=== PATIENT | female | born 1935 | race Caucasian/White ===

== ENCOUNTER 2016-07-03 10:43 | Inpatient (IN) | payer OTHER, BC ==
[2016-07-03] VITALS (7 sets, daily range): BP systolic 177–187; BP diastolic 60–86; PULSE 77–85; TEMP 36.4–36.7; O2SAT 97–98; Ht 149.9 cm; Wt 71.6 kg
[~2016-07-03] VITALS: Ht 149.9 cm; Wt 71.6 kg
[~2016-07-03 10:43] MED LIST: ATOR-54 PO; CLOP1TAB5 PO; METO100T7 PO
--- NOTE | 2016-07-03 11:11 | EMERGENCY ROOM VISIT NOTE ---
History Report prepared by Javier: Elise Stearns Under the Supervision of: Dr. Benny Martinez D.O. First contact with patient: 10:56 Chief Complaint: ABDOMINAL PAIN Stated Complaint: GENERALIZED WEAKNESS/FLU LIKE SX Nursing Triage Summary: Pt states she had flu like symptoms last week and black stool. Last night abd pain and diarrhea worsened. Noticed mucus in stool and blood on paper when she wiped. Pt also states shes weak. History of Present Illness The patient is a 80 year old female who presents to the Emergency Room with complaints of intermittent bloody stool beginning last night. The patient states that she has had flu-like symptoms for the last week. She complains of diarrhea, slime in the stool, and weakness. She denies any fever, chills, nausea , vomiting, history of heart attack, smoking, and heart stent. She reports that she has a history of stent in her right leg, amputated left leg from peripheral artery disease 6 years ago, hemorrhoids, cholecystectomy, and surgery on her ovary. The patient notes that she has never had a colonoscopy. She rates her pain as a 4/10 in severity. Source of History: patient Onset: last night Position: other (stool) Symptom Intensity: 4/10 Quality: other (bloody) Timing: intermittent Associated Symptoms: + diarrhea, + weakness, No chills, No fevers, No nausea , No vomiting Review of Systems See above for pertinent positives & negatives. A total of 10 systems reviewed and were otherwise negative. Past Medical & Surgical Medical Problems: (1) Peripheral arterial disease Family History Omitted due to age Social History Smoking Status: Never Smoker Alcohol Use: none Drug Use: none Marital Status: Housing Status: lives alone Occupation Status: retired Current/Historical Medications Scheduled Allopurinol (Allopurinol), 200 MG PO DAILY Atorvastatin (Atorvastatin Calcium), 10 MG PO DAILY Chlorthalidone (Chlorthalidone), 25 MG PO QAM Clopidogrel Bisulfate (Plavix), 75 MG PO DAILY Ergocalciferol (Vitamin D2), 2,000 UNITS PO DAILY Losartan Potassium (Cozaar), 50 MG PO DAILY Metoprolol Succinate (Toprol Xl), 100 MG PO DAILY Ocuvite Preservision (Ocuvite Preservision), 2 TAB PO DAILY Allergies Coded Allergies: No Known Allergies (Unverified , 07/03/16) Physical Exam Vital Signs Date Time Temp Pulse Resp B/P Pulse Ox O2 Delivery O2 Flow Rate FiO2 07/03/16 14:06 88 16 188/84 07/03/16 12:30 87 16 72/69 97 Room Air 07/03/16 10:54 86 07/03/16 10:48 36.4 88 18 178/89 95 Room Air Physical Exam GENERAL: Patient is well appearing and in no acute distress. HEENT: No acute trauma, normocephalic atraumatic, mucous membranes moist, no nasal congestion, no scleral icterus. NECK: No stridor, no adenopathy, no meningismus, trachea is midline. LUNGS: No dyspnea. Clear to auscultation and equal bilaterally. No wheeze, no rhonchi. HEART: Regular rate and rhythm. No murmurs, rubs, gallops appreciated. ABDOMEN: Soft, nontender, bowel sounds positive, no masses appreciated, no peritonitis. BACK: No midline tenderness, no CVA tenderness EXTREMITIES: Normal motion all extremities, no cyanosis, no edema. Missing left leg from mid thigh. NEUROLOGIC: Alert and oriented, no acute motor or sensory deficits, no focal weakness, cranial nerves grossly intact. SKIN: No rash, no jaundice, no diaphoresis. RECTAL: Yellow mucous stool, normal rectal exam, guaiac positive. Medical Decision & Procedures ER Provider Diagnostic Interpretation: X ray results and stated below per my interpretation and radiologist interpretation. AP CHEST WITH ABDOMINAL SERIES FINDINGS: An AP upright chest radiograph is compared to study dated 10/26/2014. The examination is degraded by apical lordotic positioning. The heart is mildly enlarged and there is atherosclerotic calcification of the thoracic aorta. The pulmonary vasculature is noncongested. Chronic elevation of the right hemidiaphragm and mild bibasilar atelectasis is similar to previous. No airspace consolidation, large pleural effusion, or pneumothorax is seen. The skeletal structures are osteopenic. The bony thorax is grossly intact. Supine and decubitus abdominal radiographs are obtained. No prior studies are available for comparison at the time of dictation. There is a nonobstructed abdominal bowel gas pattern. No evidence of intraperitoneal free air is seen. Vascular calcifications are noted in the pelvis. The skeletal structures are osteopenic. There is moderate lumbosacral spondylosis. The bony pelvis appears intact. IMPRESSION: 1. Cardiomegaly with no acute cardiopulmonary abnormality. 2. Nonobstructed abdominal bowel gas pattern. Electronically signed by: Quentin Jorge M.D. 07/03/2016 1:52 PM Dictated Date/Time: 07/03/2016 1:49 PM Laboratory Results 07/03/16 11:40 Red Blood Count 3.45, Mean Corpuscular Volume 93.0, Mean Corpuscular Hemoglobin 30.1, Mean Corpuscular Hemoglobin Concent 32.4, Mean Platelet Volume 8.8, Neutrophils (%) (Auto) 79.3, Lymphocytes (%) (Auto) 11.8, Monocytes (%) (Auto) 7.8, Eosinophils (%) (Auto) 0.0, Basophils (%) (Auto) 0.3, Neutrophils # (Auto) 6.32, Lymphocytes # (Auto) 0.94, Monocytes # (Auto) 0.62, Eosinophils # (Auto) 0.00, Basophils # (Auto) 0.02 07/03/16 11:40 Test 07/03/16 11:25 07/03/16 11:40 Influenza Type A (RT-PCR) Neg for Influ A (NEG) Influenza Type A Antigen Neg for Influ A (NEG) Influenza Type B Antigen Neg for Influ B (NEG) Influenza Type B (RT-PCR) Neg for Influ B (NEG) White Blood Count 7.96 K/uL (4.8-10.8) Red Blood Count 3.45 M/uL (4.2-5.4) Hemoglobin 10.4 g/dL (12.0-16.0) Hematocrit 32.1 % (37-47) Mean Corpuscular Volume 93.0 fL (80-100) Mean Corpuscular Hemoglobin 30.1 pg (25-34) Mean Corpuscular Hemoglobin Concent 32.4 g/dl (32-36) Platelet Count 127 K/uL (130-400) Mean Platelet Volume 8.8 fL (7.4-10.4) Neutrophils (%) (Auto) 79.3 % Lymphocytes (%) (Auto) 11.8 % Monocytes (%) (Auto) 7.8 % Eosinophils (%) (Auto) 0.0 % Basophils (%) (Auto) 0.3 % Neutrophils # (Auto) 6.32 K/uL (1.4-6.5) Lymphocytes # (Auto) 0.94 K/uL (1.2-3.4) Monocytes # (Auto) 0.62 K/uL (0.11-0.59) Eosinophils # (Auto) 0.00 K/uL (0-0.5) Basophils # (Auto) 0.02 K/uL (0-0.2) RDW Standard Deviation 53.8 fL (36.4-46.3) RDW Coefficient of Variation 15.9 % (11.5-14.5) Immature Granulocyte % (Auto) 0.8 % Immature Granulocyte # (Auto) 0.06 K/uL (0.00-0.02) Venous Blood pH 7.40 (7.36-7.41) Venous Blood Partial Pressure CO2 41 mmHg (38.0-50.0) Venous Blood Partial Pressure O2 37 mmHg Venous Blood HCO3 25 mmol/L Venous Blood Oxygen Saturation 66.9 % Venous Blood Base Excess 0.4 mmol/L Anion Gap 12.0 mmol/L (3-11) Est Creatinine Clear Calc Drug Dose 51.7 ml/min Estimated GFR () 81.9 Estimated GFR (Non- 70.7 BUN/Creatinine Ratio 43.9 (10-20) Lactic Acid Level 1.3 mmol/L (0.4-2.0) Calcium Level 8.9 mg/dl (8.5-10.1) Total Bilirubin 0.5 mg/dl (0.2-1) Direct Bilirubin 0.1 mg/dl (0-0.2) Aspartate Amino Transf (AST/SGOT) 14 U/L (15-37) Alanine Aminotransferase (ALT/SGPT) 17 U/L (12-78) Alkaline Phosphatase 89 U/L (45-117) Troponin I 0.028 ng/ml (0-0.045) Total Protein 6.5 gm/dl (6.4-8.2) Albumin 3.3 gm/dl (3.4-5.0) Lipase 181 U/L (73-393) Date/Time Source Procedure Growth Status 07/03/16 12:20 Stool C.difficile Toxin B Gene (PCR) - Final Positive for C. difficile toxin B gene Complete Laboratory results as reviewed by me. Medications Administered Medications (Trade) Dose Ordered Sig/Kyle Route Start Time Stop Time Status Last Admin Dose Admin Sodium Chloride (Nss 1000ml) 1,000 ml @ 999 mls/hr Q1H1M IV 07/03/16 11:15 08/02/16 11:14 07/03/16 12:00 999 MLS/HR Acetaminophen (Tylenol Tab) 500 mg NOW STAT PO 07/03/16 11:15 07/03/16 11:16 DC 07/03/16 12:01 500 MG ECG Indication: weakness Rate (beats per minute): 83 Rhythm: normal sinus Findings: RBBB, other (normal axis, interior infarct) ED Course 1058: The patient was evaluated in room B7. A complete history and physical exam was performed. 1115: Tylenol Tab 500mg PO, Sodium Chloride 1000 ml @ 999 mls/hr IV. 1406: Metronidazole 500mg IV. 1425: I spoke to Dr. Maravilla. She will evaluate the patient for further management. 1442: Upon reevaluation, the patient is hemodynamically stable . Discussed results and treatment plan with the patient. She verbalized understanding and agreement with the treatment plan. The patient will be evaluated for further management. Medical Decision Differential diagnosis: Etiologies such as appendicitis, diverticulitis, PUD, biliary pathology, UTI, pancreatitis, obstruction, mesenteric ischemia, aortic pathology, infections, inflammatory bowel disease, renal colic, as well as others were entertained. Consults Time Called: 1420 Consulting Physician: Dr. Maravilla Returned Call: [address] Maravilla. She will evaluate the patient for further management. Impression Primary Impression: C. difficile colitis Additional Impressions: Anemia Hypokalemia Scribe Attestation The scribe's documentation has been prepared under my direction and personally reviewed by me in its entirety. I confirm that the note above accurately reflects all work, treatment, procedures, and medical decision making performed by me. Departure Information Dispostion Being Evaluated By Hospitalist Referrals No Doctor, Assigned (PCP) Patient Instructions My [facility] Problem Qualifiers
[2016-07-03] MEDS ORDERED: ACETAMINOPHEN 500 MG TAB PO STA (11:15)
[2016-07-03] MEDS ORDERED: SODIUM CHLORIDE 0.9% 1000ML 1,000 ML IV SCH ×2 (11:15→15:00)
[2016-07-03] MEDS ORDERED: HYG25 PO (11:34)
[2016-07-03] MEDS ORDERED: LPT10 PO (11:34)
[2016-07-03] MEDS ORDERED: MULT-190 PO (11:34)
[2016-07-03] MEDS ORDERED: ERGO1TAB12 PO (11:34)
[2016-07-03] MEDS ORDERED: ALL100 PO (11:34)
[2016-07-03] MEDS ORDERED: LOSA50TA6 PO (11:34)
[2016-07-03 11:50] LABS: BASO % 0.3 %; BASO ABS # 0.02 K/uL (0-0.2); COMPLETE YES; HEMATOCRIT 32.1 % (37-47); IG% 0.8 %; LYMPH % 11.8 %; LYMPH ABS # 0.94 K/uL (1.2-3.4); MEAN CORPUSCULAR HEMOGLOBIN 30.1 pg (25-34); MEAN CORPUSCULAR HGB CONC 32.4 g/dl (32-36); MEAN PLATELET VOLUME 8.8 fL (7.4-10.4); MONO % 7.8 %; NEUT % 79.3 %; PLATELET COUNT 127 K/uL (130-400); RED BLOOD COUNT 3.45 M/uL (4.2-5.4); WHITE BLOOD COUNT 7.96 K/uL (4.8-10.8)
[2016-07-03 11:58] LABS: VEN BLD GAS O2 SATURATION 66.9 %; VEN BLOOD GAS BASE EXCESS 0.4 mmol/L
[2016-07-03 12:07] LABS: BUN/CREATININE RATIO 43.9 (10-20); CALCIUM 8.9 mg/dl (8.5-10.1); CREATININE 0.79 mg/dl (0.60-1.20); POTASSIUM 3.3 mmol/L (3.5-5.1)
--- NOTE | 2016-07-03 13:53 | DIAGNOSTIC IMAGING REPORT ---
AP CHEST WITH ABDOMINAL SERIES CLINICAL HISTORY: Generalized abdominal pain. Weakness. Flulike symptoms. FINDINGS: An AP upright chest radiograph is compared to study dated 10/26/2014. The examination is degraded by apical lordotic positioning. The heart is mildly enlarged and there is atherosclerotic calcification of the thoracic aorta. The pulmonary vasculature is noncongested. Chronic elevation of the right hemidiaphragm and mild bibasilar atelectasis is similar to previous. No airspace consolidation, large pleural effusion, or pneumothorax is seen. The skeletal structures are osteopenic. The bony thorax is grossly intact. Supine and decubitus abdominal radiographs are obtained. No prior studies are available for comparison at the time of dictation. There is a nonobstructed abdominal bowel gas pattern. No evidence of intraperitoneal free air is seen. Vascular calcifications are noted in the pelvis. The skeletal structures are osteopenic. There is moderate lumbosacral spondylosis. The bony pelvis appears intact. IMPRESSION: 1. Cardiomegaly with no acute cardiopulmonary abnormality. 2. Nonobstructed abdominal bowel gas pattern. Electronically signed by: Quentin Jorge M.D. 07/03/2016 1:52 PM Dictated Date/Time: 07/03/2016 1:49 PM
[2016-07-03] MEDS ORDERED: METRONIDAZOLE 500MG / 100ML NSS IV STA (14:06)
[2016-07-03 14:10] LABS: INFLUENZA A PCR Neg for Influ A (NEG); INFLUENZA B PCR Neg for Influ B (NEG)
[2016-07-03] MEDS ORDERED: POTASSIUM CHLORIDE 10 MEQ TABCR PO STA (14:59)
[2016-07-03] MEDS ORDERED: METRONIDAZOLE / NSS 500 MG in PREMIXED NSS 100 ML IV SCH (15:00)
[2016-07-03] MEDS ORDERED: ONDANSETRON INJ 2 MG/ML 2 ML VIAL IV PRN (15:00)
[2016-07-03] MEDS ORDERED: ACETAMINOPHEN 325 MG TAB PO PRN (15:00)
--- NOTE | 2016-07-03 15:39 | History and Physical ---
History & Physical Date & Time of Service: Jul 03, 2016 at 15:10 Chief Complaint: Generalized Weakness/Flu Like Sx Primary Care Physician: Alejandra Bansal M.D. History of Present Illness Source: patient, family, clinic records, hospital records Patient seen and examined. 80 year old female with PMHx of PVD s/p left AKA, diet controlled DM2, HTN, Anemia and other problems listed below presents to the ED complaining of diarrhea x 1 week. Patient reports she felt like she had the "stomach flu" over the weekend she felt like she was getting better but over the last 24 hours she has had increased diarrhea reports about 10 episodes in the last 24 hours. The stool is dark with scant blood and some mucous. She reports she feels "queasy" and also generally weak and worn out. She denies fevers, chills, URI symptoms, chest pain, SOB, vomiting, dysuria, calf pain and edema. She reports she has not been on an antibiotics for over a year. She reports her son in law had c. diff in the fall but he lives out of state and hasn't been home since [place]. In the ED patients BP is elevated. Stool is positive for c. diff. She is hypokalemic, otherwise lab work is stable. She is given IV flagyl and IVFs she will be admitted for further workup and treatment. Past Medical/Surgical History Medical Problems: (1) ASCVD (arteriosclerotic cardiovascular disease) Status: Chronic (2) DM2 (diabetes mellitus, type 2) Status: Chronic (3) Gout Status: Chronic (4) HTN (hypertension) Status: Chronic (5) PVD (peripheral vascular disease) Status: Chronic Surgical Problems: (1) History of removal of ovarian cyst Status: Chronic (2) Hx of AKA (above knee amputation) Status: Chronic (3) Hx of cholecystectomy Status: Chronic (4) S/P peripheral artery angioplasty Status: Chronic Family History FH: ALS (amyotrophic lateral sclerosis) FH: cancer FH: heart disease Social History Smoking Status: Never Smoker Alcohol Use: none Drug Use: none Marital Status: Housing status: lives alone Occupational Status: retired Allergies Coded Allergies: No Known Allergies (Unverified , 07/03/16) Home Medications Scheduled Allopurinol (Allopurinol), 200 MG PO DAILY Atorvastatin (Atorvastatin Calcium), 10 MG PO DAILY Chlorthalidone (Chlorthalidone), 25 MG PO QAM Clopidogrel Bisulfate (Plavix), 75 MG PO DAILY Ergocalciferol (Vitamin D2), 2,000 UNITS PO DAILY Losartan Potassium (Cozaar), 50 MG PO DAILY Metoprolol Succinate (Toprol Xl), 100 MG PO DAILY Ocuvite Preservision (Ocuvite Preservision), 2 TAB PO DAILY Review of Systems See above for pertinent positives & negatives. A total of 10 systems reviewed and were otherwise negative. Physical Exam Vital Signs Date Time Temp Pulse Resp B/P Pulse Ox O2 Delivery O2 Flow Rate FiO2 07/03/16 14:52 85 07/03/16 14:49 91 16 177/66 07/03/16 14:06 88 16 188/84 07/03/16 12:30 87 16 72/69 97 Room Air 07/03/16 10:54 86 07/03/16 10:48 36.4 88 18 178/89 95 Room Air General Appearance: + pertinent finding (Very pleasant WD/WN 80 year old female lying in bed in NAD ) Head: normocephalic, atraumatic Eyes: PERRL, EOMI, sclerae normal ENT: hearing grossly normal, pharynx normal Neck: supple, no JVD Respiratory/Chest: chest non-tender, lungs clear, normal breath sounds, no respiratory distress, no accessory muscle use Cardiovascular: regular rate, rhythm, no edema, no gallop, no JVD, no murmur, normal peripheral pulses Abdomen/GI: normal bowel sounds, non tender, soft Back: normal inspection, no CVA tenderness, no muscle spasm Extremities/Musculoskelatal: no calf tenderness, normal capillary refill, no pedal edema, + pertinent finding (Left above the knee amputation ) Neurologic/Psych: alert, oriented x 3, + pertinent finding (no focal deficits noted on gross exam ) Skin: normal color, warm/dry, no rash Lymphatic: no adenopathy Diagnostics Laboratory Results Results Past 24 Hours Test 07/03/16 11:25 07/03/16 11:40 Range/Units Influenza Type A (RT-PCR) Neg for Influ A NEG Influenza Type A Antigen Neg for Influ A NEG Influenza Type B Antigen Neg for Influ B NEG Influenza Type B (RT-PCR) Neg for Influ B NEG White Blood Count 7.96 4.8-10.8 K/uL Red Blood Count 3.45 4.2-5.4 M/uL Hemoglobin 10.4 12.0-16.0 g/dL Hematocrit 32.1 37-47 % Mean Corpuscular Volume 93.0 80-100 fL Mean Corpuscular Hemoglobin 30.1 25-34 pg Mean Corpuscular Hemoglobin Concent 32.4 32-36 g/dl Platelet Count 127 130-400 K/uL Mean Platelet Volume 8.8 7.4-10.4 fL Neutrophils (%) (Auto) 79.3 % Lymphocytes (%) (Auto) 11.8 % Monocytes (%) (Auto) 7.8 % Eosinophils (%) (Auto) 0.0 % Basophils (%) (Auto) 0.3 % Neutrophils # (Auto) 6.32 1.4-6.5 K/uL Lymphocytes # (Auto) 0.94 1.2-3.4 K/uL Monocytes # (Auto) 0.62 0.11-0.59 K/uL Eosinophils # (Auto) 0.00 0-0.5 K/uL Basophils # (Auto) 0.02 0-0.2 K/uL RDW Standard Deviation 53.8 36.4-46.3 fL RDW Coefficient of Variation 15.9 11.5-14.5 % Immature Granulocyte % (Auto) 0.8 % Immature Granulocyte # (Auto) 0.06 0.00-0.02 K/uL Venous Blood pH 7.40 7.36-7.41 Venous Blood Partial Pressure CO2 41 38.0-50.0 mmHg Venous Blood Partial Pressure O2 37 mmHg Venous Blood HCO3 25 mmol/L Venous Blood Oxygen Saturation 66.9 % Venous Blood Base Excess 0.4 mmol/L Sodium Level 145 136-145 mmol/L Potassium Level 3.3 3.5-5.1 mmol/L Chloride Level 111 98-107 mmol/L Carbon Dioxide Level 22 21-32 mmol/L Anion Gap 12.0 3-11 mmol/L Blood Urea Nitrogen 35 7-18 mg/dl Creatinine 0.79 0.60-1.20 mg/dl Est Creatinine Clear Calc Drug Dose 51.7 ml/min Estimated GFR () 81.9 Estimated GFR (Non- 70.7 BUN/Creatinine Ratio 43.9 10-20 Random Glucose 120 70-99 mg/dl Lactic Acid Level 1.3 0.4-2.0 mmol/L Calcium Level 8.9 8.5-10.1 mg/dl Total Bilirubin 0.5 0.2-1 mg/dl Direct Bilirubin 0.1 0-0.2 mg/dl Aspartate Amino Transf (AST/SGOT) 14 15-37 U/L Alanine Aminotransferase (ALT/SGPT) 17 12-78 U/L Alkaline Phosphatase 89 45-117 U/L Troponin I 0.028 0-0.045 ng/ml Total Protein 6.5 6.4-8.2 gm/dl Albumin 3.3 3.4-5.0 gm/dl Lipase 181 73-393 U/L Microbiology Results 07/03/16 C.difficile Toxin B Gene (PCR) - Final, Complete Positive for C. difficile toxin B gene Diagnostic Radiology CXR/KUB Per radiologist read: IMPRESSION: 1. Cardiomegaly with no acute cardiopulmonary abnormality. 2. Nonobstructed abdominal bowel gas pattern. EKG NSR 83 BPM, QTc 521, RBBB Impression Assessment and Plan 80 year old female presents to the ED with diarrhea, generalized weakness. Positive for C. diff C. DIFF DIARRHEA -admit to tele -C. diff positive, no signs of sepsis -Received IV Flagyl in ED, will changed to po vancomycin 125mg QID -gentle IVF hydration -contact precautions HYPOKALEMIA -3.3, likely secondary to diarrhea -replace -check Mg PROLONGED QTc INTERVAL -Qtc 522 -check Mg -monitor in tele -repeat EKG in AM HYPERTENSION -running high, patient says it's usually systolically in the 130s, but she is worked up about being in the hospital -takes her medications at night -monitor in tele -continue home antihypertensives HS PVD -S/P left AKA, stent to RLE -continue Plavix GOUT -continue Allopurinol DIET CONTROLLED DM2 -check A1c HLD -continue Statin DVT PROPHYLAXIS: Sq heparin CODE STATUS: LEVEL 5 DNR per my discussion with the patient DISPO:In my clinical judgment this beneficiary meets acute admission criteria, established by CMS, that includes being hospitalized through two midnights. Discharge planning eval Patient seen in collaboration with Dr. Maravilla ADDENDUM: I have seen and examined the patient and have discussed the case with the provider above. I agree with the assessment and plan as stated. The patient is already feeling somewhat better, has no pain in her abdomen, and is tolerating PO. Her BP was still around 175 systolic, however, the night nurse mentioned to me that she had just given the night antihypertensives. Cont to monitor on telemetry overnight. Jenifer Maravilla, DO Hospitalist Level of Care Telemetry Resuscitation Status DO NOT RESUSCITATE VTE Prophylaxis VTE Risk Assessment Done? Y/N: Yes Risk Level: Moderate Given or contraindicated: Unfractionated heparin SQ
[2016-07-03 16:13] LABS: PROTHROMBIN TIME (PATIENT) 10.6 SECONDS (9.0-12.0)
[2016-07-03] MEDS: VANCOMYCIN HCL 125 MG/2.5ML SOLN PO SCH ×2 (16:45→19:43)
[2016-07-03] MEDS: RASPBERRY SYRUP 5 ML UDP PO SCH ×2 (16:45→19:36)
[2016-07-03] MEDS: CLOPIDOGREL BISULFATE 75 MG TAB PO SCH (19:35)
[2016-07-03] MEDS: METOPROLOL SUCC 50MG EXT REL TAB PO SCH (19:35)
[2016-07-03] MEDS: ATORVASTATIN 10 MG TAB PO SCH (19:36)
[2016-07-03] MEDS ORDERED: LOSARTAN POTASSIUM 50 MG TAB PO SCH (21:00)
[2016-07-03] MEDS: HEPARIN SOD 5000 UNIT/0.5 ML CARP SQ SCH (21:01)
[2016-07-04] VITALS (10 sets, daily range): BP systolic 141–171; BP diastolic 56–68; PULSE 58–71; TEMP 36.5–37; O2SAT 95–97
[2016-07-04 01:02] LABS: URINE APPEARANCE CLEAR (CLEAR); URINE BILIRUBIN NEG (NEG); URINE COLOR YELLOW; URINE EPITHELIAL CELL AUTO >30 /lpf (0-5); URINE NITRITE NEG (NEG); UROBILINOGEN NEG (NEG); ZZUR CULT IF INDIC CLEAN CATCH YES
[2016-07-04 01:17] LABS: MANUAL MICROSCOPIC REQUIRED? NO; REVIEW REQ? NO
[2016-07-04] MEDS: HEPARIN SOD 5000 UNIT/0.5 ML CARP SQ SCH ×3 (06:03→21:16)
[2016-07-04 06:05] LABS: HEMATOCRIT 27.3 % (37-47); MEAN CELL VOLUME 91.6 fL (80-100); MEAN CORPUSCULAR HEMOGLOBIN 30.2 pg (25-34); PLATELET COUNT 113 K/uL (130-400); RED BLOOD COUNT 2.98 M/uL (4.2-5.4); WHITE BLOOD COUNT 6.28 K/uL (4.8-10.8)
[2016-07-04 06:47] LABS: BUN/CREATININE RATIO 39.9 (10-20); CALCIUM 7.9 mg/dl (8.5-10.1); CREATININE 0.72 mg/dl (0.60-1.20); MAGNESIUM 1.9 mg/dl (1.8-2.4); POTASSIUM 3.8 mmol/L (3.5-5.1)
[2016-07-04 07:21] LABS: ESTIMATED AVERAGE GLUCOSE 108 mg/dl; HA1C FLAG Normal (Normal)
[2016-07-04] MEDS: VANCOMYCIN HCL 125 MG/2.5ML SOLN PO SCH ×4 (07:51→21:34)
[2016-07-04] MEDS: RASPBERRY SYRUP 5 ML UDP PO SCH ×4 (07:52→21:12)
[2016-07-04] MEDS: CHOLECALCIFEROL 1000 INTER.UNIT TAB PO SCH (07:53)
[2016-07-04] MEDS: CEROVITE ADV FORMULA TAB PO SCH (07:53)
[2016-07-04] MEDS: CHLORTHALIDONE 25 MG TAB PO SCH (07:53)
[2016-07-04] MEDS: ALLOPURINOL 100 MG TAB PO SCH (07:53)
--- NOTE | 2016-07-04 11:34 | Progress Note ---
Internal Med Progress Note Date of Service: Jul 04, 2016. Provider Documentation: SUBJECTIVE: Patient is feeling better today. Diarrhea frequency is down -- 2 since AM, none overnight, consistency is same= watery, loose with no blood. No abdominal pain, fever, chills. No prior exposure to antibiotics or hospitalizations OBJECTIVE: Vital Signs-as noted below Exam: General-AAOX3, no distress Neck-Supple, No JVD Lungs-AEBE, no wheezing, crackles, rhonchi Heart-S1, S2 normal, No murmurs Abdomen-Soft, non tender, non distended, BS present Extremities-No edema Lab data as noted below. Diagnostic Radiology CXR/KUB Per radiologist read: IMPRESSION: 1. Cardiomegaly with no acute cardiopulmonary abnormality. 2. Nonobstructed abdominal bowel gas pattern. EKG NSR 83 BPM, QTc 521, RBBB ASSESSMENT & PLAN: Assessment and Plan : 80 year old female presents to the ED with diarrhea, generalized weakness. Positive for C. diff colitis +ve CLOSTRIDIUM DIFFICILE DIARRHEA : Improving, Diarrhea frequency is down -C. diff positive, no signs of sepsis, afebrile, no leucocytosis -Risk factors: None identified. No prior recent exposure to antibiotics x 1 year, No recent hospitalizations -Received IV Flagyl in ED, On PO vancomycin 125mg QID --> As this is her first episode of C diff, no sepsis, afebrile, no leucocytosis, Flagyl would have been the first choice, however, as her QTC was prolonged 521, would avoid Flagyl. -IVF to be continued -contact precautions HYPERNATREMIA, LIKELY HYPOVOLEMIC Secondary to diarrhea -Na 149 today -IV NS 1/2- at 75 cc/hour -Monitor HYPOKALEMIA -3.3, likely secondary to diarrhea -Resolved PROLONGED QTc INTERVAL -Qtc 522, on presentation -Down to 485 today -S/P IV Flagyl. Would avoid flagyl HYPERTENSION -Running high, patient says it's usually systolically in the 130s at home. -On losartan 50 mg, Metoprolol 100 mg q HS -Continue home antihypertensives HS PVD -S/P left AKA, stent to RLE -continue Plavix GOUT -continue Allopurinol DIET CONTROLLED DM2 -check A1c HLD -continue Statin DVT PROPHYLAXIS: Sq heparin CODE STATUS: LEVEL 5 DNR per my discussion with the patient DISPO: Ok to transfer to [facility] Encourage ambulation Vital Signs: Date Time Temp Pulse Resp B/P Pulse Ox O2 Delivery O2 Flow Rate FiO2 07/04/16 10:55 36.5 68 18 169/58 97 Room Air 07/04/16 08:00 Room Air 07/04/16 07:43 37.0 66 18 169/67 97 Room Air 07/04/16 04:00 97 Room Air 07/04/16 03:30 36.6 58 22 167/56 97 Room Air 07/04/16 00:29 36.9 66 23 141/62 95 Room Air 07/03/16 23:59 97 Room Air 07/03/16 20:00 97 Room Air 07/03/16 19:42 36.7 84 22 177/60 97 Room Air 07/03/16 18:00 77 177/75 07/03/16 16:07 36.4 85 16 187/86 98 Room Air 07/03/16 16:00 97 Room Air 07/03/16 15:45 80 170/95 97 Room Air 07/03/16 15:25 97 Room Air 07/03/16 14:52 85 07/03/16 14:49 91 16 177/66 07/03/16 14:06 88 16 188/84 07/03/16 12:30 87 16 72/69 97 Room Air Lab Results: Results Past 24 Hours Test 07/03/16 11:25 07/03/16 11:40 07/03/16 16:11 07/03/16 20:38 Range/Units Influenza Type A (RT-PCR) Neg for Influ A NEG Influenza Type A Antigen Neg for Influ A NEG Influenza Type B Antigen Neg for Influ B NEG Influenza Type B (RT-PCR) Neg for Influ B NEG White Blood Count 7.96 4.8-10.8 K/uL Red Blood Count 3.45 4.2-5.4 M/uL Hemoglobin 10.4 12.0-16.0 g/dL Hematocrit 32.1 37-47 % Mean Corpuscular Volume 93.0 80-100 fL Mean Corpuscular Hemoglobin 30.1 25-34 pg Mean Corpuscular Hemoglobin Concent 32.4 32-36 g/dl Platelet Count 127 130-400 K/uL Mean Platelet Volume 8.8 7.4-10.4 fL Neutrophils (%) (Auto) 79.3 % Lymphocytes (%) (Auto) 11.8 % Monocytes (%) (Auto) 7.8 % Eosinophils (%) (Auto) 0.0 % Basophils (%) (Auto) 0.3 % Neutrophils # (Auto) 6.32 1.4-6.5 K/uL Lymphocytes # (Auto) 0.94 1.2-3.4 K/uL Monocytes # (Auto) 0.62 0.11-0.59 K/uL Eosinophils # (Auto) 0.00 0-0.5 K/uL Basophils # (Auto) 0.02 0-0.2 K/uL RDW Standard Deviation 53.8 36.4-46.3 fL RDW Coefficient of Variation 15.9 11.5-14.5 % Immature Granulocyte % (Auto) 0.8 % Immature Granulocyte # (Auto) 0.06 0.00-0.02 K/uL Prothrombin Time 10.6 9.0-12.0 SECONDS Prothromb Time International Ratio 1.0 0.9-1.1 Venous Blood pH 7.40 7.36-7.41 Venous Blood Partial Pressure CO2 41 38.0-50.0 mmHg Venous Blood Partial Pressure O2 37 mmHg Venous Blood HCO3 25 mmol/L Venous Blood Oxygen Saturation 66.9 % Venous Blood Base Excess 0.4 mmol/L Sodium Level 145 136-145 mmol/L Potassium Level 3.3 3.5-5.1 mmol/L Chloride Level 111 98-107 mmol/L Carbon Dioxide Level 22 21-32 mmol/L Anion Gap 12.0 3-11 mmol/L Blood Urea Nitrogen 35 7-18 mg/dl Creatinine 0.79 0.60-1.20 mg/dl Est Creatinine Clear Calc Drug Dose 51.7 ml/min Estimated GFR () 81.9 Estimated GFR (Non- 70.7 BUN/Creatinine Ratio 43.9 10-20 Random Glucose 120 70-99 mg/dl Lactic Acid Level 1.3 0.4-2.0 mmol/L Calcium Level 8.9 8.5-10.1 mg/dl Magnesium Level 1.9 1.8-2.4 mg/dl Total Bilirubin 0.5 0.2-1 mg/dl Direct Bilirubin 0.1 0-0.2 mg/dl Aspartate Amino Transf (AST/SGOT) 14 15-37 U/L Alanine Aminotransferase (ALT/SGPT) 17 12-78 U/L Alkaline Phosphatase 89 45-117 U/L Troponin I 0.028 0-0.045 ng/ml Total Protein 6.5 6.4-8.2 gm/dl Albumin 3.3 3.4-5.0 gm/dl Lipase 181 73-393 U/L Bedside Glucose 105 129 70-90 mg/dl Test 07/04/16 00:45 07/04/16 05:30 07/04/16 06:53 Range/Units Urine Color YELLOW Urine Appearance CLEAR CLEAR Urine pH 5.0 4.5-7.5 Urine Specific [place] 1.010 1.000-1.030 Urine Protein 1+ NEG Urine Glucose (UA) NEG NEG Urine Ketones NEG NEG Urine Occult Blood 2+ NEG Urine Nitrite NEG NEG Urine Bilirubin NEG NEG Urine Urobilinogen NEG NEG Urine Leukocyte Esterase MODERATE NEG Urine WBC (Auto) >30 0-5 /hpf Urine RBC (Auto) 5-10 0-4 /hpf Urine Hyaline Casts (Auto) 1-5 0-5 /lpf Urine Epithelial Cells (Auto) >30 0-5 /lpf Urine Bacteria (Auto) NEG NEG White Blood Count 6.28 4.8-10.8 K/uL Red Blood Count 2.98 4.2-5.4 M/uL Hemoglobin 9.0 12.0-16.0 g/dL Hematocrit 27.3 37-47 % Mean Corpuscular Volume 91.6 80-100 fL Mean Corpuscular Hemoglobin 30.2 25-34 pg Mean Corpuscular Hemoglobin Concent 33.0 32-36 g/dl RDW Standard Deviation 53.3 36.4-46.3 fL RDW Coefficient of Variation 15.9 11.5-14.5 % Platelet Count 113 130-400 K/uL Mean Platelet Volume 9.0 7.4-10.4 fL Sodium Level 149 136-145 mmol/L Potassium Level 3.8 3.5-5.1 mmol/L Chloride Level 118 98-107 mmol/L Carbon Dioxide Level 22 21-32 mmol/L Anion Gap 9.0 3-11 mmol/L Blood Urea Nitrogen 29 7-18 mg/dl Creatinine 0.72 0.60-1.20 mg/dl Est Creatinine Clear Calc Drug Dose 53.7 ml/min Estimated GFR () 91.7 Estimated GFR (Non- 79.1 BUN/Creatinine Ratio 39.9 10-20 Random Glucose 94 70-99 mg/dl Estimated Average Glucose 108 mg/dl Hemoglobin A1c 5.4 4.5-5.6 % Calcium Level 7.9 8.5-10.1 mg/dl Magnesium Level 1.9 1.8-2.4 mg/dl Bedside Glucose 101 70-90 mg/dl Microbiology Results 07/03/16 C.difficile Toxin B Gene (PCR) - Final, Complete Positive for C. difficile toxin B gene 07/04/16 Urine Culture, Received Pending
[2016-07-04] MEDS: SODIUM CHLORIDE 0.45% 1000ML 1,000 ML IV SCH (13:21)
[2016-07-04] MEDS ORDERED: METRONIDAZOLE 500 MG TAB PO SCH (14:00)
[2016-07-04] MEDS ORDERED: LOSARTAN POTASSIUM 50 MG TAB PO ONE (14:15)
[2016-07-04] MEDS: METOPROLOL SUCC 50MG EXT REL TAB PO SCH (21:12)
[2016-07-04] MEDS: ATORVASTATIN 10 MG TAB PO SCH (21:12)
[2016-07-04] MEDS: CLOPIDOGREL BISULFATE 75 MG TAB PO SCH (21:12)
[2016-07-05] VITALS: BP 142/55; PULSE 64; TEMP 37.2; O2SAT 97
[2016-07-05] MEDS: SODIUM CHLORIDE 0.45% 1000ML 1,000 ML IV SCH (00:51)
[2016-07-05] MEDS: HEPARIN SOD 5000 UNIT/0.5 ML CARP SQ SCH (05:55)
[2016-07-05 06:10] LABS: HEMATOCRIT 26.8 % (37-47); MEAN CELL VOLUME 91.2 fL (80-100); MEAN CORPUSCULAR HEMOGLOBIN 29.6 pg (25-34); RED BLOOD COUNT 2.94 M/uL (4.2-5.4); WHITE BLOOD COUNT 6.99 K/uL (4.8-10.8)
[2016-07-05 06:11] LABS: MEAN CORPUSCULAR HGB CONC 32.5 g/dl (32-36); MEAN PLATELET VOLUME 8.7 fL (7.4-10.4); PLATELET COUNT 106 K/uL (130-400)
[2016-07-05 06:41] LABS: BUN/CREATININE RATIO 37.2 (10-20); CALCIUM 7.8 mg/dl (8.5-10.1); CREATININE 0.72 mg/dl (0.60-1.20); POTASSIUM 3.9 mmol/L (3.5-5.1)
[2016-07-05 08:05] VITALS: BP 152/61; PULSE 62; TEMP 36.4; O2SAT 98
[2016-07-05] MEDS: CEROVITE ADV FORMULA TAB PO SCH (08:45)
[2016-07-05] MEDS: ALLOPURINOL 100 MG TAB PO SCH (08:45)
[2016-07-05] MEDS: CHLORTHALIDONE 25 MG TAB PO SCH (08:46)
[2016-07-05] MEDS: CHOLECALCIFEROL 1000 INTER.UNIT TAB PO SCH (08:47)
[2016-07-05] MEDS: RASPBERRY SYRUP 5 ML UDP PO SCH (08:49)
[2016-07-05] MEDS: VANCOMYCIN HCL 125 MG/2.5ML SOLN PO SCH (08:49)
[2016-07-05] MEDS ORDERED: LOSARTAN POTASSIUM 50 MG TAB PO SCH (09:00)
--- NOTE | 2016-07-05 09:24 | Progress Note ---
Internal Med Progress Note Date of Service: Jul 05, 2016. Provider Documentation: SUBJECTIVE: Patient is feeling well. Diarrhea has almost resolved. No episodes since yesterday 1 pm. No abdominal pain, fever, chills, nausea, vomiting. Tolerating PO well No prior exposure to antibiotics or hospitalizations. OBJECTIVE: Vital Signs-as noted below Exam: General-AAOX3, no distress Neck-Supple, No JVD Lungs-AEBE, no wheezing, crackles, rhonchi Heart-S1, S2 normal, No murmurs Abdomen-Soft, non tender, non distended, BS present Extremities-No edema Lab data as noted below. Diagnostic Radiology : CXR/KUB Per radiologist read: 1. Cardiomegaly with no acute cardiopulmonary abnormality. 2. Nonobstructed abdominal bowel gas pattern. EKG NSR 83 BPM, QTc 521, RBBB ASSESSMENT & PLAN: Assessment and Plan : 80 year old female presents to the ED with diarrhea, generalized weakness. Positive for C. diff colitis +ve CLOSTRIDIUM DIFFICILE DIARRHEA : Improved clinically -C. diff positive, no signs of sepsis, afebrile, no leucocytosis, no BMs since 1 pm yesterday. -Risk factors: None identified. No prior recent exposure to antibiotics x 1 year, No recent hospitalizations -Received IV Flagyl in ED, On PO vancomycin 125mg QID --> As this is her first episode of C diff, no sepsis, afebrile, no leucocytosis, Flagyl would have been the first choice, however, as her QTC was prolonged 521, would avoid Flagyl. QTC back to normal after one dose of IV flagyl and its discontinuation -IVF - okay to discontinue -contact precautions HYPERNATREMIA, LIKELY HYPOVOLEMIC -Resolved Secondary to diarrhea -Na 149-->144 today -IV NS 1/2- at 75 cc/hour- okay to discontinue HYPOKALEMIA -3.3, likely secondary to diarrhea -Resolved PROLONGED QTc INTERVAL -Qtc 522, on presentation -Down to 485 post Flagyl discontinuation -S/P IV Flagyl. Would avoid flagyl HYPERTENSION -Running high, patient says it's usually systolically in the 130s at home. -On losartan 50 mg, Metoprolol 100 mg q HS -Continue home antihypertensives HS and monitor it outpatient PVD -S/P left AKA, stent to RLE -continue Plavix GOUT -continue Allopurinol DIET CONTROLLED DM2 -check A1c -5.4 HLD -continue Statin DVT PROPHYLAXIS: SQ heparin CODE STATUS: LEVEL 5 DNR per my discussion with the patient DISPO: Eager to be discharged PT/OT done- cleared for discharge Okay to discharge home today. Vital Signs: Date Time Temp Pulse Resp B/P Pulse Ox O2 Delivery O2 Flow Rate FiO2 07/05/16 08:05 36.4 62 16 152/61 98 Room Air 07/05/16 00:00 37.2 64 20 142/55 97 Room Air 07/05/16 00:00 Room Air 07/04/16 21:09 71 163/68 07/04/16 15:53 36.7 68 16 151/62 97 Room Air 07/04/16 15:45 97 Room Air 07/04/16 13:37 36.7 69 18 171/65 97 Room Air 07/04/16 13:37 97 Room Air 07/04/16 13:26 36.5 68 18 97 07/04/16 12:00 Room Air 07/04/16 10:55 36.5 68 18 169/58 97 Room Air Lab Results: Results Past 24 Hours Test 07/04/16 11:18 07/05/16 05:50 07/05/16 07:35 Range/Units Bedside Glucose 109 109 70-90 mg/dl White Blood Count 6.99 4.8-10.8 K/uL Red Blood Count 2.94 4.2-5.4 M/uL Hemoglobin 8.7 12.0-16.0 g/dL Hematocrit 26.8 37-47 % Mean Corpuscular Volume 91.2 80-100 fL Mean Corpuscular Hemoglobin 29.6 25-34 pg Mean Corpuscular Hemoglobin Concent 32.5 32-36 g/dl RDW Standard Deviation 53.6 36.4-46.3 fL RDW Coefficient of Variation 16.0 11.5-14.5 % Platelet Count 106 130-400 K/uL Mean Platelet Volume 8.7 7.4-10.4 fL Sodium Level 144 136-145 mmol/L Potassium Level 3.9 3.5-5.1 mmol/L Chloride Level 113 98-107 mmol/L Carbon Dioxide Level 23 21-32 mmol/L Anion Gap 8.0 3-11 mmol/L Blood Urea Nitrogen 27 7-18 mg/dl Creatinine 0.72 0.60-1.20 mg/dl Est Creatinine Clear Calc Drug Dose 53.7 ml/min Estimated GFR () 91.7 Estimated GFR (Non- 79.1 BUN/Creatinine Ratio 37.2 10-20 Random Glucose 103 70-99 mg/dl Calcium Level 7.8 8.5-10.1 mg/dl
[2016-07-05] MEDS ORDERED: VNCS125 PO (09:25)
--- NOTE | 2016-07-05 09:27 | Discharge Instructions ---
Discharge Instructions Date of Service Jul 05, 2016. Admission Reason for Admission: C. Difficile Colitis, Hypokalemia Discharge Discharge Diagnosis / Problem: 1. Clostridium Difficile colitis 2. Hypokalemia Discharge Goals Goal(s): Therapeutic intervention Activity Recommendations Activity Limitations: resume your previous activity (as tolerated prior to discharge) . Instructions / Follow-Up Instructions / Follow-Up NEW MEDICATIONS: 1. Flagyl 500 mg PO TID x 9 more days to complete course of 10 days of antibiotics for c diff colitis 2. Probiotics x 30 days MONITOR QTC interval did go up on Flagyl, so was treated with Vancomycin while in hospital. QTC normalized. Vancomycin not covered by insurance, so plan is for flagyl while monitoring QTC interval outpatient. FOLLOW UP: 1. Follow up with PCP, Dr Bansal 07/09/16 at 10:10 AM Current Hospital Diet Patient's current hospital diet: AHA Diet (Heart Healthy), Diabetes Type 2 Diet Discharge Diet Recommended Diet: AHA Diet (Heart Healthy), Low Sodium Diet (2gm Na), Diabetes Type 2 Diet Pending Studies Studies pending at discharge: no Laboratory Results Hemoglobin A1c Test 07/04/16 05:30 Range/Units Estimated Average Glucose 108 mg/dl Hemoglobin A1c 5.4 4.5-5.6 % Medical Emergencies . Who to Call and When: Medical Emergencies: If at any time you feel your situation is an emergency, please call 911 immediately. . Non-Emergent Contact Non-Emergency issues call your: Primary Care Provider . . "Provider Documentation" section prepared by Mariela Vela. VTE Core Measure Inpt VTE Proph given/why not?: Unfractionated heparin SQ
--- NOTE | 2016-07-05 09:30 | Discharge Summary ---
Discharge Summary Date of Service Jul 05, 2016. Discharge Summary Admission Date: Jul 03, 2016 at 15:05 Discharge Date: Jul 05, 2016 Discharge Disposition: Home Principal Diagnosis: 1. Clostridium difficile colitis (First episode) 2. Hypokalemia secondary to chlorthalidone/Diarrhea 3. Hypernatremia, mild, hypovolemic secondary to diarrhea 4. Prolonged QTC, resolved Secondary Diagnoses/Problems: 1. PVD 2. Hypertension 3. DM-2, Diet controlled 4. Gout Procedures: CXR/ABD x ray IVF IV antibiotics C diff- positive Consultations: None Pending Studies/Follow-Up: Instructions / Follow-Up NEW MEDICATIONS: 1. Vancomycin 125 mg PO QID x 9 more days to complete course of 10 days of antibiotics for c diff colitis 2. Probiotics x 30 days FOLLOW UP: 1. Follow up with PCP, Dr Bansal 07/09/16 at 10:10 AM Medication Reconciliation New Medications: Metronidazole (Flagyl) 500 Mg Tab 500 MG PO TID for 9 Days, #27 TAB Continued Medications: Allopurinol (Allopurinol) 100 Mg Tab 200 MG PO DAILY Atorvastatin (Atorvastatin Calcium) 10 Mg Tab 10 MG PO DAILY Chlorthalidone (Chlorthalidone) 25 Mg Tab 25 MG PO QAM Clopidogrel Bisulfate (Plavix) 75 Mg Tab 75 MG PO DAILY, TAB Ergocalciferol (Vitamin D2) 2,000 Unit Tab 2000 UNITS PO DAILY Losartan Potassium (Cozaar) 50 Mg Tab 50 MG PO DAILY, TAB Metoprolol Succinate (Toprol Xl) 100 Mg Tab 100 MG PO DAILY, TAB Ocuvite Preservision (Ocuvite Preservision) 1 Tab Tab 2 TAB PO DAILY, TAB Admission Information HPI (per Admitting provider): Patient seen and examined. 80 year old female with PMHx of PVD s/p left AKA, diet controlled DM2, HTN, Anemia and other problems listed below presents to the ED complaining of diarrhea x 1 week. Patient reports she felt like she had the "stomach flu" over the weekend she felt like she was getting better but over the last 24 hours she has had increased diarrhea reports about 10 episodes in the last 24 hours. The stool is dark with scant blood and some mucous. She reports she feels "queasy" and also generally weak and worn out. She denies fevers, chills, URI symptoms, chest pain, SOB, vomiting, dysuria, calf pain and edema. She reports she has not been on an antibiotics for over a year. She reports her son in law had c. diff in the fall but he lives out of state and hasn't been home since . In the ED patients BP is elevated. Stool is positive for c. diff. She is hypokalemic, otherwise lab work is stable. She is given IV flagyl and IVFs she will be admitted for further workup and treatment. Physical Exam (per Admitting): General Appearance: + pertinent finding (Very pleasant WD/WN 80 year old female lying in bed in NAD ) Head: normocephalic, atraumatic Eyes: PERRL, EOMI, sclerae normal ENT: hearing grossly normal, pharynx normal Neck: supple, no JVD Respiratory/Chest: chest non-tender, lungs clear, normal breath sounds, no respiratory distress, no accessory muscle use Cardiovascular: regular rate, rhythm, no edema, no gallop, no JVD, no murmur , normal peripheral pulses Abdomen/GI: normal bowel sounds, non tender, soft Back: normal inspection, no CVA tenderness, no muscle spasm Extremities/Musculoskelatal: no calf tenderness, normal capillary refill, no pedal edema, + pertinent finding (Left above the knee amputation ) Neurologic/Psych: alert, oriented x 3, + pertinent finding (no focal deficits noted on gross exam ) Skin: normal color, warm/dry, no rash Lymphatic: no adenopathy Hospital Course Assessment and Plan : 80 year old female presents to the ED with diarrhea, generalized weakness. Positive for C. diff colitis +ve CLOSTRIDIUM DIFFICILE DIARRHEA : Improved clinically -C. diff positive, no signs of sepsis, afebrile, no leucocytosis, no BMs since 1 pm yesterday. -Risk factors: None identified. No prior recent exposure to antibiotics x 1 year, No recent hospitalizations -Received IV Flagyl in ED, On PO vancomycin 125mg QID --> As this is her first episode of C diff, no sepsis, afebrile, no leucocytosis, Flagyl would have been the first choice, however, as her QTC was prolonged 521, avoided Flagyl. QTC back to normal per EKG on 07/04/16. Checked with pharmacy, Vancomycin PO-liquid or capsule form not covered by insurance, so will give Flagyl PO TID x 9 more days to complete course of 10 days. Need to monitor QTC outpatient -IVF - okay to discontinue -contact precautions HYPERNATREMIA, LIKELY HYPOVOLEMIC -Resolved Secondary to diarrhea -Na 149-->144 today -IV NS 1/2- at 75 cc/hour- okay to discontinue HYPOKALEMIA -3.3, likely secondary to diarrhea -Resolved PROLONGED QTc INTERVAL -Qtc 522, on presentation -Down to 485 post Flagyl discontinuation -Flagyl PO TID given as vancomycin not covered -Monitor QTC interval outpatient HYPERTENSION -Running high, patient says it's usually systolically in the 130s at home. -On losartan 50 mg, Metoprolol 100 mg q HS -Continue home antihypertensives HS and monitor it outpatient PVD -S/P left AKA, stent to RLE -continue Plavix GOUT -continue Allopurinol DIET CONTROLLED DM2 -check A1c -5.4 HLD -continue Statin DVT PROPHYLAXIS: SQ heparin CODE STATUS: LEVEL 5 DNR per my discussion with the patient DISPO: Eager to be discharged PT/OT done- cleared for discharge Okay to discharge home today. Total time spent on discharge = 32 MINUTES This includes examination of the patient, discharge planning, medication reconciliation, and communication with other providers. Discharge Instructions Discharge Diagnosis / Problem: 1. Clostridium Difficile colitis 2. Hypokalemia Discharge Goals Goal(s): Therapeutic intervention Activity Recommendations Activity Limitations: resume your previous activity (as tolerated prior to discharge) . Instructions / Follow-Up Instructions / Follow-Up NEW MEDICATIONS: 1. Vancomycin 125 mg PO QID x 9 more days to complete course of 10 days of antibiotics for c diff colitis 2. Probiotics x 30 days FOLLOW UP: 1. Follow up with PCP, Dr Bansal 07/09/16 at 10:10 AM Current Hospital Diet Patient's current hospital diet: AHA Diet (Heart Healthy), Diabetes Type 2 Diet Discharge Diet Recommended Diet: AHA Diet (Heart Healthy), Low Sodium Diet (2gm Na), Diabetes Type 2 Diet Pending Studies Studies pending at discharge: no Laboratory Results Hemoglobin A1c Test 07/04/16 05:30 Range/Units Estimated Average Glucose 108 mg/dl Hemoglobin A1c 5.4 4.5-5.6 % Medical Emergencies . Who to Call and When: Medical Emergencies: If at any time you feel your situation is an emergency, please call 911 immediately. . Non-Emergent Contact Non-Emergency issues call your: Primary Care Provider . . "Provider Documentation" section prepared by Mariela Vela. VTE Core Measure Inpt VTE Proph given/why not?: Unfractionated heparin SQ
[2016-07-05] MEDS ORDERED: METR-163 PO (09:53)
[2016-07-05 11:44] VITALS: BP 152/61; PULSE 62; TEMP 36.4; O2SAT 98
== END 2016-07-05 14:43 | disposition home or self-care (01) | DRG 372 ==
LOC: ENRESERVTM → ENRESERVDT → C.EDC 10:43 → EDBD 10:43 → EDBEDREQ 15:04 → UNDOADMIN 15:05 → C.2E 15:05 → EDBEDREQSVC 15:07 → EDBEDREQ 15:07 → C.MS2W 07-04 13:32
PROVIDERS: ADMIT Hospitalist; ATTEND Internal Medicine
DX: A04.7 Enterocolitis due to Clostridium difficile (principal); E87.0 Hyperosmolality and hypernatremia; E11.51 Type 2 diabetes mellitus with diabetic peripheral angiopathy without gangrene; I10 Essential (primary) hypertension; M10.9 Gout, unspecified; I25.10 Atherosclerotic heart disease of native coronary artery without angina pectoris; Z90.49 Acquired absence of other specified parts of digestive tract; Z82.0 Family history of epilepsy and other diseases of the nervous system; Z80.9 Family history of malignant neoplasm, unspecified; Z82.49 Family history of ischemic heart disease and other diseases of the circulatory system; Z79.899 Other long term (current) drug therapy; Z79.02 Long term (current) use of antithrombotics/antiplatelets; E87.6 Hypokalemia; E78.5 Hyperlipidemia, unspecified; Z66 Do not resuscitate; Z89.612 Acquired absence of left leg above knee

== ENCOUNTER 2021-02-16 07:12 | Inpatient (IN) ==
[2021-02-16] MEDS ORDERED: CEFEPIME 2,000 MG/20 ML VIAL IV STA ×2 (07:48→11:13)
--- NOTE | 2021-02-16 07:53 | Emergency Department Note ---
History of Present Illness General Chief complaint: Shortness of Breath/Dyspnea Stated complaint: RESP. DIFF Time Seen by Provider: 02/16/21 07:25 History of Present Illness 85-year-old female presents to the ED from [facility] with a chief complaint of shortness of breath for the past couple of days. She is apparently chronically anemic with a hemoglobin baseline around 7. The patient provides no other information at this time. She is chronically not on oxygen at the rehab facility. She is requiring 5 L here. Oxygen saturations were below 88% at the rehab facility. Home Medications Medication Instructions Recorded Confirmed Type Saccharomyces boulardii 250 mg 250 mg PO QAM 02/16/21 02/16/21 History capsule (Florastor) allopurinol 100 mg tablet 100 mg PO QAM 02/16/21 02/16/21 History (Zyloprim) amlodipine 10 mg tablet (Norvasc) 10 mg PO QAM 02/16/21 02/16/21 History atorvastatin 10 mg tablet (Lipitor) 10 mg PO QAM 02/16/21 02/16/21 History cholecalciferol (vitamin D3) 50 50 mcg PO QAM 02/16/21 02/16/21 History mcg (2,000 unit) capsule (Vitamin D3) clopidogrel 75 mg tablet (Plavix) 75 mg PO QAM 02/16/21 02/16/21 History cyanocobalamin (vitamin B-12) 1,000 mcg PO QAM 02/16/21 02/16/21 History 1,000 mcg tablet (Vitamin B-12) enoxaparin 30 mg/0.3 mL 30 mg SUBCUT HS 02/16/21 02/16/21 History subcutaneous syringe (Lovenox) ferrous sulfate 325 mg (65 mg 325 mg PO BID 02/16/21 02/16/21 History iron) tablet (FeroSul) furosemide 40 mg tablet (Lasix) 40 mg PO QAM 02/16/21 02/16/21 History gabapentin 100 mg capsule 100 mg PO Q8H 02/16/21 02/16/21 History (Neurontin) ipratropium 0.5 mg-albuterol 3 mg 3 ml INHALATION Q6H 02/16/21 02/16/21 History (2.5 mg base)/3 mL nebulization soln losartan 50 mg tablet (Cozaar) 50 mg PO Q12 02/16/21 02/16/21 History metoprolol succinate 100 mg 100 mg PO QAM 02/16/21 02/16/21 History tablet,extended release 24 hr (Toprol XL) tramadol 50 mg tablet (Ultram) 50 mg PO Q4H 02/16/21 02/16/21 History vitamin A-vitamin C-vit E-min 1 tab PO BID 02/16/21 02/16/21 History tablet (Ocutabs) Allergies Allergy/AdvReac Type Severity Reaction Status Date / Time No Known Allergies Allergy Unverified 02/16/21 08:30 Past Med/Surg History Social History Smoking Status: Never smoker Preferred Language: Bulgarian Feels Safe at Home: Yes Review of Systems A total of 10 systems reviewed and were otherwise negative Physical Exam Vital Signs Vital Signs - 24 hr 02/16/21 07:12 02/16/21 08:02 02/16/21 08:40 Temperature 36.8 C Temperature Source Oral Pulse Rate 81 Pulse Rate [Left Finger] 68 Pulse Rhythm [Left Finger] Pulse Strength [Left Finger] Respiratory Rate 20 24 20 Respiratory Effort / Characteristics Labored Respiratory Depth Respiratory Pattern Blood Pressure 146/49 H Blood Pressure [Left Arm] 153/75 H Blood Pressure Mean 81 Blood Pressure Mean [Left Arm] 101 Blood Pressure Position [Left Arm] Sitting Pulse Oximetry 97 96 96 Oxygen Delivery Method Nasal Cannula Nasal Cannula Oxygen Flow Rate 5 5 Sepsis Recent Fever Within 48 Hours No Sepsis New/Unexplained Change in Mental Status No Sepsis Action Taken by Nursing No Action Required 02/16/21 10:10 Temperature Temperature Source Pulse Rate Pulse Rate [Left Finger] 67 Pulse Rhythm [Left Finger] Regular Pulse Strength [Left Finger] Normal Respiratory Rate 16 Respiratory Effort / Characteristics Labored Respiratory Depth Normal Respiratory Pattern Regular Blood Pressure Blood Pressure [Left Arm] 152/78 H Blood Pressure Mean Blood Pressure Mean [Left Arm] 102 Blood Pressure Position [Left Arm] Sitting Pulse Oximetry 92 Oxygen Delivery Method Nasal Cannula Oxygen Flow Rate 5 Sepsis Recent Fever Within 48 Hours Sepsis New/Unexplained Change in Mental Status Sepsis Action Taken by Nursing CONSTITUTIONAL/VITAL SIGNS: Reviewed / noted above. GENERAL: Non-toxic in appearance. Generalized weakness. INTEGUMENTARY: Warm, dry, and [place]. HEAD: Normocephalic. EYES: without scleral icterus or trauma. ENT/OROPHARYNX: clear and moist. LYMPHADENOPATHY/NECK: Is supple without lymphadenopathy or meningismus. RESPIRATORY: Diminished bilaterally. Poor respiratory effort. No increased work of breathing. CARDIOVASCULAR: Regular rate and rhythm. GI/ABDOMEN: Soft and nontender. No organomegaly or pulsatile mass. EXTREMITIES: Warm and well perfused. Left AKA. Some right leg mild pedal edema. BACK: No CVA tenderness. NEUROLOGICAL: Intact without focal deficits. PSYCHIATRIC: normal affect. MUSCULOSKELETAL: Normally developed with good muscle tone. TRIAGE NURSING DOCUMENTATION REVIEWED. Course Administered Medications Discontinued Medications Cefepime HCl (Maxipime) 2,000 mg in 20 mls @ 5 mls/min IV NOW STA; Protocol Stop: 02/16/21 07:51 Last Admin: 02/16/21 08:15 Dose: 5 mls/min Documented by: [id number] Cefepime HCl (Maxipime) 2,000 mg in 20 mls @ 5 mls/min IV NOW STA; Protocol Stop: 02/16/21 11:16 Last Admin: 02/16/21 11:33 Dose: Not Given Documented by: [id number] Sodium Chloride (Nss 1000ml) 500 mls @ 999 mls/hr IV .Q31M ONE Stop: 02/16/21 11:43 Last Admin: 02/16/21 11:35 Dose: 999 mls/hr Documented by: [id number] Medical Decision Making Differential Diagnosis The differential was considered includes acute myocardial infarction, acute co ronary syndrome, myocarditis, pericarditis, pericardial effusions /tamponad, esophageal perforation, pulmonary embolism, pneumonia, pneumothorax, cardiomyopathy, congestive heart, anemia , COPD/asthma exacerbation. Medical Records Attestation: I reviewed the patient's medical records. Home Medications Current Medication List: was personally reviewed by me Laboratory Data Attestation: I reviewed the patient's lab results. Result diagrams: 02/16/21 07:30 02/16/21 07:30 Lab Results 02/16/21 02/16/21 02/16/21 Range/Units 07:30 07:30 07:30 WBC 11.41 H (4.8-10.8) K/uL RBC 2.61 L (4.2-5.4) M/uL Hgb 7.0 L (12.0-16.0) g/dL Hct 22.9 L (37-47) % MCV 87.7 (80-100) fL MCH 26.8 (25-34) pg MCHC 30.6 L (32-36) g/dL RDW Std Deviation 59.5 H (36.4-46.3) fL RDW Coeff of Hugo 19.2 H (11.5-14.5) % Plt Count 244 (130-400) K/uL MPV 8.4 (7.4-10.4) fL Immature Gran % (Auto) 5.3 % Neut % (Auto) 80.5 % Lymph % (Auto) 7.0 % [place] % (Auto) 6.9 % Eos % (Auto) 0.1 % Baso % (Auto) 0.2 % Neut # (Auto) 9.19 H (1.4-6.5) K/uL Lymph # (Auto) 0.80 L (1.2-3.4) K/uL [place] # (Auto) 0.79 H (0.11-0.59) K/uL Eos # (Auto) 0.01 (0-0.5) K/uL Baso # (Auto) 0.02 (0-0.2) K/uL Immature Gran # (Auto) 0.60 H (0.00-0.02) K/uL Absolute Nucleated RBC 0.05 H (0-0) K/uL Nucleated RBC % (auto) 0.5 % Anisocytosis Present PT 10.9 (9.0-12.0) Seconds INR 1.1 (0.9-1.1) APTT 22.6 (21.0-31.0) Seconds PTT Ratio 0.9 Sodium 141 (136-145) mmol/L Potassium 5.3 H (3.5-5.1) mmol/L Chloride 111 H (98-107) mmol/L Carbon Dioxide 23 (21-32) mmol/L Anion Gap 8.0 (3-11) BUN 108 H (7-18) mg/dl Creatinine 2.48 H (0.6-1.2) mg/dl Est Cr Clr Drug Dosing 14.3 ml/min Est GFR ( Amer) 19.8 ml/min Est GFR (Non-Af Amer) 17.1 ml/min BUN/Creatinine Ratio 43.5 H (10-20) Glucose 99 (70-99) mg/dl Lactate (0.4-2.0) mmol/L Calcium 8.6 (8.5-10.1) mg/dl Magnesium 3.1 H (1.8-2.4) mg/dl Total Bilirubin 0.6 (0.2-1) mg/dl AST 10 L (15-37) U/L ALT 17 (12-78) U/L Alkaline Phosphatase 98 (45-117) U/L Troponin I 0.022 (0-0.045) ng/ml NT-Pro-B Natriuret Pep > 80209 H (0-1800) pg/ml Total Protein 6.0 L (6.4-8.2) gm/dl Albumin 1.6 L (3.4-5.0) gm/dl Globulin 4.4 H (2.5-4.0) gm/dl Albumin/Globulin Ratio 0.4 L (0.9-2) Procalcitonin (0-0.5) ng/ml COVID-19 Eval Order 02/16/21 02/16/21 02/16/21 Range/Units 07:30 07:57 11:36 WBC (4.8-10.8) K/uL RBC (4.2-5.4) M/uL Hgb (12.0-16.0) g/dL Hct (37-47) % MCV (80-100) fL MCH (25-34) pg MCHC (32-36) g/dL RDW Std Deviation (36.4-46.3) fL RDW Coeff of Hugo (11.5-14.5) % Plt Count (130-400) K/uL MPV (7.4-10.4) fL Immature Gran % (Auto) % Neut % (Auto) % Lymph % (Auto) % [place] % (Auto) % Eos % (Auto) % Baso % (Auto) % Neut # (Auto) (1.4-6.5) K/uL Lymph # (Auto) (1.2-3.4) K/uL [place] # (Auto) (0.11-0.59) K/uL Eos # (Auto) (0-0.5) K/uL Baso # (Auto) (0-0.2) K/uL Immature Gran # (Auto) (0.00-0.02) K/uL Absolute Nucleated RBC (0-0) K/uL Nucleated RBC % (auto) % Anisocytosis PT (9.0-12.0) Seconds INR (0.9-1.1) APTT (21.0-31.0) Seconds PTT Ratio Sodium (136-145) mmol/L Potassium (3.5-5.1) mmol/L Chloride (98-107) mmol/L Carbon Dioxide (21-32) mmol/L Anion Gap (3-11) BUN (7-18) mg/dl Creatinine (0.6-1.2) mg/dl Est Cr Clr Drug Dosing ml/min Est GFR ( Amer) ml/min Est GFR (Non-Af Amer) ml/min BUN/Creatinine Ratio (10-20) Glucose (70-99) mg/dl Lactate 1.1 (0.4-2.0) mmol/L Calcium (8.5-10.1) mg/dl Magnesium (1.8-2.4) mg/dl Total Bilirubin (0.2-1) mg/dl AST (15-37) U/L ALT (12-78) U/L Alkaline Phosphatase (45-117) U/L Troponin I (0-0.045) ng/ml NT-Pro-B Natriuret Pep (0-1800) pg/ml Total Protein (6.4-8.2) gm/dl Albumin (3.4-5.0) gm/dl Globulin (2.5-4.0) gm/dl Albumin/Globulin Ratio (0.9-2) Procalcitonin 0.19 (0-0.5) ng/ml COVID-19 Eval Order Covid19 at [facility] Imaging Data Radiologist's Impression: Chest X-Ray 02/16/21 07:48 XR chest 1V portable CLINICAL HISTORY: SEPSIS TECHNIQUE: Single frontal radiograph of the chest was obtained. Comparison: None available at the time of this dictation. FINDINGS: No lines and tubes are seen. Cardiomegaly is noted. There is a left retrocardiac opacity. Blunting of the left costophrenic angle is seen. No pneumothorax is seen. IMPRESSION: 1. Left retrocardiac opacity which may represent atelectasis, pneumonia, layering effusion, and/or aspiration. 2. Left phrenic angle blunting likely represent small to moderate pleural effusion. ACT 112: Negative or not required by law. Electronically signed by: Leonard Underwood M.D. 02/16/2021 8:49 AM ECG Data Attestation: I personally reviewed and interpreted this ECG as follows: Additional Comments: Twelve-lead EKG: Per my interpretation shows normal sinus rhythm at a rate of 69. Right bundle branch block. T wave inversions anterolaterally. MDM Narrative Patient presents with shortness of breath for 2 days. She has received his Lasix and albuterol during her rehab stay. She is in rehab for the past 10 days or so. EKG did not show any ischemic changes. Chest x-ray reveals a left retrocardiac pneumonia. White blood cell count 11.4. Hemoglobin is around 7. This is near her baseline. Potassium is 5.3, BUN is 108 and creatinine is 2.48. Baseline creatinine is around 1.4. The patient was treated with some IV fluids. She was given IV cefepime. She will be seen by the hospitalist for further inpatient evaluation and care. Impression & Plan MARIELA (acute kidney injury), Left lower lobe pneumonia Discharge Plan Visit Data Chief Complaint: Shortness of Breath/Dyspnea Stated Complaint: RESP. DIFF ED Provider: Tim Rudolph Discharge Problem: MARIELA (acute kidney injury), Left lower lobe pneumonia Patient Disposition: Being Evaluated by Hospitalist Forms Stand Alone Forms: My [facility] Prescriptions Prescriptions: No Action losartan [Cozaar] 50 mg tablet 50 mg PO Q12 RF: 0 furosemide [Lasix] 40 mg tablet 40 mg PO QAM RF: 0 ipratropium-albuterol 0.5 mg-3 mg(2.5 mg base)/3 mL Solution For Nebulization 3 ml INHALATION Q6H RF: 0 atorvastatin [Lipitor] 10 mg tablet 10 mg PO QAM RF: 0 metoprolol succinate [Toprol XL] 100 mg tablet extended release 24 hr 100 mg PO QAM RF: 0 cyanocobalamin (vitamin B-12) [Vitamin B-12] 1,000 mcg Tablet 1,000 mcg PO QAM RF: 0 clopidogrel [Plavix] 75 mg tablet 75 mg PO QAM RF: 0 allopurinol [Zyloprim] 100 mg tablet 100 mg PO QAM RF: 0 tramadol [Ultram] 50 mg Tablet 50 mg PO Q4H RF: 0 amlodipine [Norvasc] 10 mg tablet 10 mg PO QAM RF: 0 ferrous sulfate [FeroSul] 325 mg (65 mg iron) tablet 325 mg PO BID RF: 0 gabapentin [Neurontin] 100 mg capsule 100 mg PO Q8H RF: 0 enoxaparin [Lovenox] 30 mg/0.3 mL Syringe 30 mg SUBCUT HS RF: 0 Ocutabs Tablet 1 tab PO BID RF: 0 Saccharomyces boulardii [Florastor] 250 mg Capsule 250 mg PO QAM RF: 0 cholecalciferol (vitamin D3) [Vitamin D3] 50 mcg (2,000 unit) Capsule 50 mcg PO QAM RF: 0 Referrals Referrals: [facility] [Primary Care Provider] -
[2021-02-16 07:56] LABS: Hematocrit (blood only) 22.9 % (37-47); Mean Corpuscular Hemoglobin 26.8 pg (25-34); Mean Corpuscular Hgb Conc 30.6 g/dL (32-36); Mean Corpuscular Volume 87.7 fL (80-100); Mean Platelet Volume 8.4 fL (7.4-10.4); Nucleated RBC # (auto) 0.05 K/uL (0-0); Nucleated RBC % (auto) 0.5 %; Platelet Count 244 K/uL (130-400); RDW Coefficient of Variation 19.2 % (11.5-14.5); RDW Standard Deviation 59.5 fL (36.4-46.3); Red Blood Count 2.61 M/uL (4.2-5.4); White Blood Count 11.41 K/uL (4.8-10.8)
[2021-02-16 08:03] LABS: Alanine Aminotransferase 17 U/L (12-78); Albumin Level 1.6 gm/dl (3.4-5.0); Aspartate Aminotransferase 10 U/L (15-37); BUN Creatinine Ratio 43.5 (10-20); Blood Urea Nitrogen 108 mg/dl (7-18); Calcium 8.6 mg/dl (8.5-10.1); Carbon Dioxide 23 mmol/L (21-32); Chloride 111 mmol/L (98-107); Creatinine Clr Calc Pharmacy 14.3 ml/min; Est GFR (African American) 19.8 ml/min; Est GFR (Non-African American) 17.1 ml/min; Glucose 99 mg/dl (70-99); Magnesium 3.1 mg/dl (1.8-2.4); Potassium 5.3 mmol/L (3.5-5.1); Sodium 141 mmol/L (136-145)
[2021-02-16 08:05] LABS: INR 1.1 (0.9-1.1); Partial Thromboplastin Ratio 0.9; Partial Thromboplastin Time 22.6 Seconds (21.0-31.0); Prothrombin Time 10.9 Seconds (9.0-12.0)
[2021-02-16 08:08] LABS: Albumin Globulin Ratio 0.4 (0.9-2); Alkaline Phosphatase 98 U/L (45-117); Bilirubin,Total 0.6 mg/dl (0.2-1); Globulin 4.4 gm/dl (2.5-4.0); NT Pro B Type Natriuretic Pept > 35000 pg/ml (0-1800); Troponin I 0.022 ng/ml (0-0.045)
[2021-02-16 08:26] LABS: Anisocytosis Present; Basophils # (auto) 0.02 K/uL (0-0.2); Basophils % (auto) 0.2 %; Eosinophils # (auto) 0.01 K/uL (0-0.5); Eosinophils % (auto) 0.1 %; Immature Granulocytes % (auto) 5.3 %; Monocytes # (auto) 0.79 K/uL (0.11-0.59); Monocytes % (auto) 6.9 %; Neutrophils # (auto) 9.19 K/uL (1.4-6.5); Neutrophils % (auto) 80.5 %
--- NOTE | 2021-02-16 08:50 | XRay Report ---
XR chest 1V portable CLINICAL HISTORY: SEPSIS TECHNIQUE: Single frontal radiograph of the chest was obtained. Comparison: None available at the time of this dictation. FINDINGS: No lines and tubes are seen. Cardiomegaly is noted. There is a left retrocardiac opacity. Blunting of the left costophrenic angle is seen. No pneumothorax is seen. IMPRESSION: 1. Left retrocardiac opacity which may represent atelectasis, pneumonia, layering effusion, and/or a spiration. 2. Left phrenic angle blunting likely represent small to moderate pleural effusion. ACT 112: Negative or not required by law. Electronically signed by: Leonard Underwood M.D. 02/16/2021 8:49 AM
[2021-02-16] MEDS ORDERED: SODIUM CHLORIDE 0.9% 1000ML 500 ML IV ONE (11:13)
[2021-02-16 12:58] LABS: Appearance Urine Clear (Clear); Bacteria Urine Automated Negative (Negative); Bilirubin Urine Negative (Negative); Blood Urine 1+ (Negative); Color Urine Yellow; Epithelial Cell Urine Auto >30 /lpf (0-5); Glucose Urine UA Negative (Negative); Ketones Urine Negative (Negative); Leukocyte Esterase Urine Negative (Negative); Nitrite Urine Negative (Negative); Protein Urine 2+ (Negative); RBC Urine Automated 0-4 /hpf (0-4); Specific Gravity Urine 1.012 (1.000-1.030); Urobilinogen Urine Negative (Negative)
[2021-02-16 13:23] LABS: Creatinine Urine Random 55.9 mg/dl; Protein Creatinine Ratio Urine 1.6 (0-0.2); Total Protein Urine Random 86.8 mg/dl (0-11.9)
[2021-02-16] MEDS ORDERED: PANTOprazole 40 MG in SYRINGE 0 ML IV ONE (14:00)
--- NOTE | 2021-02-16 14:05 | History & Physical Report ---
Date of Service February 16, 2021 Assessment & Plan (1) Acute and chronic respiratory failure with hypoxia: (2) Pleural effusion: Plan: This is a 85-year-old female who has significant past medical history of chronic heart failure with preserved ejection fraction, mitral valve stenosis, HTN, HLD, history of PAD/PVD status post left AKA and right SFA stenting, CKD stage III baseline creatinine 1.2-1.4, history of C. difficile, history of T2DM who presents to ED secondary to shortness of breath 1 week. Prior to initial hospitalization at [facility] pt did not require O2. Has been on 2 L since discharge and today hypoxic requiring 5L. L Pleural effusion vs retrocardiac effusion vs opacity - concern for volume overload/CHF given significantly elevated probnp vs HAP. Pt is without fever and cough so feel infectious source less likely; although mild wbc 11k, but procal normal. admit to PCU obtain echocardiogram consult cardiology Trop detectable but negative continue O2 supplementation wean as able continue with empiric antibiotic until infection ruled out but feel less likely, IV cefepime and azithromycin MRSA Screen incentive spirometry/nebs ordered (3) Chronic heart failure with preserved ejection fraction (HFpEF): Plan: Last echocardiogram 02/2020 revealed grade 2 diastolic dysfunction, mild AV sclerosis, mild AR, moderate mitral stenosis, EF 60% Obtain echocardiogram Last proBNP 02/2020 10,061, today greater than 35,000 Concern for possible CHF component Cardiology consulted Strict I's and O's, daily weights (4) Acute worsening of stage 3 chronic kidney disease: Plan: Baseline creatinine 1.2-1.4 BUN 28, creatinine 2.48 Urine studies obtained obtain renal ultrasound consult nephrology - discussed and feels likely ATN in setting of hyoxia and CHF Give Lasix 80mg IV x 1, monitor response Laguerre catheter in place to obtain strict I's and O's hold nephrotoxic agents, oral lasix and losartan (5) Acute on chronic anemia: Plan: baseline H&H H&H today 7.0 22.9 Previous history of iron deficiency, continue iron supplements On 02/14+ FOBT at [facility], initially declined GI work-up, but after further discussion with patient and family now wishes to pursue H&H every 8, type and cross in place 2 units on hold, transfuse hemoglobin less than 7 PPI IV twice daily Consult GI repeat hgb 6.9 will transfuse 1 unit prbc with 40mg IV lasix post transfusion (6) Wound of right lower extremity: (7) PAD (peripheral artery disease): Plan: hx of R SFA stenting, hx of L AKA with residual limb/prosthesis on statin, plavix - hold plavix for now, resume when able consult wound care, no overt looking cellulitis (8) HTN (hypertension): Plan: BP controlled continue amlodipine and metoprolol with parameters hold losartan 2/2 to mariela (9) DVT prophylaxis: Plan: None 2/2 to vascular wounds and concern for bleeding Dispo: PCU PCP: Brinda DNR/DNI Pt was seen and examined in collaboration with Dr. Flor please see addendum Discussed with Pt Daughter, Noelle, At bedside. She agrees with above plan. History of Present Illness Chief Complaint: SOB x 1 week. [facility] This is a 85-year-old female who has significant past medical history of chronic heart failure with preserved ejection fraction, mitral valve stenosis, HTN, HLD, history of PAD/PVD status post left AKA and right SFA stenting, CKD stage III baseline creatinine 1.2-1.4, history of C. difficile, history of T2DM who presents to ED secondary to shortness of breath 1 week. Of significance patient was recently hospitalized on 01/29-02/06 at [facility] secondary to right lower extremity cellulitis treated initially with IV vancomycin and cefepime and transition to oral cefdinir, MARIELA with a peak creatinine of 2.0 treated with IV fluid and wound care to right lower extremity vascular ulcers. Initially patient met sepsis criteria had significant leukocy tosis which resolved with IV antibiotics. She also had 2 venous Dopplers negative for DVT and arterial Doppler of right lower extremity which revealed severe PAD. Hospitalization further complicated secondary to acute on chronic anemia in which she received 1 unit of PRBC. She was discharged to [facility] for acute rehab for which she has resided for the past 10 days. Daughter at bedside has visited her and over the past week has noted her to become increasingly short of breath. Upon discharge from [place] she was requiring 2 L of oxygen via nasal cannula and had maintained that up until yesterday where she required 4 L and this morning 5 L. 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 While in [facility] she has been unable to use her prosthetic secondary to increasing swelling to left residual limb. Over the past week patient admits to having increasing shortness of breath but she denies any cough, hemoptysis, URI symptoms, fever or orthopnea. She denies any recent chills, sweats, lightheadedness, dizziness, chest pain, palpitations, emesis, abdominal pain or diarrhea. She has had occasional nausea and dry heaving, but no vomiting. She also has black BMs but attributes this to being on iron. On 02/14 her stool was checked for blood which was positive. While at [facility] she declined GI work- up and requested just as needed transfusion. She did require additional 1 unit of PRBC while in [facility]. In ED patient remained hemodynamically stable. She required 5 L of O2 to maintain oxygen saturation. She had significant elevation of BUN and creatinine to 108 and 2.48, H&H 7.0 and 22.9, WBC 11.41,, K5.3, mag 3.1, proBNP greater than 35,000, procalcitonin 0.19. Her urinalysis negative for infection but did reveal granular casts, urine osmolality 342, total protein elevated at 6.8 and protein creatinine ratio 1.6. Chest x-ray revealed left retrocardiac opacity which may represent atelectasis, pneumonia, layering effusion and/or aspiration. Left phrenic angle blunting likely secondary to a small to moderate pleural effusion. In ED she received 500 mL IV fluid as well as IV cefepime. Allergies Allergy/AdvReac Type Severity Reaction Status Date / Time No Known Allergies Allergy Unverified 02/16/21 08:30 Home Medications Medication Instructions Recorded Confirmed Type Saccharomyces boulardii 250 mg 250 mg PO QAM 02/16/21 02/16/21 History capsule (Florastor) allopurinol 100 mg tablet 100 mg PO QAM 02/16/21 02/16/21 History (Zyloprim) amlodipine 10 mg tablet (Norvasc) 10 mg PO QAM 02/16/21 02/16/21 History atorvastatin 10 mg tablet (Lipitor) 10 mg PO QAM 02/16/21 02/16/21 History cholecalciferol (vitamin D3) 50 50 mcg PO QAM 02/16/21 02/16/21 History mcg (2,000 unit) capsule (Vitamin D3) clopidogrel 75 mg tablet (Plavix) 75 mg PO QAM 02/16/21 02/16/21 History cyanocobalamin (vitamin B-12) 1,000 mcg PO QAM 02/16/21 02/16/21 History 1,000 mcg tablet (Vitamin B-12) enoxaparin 30 mg/0.3 mL 30 mg SUBCUT HS 02/16/21 02/16/21 History subcutaneous syringe (Lovenox) ferrous sulfate 325 mg (65 mg 325 mg PO BID 02/16/21 02/16/21 History iron) tablet (FeroSul) furosemide 40 mg tablet (Lasix) 40 mg PO QAM 02/16/21 02/16/21 History gabapentin 100 mg capsule 100 mg PO Q8H 02/16/21 02/16/21 History (Neurontin) ipratropium 0.5 mg-albuterol 3 mg 3 ml INHALATION Q6H 02/16/21 02/16/21 History (2.5 mg base)/3 mL nebulization soln losartan 50 mg tablet (Cozaar) 50 mg PO Q12 02/16/21 02/16/21 History metoprolol succinate 100 mg 100 mg PO QAM 02/16/21 02/16/21 History tablet,extended release 24 hr (Toprol XL) tramadol 50 mg tablet (Ultram) 50 mg PO Q4H 02/16/21 02/16/21 History vitamin A-vitamin C-vit E-min 1 tab PO BID 02/16/21 02/16/21 History tablet (Ocutabs) Past Med/Surg History Medical History ASCVD (arteriosclerotic cardiovascular disease) Chronic heart failure with preserved ejection fraction (HFpEF) CKD (chronic kidney disease) stage 3, GFR 30-59 ml/min baseline cr 1.2-1.4 Gout HTN (hypertension) Mitral valve stenosis PAD (peripheral artery disease) PVD (peripheral vascular disease) T2DM (type 2 diabetes mellitus) last a1c 5.8 2018 Surgical History History of removal of ovarian cyst Hx of AKA (above knee amputation) Hx of cholecystectomy S/P peripheral artery angioplasty R SFA stenting Family History Mother ALS (amyotrophic lateral sclerosis) Father , 77 Coronary heart disease Sister Myocardial infarction Breast cancer Social History Smoking Status: Never smoker Hx Alcohol Use: No Hx Substance Use: No Preferred Language: Chinese Communication Ability: Effective Roll On Man Required: No Beliefs That Will Affect Care: None Current Living Situation: Alone and Rehab Current Living Situation Comment: currently at [place] How many Children do You have: 1 Other Information That Helps Us Care for You: No Feels Safe at Home: Yes Safety Concerns: Feels Safe At This Time Assistive Devices: Denture - Upper, Denture - Lower and Oxygen - Continuous Review of Systems Review of Systems: All systems reviewed & are unremarkable except as noted in HPI & below Physical Exam Physical Exam: Constitutional: WD/WN, elderly, chronically ill appearing F, vitals as above, tachypneic, sitting up in bed, pleasant, conversing easily Head: Normocephalic, Atraumatic Eyes: PERRL, conjunctivae normal, anicteric sclerae ENMT: external ear and nose normal, oropharynx normal Neck: trachea midline, no thyromegaly normal visual inspection Respiratory: increased respiratory effort, decreased breath sounds to L lung base, referred expiratory wheeze, no rales, rhonchi note. No accessory muscle use, on 5 o2 via NC Cardiovascular: RRR, 1/6 ARANZA noted RUSB, RLE proximal thigh pitting edema, RLE initially compressed with jean bandage, noted vascular wounds, no edema to pretibial Vessels: no JVD or carotid bruit Chest: normal inspection of chest Abdomen: normal bowel sounds, soft, nontender, no hepatosplenomegaly Musculoskeletal: no cyanosis or clubbing, extremities motor strength 5/5 Skin: no rashes, warm and dry normal turgor Neurologic: PERRL, EOMI, accommodation nl, no face palsy, no dysarthria CN's II-XI intact bilaterally and moves all extremities Psychiatric: A+Ox3, euthymic affect Lymphatic: no cervical or axillary lymphadenopathy : laguerre with yellow urine Results & Data Results & Data ([facility]) Vital Signs (Past 12 Hours) Vital Signs Temp Pulse Pulse Resp BP BP Pulse Ox 02/16/21 13:41 72 19 153/73 H 91 02/16/21 13:20 68 20 153/73 H 96 02/16/21 12:00 71 20 136/63 98 02/16/21 10:10 67 16 152/78 H 92 02/16/21 08:40 68 20 153/75 H 96 02/16/21 08:02 24 96 02/16/21 07:12 36.8 C 81 20 146/49 H 97 Diagnostic Findings Chest X-Ray 02/16/21 07:48 XR chest 1V portable CLINICAL HISTORY: SEPSIS TECHNIQUE: Single frontal radiograph of the chest was obtained. Comparison: None available at the time of this dictation. FINDINGS: No lines and tubes are seen. Cardiomegaly is noted. There is a left retrocardiac opacity. Blunting of the left costophrenic angle is seen. No pneumothorax is seen. IMPRESSION: 1. Left retrocardiac opacity which may represent atelectasis, pneumonia, layering effusion, and/or aspiration. 2. Left phrenic angle blunting likely represent small to moderate pleural effusion. ACT 112: Negative or not required by law. Electronically signed by: Leonard Underwood M.D. 02/16/2021 8:49 AM Medications Administered Medication List Discontinued Medications Cefepime HCl (Maxipime) 2,000 mg in 20 mls @ 5 mls/min IV NOW STA; Protocol Stop: 02/16/21 07:51 Last Admin: 02/16/21 08:15 Dose: 5 mls/min Documented by: [id number] Cefepime HCl (Maxipime) 2,000 mg in 20 mls @ 5 mls/min IV NOW STA; Protocol Stop: 02/16/21 11:16 Last Admin: 02/16/21 11:33 Dose: Not Given Documented by: [id number] Sodium Chloride (Nss 1000ml) 500 mls @ 999 mls/hr IV .Q31M ONE Stop: 02/16/21 11:43 Last Infusion: 02/16/21 12:05 Dose: 0 mls/hr Documented by: [id number] Admin: 02/16/21 11:35 Dose: 999 mls/hr Documented by: [id number] Pantoprazole Sodium 40 mg/ (Syringe) 10 mls @ 5 mls/min IV NOW ONE Stop: 02/16/21 14:01 Last Admin: 02/16/21 14:11 Dose: 5 mls/min Documented by: [id number] ECG Rate (beats per minute): 68 Rhythm: normal sinus Findings: + RBBB Additional Comments: t wave inversion interior/lateral leas, anterior and rashid/lateral infarct now present COVID-19 Results Results COVID-19 Adm Lab Results: RBC 3.29 M/uL (4.2-5.4) L 02/20/21 WBC 8.83 K/uL (4.8-10.8) 02/20/21 Hgb 9.2 g/dL (12.0-16.0) L 02/20/21 Hct 29.6 % (37-47) L 02/20/21 Plt Count 165 K/uL (130-400) 02/20/21 Neutrophils (%) (Auto) 85.2 % 02/17/21 Lymphocytes (%) (Auto) 4.1 % 02/17/21 Monocytes # (Auto) 0.69 K/uL (0.11-0.59) H 02/17/21 Eosinophils # (Auto) 0.03 K/uL (0-0.5) 02/17/21 Immature Granulocyte % (Auto) 2.7 % 02/17/21 Neutrophils # (Auto) 7.95 K/uL (1.4-6.5) H 02/17/21 Lymphocytes # (Auto) 0.38 K/uL (1.2-3.4) L 02/17/21 Monocytes # (Auto) 0.69 K/uL (0.11-0.59) H 02/17/21 Eosinophils # (Auto) 0.03 K/uL (0-0.5) 02/17/21 Basophils # (Auto) 0.03 K/uL (0-0.2) 02/17/21 Immature Granulocyte # (Auto) 0.25 K/uL (0.00-0.02) H 02/17/21 Polychromasia 1+ 02/17/21 Anisocytosis Present 02/16/21 Ovalocytes 1+ 02/17/21 Na 142 mmol/L (136-145) 02/20/21 K 4.6 mmol/L (3.5-5.1) 02/20/21 Cl 113 mmol/L (98-107) H 02/20/21 CO2 22 mmol/L (21-32) 02/20/21 Anion Gap 7.0 (3-11) 02/20/21 BUN 112 mg/dl (7-18) H 02/20/21 Creatinine 3.07 mg/dl (0.6-1.2) H 02/20/21 BUN/Creatinine Ratio 36.4 (10-20) H 02/20/21 Glucose Level 88 mg/dl (70-99) 02/20/21 Ca 8.1 mg/dl (8.5-10.1) L 02/20/21 Phosphorus Level 3.8 mg/dl (2.5-4.9) 02/20/21 Total Bilirubin 0.6 mg/dl (0.2-1) 02/16/21 AST/SGOT 10 U/L (15-37) L 02/16/21 ALT/SGPT 17 U/L (12-78) 02/16/21 Alkaline Phosphatase 98 U/L (45-117) 02/16/21 Total Protein 6.0 gm/dl (6.4-8.2) L 02/16/21 Albumin 1.6 gm/dl (3.4-5.0) L 02/16/21 Globulin 4.4 gm/dl (2.5-4.0) H 02/16/21 Albumin/Globulin Ratio 0.4 (0.9-2) L 02/16/21 Troponin I 0.022 ng/ml (0-0.045) 02/16/21 TU-Fws-D-Type Natriuretic Pep > 98348 pg/ml (0-1800) H 02/16/21 Procalcitonin 0.19 ng/ml (0-0.5) 02/16/21 Ferritin 310.0 ng/ml (8-388) 02/18/21 PTT 22.6 Seconds (21.0-31.0) 02/16/21 INR 1.1 (0.9-1.1) 02/16/21 COVID-19 PCR NEGATIVE (Negative) 02/16/21 Chest X-Ray 02/16/21 Code Status & VTE Plan Code Status DNR/DNI VTE Prophylaxis Plan VTE Prophylaxis will be ordered: No Supervising Physician Co-Signing Physician Notes Acute on chronic hypoxic respiratory failure Possible acute on chronic diastolic heart failure exacerbation Possible bacterial pneumonia Worsening right lower extremity cellulitis MARIELA on CKD stage III Acute on chronic anemia Patient presented from outside facility with worsening shortness of breath that has been going on for 1 week. Of note patient was recently discharged from outside hospital for treatment with right lower extremity cellulitis. Patient noted to have increased weight gain today along with increased oxygen requirement. We will start patient on IV Lasix. Ins and outs along with daily weights. Consult cardiology and obtain transthoracic echo. Patient on cefepime/Zithromax. Consult nephrology given worsening renal function have Laguerre catheter placed. Already nephrotoxic agents. Transfuse for hemoglobin less than 7. GI has been consulted given worsening anemia. I performed a history and physical examination of the patient on 02/16/21, including specifically H&P.. I have discussed the patient's management with the advanced practitioner. Please refer to the Yesenia York note for the documented findings and plan of care.
[2021-02-16] MEDS ORDERED: SODIUM CHLORIDE 0.9% 250 ML IV PRN ×2 (14:06→17:07)
[2021-02-16] MEDS ORDERED: FUROSEMIDE 40 MG/4 ML VIAL IV STA ×2 (14:56→17:11)
[2021-02-16] MEDS ORDERED: FUROSEMIDE 10 MG/ML 10 ML VIAL IV ONE (15:00)
[2021-02-16 15:02] LABS: Hematocrit (blood only) 22.9 % (37-47); Hemoglobin 6.9 g/dL (12.0-16.0); Mean Corpuscular Hemoglobin 26.4 pg (25-34); Mean Corpuscular Hgb Conc 30.1 g/dL (32-36); Mean Corpuscular Volume 87.7 fL (80-100); Mean Platelet Volume 8.2 fL (7.4-10.4); Nucleated RBC # (auto) 0.04 K/uL (0-0); Nucleated RBC % (auto) 0.4 %; Platelet Count 232 K/uL (130-400); RDW Coefficient of Variation 19.1 % (11.5-14.5); RDW Standard Deviation 59.1 fL (36.4-46.3); Red Blood Count 2.61 M/uL (4.2-5.4); White Blood Count 11.56 K/uL (4.8-10.8)
--- NOTE | 2021-02-16 15:11 | Electrocardiogram Report ---
Test Reason : Blood Pressure : / mmHG Vent. Rate : 068 BPM Atrial Rate : 068 BPM P-R Int : 180 ms QRS Dur : 134 ms QT Int : 402 ms P-R-T Axes : 061 050 004 degrees QTc Int : 427 ms Normal sinus rhythm Right bundle branch block Inferior infarct (cited on or before 03-JUL-2016) Anterolateral infarct , age undetermined Abnormal ECG When compared with ECG of 05-JUL-2016 06:36, T wave inversion now evident in Inferior leads T wave inversion now evident in Lateral leads Confirmed by Aldo Pandey ([id number]) on 02/16/2021 3:10:59 PM Referred By: REFERRED SELF Confirmed By:Aldo Pandey
[2021-02-16 15:17] LABS: BUN Creatinine Ratio 45.8 (10-20); Calcium 8.6 mg/dl (8.5-10.1); Creatinine Clr Calc Pharmacy 14.4 ml/min; Est GFR (Non-African American) 17.3 ml/min
--- NOTE | 2021-02-16 15:40 | Gastrointestinal Consultation ---
Date of Consultation February 16, 2021 Assessment & Plan (1) CHF (congestive heart failure): (2) Acute and chronic respiratory failure with hypoxia: (3) Acute worsening of stage 3 chronic kidney disease: (4) Acute on chronic anemia: (5) Fecal occult blood test positive: Pt is a 85 y/o female seen for anemia, + FOBT, reports of black formed stools on PO iron supplements. Blood ct at baseline. Hx of CHF, PAD/PVD on Plavix, DM II, recent cellulitis, noted to have increased SOB and O2 req uirement. Workup currently showing signs of volume overload in CHF, possible UTI. - Cover with PPI IV BID - Monitor blood ct and transfuse prn - Defer endoscopies unless hematemesis/coffee ground emesis or melena - CHF and UTI management per primary team Supervising Physician Co-Signing Physician Notes Consult for anemia and + fobt. [facility]. Anemia is at her baseline per review of her outpt record (baseline hgb of 7) with a normal mcv. She has ckdz with slight bun rise currently. Given BNP elevation and sob, concern for chf. Suspect this is anemia of chronic disease. Agree with further plan of care as above. History of Present Illness Reason for Consultation: Anemia, + FOBT Requesting Physician: Dr. Pamela Flor Attending Physician: Dr. Marley Dc History of Present Illness Pt is a 85 y/o female w PMHx of CHF, Mitral valve stenosis, HTN, HLD, PAD/PVD s/o L AKA, R leg stent, CKD III, hx of Cdiff, DM II, recent cellulitis, who was brought to ED from [facility] for increased SOB x 1 week. She had increased O2 requirement 2L -> 5L now. She denies CP but visibly using accessory muscles for breathing. On eval, noted she have increased BNP, and UA indicative of possible UTI. CXR w signs of L pleural effusion/aspiration/pneumonia. She was also noted to be anemic w Hgb of 7 which is around her baseline. She denies any abd pain, + nausea w/o vomiting. She has black formed stools but said it's been since she's on iron. She did test FOBT +. No rectal bleeding. She is on Plavix for hx of PVD, stent placement. No anticoagulant. INR 1.1. No hx of GI malignancy. Never had endoscopies in the past. No NSAIDs. Allergies Allergy/AdvReac Type Severity Reaction Status Date / Time No Known Allergies Allergy Unverified 02/16/21 08:30 Home Medications Medication Instructions Recorded Confirmed Type Saccharomyces boulardii 250 mg 250 mg PO QAM 02/16/21 02/16/21 History capsule (Florastor) allopurinol 100 mg tablet 100 mg PO QAM 02/16/21 02/16/21 History (Zyloprim) amlodipine 10 mg tablet (Norvasc) 10 mg PO QAM 02/16/21 02/16/21 History atorvastatin 10 mg tablet (Lipitor) 10 mg PO QAM 02/16/21 02/16/21 History cholecalciferol (vitamin D3) 50 50 mcg PO QAM 02/16/21 02/16/21 History mcg (2,000 unit) capsule (Vitamin D3) clopidogrel 75 mg tablet (Plavix) 75 mg PO QAM 02/16/21 02/16/21 History cyanocobalamin (vitamin B-12) 1,000 mcg PO QAM 02/16/21 02/16/21 History 1,000 mcg tablet (Vitamin B-12) enoxaparin 30 mg/0.3 mL 30 mg SUBCUT HS 02/16/21 02/16/21 History subcutaneous syringe (Lovenox) ferrous sulfate 325 mg (65 mg 325 mg PO BID 02/16/21 02/16/21 History iron) tablet (FeroSul) furosemide 40 mg tablet (Lasix) 40 mg PO QAM 02/16/21 02/16/21 History gabapentin 100 mg capsule 100 mg PO Q8H 02/16/21 02/16/21 History (Neurontin) ipratropium 0.5 mg-albuterol 3 mg 3 ml INHALATION Q6H 02/16/21 02/16/21 History (2.5 mg base)/3 mL nebulization soln losartan 50 mg tablet (Cozaar) 50 mg PO Q12 02/16/21 02/16/21 History metoprolol succinate 100 mg 100 mg PO QAM 02/16/21 02/16/21 History tablet,extended release 24 hr (Toprol XL) tramadol 50 mg tablet (Ultram) 50 mg PO Q4H 02/16/21 02/16/21 History vitamin A-vitamin C-vit E-min 1 tab PO BID 02/16/21 02/16/21 History tablet (Ocutabs) Patient History Medical History ASCVD (arteriosclerotic cardiovascular disease) Chronic heart failure with preserved ejection fraction (HFpEF) CKD (chronic kidney disease) stage 3, GFR 30-59 ml/min baseline cr 1.2-1.4 Gout HTN (hypertension) Mitral valve stenosis PAD (peripheral artery disease) PVD (peripheral vascular disease) T2DM (type 2 diabetes mellitus) last a1c 5.8 2018 Surgical History History of removal of ovarian cyst Hx of AKA (above knee amputation) Hx of cholecystectomy S/P peripheral artery angioplasty R SFA stenting Family History Mother ALS (amyotrophic lateral sclerosis) Father , 77 Coronary heart disease Sister Myocardial infarction Breast cancer Social History Smoking Status: Never smoker Hx Alcohol Use: No Hx Substance Use: No Preferred Language: Comoran Communication Ability: Effective Instructor Bridge Required: No Beliefs That Will Affect Care: None Current Living Situation: Alone and Rehab Current Living Situation Comment: currently at [place] Other Information That Helps Us Care for You: No Feels Safe at Home: Yes Safety Concerns: Feels Safe At This Time Assistive Devices: Denture - Upper, Denture - Lower, Glasses, Walker and Wheelchair Review of Systems Review of Systems: All systems reviewed & are unremarkable except as noted in HPI & below Physical Exam Constitutional: WD/WN, vitals as above + ill appearing and cooperative Eyes: PERRL, conjunctivae normal, anicteric sclerae ENMT: external ear and nose normal, oropharynx normal Respiratory: Increased breathing effort, diminished overall lung sounds Cardiovascular: RRR, no murmur, no edema Gastrointestinal (Abdomen): normal bowel sounds, soft, nontender, no hepatosplenomegaly Musculoskeletal: L AKA Skin: no rashes, warm and dry no jaundice Psychiatric: A+Ox3, euthymic affect Lymphatic: no lymphedema Results & Data ([facility]) Vital Signs (Past 12 Hours) Vital Signs Temp Pulse Pulse Resp BP BP Pulse Ox 02/16/21 14:30 72 20 134/89 96 02/16/21 13:41 72 19 153/73 H 91 02/16/21 13:20 68 20 153/73 H 96 02/16/21 12:00 71 20 136/63 98 02/16/21 10:10 67 16 152/78 H 92 02/16/21 08:40 68 20 153/75 H 96 02/16/21 08:02 24 96 02/16/21 07:12 36.8 C 81 20 146/49 H 97
--- NOTE | 2021-02-16 16:32 | Ultrasound Report ---
RENAL ULTRASOUND CLINICAL HISTORY: Acute kidney injury. COMPARISON STUDY: KUB June 29, 2016. TECHNIQUE: Sonography of the kidneys and the urinary bladder was performed. FINDINGS: This exam is compromised by suboptimal penetration and motion artifact. The right kidney me asures 10.2 cm in maximal dimension and the left measures 10 cm. There is no hydronephrosis. Several bilateral renal lesions are suboptimally assessed on this exam but favor cysts. A 2.6 cm hypoechoic f ocus adjacent to the right renal sinus is indeterminate. There is mild renal cortical thinning. The b ladder is collapsed, containing a Kwok. IMPRESSION: 1. No hydronephrosis. 2. Suspected bilateral renal cysts. Exam compromised by suboptimal penetration and motion artifact. ACT 112: Negative or not required by law. Electronically signed by: Alex Redd M.D. 02/16/2021 4:31 PM
[2021-02-16] MEDS ORDERED: ALBUT/IPRATROP 3MG/0.5MG NEB 3 ML VIAL NEB PRN (16:54)
[2021-02-16] MEDS ORDERED: POLYETHYLENE (MIRALAX) 17 GM PACK PO PRN (16:54)
[2021-02-16] MEDS ORDERED: ONDANSETRON INJ 2 MG/ML 2 ML VIAL IV PRN (16:54)
[2021-02-16] MEDS ORDERED: CEFEPIME CONSULT ACTIVE PRN (16:54)
--- NOTE | 2021-02-16 17:05 | Consultation Report ---
NEPHROLOGY CONSULTATION NOTE DATE OF CONSULTATION: 02/16/2021 REASON FOR CONSULTATION: Acute renal failure in a patient with respiratory failure with hypoxia. HISTORY OF PRESENT ILLNESS: The patient is an 85-year-old female who was sent over from [facility] because of worsening hypoxia, shortness of breath. The patient was initially admitted at [facility] because of lower extremity edema, cellulitis associated with significant antibiotic exposure including vancomycin, cefepime and then transitioned to oral cefdinir. During the previous admission also at the [facility], she did have MARIELA with creatinine of 2.0, but by discharge, MARIELA had resolved. At the time of discharge from [facility], she was requiring 2 liters of oxygen via nasal cannula, but starting yesterday, she was getting increasingly hypoxic and by the time she was transferred, she was needing 5 liters of oxygen. Prior to hospitalization, she lived alone. 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 Her lower extremity has also been increasingly swollen. During the hospital stay at [facility], she did have multiple lower extremity duplexes, which were negative for DVT. However, she has severe peripheral arterial disease. She does have history of congestive heart failure with preserved ejection fraction, but type 2 diastolic dysfunction as well as mitral valve stenosis. However, her baseline creatinine is around 1.2-1.4 prior to this recent hospitalization. In the Emergency Department, she continues to be hypoxic and needing 5-6 liters of oxygen to maintain oxygen saturation. The patient was not able to give me any history, but fortunately daughter was at the bedside who was able to fill in the details. Her labs were significant for very elevated BUN of 108, creatinine of 2.5, hemoglobin of 7. ProBNP was more than 35,000. Chest x-ray shows pleural effusion. In the Emergency Department, so far she has received 500 mL of IV fluid as well as IV cefepime. ALLERGIES: None. MEDICATIONS: Home medications most recently were reviewed and include amlodipine, Lasix 40 daily, losartan 50 daily, and multiple other medications, which were reviewed in full detail. PAST MEDICAL AND SURGICAL HISTORY: Includes chronic heart failure with preserved ejection fraction, but type 2 diastolic dysfunction, mitral valve stenosis, severe peripheral arterial disease, type 2 diabetes at late age of onset, gout, hypertension, chronic kidney disease, baseline creatinine 1.2-1.4, removal of ovarian cyst, history of above-knee amputation, cholecystectomy, status post peripheral artery angioplasty, right SFA stenting. FAMILY HISTORY: Negative for renal disease or dialysis. SOCIAL HISTORY: Never smoked. She lives alone, but currently getting rehab at the [facility]. She did not use oxygen prior to this recent hospitalization. REVIEW OF SYSTEMS: Unable to obtain directly from the patient, but as per the daughter, she was having increasing weakness, shortness of breath, increasing lower extremity edema and increasingly hypoxic, needing more and more oxygen. Appetite has not been great. PHYSICAL EXAMINATION: GENERAL: Elderly white female who appears to be sick. She does have some respiratory distress. VITAL SIGNS: Blood pressure is 134/89, pulse rate 72, temperature 36.8, 96% on 5 L oxygen. HEENT: Normocephalic, atraumatic. NECK: Supple. Jugular venous distention is present. RESPIRATORY: Increased respiratory effort, increased respiratory rate. Decreased breath sound as well as some crackles at the bases. CARDIOVASCULAR: Regular rate and rhythm. Soft systolic murmur is heard. ABDOMEN: Soft, nontender, slightly obese. EXTREMITIES: Show significant lower extremity edema with skin breakdown as well as oozing ulcers. Unilateral AKA. GENITOURINARY: Kwok catheter present with yellow urine. NEUROLOGIC: She is very weak and somnolent and did not open eyes during my examination. LABORATORY TEST: Reviewed and shows very elevated BUN of 108, creatinine is 2.48, potassium 5.3, sodium 141, chloride 111, magnesium 3.1. BNP is more than 35,000. There is another BMP pending right now. Hemoglobin 6.9, WBC count 11,000, platelet count 232. Urine shows 2+ protein, 1+ blood, lots of hyaline casts, epithelial cells, granular cast, protein to creatinine ratio of 1.4. Chest x-ray shows pleural effusion with pulmonary congestion. ASSESSMENT AND PLAN: An 85-year-old female who is admitted because of respiratory failure with hypoxia and was found to have acute renal failure, for which I have been consulted. Acute renal failure: This is acute tubular necrosis given the urine sediment picture and the clinical situation. At this advanced age, kidneys are very frail and any degree of hypoxia and acute blood loss anemia is enough to cause acute tubular necrosis, which is what we are witnessing here. She is not fluid depleted. In fact, she is in decompensated congestive heart failure and needs to be diuresed. We will give Lasix 80 mg IV x1 now. She may need further dose. Her BUN is quite high as well as creatinine, but there is disproportionately high BUN combined with very low hemoglobin. There is a possibility of gastrointestinal bleed causing a disproportionate rise in the BUN and needs to be investigated. Hemoglobin is now less than 7, and given her clinical situation of hypoxia, I would recommend blood transfusion with Lasix. No further workup is needed from renal standpoint. Continue Kwok catheter and continue strict input/output charting. Avoid nonsteroidal anti-inflammatory drugs, angiotensin converting enzyme inhibitor, angiotensin receptor anna, contrast agents for the time being. Renally dose all the antibiotics. I will continue to follow the patient. It is quite possible her renal function will get worse before it gets better. Continue BMP at least once daily, possibly more. Job ID: [id number] MTDD
[2021-02-16] MEDS ORDERED: FUROSEMIDE 40 MG in SYRINGE 0 ML IV ONE (17:07)
[2021-02-16] MEDS: ACETAMINOPHEN 325 MG TAB PO PRN (18:04)
[2021-02-16] MEDS: AZITHROMYCIN 500 MG in DEXTROSE 5% 250 ML IV SCH (18:04)
[2021-02-16] MEDS: CEFEPIME 1,000 MG in SYRINGE 0 ML IV SCH (20:06)
[2021-02-16] MEDS: FERROUS SULFATE 325 MG TAB PO SCH (20:07)
[2021-02-16] MEDS: GABAPENTIN 100 MG CAP PO SCH (20:07)
[2021-02-16] MEDS: PANTOprazole 40 MG in SYRINGE 0 ML IV SCH (20:23)
[2021-02-16] MEDS ORDERED: PANTOprazole 40 MG in SYRINGE 0 ML IV SCH (21:00)
[2021-02-16] MEDS ORDERED: VANCOMYCIN CONSULT ACTIVE PRN (21:19)
[2021-02-16] MEDS ORDERED: VANCOMYCIN HCL 1,500 MG in SODIUM CHLORIDE 0.9% 500 ML IV ONE (21:45)
--- NOTE | 2021-02-16 22:06 | Pharmacy Report ---
Pharmacy Abx Dose Short Note - Date of Service February 16, 2021 - Assessment & Plan Assessment 85 year old F receiving VANCOMYCIN + CEFEPIME + AZITHROMYCIN for treatment of possible PNA and cellulitis (Pharmacy to dose Vancomycin + Cefepime) PMH significant of diabetes, CKD2, L AKA, PAD Plan Vancomycin * Renal fxn is poor, eCrCl < 15 cc/min * Will give loading dose 1500mg x 1 and check random level w/ AM labs * Goal trough level for SSTI : 10 to 20 mcg/mL or AUC/MONIKA 400-600 Cefepime: * for pulm indication and eCrCl 11-29cc/min: 1gm IV Q 12 hours Pharmacy will continue to follow and will adjust dose/frequency as necessary. Thank you.
[2021-02-16] MEDS ORDERED: FUROSEMIDE 40 MG/4 ML VIAL IV ONE (23:19)
[2021-02-17 00:36] LABS: Hematocrit (blood only) 22.8 % (37-47); Hemoglobin 7.1 g/dL (12.0-16.0); Mean Corpuscular Hemoglobin 27.4 pg (25-34); Mean Corpuscular Hgb Conc 31.1 g/dL (32-36); Nucleated RBC # (auto) 0.04 K/uL (0-0); Nucleated RBC % (auto) 0.4 %; Platelet Count 192 K/uL (130-400); RDW Coefficient of Variation 18.4 % (11.5-14.5); RDW Standard Deviation 56.8 fL (36.4-46.3); Red Blood Count 2.59 M/uL (4.2-5.4); White Blood Count 9.28 K/uL (4.8-10.8)
[2021-02-17 01:04] LABS: Basophils # (auto) 0.01 K/uL (0-0.2); Basophils % (auto) 0.1 %; Immature Granulocytes # (auto) 0.29 K/uL (0.00-0.02); Immature Granulocytes % (auto) 3.1 %; Lymphocytes # (auto) 0.55 K/uL (1.2-3.4); Lymphocytes % (auto) 5.9 %; Monocytes # (auto) 0.62 K/uL (0.11-0.59); Monocytes % (auto) 6.7 %; Neutrophils # (auto) 7.81 K/uL (1.4-6.5); Neutrophils % (auto) 84.2 %; Ovalocytes 1+; Polychromasia 1+
[2021-02-17] MEDS: GABAPENTIN 100 MG CAP PO SCH ×3 (06:18→20:47)
[2021-02-17 08:14] LABS: Basophils # (auto) 0.03 K/uL (0-0.2); Basophils % (auto) 0.3 %; Eosinophils # (auto) 0.03 K/uL (0-0.5); Eosinophils % (auto) 0.3 %; Hematocrit (blood only) 24.9 % (37-47); Hemoglobin 7.7 g/dL (12.0-16.0); Immature Granulocytes # (auto) 0.25 K/uL (0.00-0.02); Immature Granulocytes % (auto) 2.7 %; Lymphocytes # (auto) 0.38 K/uL (1.2-3.4); Lymphocytes % (auto) 4.1 %; Mean Corpuscular Hemoglobin 27.1 pg (25-34); Mean Corpuscular Hgb Conc 30.9 g/dL (32-36); Mean Corpuscular Volume 87.7 fL (80-100); Mean Platelet Volume 8.4 fL (7.4-10.4); Monocytes # (auto) 0.69 K/uL (0.11-0.59); Monocytes % (auto) 7.4 %; Neutrophils # (auto) 7.95 K/uL (1.4-6.5); Neutrophils % (auto) 85.2 %; Nucleated RBC # (auto) 0.03 K/uL (0-0); Nucleated RBC % (auto) 0.3 %; Platelet Count 220 K/uL (130-400); RDW Coefficient of Variation 18.7 % (11.5-14.5); Red Blood Count 2.84 M/uL (4.2-5.4); White Blood Count 9.33 K/uL (4.8-10.8)
[2021-02-17] MEDS: CEFEPIME 1,000 MG in SYRINGE 0 ML IV SCH ×2 (08:35→20:46)
[2021-02-17] MEDS: PANTOprazole 40 MG in SYRINGE 0 ML IV SCH ×2 (08:36→20:47)
[2021-02-17] MEDS: FERROUS SULFATE 325 MG TAB PO SCH ×2 (08:36→20:47)
[2021-02-17] MEDS: METOPROLOL SUCC 50MG EXT REL TAB PO SCH (08:36)
[2021-02-17] MEDS: amLODIPine BESYLATE 5 MG TAB PO SCH (08:37)
[2021-02-17] MEDS: ATORVASTATIN 10 MG TAB PO SCH (08:37)
[2021-02-17] MEDS: CYANOCOBALAMIN 500 MCG TABLET (VITAMIN B-12) PO SCH (08:37)
[2021-02-17] MEDS: allopurinoL 100 MG TAB PO SCH (08:37)
[2021-02-17] MEDS: CHOLECALCIFEROL 1,000 UNITS 25 MCG TAB PO SCH (08:37)
[2021-02-17] MEDS: CEROVITE ADV FORMULA TAB PO SCH (08:37)
[2021-02-17 08:56] LABS: BUN Creatinine Ratio 44.9 (10-20); Calcium 8.4 mg/dl (8.5-10.1); Creatinine Clr Calc Pharmacy 14.3 ml/min; Est GFR (African American) 19.8 ml/min; Est GFR (Non-African American) 17.1 ml/min; Potassium 4.9 mmol/L (3.5-5.1)
--- NOTE | 2021-02-17 09:00 | Cardiology Consultation ---
Date of Consultation February 17, 2021 Assessment & Plan (1) Acute and chronic respiratory failure with hypoxia: (2) Chronic heart failure with preserved ejection fraction (HFpEF): (3) Mitral valve stenosis: (4) Pleural effusion: (5) Acute on chronic anemia: (6) Acute worsening of stage 3 chronic kidney disease: Patient admitted for worsening SOB, hypoxia, with b/l pleural effusions consistent with acute on chronic CHF exacerbation complicated by MARIELA and anemia. Nephrology consulted earlier this admission and given several doses of IV lasix. Improved respiratory status this morning. Unfortunately she is mildly hypotensive after receiving morning medications. Hold amlodipine. Low threshold to give additional dose IV lasix this afternoon. Recommend work up/treatment of anemia also contributing to her respiratory status. Goal Hbg 9-10. Echo with stable findings, preserved LV systolic function, improved pulm pressures from 2019 and moderate mitral stenosis. continue all other meds as listed above. Case discussed with Dr. Vaz. Will follow. Supervising Physician Co-Signing Physician Notes Patient seen and examined with Della Dejesus PA-C. Agree with findings and assessment as above. Respiratory status is improving. diuretics as per our nephrology colleagues. Echocardiogram shows improved pulmonary pressures otherwise unchanged. Should maintain a hemoglobin greater than 9. History of Present Illness Reason for Consultation: SOB; CHF Requesting Physician: Dr. Maravilla Attending Physician: Dr. Vaz History of Present Illness Patient is an 85 year old female known to [facility] cardiology, following with Dr. Yun and Lulu as an outpatient for history of chronic diastolic HF with moderate mitral stenosis, history of b/l pleural effusions, history of PVD, hypertension, history of chronic anemia. Patient was recently admitted to [facility] with right LE cellulitis, treated aggressively with antibiotic therapy, complicated by MARIELA, and anemia for which she received 1 unit PRBC's. She was discharged on 2L NC to rehab facility. Then over the last week, patient noted worsening SOB, edema, and required higher flow oxygen to maintain levels. Yesterday she presented to ER with SOB. Found to have MARIELA and significant anemia. She had She was discharged to [facility] for acute rehab for which she has resided for the past 10 days. Daughter at bedside has visited her and over the past week has noted her to become increasingly short of breath. Upon discharge from [place] she was requiring 2 L of oxygen via nasal cannula and had maintained that up until yesterday where she required 4 L and this morning 5 L. 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 While in [facility] she has been unable to use her prosthetic secondary to increasing swelling to left residual limb. On arrival to ER, she was found to have MARIELA, b/l pleural effusions, elevated BNP and significantly low hbg. She was treated with 1 unit PRBC's. Nephrology was consulted who gave her IV furosemide. Troponin was negative. At time of consult, patient resting in bed comfortably. She reports feeling "better" and less SOB. Oxygen saturations improving. She received morning meds and now borderline hypotensive. She did not receive additional lasix this morning. She denies acute complaints currently. Right leg wrapped due to cellulitis. No chest pain. No dizziness or lightheadedness. Allergies Allergy/AdvReac Type Severity Reaction Status Date / Time No Known Allergies Allergy Unverified 02/16/21 08:30 Home Medications Medication Instructions Recorded Confirmed Type Saccharomyces boulardii 250 mg 250 mg PO QAM 02/16/21 02/16/21 History capsule (Florastor) allopurinol 100 mg tablet 100 mg PO QAM 02/16/21 02/16/21 History (Zyloprim) amlodipine 10 mg tablet (Norvasc) 10 mg PO QAM 02/16/21 02/16/21 History atorvastatin 10 mg tablet (Lipitor) 10 mg PO QAM 02/16/21 02/16/21 History cholecalciferol (vitamin D3) 50 50 mcg PO QAM 02/16/21 02/16/21 History mcg (2,000 unit) capsule (Vitamin D3) clopidogrel 75 mg tablet (Plavix) 75 mg PO QAM 02/16/21 02/16/21 History cyanocobalamin (vitamin B-12) 1,000 mcg PO QAM 02/16/21 02/16/21 History 1,000 mcg tablet (Vitamin B-12) enoxaparin 30 mg/0.3 mL 30 mg SUBCUT HS 02/16/21 02/16/21 History subcutaneous syringe (Lovenox) ferrous sulfate 325 mg (65 mg 325 mg PO BID 02/16/21 02/16/21 History iron) tablet (FeroSul) furosemide 40 mg tablet (Lasix) 40 mg PO QAM 02/16/21 02/16/21 History gabapentin 100 mg capsule 100 mg PO Q8H 02/16/21 02/16/21 History (Neurontin) ipratropium 0.5 mg-albuterol 3 mg 3 ml INHALATION Q6H 02/16/21 02/16/21 History (2.5 mg base)/3 mL nebulization soln losartan 50 mg tablet (Cozaar) 50 mg PO Q12 02/16/21 02/16/21 History metoprolol succinate 100 mg 100 mg PO QAM 02/16/21 02/16/21 History tablet,extended release 24 hr (Toprol XL) tramadol 50 mg tablet (Ultram) 50 mg PO Q4H 02/16/21 02/16/21 History vitamin A-vitamin C-vit E-min 1 tab PO BID 02/16/21 02/16/21 History tablet (Ocutabs) Patient History Medical History ASCVD (arteriosclerotic cardiovascular disease) Chronic heart failure with preserved ejection fraction (HFpEF) CKD (chronic kidney disease) stage 3, GFR 30-59 ml/min baseline cr 1.2-1.4 Gout HTN (hypertension) Mitral valve stenosis PAD (peripheral artery disease) PVD (peripheral vascular disease) T2DM (type 2 diabetes mellitus) last a1c 5.8 2018 Surgical History History of removal of ovarian cyst Hx of AKA (above knee amputation) Hx of cholecystectomy S/P peripheral artery angioplasty R SFA stenting Family History Mother ALS (amyotrophic lateral sclerosis) Father , 77 Coronary heart disease Sister Myocardial infarction Breast cancer Social History Smoking Status: Never smoker Hx Alcohol Use: No Hx Substance Use: No Preferred Language: [place] Communication Ability: Effective Forger Helper Required: No Beliefs That Will Affect Care: None Current Living Situation: Alone and Rehab Current Living Situation Comment: currently at acute rehab [facility] How many Children do You have: 1 Other Information That Helps Us Care for You: No Feels Safe at Home: Yes Safety Concerns: Feels Safe At This Time Assistive Devices: Prosthesis and Walker Review of Systems Review of Systems: All systems reviewed & are unremarkable except as noted in HPI & below Physical Exam Constitutional: WD/WN, vitals as above well developed; no acute distress Neck: trachea midline, no thyromegaly Respiratory: normal respiratory effort; no labored breathing Auscultation: + diminished lung sounds (bases b/l) Cardiovascular: Rate/Rhythm: regular rate and regular rhythm Heart Sounds: + murmur (II/ at apex) Vessels: no JVD Extremities: no edema (right lower extremity. Left AKA) Gastrointestinal (Abdomen): normal bowel sounds, soft, nontender, no hepatosplenomegaly Musculoskeletal: no cyanosis or clubbing, extremities motor strength 5/5 Skin: no rashes, warm and dry Neurologic: PERRL, EOMI, accommodation nl, no face palsy, no dysarthria Results & Data ([facility]) Vital Signs (Past 12 Hours) Vital Signs Temp Pulse Pulse Resp BP BP Pulse Ox 02/17/21 07:57 36.8 C 88 22 90/54 L 94 02/17/21 04:36 36.7 C 100 H 18 126/90 96 02/17/21 03:54 36.9 C 60 19 116/67 95 02/17/21 00:00 62 02/16/21 23:12 36.7 C 64 16 107/64 96 02/16/21 22:39 36.6 C 63 16 107/63 93 02/16/21 22:08 36.7 C 63 16 102/67 94 02/16/21 21:39 36.6 C 64 16 111/55 L 96 02/16/21 21:09 36.6 C 59 L 20 98/62 L 98 Laboratory Results 02/17/21 02/17/21 02/17/21 Range/Units 07:41 07:41 07:41 WBC 9.33 (4.8-10.8) K/uL RBC 2.84 L (4.2-5.4) M/uL Hgb 7.7 L (12.0-16.0) g/dL Hct 24.9 L (37-47) % MCV 87.7 (80-100) fL MCH 27.1 (25-34) pg MCHC 30.9 L (32-36) g/dL RDW Std Deviation 58.0 H (36.4-46.3) fL RDW Coeff of Hugo 18.7 H (11.5-14.5) % Plt Count 220 (130-400) K/uL MPV 8.4 (7.4-10.4) fL Immature Gran % (Auto) 2.7 % Neut % (Auto) 85.2 % Lymph % (Auto) 4.1 % [place] % (Auto) 7.4 % Eos % (Auto) 0.3 % Baso % (Auto) 0.3 % Neut # (Auto) 7.95 H (1.4-6.5) K/uL Lymph # (Auto) 0.38 L (1.2-3.4) K/uL [place] # (Auto) 0.69 H (0.11-0.59) K/uL Eos # (Auto) 0.03 (0-0.5) K/uL Baso # (Auto) 0.03 (0-0.2) K/uL Immature Gran # (Auto) 0.25 H (0.00-0.02) K/uL Absolute Nucleated RBC 0.03 H (0-0) K/uL Nucleated RBC % (auto) 0.3 % Polychromasia Ovalocytes Sodium 143 (136-145) mmol/L Potassium 4.9 (3.5-5.1) mmol/L Chloride 112 H (98-107) mmol/L Carbon Dioxide 22 (21-32) mmol/L Anion Gap 9.0 (3-11) BUN 111 H (7-18) mg/dl Creatinine 2.48 H (0.6-1.2) mg/dl Est Cr Clr Drug Dosing 14.3 ml/min Est GFR ( Amer) 19.8 ml/min Est GFR (Non-Af Amer) 17.1 ml/min BUN/Creatinine Ratio 44.9 H (10-20) Glucose 83 (70-99) mg/dl Calcium 8.4 L (8.5-10.1) mg/dl Magnesium 3.0 H (1.8-2.4) mg/dl Urine Color Urine Appearance (Clear) Urine pH (4.5-7.5) Ur Specific [place] (1.000-1.030) Urine Protein (Negative) Urine Glucose (UA) (Negative) Urine Ketones (Negative) Urine Blood (Negative) Urine Nitrite (Negative) Urine Bilirubin (Negative) Urine Urobilinogen (Negative) Ur Leukocyte Esterase (Negative) Urine WBC (Auto) (0-5) /hpf Urine RBC (Auto) (0-4) /hpf U Hyaline Cast (Auto) (0-5) /lpf U Epithel Cells (Auto) (0-5) /lpf Urine Bacteria (Auto) (Negative) Granular Casts (0) /lpf Urine Yeast Urine Osmolality (500-800) mOsm/kg Ur Random Creatinine mg/dl U Random Total Protein (0-11.9) mg/dl Ur Random Sodium mmol/L Protein/Creatinin Ratio (0-0.2) Nasal Screen MRSA (PCR) (Negative) Random Vancomycin 22.1 mcg/ml COVID-19 Eval Order SARS-CoV-2 (PCR) (Negative) Blood Type Blood Type Recheck Antibody Screen Crossmatch 02/17/21 02/16/21 02/16/21 Range/Units 00:25 15:42 15:06 WBC 9.28 (4.8-10.8) K/uL RBC 2.59 L (4.2-5.4) M/uL Hgb 7.1 L (12.0-16.0) g/dL Hct 22.8 L (37-47) % MCV 88.0 (80-100) fL MCH 27.4 (25-34) pg MCHC 31.1 L (32-36) g/dL RDW Std Deviation 56.8 H (36.4-46.3) fL RDW Coeff of Hugo 18.4 H (11.5-14.5) % Plt Count 192 (130-400) K/uL MPV 8.0 (7.4-10.4) fL Immature Gran % (Auto) 3.1 % Neut % (Auto) 84.2 % Lymph % (Auto) 5.9 % [place] % (Auto) 6.7 % Eos % (Auto) 0.0 % Baso % (Auto) 0.1 % Neut # (Auto) 7.81 H (1.4-6.5) K/uL Lymph # (Auto) 0.55 L (1.2-3.4) K/uL [place] # (Auto) 0.62 H (0.11-0.59) K/uL Eos # (Auto) 0.00 (0-0.5) K/uL Baso # (Auto) 0.01 (0-0.2) K/uL Immature Gran # (Auto) 0.29 H (0.00-0.02) K/uL Absolute Nucleated RBC 0.04 H (0-0) K/uL Nucleated RBC % (auto) 0.4 % Polychromasia 1+ Ovalocytes 1+ Sodium (136-145) mmol/L Potassium (3.5-5.1) mmol/L Chloride (98-107) mmol/L Carbon Dioxide (21-32) mmol/L Anion Gap (3-11) BUN (7-18) mg/dl Creatinine (0.6-1.2) mg/dl Est Cr Clr Drug Dosing ml/min Est GFR ( Amer) ml/min Est GFR (Non-Af Amer) ml/min BUN/Creatinine Ratio (10-20) Glucose (70-99) mg/dl Calcium (8.5-10.1) mg/dl Magnesium (1.8-2.4) mg/dl Urine Color Urine Appearance (Clear) Urine pH (4.5-7.5) Ur Specific [place] (1.000-1.030) Urine Protein (Negative) Urine Glucose (UA) (Negative) Urine Ketones (Negative) Urine Blood (Negative) Urine Nitrite (Negative) Urine Bilirubin (Negative) Urine Urobilinogen (Negative) Ur Leukocyte Esterase (Negative) Urine WBC (Auto) (0-5) /hpf Urine RBC (Auto) (0-4) /hpf U Hyaline Cast (Auto) (0-5) /lpf U Epithel Cells (Auto) (0-5) /lpf Urine Bacteria (Auto) (Negative) Granular Casts (0) /lpf Urine Yeast Urine Osmolality (500-800) mOsm/kg Ur Random Creatinine mg/dl U Random Total Protein (0-11.9) mg/dl Ur Random Sodium mmol/L Protein/Creatinin Ratio (0-0.2) Nasal Screen MRSA (PCR) Negative (Negative) Random Vancomycin mcg/ml COVID-19 Eval Order SARS-CoV-2 (PCR) (Negative) Blood Type Blood Type Recheck O Positive Antibody Screen Crossmatch 02/16/21 02/16/21 02/16/21 Range/Units 14:46 14:46 14:46 WBC 11.56 H (4.8-10.8) K/uL RBC 2.61 L (4.2-5.4) M/uL Hgb 6.9 L* (12.0-16.0) g/dL Hct 22.9 L (37-47) % MCV 87.7 (80-100) fL MCH 26.4 (25-34) pg MCHC 30.1 L (32-36) g/dL RDW Std Deviation 59.1 H (36.4-46.3) fL RDW Coeff of Hugo 19.1 H (11.5-14.5) % Plt Count 232 (130-400) K/uL MPV 8.2 (7.4-10.4) fL Immature Gran % (Auto) % Neut % (Auto) % Lymph % (Auto) % [place] % (Auto) % Eos % (Auto) % Baso % (Auto) % Neut # (Auto) (1.4-6.5) K/uL Lymph # (Auto) (1.2-3.4) K/uL [place] # (Auto) (0.11-0.59) K/uL Eos # (Auto) (0-0.5) K/uL Baso # (Auto) (0-0.2) K/uL Immature Gran # (Auto) (0.00-0.02) K/uL Absolute Nucleated RBC 0.04 H (0-0) K/uL Nucleated RBC % (auto) 0.4 % Polychromasia Ovalocytes Sodium 141 (136-145) mmol/L Potassium 5.0 (3.5-5.1) mmol/L Chloride 111 H (98-107) mmol/L Carbon Dioxide 25 (21-32) mmol/L Anion Gap 5.0 (3-11) BUN 113 H (7-18) mg/dl Creatinine 2.46 H (0.6-1.2) mg/dl Est Cr Clr Drug Dosing 14.4 ml/min Est GFR ( Amer) 20.0 ml/min Est GFR (Non-Af Amer) 17.3 ml/min BUN/Creatinine Ratio 45.8 H (10-20) Glucose 98 (70-99) mg/dl Calcium 8.6 (8.5-10.1) mg/dl Magnesium (1.8-2.4) mg/dl Urine Color Urine Appearance (Clear) Urine pH (4.5-7.5) Ur Specific [place] (1.000-1.030) Urine Protein (Negative) Urine Glucose (UA) (Negative) Urine Ketones (Negative) Urine Blood (Negative) Urine Nitrite (Negative) Urine Bilirubin (Negative) Urine Urobilinogen (Negative) Ur Leukocyte Esterase (Negative) Urine WBC (Auto) (0-5) /hpf Urine RBC (Auto) (0-4) /hpf U Hyaline Cast (Auto) (0-5) /lpf U Epithel Cells (Auto) (0-5) /lpf Urine Bacteria (Auto) (Negative) Granular Casts (0) /lpf Urine Yeast Urine Osmolality (500-800) mOsm/kg Ur Random Creatinine mg/dl U Random Total Protein (0-11.9) mg/dl Ur Random Sodium mmol/L Protein/Creatinin Ratio (0-0.2) Nasal Screen MRSA (PCR) (Negative) Random Vancomycin mcg/ml COVID-19 Eval Order SARS-CoV-2 (PCR) (Negative) Blood Type O Positive Blood Type Recheck Antibody Screen NEGATIVE Crossmatch See Detail 02/16/21 02/16/21 02/16/21 Range/Units 12:37 12:37 12:37 WBC (4.8-10.8) K/uL RBC (4.2-5.4) M/uL Hgb (12.0-16.0) g/dL Hct (37-47) % MCV (80-100) fL MCH (25-34) pg MCHC (32-36) g/dL RDW Std Deviation (36.4-46.3) fL RDW Coeff of Hugo (11.5-14.5) % Plt Count (130-400) K/uL MPV (7.4-10.4) fL Immature Gran % (Auto) % Neut % (Auto) % Lymph % (Auto) % [place] % (Auto) % Eos % (Auto) % Baso % (Auto) % Neut # (Auto) (1.4-6.5) K/uL Lymph # (Auto) (1.2-3.4) K/uL [place] # (Auto) (0.11-0.59) K/uL Eos # (Auto) (0-0.5) K/uL Baso # (Auto) (0-0.2) K/uL Immature Gran # (Auto) (0.00-0.02) K/uL Absolute Nucleated RBC (0-0) K/uL Nucleated RBC % (auto) % Polychromasia Ovalocytes Sodium (136-145) mmol/L Potassium (3.5-5.1) mmol/L Chloride (98-107) mmol/L Carbon Dioxide (21-32) mmol/L Anion Gap (3-11) BUN (7-18) mg/dl Creatinine (0.6-1.2) mg/dl Est Cr Clr Drug Dosing ml/min Est GFR ( Amer) ml/min Est GFR (Non-Af Amer) ml/min BUN/Creatinine Ratio (10-20) Glucose (70-99) mg/dl Calcium (8.5-10.1) mg/dl Magnesium (1.8-2.4) mg/dl Urine Color Yellow Urine Appearance Clear (Clear) Urine pH 5.0 (4.5-7.5) Ur Specific [place] 1.012 (1.000-1.030) Urine Protein 2+ H (Negative) Urine Glucose (UA) Negative (Negative) Urine Ketones Negative (Negative) Urine Blood 1+ H (Negative) Urine Nitrite Negative (Negative) Urine Bilirubin Negative (Negative) Urine Urobilinogen Negative (Negative) Ur Leukocyte Esterase Negative (Negative) Urine WBC (Auto) 5-10 H (0-5) /hpf Urine RBC (Auto) 0-4 (0-4) /hpf U Hyaline Cast (Auto) 10-30 H (0-5) /lpf U Epithel Cells (Auto) >30 H (0-5) /lpf Urine Bacteria (Auto) Negative (Negative) Granular Casts 10-20 H (0) /lpf Urine Yeast Not Reportable Urine Osmolality 342 L (500-800) mOsm/kg Ur Random Creatinine 55.9 mg/dl U Random Total Protein 86.8 H (0-11.9) mg/dl Ur Random Sodium 44 mmol/L Protein/Creatinin Ratio 1.6 H (0-0.2) Nasal Screen MRSA (PCR) (Negative) Random Vancomycin mcg/ml COVID-19 Eval Order SARS-CoV-2 (PCR) (Negative) Blood Type Blood Type Recheck Antibody Screen Crossmatch 02/16/21 02/16/21 Range/Units 11:36 11:36 WBC (4.8-10.8) K/uL RBC (4.2-5.4) M/uL Hgb (12.0-16.0) g/dL Hct (37-47) % MCV (80-100) fL MCH (25-34) pg MCHC (32-36) g/dL RDW Std Deviation (36.4-46.3) fL RDW Coeff of Hugo (11.5-14.5) % Plt Count (130-400) K/uL MPV (7.4-10.4) fL Immature Gran % (Auto) % Neut % (Auto) % Lymph % (Auto) % [place] % (Auto) % Eos % (Auto) % Baso % (Auto) % Neut # (Auto) (1.4-6.5) K/uL Lymph # (Auto) (1.2-3.4) K/uL [place] # (Auto) (0.11-0.59) K/uL Eos # (Auto) (0-0.5) K/uL Baso # (Auto) (0-0.2) K/uL Immature Gran # (Auto) (0.00-0.02) K/uL Absolute Nucleated RBC (0-0) K/uL Nucleated RBC % (auto) % Polychromasia Ovalocytes Sodium (136-145) mmol/L Potassium (3.5-5.1) mmol/L Chloride (98-107) mmol/L Carbon Dioxide (21-32) mmol/L Anion Gap (3-11) BUN (7-18) mg/dl Creatinine (0.6-1.2) mg/dl Est Cr Clr Drug Dosing ml/min Est GFR ( Amer) ml/min Est GFR (Non-Af Amer) ml/min BUN/Creatinine Ratio (10-20) Glucose (70-99) mg/dl Calcium (8.5-10.1) mg/dl Magnesium (1.8-2.4) mg/dl Urine Color Urine Appearance (Clear) Urine pH (4.5-7.5) Ur Specific [place] (1.000-1.030) Urine Protein (Negative) Urine Glucose (UA) (Negative) Urine Ketones (Negative) Urine Blood (Negative) Urine Nitrite (Negative) Urine Bilirubin (Negative) Urine Urobilinogen (Negative) Ur Leukocyte Esterase (Negative) Urine WBC (Auto) (0-5) /hpf Urine RBC (Auto) (0-4) /hpf U Hyaline Cast (Auto) (0-5) /lpf U Epithel Cells (Auto) (0-5) /lpf Urine Bacteria (Auto) (Negative) Granular Casts (0) /lpf Urine Yeast Urine Osmolality (500-800) mOsm/kg Ur Random Creatinine mg/dl U Random Total Protein (0-11.9) mg/dl Ur Random Sodium mmol/L Protein/Creatinin Ratio (0-0.2) Nasal Screen MRSA (PCR) (Negative) Random Vancomycin mcg/ml COVID-19 Eval Order Covid19 at [facility] SARS-CoV-2 (PCR) NEGATIVE (Negative) Blood Type Blood Type Recheck Antibody Screen Crossmatch Diagnostic Findings Telemetry reviewed - NSR in the 60's. No arrhythmias Echo reviewed: Compared to prior study in February 2020, pulmonary hypertension has decreased from a PA systolic pressure of 83 mmHg to 50 mmHg. Normal LV chamber size with mild concentric LVH. Normal LV systolic function with ejection fraction 60 to 65%. No segmental left ventricular wall motion abnormalities are noted. Grade 2 diastolic dysfunction. Aortic valve sclerosis mild without significant aortic valvular stenosis. Mild aortic regurgitation. Calcified mitral apparatus causing moderate mitral stenosis. Mild MR. Mild TR. Severe left atrial enlargement. Pulmonary hypertension is present with a PA systolic pressure of 50 mmHg. Moderate sized left pleural effusion is present. 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 Left retrocardiac opacity which may represent atelectasis, pneumonia, layering effusion, and/or aspiration. 2. Left phrenic angle blunting likely represent small to moderate pleural effusion. Medications Administered Current Inpatient Medications Acetaminophen (Acetaminophen 325 Mg Tab) 650 mg PO Q4H PRN PRN Reason: Pain or Fever Stop: 03/18/21 16:53 Last Admin: 02/16/21 18:04 Dose: 650 mg Documented by: Albuterol (Albut/Ipratrop 3mg/0.5mg Neb 3 Ml Vial) 3 ml NEB QIDR PRN PRN Reason: sob/wheezing Stop: 03/18/21 16:53 [facility]opurin[facility] ([facility] 100 Mg Tab) [facility] Stop: 03/19/21 08:59 Last Admin: 02/17/21 08:37 Dose: 100 mg Documented by: Amlodipine Besylate (Amlodipine Besylate 5 Mg Tab) [facility] Stop: 03/19/21 08:59 Last Admin: 02/17/21 08:37 Dose: 10 mg Documented by: Atorvastatin Calcium (Atorvastatin 10 Mg Tab) [facility] Stop: 03/19/21 08:59 Last Admin: 02/17/21 08:37 Dose: 10 mg Documented by: Clopidogrel Bisulfate (Clopidogrel Bisulfate 75 Mg Tab) 75 mg PO [facility] Stop: 03/19/21 08:59 Cyanocobalamin (Cyanocobalamin 500 Mcg Tablet (Vitamin B-12)) 1,000 [facility]cg [facility] Stop: 03/19/21 08:59 Last Admin: 02/17/21 08:37 Dose: 1,000 mcg Documented by: Ferrous Sulfate (Ferrous Sulfate 325 Mg Tab) 325 mg PO BID [facility] Stop: 03/18/21 20:59 Last Admin: 02/17/21 08:36 Dose: 325 mg Documented by: Gabapentin (Gabapentin 100 Mg Cap) 100 mg PO Q8H [facility] Stop: 03/18/21 21:59 Last Admin: 02/17/21 06:18 Dose: Not Given Documented by: Pantoprazole Sodium 40 mg/ (Syringe) 10 mls @ 5 mls/min IV BID [facility] Stop: 03/18/21 20:59 Last Admin: 02/17/21 08:36 Dose: 5 mls/min Documented by: Azithromycin 500 mg/ Dextrose 255 mls @ 127.5 mls/hr IV Q24H [facility]; Protocol Stop: 02/23/21 16:59 Last Infusion: 02/16/21 20:23 Dose: Infused Documented by: Cefepime HCl 1,000 mg/ Syringe 11.3 mls @ 5.5 mls/min IV Q12H [facility]; Protocol Stop: 02/23/21 19:59 Last Admin: 02/17/21 08:35 Dose: 5.5 mls/min Documented by: Metoprolol Succinate (Metoprolol Succ 50mg Ext Rel Tab) 100 mg PO QAM [facility] Stop: 03/19/21 08:59 Last Admin: 02/17/21 08:36 Dose: 100 mg Documented by: Miscellaneous Information (Cefepime Consult Active) 0 ea N/A UD PRN PRN Reason: Consult Stop: 03/18/21 16:53 Miscellaneous Information (Vancomycin Consult Active) 1 ea N/A UD PRN PRN Reason: Consult Stop: 03/18/21 21:18 Multivitamins/Minerals (Cerovite Adv Formula Tab) 1 tab PO DAILY [facility] Stop: 03/19/21 08:59 Last Admin: 02/17/21 08:37 Dose: 1 tab Documented by: Ondansetron HCl (Ondansetron Inj 2 Mg/Ml 2 Ml Vial) 4 mg IV Q6H PRN PRN Reason: Nausea Stop: 03/18/21 16:53 Polyethylene Glycol (Polyethylene (Miralax) 17 Gm Pack) 17 gm PO DAILY PRN PRN Reason: Constipation Stop: 03/18/21 16:53 Tramadol HCl (Tramadol Hcl 50 Mg Tablet) 50 mg PO Q4H PRN PRN Reason: severe pain (rating 7-10) Stop: 03/18/21 16:53 Vitamin D (Cholecalciferol 1,000 Units 25 Mcg Tab) 2,[facility] Stop: 03/19/21 08:59 Last Admin: 02/17/21 08:37 Dose: 2,000 units Documented by:
--- NOTE | 2021-02-17 09:23 | Nephrology Progress Note ---
Date of Service February 17, 2021 Assessment & Plan Admission and Anticipated Discharge Date Admission Date: February 16, 2021 Subjective made about 600 ml urine. Less o2 need now. PHYSICAL EXAMINATION: GENERAL: Elderly white female who appears to be sick. She does have some respiratory distress. HEENT: Normocephalic, atraumatic. NECK: Supple. Jugular venous distention is present. RESPIRATORY: Increased respiratory effort, increased respiratory rate. Decreased breath sound as well as some crackles at the bases. CARDIOVASCULAR: Regular rate and rhythm. Soft systolic murmur is heard. ABDOMEN: Soft, nontender, slightly obese. EXTREMITIES: Show significant lower extremity edema with skin breakdown as well as oozing ulcers. Unilateral AKA. GENITOURINARY: Kwok catheter present with yellow urine. NEUROLOGIC: She is very weak and somnolent and did not open eyes during my examination. LABORATORY TEST: Reviewed and shows very elevated BUN but similar to yesterday and about same creat. hgb up a bit. ASSESSMENT AND PLAN: An 85-year-old female who is admitted because of respiratory failure with hypoxia and was found to have acute renal failure, for which I have been consulted. Acute renal failure: This is acute tubular necrosis given the urine sediment picture and the clinical situation. At this advanced age, kidneys are very frail and any degree of hypoxia an acute Blood loss anemia is enough to cause acute tubular necrosis, which is what we are witnessing here. She needs to be diuresed. Her BUN is quite high as well as creatinine, but there is disproportionately high BUN combined with very low hemoglobin. There is a possibility of gastrointestinal bleed causing a disproportionate rise in the BUN and needs to be investigated. Hemoglobin is now less than 7, and given her clinical situation of hypoxia, I would recommend blood transfusion with Lasix. No further workup is needed from renal standpoint. Continue Kwok catheter and continue strict input/output charting. Avoid nonsteroidal anti-inflammatory drugs, angiotensin converting enzyme inhibitor, angiotensin receptor anna, contrast agents for the time being. Renally dose all the antibiotics. I will continue to follow the patient. It is quite possible her renal function will get worse before it gets better. Rec. 1 ECHO 2 needs more lasix 80 iv bid. dose dependent on urine output and BP 3 Daily BMP. Results & Data ([facility]) Vital Signs (Past 12 Hours) Vital Signs Temp Pulse Pulse Resp BP BP Pulse Ox 02/17/21 07:57 36.8 C 88 22 90/54 L 94 02/17/21 04:36 36.7 C 100 H 18 126/90 96 02/17/21 03:54 36.9 C 60 19 116/67 95 02/17/21 00:00 62 02/16/21 23:12 36.7 C 64 16 107/64 96 02/16/21 22:39 36.6 C 63 16 107/63 93 02/16/21 22:08 36.7 C 63 16 102/67 94 02/16/21 21:39 36.6 C 64 16 111/55 L 96
[2021-02-17 14:29] LABS: Hematocrit (blood only) 23.8 % (37-47); Hemoglobin 7.3 g/dL (12.0-16.0); Mean Corpuscular Hemoglobin 26.6 pg (25-34); Mean Corpuscular Hgb Conc 30.7 g/dL (32-36); Mean Corpuscular Volume 86.9 fL (80-100); Mean Platelet Volume 8.2 fL (7.4-10.4); Platelet Count 211 K/uL (130-400); RDW Coefficient of Variation 18.8 % (11.5-14.5); RDW Standard Deviation 57.9 fL (36.4-46.3); Red Blood Count 2.74 M/uL (4.2-5.4); White Blood Count 9.72 K/uL (4.8-10.8)
--- NOTE | 2021-02-17 15:40 | Pharmacy Report ---
Pharmacy Abx Dose Short Note - Date of Service February 17, 2021 - Assessment & Plan Assessment 85 year old F receiving Vancomycin for treatment of cellulitis. Day #2 of antimicrobial therapy. Patient received one dose of Vancomycin 1500 mg IV last night and a random level with AM labs was obtained today AM. Renal function is poor with CrCl = 14 ml/min. Therefore, will dose based on random level until renal function improved. Laboratory Tests 02/17/21 02/17/21 07:41 14:21 Random Vancomycin 22.1 20.5 Plan Vancomycin * Random level of 22.1 mcg/mL elevated above goal of 12-20 mcg/ml for SSTI. * A second random Vanc level obtained 6.6 hrs after the first one is 20.5 mcg/ml. * Estimate level should definitely fall below 20 mcg/ml in 2 more hrs. Therefore, Vancomycin 500 mg IV x 1 dose ordered for 1700 today. * Random level ordered for: 02/18/21 with AM labs. Will re-dose based on level. Pharmacy will continue to follow and will adjust dose/frequency as necessary. Thank you.
[2021-02-17] MEDS ORDERED: VANCOMYCIN HCL 500 MG in 0.9 % SODIUM CHLORIDE 100 ML IV ONE (17:00)
[2021-02-17] MEDS: AZITHROMYCIN 500 MG in DEXTROSE 5% 250 ML IV SCH (18:46)
--- NOTE | 2021-02-17 19:23 | Ultrasound Report ---
US arterial duplex LE RT CLINICAL HISTORY: severe wound, h/o PAD TECHNIQUE: Real-time grayscale and color and spectral Doppler ultrasound imaging of the right lower e xtremity arteries was performed. Measurements calculated based on NASCET criteria. COMPARISON: None available at the time of this dictation. FINDINGS: Exam is highly limited due to open right calf wound. Only proximal portion of the posterior tibial ar king, peroneal, and anterior tibial arteries were evaluated. No ankle-brachial indices were obtained due to wound and pain. Right great toe pressure was obtained. RIGHT: Common femoral artery: Patent. Monophasic waveforms. Peak systolic velocity (PSV) 148 cm/s. Deep femoral artery: Patent. Monophasic waveforms. PSV 110 cm/s. Superficial femoral artery: Patent. Monophasic waveforms. PSV 99 cm/s. Popliteal artery: Patent. Monophasic waveforms. PSV 221 cm/s. Anterior tibial artery: Systolic flow was not visualized.. Posterior tibial artery: Patent. Monophasic waveforms. PSV 193 cm/s. Peroneal artery: Patent. Monophasic waveforms. PSV 56 cm/s. Dorsalis pedis: Patent. Monophasic waveforms. PSV 33 cm/s. ANKLE/BRACHIAL INDEX (CARLEE): Dorsalis pedis systolic pressure in the toe was 17. Brachial artery was not interrogated. Reference ranges: Normal Ankle/Brachial Index (CARLEE) 1.0-1.4; 0.91-0.99 borderline; < or = 0.9 abnormal (0.7-0.89 mild, 0.51-0.69 moderate, < or = 0.5 severe peripheral arterial disease). Normal Toe/Brachial Index (TBI) > or = 0.6; < 0.6 abnormal (0.34-0.59 mild, 0.12-0.34 moderate, < or = 0.11 severe peripheral arterial disease). IMPRESSION: 1. Diffusely monophasic waveforms compatible with peripheral arterial disease. Elevated velocities i n the popliteal and posterior tibial arteries with low velocities in the peroneal and dorsalis pedis arteries, compatible with peripheral arterial disease. 2. Ankle brachial indices were not obtained due to large wound. ACT 112: Negative or not required by law. Electronically signed by: Leonard Underwood M.D. 02/17/2021 7:22 PM
--- NOTE | 2021-02-17 20:27 | Hospitalist Progress Note ---
Date of Service February 17, 2021 seen at 0800 Assessment & Plan (1) Acute on chronic heart failure with preserved ejection fraction: Plan: History of chronic diastolic heart failure and mitral stenosis with HTN and gout. Per last cardiology note she was supposed to be taking Lasix 40mg PO BID, however, intake med list reflects lasix 40mg only once daily. Will check with her daughter on the change. She has received several doses of Lasix in the last 24 hours and is feeling better, however, her BP this am is 90/54. Holding on further Lasix and cardiology to also evaluate her. Effusions are present on CXR and notably patient has no symptoms of pneumonia at this time, including no cough, fevers, chills. This, clinical symptoms, and [id number] all support acute on chronic heart failure as the cause of her shortness of breath, which is improved with treatment. (2) Wound of right lower extremity: Plan: Large ischemic ulcer with eschar of her right lower extremity. Also with ulcerations of her right medial malleolus and her right medial thigh. She has a h/o severe PAD resulting in L AKA and (3) Acute on chronic anemia: Plan: Appears to have multifactorial symptomatic anemia with iron deficiency present despite taking iron supplements. One unit of blood already given this admission , however, Hb remains 7.9. Per GI no emergent scope needed unless there is maría melena or active hematochezia, which is not present. Notably patient reports never having had a colonoscopy in the past. She is willing to undergo this outpatient which will be recommended (4) Acute worsening of stage 3 chronic kidney disease: Plan: likely 2/2 ATN given the current clinical picture. Nephrology also expressed concerns independently that her anemia may be adversely affecting her respiratory status. Recommend continue with loop diuretic as above. (5) PAD (peripheral artery disease): Plan: Has a long-standing h/o PAD and has followed with [facility] Vascular surgery in the past. Has a h/o right SFA stenting and left AKA in 2010 due to progressive peripheral arterial disease. Awaiting vascular thoughts regarding intervention. (6) DVT prophylaxis: Plan: SCDs/no chemoprophylaxis in setting of anemia and consideration/monitoring for ongoing GI bleeding DNR/DNI Dispo-uncertain at this time. Jenifer Maravilla [facility] (7) Hypoxia: Plan: More than likely related to fluid overload from heart failure, however, also covering wtih antibiotics as there is a possibility for pneumonia given the imaging findings and clinical picture. Also anemia may be a contributing factor as explained below. Admission and Anticipated Discharge Date Admission Date: February 16, 2021 Subjective 85 yo F presented with worsening shortness of breath for the last week. She also reports swelling in her RLE. She is s/p L AKA in the past and has a h/o PAD. Her RLE has a severe wound with eschar that is present. The wound has been wrapped but encompasses the lower half of the right leg. She feels her breathing is better today. She reports not walking but transfers independently to her bedside commode independently. She lives with her daughter who works during the day. When asked who helps her get something during the day such as food or water she replied, "I have never had that problem." She had a prosthesis for her LLE but this has not fit since some reported swelling in her residual limb. She otherwise denies fevers, chills, chest pain or other issues today. Review of Systems Review of Systems: At least ten systems were reviewed and negative except as indicated in HPI above. Physical Exam Physical Exam: CONSTITUTIONAL: WNWD, vitals as above, generally well- appearing EYES: normal conjunctivae, no scleral icterus ENT: external ear and nose normal, oropharynx clear, no TM abnormality, no maxillary or ethmoid sinus tenderness NECK: trachea midline RESPIRATORY: clear to auscultation bilaterally, no crackles, rales or wheezes, normal respiratory effort CARDIOVASCULAR: regular rate and rhythm, S1 and 2 heard without murmurs, gallops or rubs, no JVD, no peripheral edema GASTROINTESTINAL: soft, nontender, ND, no guarding. MUSCULOSKELETAL: generalized weakness, head is normocephalic and atraumatic, LLE warm and well perfused, s/p AKA on right wtih residual limb-from what I can visualize there is no edema and skin is intact. SKIN: warm and dry, large wound with eschar (from pictures) on LLE, wrapped and not visualized, small stage II ulceration on medial thigh open, not draining, no surrounding erythema. Painful. NEUROLOGIC: CN 2-12 grossly intact, normal cognition, normal speech, no gross focal deficits. PSYCHIATRIC: alert cooperative and answering questions appropriately. Results & Data Results & Data ([facility]) Vital Signs (Past 12 Hours) Vital Signs Temp Pulse Pulse Resp BP BP Pulse Ox 02/17/21 19:18 36.6 C 58 L 22 111/57 L 95 02/17/21 16:54 02/17/21 15:50 57 L 02/17/21 15:36 36.8 C 96 H 122/76 96 02/17/21 11:50 36.9 C 69 18 101/59 L 96 Pulse Ox 02/17/21 19:18 02/17/21 16:54 97 02/17/21 15:50 02/17/21 15:36 02/17/21 11:50 Laboratory Results Short CBC 02/17/21 02/17/21 02/17/21 Range/Units 00:25 07:41 14:21 WBC 9.28 9.33 9.72 (4.8-10.8) K/uL Hgb 7.1 L 7.7 L 7.3 L (12.0-16.0) g/dL Hct 22.8 L 24.9 L 23.8 L (37-47) % Plt Count 192 220 211 (130-400) K/uL BMP 02/17/21 07:41 Sodium 143 Potassium 4.9 Chloride 112 H Carbon Dioxide 22 BUN 111 H Creatinine 2.48 H Glucose 83 Calcium 8.4 L Diagnostic Findings Duplex Scan Lower Extremity Artery 02/17/21 12:13 US arterial duplex LE RT CLINICAL HISTORY: severe wound, h/o PAD TECHNIQUE: Real-time grayscale and color and spectral Doppler ultrasound imaging of the right lower extremity arteries was performed. Measurements calculated based on NASCET criteria. COMPARISON: None available at the time of this dictation. FINDINGS: Exam is highly limited due to open right calf wound. Only proximal portion of the posterior tibial artery, peroneal, and anterior tibial arteries were evaluated. No ankle-brachial indices were obtained due to wound and pain. Right great toe pressure was obtained. RIGHT: Common femoral artery: Patent. Monophasic waveforms. Peak systolic velocity (PSV) 148 cm/s. Deep femoral artery: Patent. Monophasic waveforms. PSV 110 cm/s. Superficial femoral artery: Patent. Monophasic waveforms. PSV 99 cm/s. Popliteal artery: Patent. Monophasic waveforms. PSV 221 cm/s. Anterior tibial artery: Systolic flow was not visualized.. Posterior tibial artery: Patent. Monophasic waveforms. PSV 193 cm/s. Peroneal artery: Patent. Monophasic waveforms. PSV 56 cm/s. Dorsalis pedis: Patent. Monophasic waveforms. PSV 33 cm/s. ANKLE/BRACHIAL INDEX (CARLEE): Dorsalis pedis systolic pressure in the toe was 17. Brachial artery was not interrogated. Reference ranges: Normal Ankle/Brachial Index (CARLEE) 1.0-1.4; 0.91-0.99 borderline; < or = 0.9 abno rmal (0.7-0.89 mild, 0.51-0.69 moderate, < or = 0.5 severe peripheral arterial disease). Normal Toe/Brachial Index (TBI) > or = 0.6; < 0.6 abnormal (0.34-0.59 mild, 0.12-0.34 moderate, < or = 0.11 severe peripheral arterial disease). IMPRESSION: 1. Diffusely monophasic waveforms compatible with peripheral arterial disease. Elevated velocities in the popliteal and posterior tibial arteries with low velocities in the peroneal and dorsalis pedis arteries, compatible with peripheral arterial disease. 2. Ankle brachial indices were not obtained due to large wound. ACT 112: Negative or not required by law. Electronically signed by: Leonard Underwood M.D. 02/17/2021 7:22 PM Medications Administered Current Inpatient Medications Acetaminophen (Acetaminophen 325 Mg Tab) 650 mg PO Q4H PRN PRN Reason: Pain or Fever Stop: 03/18/21 16:53 Last Admin: 02/16/21 18:04 Dose: 650 mg Documented by: Albuterol (Albut/Ipratrop 3mg/0.5mg Neb 3 Ml Vial) 3 ml NEB QIDR PRN PRN Reason: sob/wheezing Stop: 03/18/21 16:53 Allopurinol (Allopurinol 100 Mg Tab) 100 mg PO [facility] Stop: 03/19/21 08:59 Last Admin: 02/17/21 08:37 Dose: 100 mg Documented by: Amlodipine Besylate (Amlodipine Besylate 5 Mg Tab) 10 mg PO [facility] Stop: 03/19/21 08:59 Last Admin: 02/17/21 08:37 Dose: 10 mg Documented by: Atorvastatin Calcium ([facility]vastatin 10 Mg Tab) [facility] Stop: 03/19/21 08:59 Last Admin: 02/17/21 08:37 Dose: 10 mg Documented by: Clopidogrel Bisulfate (Clopidogrel Bisulfate 75 Mg Tab) 75 mg PO [facility] Stop: 03/19/21 08:59 Cyanocobalamin (Cyanocobalamin 500 Mcg Tablet (Vitamin B-12)) 1,000 mcg PO [facility] Stop: 03/19/21 08:59 Last Admin: 02/17/21 08:37 Dose: 1,000 mcg Documented by: Ferrous Sulfate (Ferrous Sulfate 325 Mg Tab) 325 mg PO BID [facility] Stop: 03/18/21 20:59 Last Admin: 02/17/21 08:36 Dose: 325 mg Documented by: Gabapentin (Gabapentin 100 Mg Cap) 100 mg PO Q8H [facility] Stop: 03/18/21 21:59 Last Admin: 02/17/21 15:00 Dose: 100 mg Documented by: Pantoprazole Sodium 40 mg/ (Syringe) 10 mls @ 5 mls/min IV BID [facility] Stop: 03/18/21 20:59 Last Admin: 02/17/21 08:36 Dose: 5 mls/min Documented by: Azithromycin 500 mg/ Dextrose 255 mls @ 127.5 mls/hr IV Q24H [facility]; Protocol Stop: 02/23/21 16:59 Last Admin: 02/17/21 18:46 Dose: 127.5 mls/hr Documented by: Cefepime HCl 1,000 mg/ Syringe 11.3 mls @ 5.5 mls/min IV Q12H [facility]; Protocol Stop: 02/23/21 19:59 Last Admin: 02/17/21 08:35 Dose: 5.5 mls/min Documented by: Metoprolol Succinate (Metoprolol Succ 50mg Ext Rel Tab) [facility] [place] Stop: 03/19/21 08:59 Last Admin: 02/17/21 08:36 Dose: 100 mg Documented by: Miscellaneous Information (Cefepime Consult Active) 0 ea N/A UD PRN PRN Reason: Consult Stop: 03/18/21 16:53 Miscellaneous Information (Vancomycin Consult Active) 1 ea N/A UD PRN PRN Reason: Consult Stop: 03/18/21 21:18 Multivitamins/Minerals (Cerovite Adv Formula Tab) 1 tab PO DAILY [facility] Stop: 03/19/21 08:59 Last Admin: 02/17/21 08:37 Dose: 1 tab Documented by: Ondansetron HCl (Ondansetron Inj 2 Mg/Ml 2 Ml Vial) 4 mg IV Q6H PRN PRN Reason: Nausea Stop: 03/18/21 16:53 Polyethylene Glycol (Polyethylene (Miralax) 17 Gm Pack) 17 gm PO DAILY PRN PRN Reason: Constipation Stop: 03/18/21 16:53 Tramadol HCl (Tramadol Hcl 50 Mg Tablet) 50 mg PO Q4H PRN PRN Reason: severe pain (rating 7-10) Stop: 03/18/21 16:53 Vitamin D (Cholecalciferol 1,000 Units 25 Mcg Tab) 2,000 [facility] [place] Stop: 03/19/21 08:59 Last Admin: 02/17/21 08:37 Dose: 2,000 units Documented by:
[2021-02-17 22:46] LABS: Hemoglobin 7.4 g/dL (12.0-16.0); Mean Corpuscular Hemoglobin 26.9 pg (25-34); Mean Corpuscular Hgb Conc 30.8 g/dL (32-36); Mean Corpuscular Volume 87.3 fL (80-100); Mean Platelet Volume 8.6 fL (7.4-10.4); Nucleated RBC # (auto) 0.05 K/uL (0-0); Nucleated RBC % (auto) 0.6 %; Platelet Count 212 K/uL (130-400); RDW Coefficient of Variation 18.9 % (11.5-14.5); RDW Standard Deviation 58.5 fL (36.4-46.3); Red Blood Count 2.75 M/uL (4.2-5.4); White Blood Count 8.47 K/uL (4.8-10.8)
[2021-02-18] MEDS: GABAPENTIN 100 MG CAP PO SCH ×2 (06:03→14:54)
[2021-02-18 06:31] LABS: Hematocrit (blood only) 26.1 % (37-47); Hemoglobin 7.9 g/dL (12.0-16.0); Mean Corpuscular Hemoglobin 27.1 pg (25-34); Mean Corpuscular Hgb Conc 30.3 g/dL (32-36); Mean Corpuscular Volume 89.4 fL (80-100); Mean Platelet Volume 8.6 fL (7.4-10.4); Platelet Count 202 K/uL (130-400); RDW Coefficient of Variation 19.1 % (11.5-14.5); Red Blood Count 2.92 M/uL (4.2-5.4); White Blood Count 8.48 K/uL (4.8-10.8)
[2021-02-18 07:06] LABS: Creatinine Clr Calc Pharmacy 12.6 ml/min; Est GFR (African American) 17.3 ml/min; Est GFR (Non-African American) 14.9 ml/min
--- NOTE | 2021-02-18 07:48 | Orthopedic Consultation ---
Date of Consultation February 18, 2021 Assessment & Plan (1) Wound of right lower extremity: Continue wound care team's recommendations for dressing changes on the right lower extremity. X-rays of the right ankle and left AKA stump. Duplex scan has been completed. Case discussed with [facility] physicians. Await input from vascular team. Will review x-rays when available. Supervising Physician Co-Signing Physician Notes Patient seen and examined. Agree with SALVADOR Landon's note as above. She is sleeping but able to be awoken after several attempts, but quickly falls back to sleep. She has difficulty answering questions due to her somnolence, but seems to somewhat understand what is going on. Examination of the right lower leg reveals a large circumferential band of necrotic skin and eschar at about the midshaft tibia level. No obvious surrounding infection. No active or expressible drainage. No significant erythema or swelling in the skin immediately surrounding the area of skin necrosis. The foot is warm well perfused. By report, this band and necrosis on her leg seem to start after an episode of cellulitis; she was previously treated up at [facility] and discharged. I do not see any indication for urgent surgical intervention on her leg since there is no significant infection. However treatment of this band of necrosis and eschar may be challenging. After any potential debridement of this eschar, she would likely require fairly extensive skin grafting or even flap coverage. I think this to be very difficult for this elderly woman with a lot of other medical problems. I think she would benefit from input from the vascular surgery service; they are consulted, but have yet to weigh in. I would also recommend an MRI of her right lower leg to see how deep the necrosis goes, especially over the anterior tibia area. History of Present Illness Reason for Consultation: Right lower extremity wound; left AKA stump pain. Attending Physician: Jenifer Maravilla DO History of Present Illness 85-year-old female who has significant past medical history of chronic heart failure with preserved ejection fraction, mitral valve stenosis, HTN, HLD, history of PAD/PVD status post left AKA and right SFA stenting, CKD stage III baseline creatinine 1.2-1.4, history of C. difficile, history of T2DM who presents to ED secondary to shortness of breath 1 week. Of significance patient was recently hospitalized on 01/29-02/06 at [facility] secondary to right lower extremity cellulitis treated initially with IV vancomycin and cefepime and transition to oral cefdinir, MARIELA with a peak creatinine of 2.0 treated with IV fluid and wound care to right lower extremity vascular ulcers. Patient admitted for CHF/fluid overload, worsening CKD, acute on chronic anemia. Patient was noted to have right lower extremity wounds from her previous cellulitis that was treated earlier in the month. She was also having some left AKA stump pain. The patient states that she has been having the left AKA stump pain ever since she has had the AKA done however in the last year she has not been able to wear her prosthesis secondary to the discomfort. She states that she has been dealing with the right lower extremity wounds through wound care team since her discharge from [facility]. Allergies Allergy/AdvReac Type Severity Reaction Status Date / Time No Known Allergies Allergy Unverified 02/16/21 08:30 Home Medications Medication Instructions Recorded Confirmed Type Saccharomyces boulardii 250 mg 250 mg PO QAM 02/16/21 02/16/21 History capsule (Florastor) allopurinol 100 mg tablet 100 mg PO QAM 02/16/21 02/16/21 History (Zyloprim) amlodipine 10 mg tablet (Norvasc) 10 mg PO QAM 02/16/21 02/16/21 History atorvastatin 10 mg tablet (Lipitor) 10 mg PO QAM 02/16/21 02/16/21 History cholecalciferol (vitamin D3) 50 50 mcg PO QAM 02/16/21 02/16/21 History mcg (2,000 unit) capsule (Vitamin D3) clopidogrel 75 mg tablet (Plavix) 75 mg PO QAM 02/16/21 02/16/21 History cyanocobalamin (vitamin B-12) 1,000 mcg PO QAM 02/16/21 02/16/21 History 1,000 mcg tablet (Vitamin B-12) enoxaparin 30 mg/0.3 mL 30 mg SUBCUT HS 02/16/21 02/16/21 History subcutaneous syringe (Lovenox) ferrous sulfate 325 mg (65 mg 325 mg PO BID 02/16/21 02/16/21 History iron) tablet (FeroSul) furosemide 40 mg tablet (Lasix) 40 mg PO QAM 02/16/21 02/16/21 History gabapentin 100 mg capsule 100 mg PO Q8H 02/16/21 02/16/21 History (Neurontin) ipratropium 0.5 mg-albuterol 3 mg 3 ml INHALATION Q6H 02/16/21 02/16/21 History (2.5 mg base)/3 mL nebulization soln losartan 50 mg tablet (Cozaar) 50 mg PO Q12 02/16/21 02/16/21 History metoprolol succinate 100 mg 100 mg PO QAM 02/16/21 02/16/21 History tablet,extended release 24 hr (Toprol XL) tramadol 50 mg tablet (Ultram) 50 mg PO Q4H 02/16/21 02/16/21 History vitamin A-vitamin C-vit E-min 1 tab PO BID 02/16/21 02/16/21 History tablet (Ocutabs) Patient History Medical History ASCVD (arteriosclerotic cardiovascular disease) Chronic heart failure with preserved ejection fraction (HFpEF) CKD (chronic kidney disease) stage 3, GFR 30-59 ml/min baseline cr 1.2-1.4 Gout HTN (hypertension) Mitral valve stenosis PAD (peripheral artery disease) PVD (peripheral vascular disease) T2DM (type 2 diabetes mellitus) last a1c 5.8 2018 Surgical History History of removal of ovarian cyst Hx of AKA (above knee amputation) Hx of cholecystectomy S/P peripheral artery angioplasty R SFA stenting Family History Mother ALS (amyotrophic lateral sclerosis) Father , 77 Coronary heart disease Sister Myocardial infarction Breast cancer Social History Smoking Status: Never smoker Hx Alcohol Use: No Hx Substance Use: No Preferred Language: Rwandan Communication Ability: Effective Swabber Required: No Beliefs That Will Affect Care: None Current Living Situation: Alone and Rehab Current Living Situation Comment: currently at [place] How many Children do You have: 1 Other Information That Helps Us Care for You: No Feels Safe at Home: Yes Safety Concerns: Feels Safe At This Time Assistive Devices: Denture - Upper, Denture - Lower, Oxygen - Continuous and Prosthesis Physical Exam Physical Exam: On examination, the patient is sitting slightly up in bed awake and alert. She appears to be in no acute distress and is pleasant and cooperative. On examination of her left AKA stump, she is able to lift up the stump to let me examine it. There is a well-healed scar from her previous AKA. There are no open wounds. There is no erythema. The distal end of the stump is soft. I cannot appreciate any fluid collections. Palpation of the stump gives the patient some mild discomfort. Examination of the right lower extremity shows a large area of eschar that is mostly on the medial aspect of the calf. This travels just below the knee and goes just proximal to the ankle medially. Also encompasses a good portion of the anterior portion of the tibia and a small area does wrap around the anterior portion goes laterally to the posterior aspect. There is no overt drainage and purulence noted to this at this time. She also has an open wound on the medial portion of her ankle approximately 1-1/2 cm in circumference, with what appears to be some granulation tissue around a portion of the opening. This does not appear to be draining any purulence. Her foot is pink and warm. I cannot appreciate a pulse. Capillary refill is sluggish. She has good range of motion of her toes and has good sensation. Results & Data ([facility]) Vital Signs (Past 12 Hours) Vital Signs Temp Pulse Resp BP Pulse Ox 02/18/21 07:09 36.7 C 61 18 128/70 95 02/18/21 04:00 36.4 C L 60 16 147/70 H 96 02/17/21 23:01 36.7 C 56 L 18 122/66 93
[2021-02-18] MEDS: PANTOprazole 40 MG in SYRINGE 0 ML IV SCH ×2 (08:50→22:25)
[2021-02-18] MEDS: allopurinoL 100 MG TAB PO SCH (08:50)
[2021-02-18] MEDS: ATORVASTATIN 10 MG TAB PO SCH (08:50)
[2021-02-18] MEDS: CEROVITE ADV FORMULA TAB PO SCH (08:50)
[2021-02-18] MEDS: CEFEPIME 1,000 MG in SYRINGE 0 ML IV SCH ×2 (08:50→22:25)
[2021-02-18] MEDS: FERROUS SULFATE 325 MG TAB PO SCH (08:50)
[2021-02-18] MEDS: CHOLECALCIFEROL 1,000 UNITS 25 MCG TAB PO SCH (08:50)
[2021-02-18] MEDS: CYANOCOBALAMIN 500 MCG TABLET (VITAMIN B-12) PO SCH (08:50)
[2021-02-18] MEDS: METOPROLOL SUCC 50MG EXT REL TAB PO SCH (08:50)
--- NOTE | 2021-02-18 09:31 | XRay Report ---
XR ankle RT min 3V routine CLINICAL HISTORY: Wound. r/o osteomyelitis . COMPARISON: None FINDINGS: Alignment of the right ankle is anatomic. No acute fracture. No bony erosions are identifi ed to suggest osteomyelitis. There is soft tissue irregularity posterior to the calcaneus which may r eflect a wound. Plantar calcaneus spurring is present. There is ankle soft tissue swelling. IMPRESSION: No evidence for osteomyelitis within the right ankle. ACT 112: Negative or not required by law. Electronically signed by: Alex Redd M.D. 02/18/2021 9:30 AM
--- NOTE | 2021-02-18 11:55 | Nephrology Progress Note ---
Date of Service February 18, 2021 Assessment & Plan (1) Acute worsening of stage 3 chronic kidney disease: Plan: - ATN, given the urine sediment picture and the clinical situation. - Her BUN is quite high as well as creatinine, but there is disproportionately high BUN combined with very low hemoglobin. There is a possibility of gastrointestinal bleed causing a disproportionate rise in the BUN and needs to be investigated. - Recommend work up/treatment of anemia also contributing to her respiratory status. - She was on 40 mg PO lasix at home, and was given 80 mg IV on 02/16, no diuretic given yesterday, - Recommend starting on 80 mg IV lasix today as she appears to be in distress.Daily assesemnt for diuretic dose. - No further workup is needed from renal standpoint. Continue Kwok catheter and continue strict input/output charting. - Avoid nonsteroidal anti-inflammatory drugs, angiotensin converting enzyme inhibitor, angiotensin receptor anna, contrast agents for the time being. Renally dose all the antibiotics. (2) CHF (congestive heart failure): Admission and Anticipated Discharge Date Admission Date: February 16, 2021 Subjective 85 yo F presented with worsening shortness of breath for the last week. in mild respiratory distress. Renal functions have declined. Review of Systems Review of Systems: In mild respioratory disterss. 1+edema Physical Exam Physical Exam: Vitals signs as noted above General Appearance:In Respiratory distress. Head: normocephalic, Atraumatic Eyes: normal inspection, EOMI Neck: supple, Trachea midline Respiratory/Chest: Decreased breath sounds, Minimal basal crackles Cardiovascular: S1, S2, + murmur Abdomen/GI:Soft, Non tender, Bowel sounds present Extremities/Musculoskeletal:normal inspection, LE edema 1+ Neurologic/Psych:AAOX3, grossly no focal neurological deficits Skin: normal color, warm Results & Data ([facility]) Vital Signs (Past 12 Hours) Vital Signs Temp Pulse Pulse Resp BP Pulse Ox 02/18/21 11:35 36.3 C L 60 17 131/66 96 02/18/21 07:59 64 02/18/21 07:09 36.7 C 61 18 128/70 95 02/18/21 04:00 36.4 C L 60 16 147/70 H 96 Laboratory Results 02/18/21 06:08 02/18/21 06:08
--- NOTE | 2021-02-18 12:00 | Cardiology Progress Note ---
Date of Service February 18, 2021 Assessment & Plan (1) Acute and chronic respiratory failure with hypoxia: (2) Chronic heart failure with preserved ejection fraction (HFpEF): (3) Mitral valve stenosis: (4) Pleural effusion: (5) Acute on chronic anemia: (6) Acute worsening of stage 3 chronic kidney disease: Plan: Patient admitted for worsening SOB, hypoxia, with b/l pleural effusions consistent with acute on chronic CHF exacerbation complicated by MARIELA and anemia. Nephrology consulted earlier this admission and given several doses of IV lasix. Improved respiratory status this morning. Unfortunately she is mildly hypotensive after receiving morning medications. Hold amlodipine. Low threshold to give additional dose IV lasix this afternoon. Recommend work up/treatment of anemia also contributing to her respiratory status. Goal Hbg 9-10. Echo with stable findings, preserved LV systolic function, improved pulm pressures from 2019 and moderate mitral stenosis. continue all other meds as listed above. Admission and Anticipated Discharge Date Admission Date: February 16, 2021 Subjective Patient seen and examined, chart reviewed. States that she remains short of breath at rest but denies chest pain, palpitations or lightheadedness. Telemetry reviewed: Normal sinus rhythm without arrhythmia. Review of Systems Review of Systems: All systems reviewed & are unremarkable except as noted in HPI & below Physical Exam Physical Exam: General: Awake, alert and oriented x 3. No acute distress. HEENT: Normocephalic, atraumatic. Pupils equal, round and reactive to light and accommodation. Extraocular muscles are intact. Anicteric sclera. Moist mucous membranes. Neck: No JVD. No bruit. Cardiovascular: Regular. Positive S-4. Normal S-1 and S-2. No S-3. 3/6 holosystolic ejection murmur, left sternal border, mid-clavicular line with radiation to the axilla. No rubs. Pulmonary: Clear to auscultation bilaterally. No rales, rhonchi, or wheezing. Abdomen: Bowel sounds x 4, soft. No rebound, guarding or tenderness. No organomegaly. Extremities: No clubbing, cyanosis or edema. +2 pedal pulses bilaterally. Skin: Warm and dry. Results & Data ([facility]) Vital Signs (Past 12 Hours) Vital Signs Temp Pulse Pulse Resp BP Pulse Ox 02/18/21 11:35 36.3 C L 60 17 131/66 96 10/23/21 07:59 64 02/18/21 07:09 36.7 C 61 18 128/70 95 02/18/21 04:00 36.4 C L 60 16 147/70 H 96
[2021-02-18] MEDS ORDERED: FUROSEMIDE 80 MG in SYRINGE 0 ML IV STA (12:05)
[2021-02-18] MEDS: ACETAMINOPHEN 325 MG TAB PO PRN (12:37)
--- NOTE | 2021-02-18 13:55 | Pharmacy Report ---
Pharmacy Abx Dose Short Note - Date of Service February 18, 2021 - Assessment & Plan Assessment/Plan 85 year old F receiving vancomycin/cefepime for treatment of cellulitis/ulceration. Half life calculated based on two levels drawn yesterday indicated a half life of 60 hours, redosed as level ~20. Random level this morning 22.7 and SCR has increased by 0.3 (2.78 today). Would anticipate patient will still be within therapeutic range tomorrow morning, therefore will not redose today and get trough level tomorrow morning to assist with dosing. Cefepime also renally dosed Pharmacy will continue to follow and will adjust dose/frequency as necessary. Thank you.
[2021-02-18 16:49] LABS: Reticulocyte % 4.7 % (0.5-2.0); Reticulocytes # 0.14 10^6/uL (0.02-0.10)
[2021-02-18] MEDS: AZITHROMYCIN 500 MG in DEXTROSE 5% 250 ML IV SCH (17:13)
--- NOTE | 2021-02-18 20:35 | Hospitalist Progress Note ---
Date of Service February 18, 2021 Assessment & Plan (1) Acute on chronic heart failure with preserved ejection fraction: Plan: History of chronic diastolic heart failure and mitral stenosis with HTN and gout. Was possibly taking just once daily Lasix when she was supposed to be taking it BID. Lasix IV as needed. Effusions are present on CXR and notably patient has no symptoms of pneumonia at this time, including no cough, fevers, chills. This, clinical symptoms, and [id number] all support acute on chronic heart failure as the cause of her shortness of breath, which is improved with treatment. She remains on a short course of antibiotics and with improvement today, will cont short course. Cont intravenous loop diuretics as tolerated. (2) Hypoxia: Plan: More than likely related to fluid overload from heart failure, however, also covering [facility] antibiotics as there is a possibility for pneumonia given the imaging findings and clinical picture. Also anemia may be a contributing fact or as explained below. (3) Wound of right lower extremity: Plan: Large ischemic ulcer with eschar of her right lower extremity. No evidence of osteomyelitis on the ankle xray, however, an MRI would be the gold standard test to rule this out definitively. Also with ulcerations of her right medial malleolus and her right medial thigh. 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 Defer management to vascular who is consulted. Cont medical management of PAD. (4) Acute on chronic anemia: Plan: Appears to have multifactorial symptomatic anemia with iron deficiency present despite taking iron supplements. Per cardiology her goal Hb would be 9-10. She is still short of breath with dyspnea on exertion. Denies lightheadedness or chest pain but also with this new tremor. One unit of blood already given this admission , however, Hb remains 7.9. Although it has slightly trended up she is considered to have symptomatic anemia and is not at her goal threshold level. Will transfuse another unit of blood overnight and reassess clinical picture in am. Of note, orthostatics are not easily obtained with amputation and RLE wound. Per GI no emergent scope needed unless there is maría melena or active hematochezia, which is not present. Notably patient reports never having had a colonoscopy in the past. She is willing to undergo this outpatient which will be recommended with ongoing iron deficiency despite supplementation. (5) PAD (peripheral artery disease): Plan: Has a long-standing h/o PAD and has followed with [facility] Vascular surgery in the past. Has a h/o right SFA stenting and left AKA in 2011 due to progressive peripheral arterial disease. Cont medical management. (6) Acute worsening of stage 3 chronic kidney disease: Plan: likely 2/2 ATN given the current clinical picture. Nephrology also expressed concerns independently that her anemia may be adversely affecting her respiratory status. Recommend continue with loop diuretic as above. (7) DVT prophylaxis: Plan: SCDs/no chemoprophylaxis in setting of anemia and consideration/monitoring for ongoing GI bleeding DNR/DNI Dispo-uncertain at this time. Jenifer Maravilla DO [facility] and Anticipated Discharge Date Admission Date: February 16, 2021 Subjective 85 yo F presented with worsening shortness of breath, swelling in lower extremities and a severe arterial ulceration on her RLE that is painful. +dyspnea with exertion She reports some improvement in breathing today although remains on the oxygen supplementation has a bilateral resting tremor present this evening that she says is new, maybe for days? but appears to be somewhat disconcerting to her. She is dropping objects. Overall more conversant today than yesterday, she is making jokes and laughing. Tolerating PO Some pain requesting Tylenol Review of Systems Review of Systems: At least ten systems were reviewed and negative except as indicated in HPI above. Physical Exam Physical Exam: CONSTITUTIONAL: WNWD, vitals as above, generally well- appearing, NAD EYES: normal conjunctivae, no scleral icterus ENT: external ear and nose normal, oropharynx clear NECK: trachea midline RESPIRATORY: clear to auscultation bilaterally, no crackles, rales or wheezes, normal respiratory effort CARDIOVASCULAR: regular rate and rhythm, S1 and 2 heard without murmurs, gallops or rubs, no JVD, no peripheral edema GASTROINTESTINAL: soft, nontender, ND, no guarding. MUSCULOSKELETAL: generalized weakness, head is normocephalic and atraumatic, LLE warm and well perfused, s/p AKA on right wtih residual limb-from what I can visualize there is no edema and skin is intact. SKIN: warm and dry, large wound with eschar (from pictures) on LLE, wrapped and not visualized, small stage II ulceration on medial thigh open, not draining, no surrounding erythema. Painful. NEUROLOGIC: CN 2-12 grossly intact, normal cognition, normal speech, no gross focal deficits. PSYCHIATRIC: alert cooperative and answering questions appropriately. Results & Data Results & Data ([facility]) Vital Signs (Past 12 Hours) Vital Signs Temp Pulse Pulse Resp BP Pulse Ox 02/18/21 19:54 37.0 C 83 18 92 02/18/21 18:00 56 L 02/18/21 16:00 36.4 C L 54 L 19 127/67 95 02/18/21 11:35 36.3 C L 60 17 131/66 96 Laboratory Results Short CBC 02/17/21 02/18/21 Range/Units 22:30 06:08 WBC 8.47 8.48 (4.8-10.8) K/uL Hgb 7.4 L 7.9 L (12.0-16.0) g/dL Hct 24.0 L 26.1 L (37-47) % Plt Count 212 202 (130-400) K/uL BMP 02/18/21 06:08 Creatinine 2.78 H D Diagnostic Findings Ankle X-Ray 02/18/21 08:25 XR ankle RT min 3V routine CLINICAL HISTORY: Wound. r/o osteomyelitis . COMPARISON: None FINDINGS: Alignment of the right ankle is anatomic. No acute fracture. No bony erosions are identified to suggest osteomyelitis. There is soft tissue irregularity posterior to the calcaneus which may reflect a wound. Plantar calcaneus spurring is present. There is ankle soft tissue swelling. IMPRESSION: No evidence for osteomyelitis within the right ankle. ACT 112: Negative or not required by law. Electronically signed by: Alex Redd M.D. 02/18/2021 9:30 AM Medications Administered Current Inpatient Medications Acetaminophen (Acetaminophen 325 Mg Tab) 650 mg PO Q4H PRN PRN Reason: Pain or Fever Stop: 03/18/21 16:53 Last Admin: 02/18/21 12:37 Dose: 650 mg Documented by: Albuterol (Albut/Ipratrop 3mg/0.5mg Neb 3 Ml Vial) 3 ml NEB QIDR PRN PRN Reason: sob/wheezing Stop: 03/18/21 16:53 Allopurinol (Allopurinol 100 Mg Tab) 100 mg PO QAM JARRELL Stop: 03/19/21 08:59 Last Admin: 02/18/21 08:50 Dose: 100 mg Documented by: Amlodipine Besylate ([facility] Besylate 5 Mg Tab) [facility] Stop: 03/19/21 08:59 Last Admin: 02/17/21 08:37 Dose: 10 mg Documented by: Atorvastatin Calcium (Atorvastatin 10 Mg Tab) 10 mg PO QAM [facility] Stop: 03/19/21 08:59 Last Admin: 02/18/21 08:50 Dose: 10 mg Documented by: Clopidogrel Bisulfate (Clopidogrel Bisulfate 75 Mg Tab) [facility] Stop: 03/19/21 08:59 Cyanocobalamin (Cyanocobalamin 500 Mcg Tablet (Vitamin B-12)) 1,000 mcg [facility] Stop: 03/19/21 08:59 Last Admin: 02/18/21 08:50 Dose: 1,000 mcg Documented by: Ferrous Sulfate (Ferrous Sulfate 325 Mg Tab) 325 mg PO BID [facility] Stop: 03/18/21 20:59 Last Admin: 02/18/21 08:50 Dose: 325 mg Documented by: Gabapentin (Gabapentin 100 Mg Cap) 100 mg PO Q8H [facility] Stop: 03/18/21 21:59 Last Admin: 02/18/21 14:54 Dose: 100 mg Documented by: Pantoprazole Sodium 40 mg/ (Syringe) 10 mls @ 5 mls/min IV BID [facility] Stop: 03/18/21 20:59 Last Admin: 02/18/21 08:50 Dose: 5 mls/min Documented by: Azithromycin 500 mg/ Dextrose 255 mls @ 127.5 mls/hr IV Q24H [facility]; Protocol Stop: 02/23/21 16:59 Last Infusion: 02/18/21 18:28 Dose: 0 mls/hr Documented by: Cefepime HCl 1,000 mg/ Syringe 11.3 mls @ 5.5 mls/min IV Q12H [facility]; Protocol Stop: 02/23/21 19:59 Last Admin: 02/18/21 08:50 Dose: 5.5 mls/min Documented by: Metoprolol Succinate (Metoprolol Succ 50mg Ext Rel Tab) [facility] Stop: 03/19/21 08:59 Last Admin: 02/18/21 08:50 Dose: 100 mg Documented by: Miscellaneous Information (Cefepime Consult Active) 0 ea N/A UD PRN PRN Reason: Consult Stop: 03/18/21 16:53 Miscellaneous Information (Vancomycin Consult Active) 1 ea N/A UD PRN PRN Reason: Consult Stop: 03/18/21 21:18 Multivitamins/Minerals (Cerovite Adv Formula Tab) 1 tab PO DAILY [facility] Stop: 03/19/21 08:59 Last Admin: 02/18/21 08:50 Dose: 1 tab Documented by: Ondansetron HCl (Ondansetron Inj 2 Mg/Ml 2 Ml Vial) 4 mg IV Q6H PRN PRN Reason: Nausea Stop: 03/18/21 16:53 Polyethylene Glycol (Polyethylene (Miralax) 17 Gm Pack) 17 gm PO DAILY PRN PRN Reason: Constipation Stop: 03/18/21 16:53 Tramadol HCl (Tramadol Hcl 50 Mg Tablet) 50 mg PO Q4H PRN PRN Reason: severe pain (rating 7-10) Stop: 03/18/21 16:53 Vitamin D (Cholecalciferol 1,000 Units 25 Mcg Tab) 2,000 units PO QAM [facility] Stop: 03/19/21 08:59 Last Admin: 02/18/21 08:50 Dose: 2,000 units Documented by:
[2021-02-18] MEDS ORDERED: diphenhydrAMINE Capsule 25 MG CAP PO ONE (22:06)
[2021-02-18] MEDS ORDERED: SODIUM CHLORIDE 0.9% 250 ML IV PRN (22:06)
[2021-02-18] MEDS ORDERED: ACETAMINOPHEN 325 MG TAB PO ONE (22:06)
[2021-02-19] MEDS ORDERED: diphenhydrAMINE HCl 12.5 MG/5 ML UDC PO ONE (00:15)
[2021-02-19] MEDS: GABAPENTIN 100 MG CAP PO SCH ×4 (01:06→20:24)
[2021-02-19] MEDS: FERROUS SULFATE 325 MG TAB PO SCH ×3 (01:06→20:25)
[2021-02-19 07:36] LABS: Hematocrit (blood only) 29.4 % (37-47); Hemoglobin 9.2 g/dL (12.0-16.0); Mean Corpuscular Hemoglobin 27.9 pg (25-34); Mean Corpuscular Hgb Conc 31.3 g/dL (32-36); Mean Corpuscular Volume 89.1 fL (80-100); Mean Platelet Volume 8.5 fL (7.4-10.4); Nucleated RBC # (auto) 0.02 K/uL (0-0); Nucleated RBC % (auto) 0.2 %; Platelet Count 190 K/uL (130-400); RDW Coefficient of Variation 17.7 % (11.5-14.5); RDW Standard Deviation 56.7 fL (36.4-46.3); White Blood Count 8.53 K/uL (4.8-10.8)
[2021-02-19 08:03] LABS: BUN Creatinine Ratio 38.8 (10-20); Calcium 7.9 mg/dl (8.5-10.1); Creatinine Clr Calc Pharmacy 12.4 ml/min; Est GFR (African American) 16.9 ml/min; Est GFR (Non-African American) 14.6 ml/min; Magnesium 2.9 mg/dl (1.8-2.4); Potassium 4.8 mmol/L (3.5-5.1)
[2021-02-19] MEDS: CHOLECALCIFEROL 1,000 UNITS 25 MCG TAB PO SCH (09:03)
[2021-02-19] MEDS: CYANOCOBALAMIN 500 MCG TABLET (VITAMIN B-12) PO SCH (09:03)
[2021-02-19] MEDS: METOPROLOL SUCC 50MG EXT REL TAB PO SCH (09:03)
[2021-02-19] MEDS: ATORVASTATIN 10 MG TAB PO SCH (09:03)
[2021-02-19] MEDS: PANTOprazole 40 MG in SYRINGE 0 ML IV SCH ×2 (09:03→20:24)
[2021-02-19] MEDS: allopurinoL 100 MG TAB PO SCH (09:03)
[2021-02-19] MEDS: CEROVITE ADV FORMULA TAB PO SCH (09:03)
[2021-02-19] MEDS: FUROSEMIDE 40 MG in SYRINGE 0 ML IV SCH ×2 (09:04→16:36)
[2021-02-19] MEDS: CEFEPIME 1,000 MG in SYRINGE 0 ML IV SCH ×2 (09:05→20:23)
--- NOTE | 2021-02-19 11:19 | Nephrology Progress Note ---
Date of Service February 19, 2021 Assessment & Plan (1) Acute worsening of stage 3 chronic kidney disease: Plan: - ATN, given the urine sediment picture and the clinical situation. - Slight increase in Scr after 80 mg iv LASIX, uop same. - OK , with 40 mg iV today, Daily assesment of Volume status for diuretic dosing. - Her BUN is quite high as well as creatinine, but there is disproportionately high BUN combined with very low hemoglobin. There is a possibility of gastrointestinal bleed causing a disproportionate rise in the BUN and needs to be investigated. - Recommend work up/treatment of anemia also contributing to her respiratory status. - No further workup is needed from renal standpoint. Continue Kwok catheter and continue strict input/output charting. - Avoid nonsteroidal anti-inflammatory drugs, angiotensin converting enzyme inhibitor, angiotensin receptor anna, contrast agents for the time being. Renally dose all the antibiotics. (2) CHF (congestive heart failure): Plan: above. Admission and Anticipated Discharge Date Admission Date: February 16, 2021 Subjective She reports some improvement in breathing , edema same, Review of Systems Review of Systems: In mild respioratory disterss. 1+edema Physical Exam Physical Exam: Vitals signs as noted above General Appearance:In mild Respiratory distress. Head: normocephalic, Atraumatic Eyes: normal inspection, EOMI Neck: supple, Trachea midline Respiratory/Chest: Decreased breath sounds, Minimal basal crackles Cardiovascular: S1, S2, + murmur Abdomen/GI:Soft, Non tender, Bowel sounds present Extremities/Musculoskeletal:normal inspection, LE edema 1+ Neurologic/Psych:AAOX3, grossly no focal neurological deficits Skin: normal color, warm Results & Data ([facility]) Vital Signs (Past 12 Hours) Vital Signs Temp Pulse Pulse Resp BP BP Pulse Ox 02/19/21 11:04 36.5 C 63 20 140/54 L 94 02/19/21 07:30 65 02/19/21 07:22 36.8 C 61 19 163/73 H 92 02/19/21 04:23 60 92 02/19/21 04:19 37.1 C 57 L 16 145/75 H 92 02/19/21 03:19 60 147/76 H 92 02/19/21 02:19 36.6 C 59 L 17 143/73 H 91 02/19/21 01:49 60 16 142/80 H 90 02/19/21 01:34 61 144/72 H 93 02/19/21 01:18 36.4 C L 63 20 143/69 H 91 Laboratory Results 02/19/21 06:56 02/19/21 06:56
--- NOTE | 2021-02-19 11:29 | Cardiology Progress Note ---
Date of Service February 19, 2021 Assessment & Plan (1) Acute and chronic respiratory failure with hypoxia: (2) Chronic heart failure with preserved ejection fraction (HFpEF): (3) Mitral valve stenosis: (4) Pleural effusion: (5) Acute on chronic anemia: (6) Acute worsening of stage 3 chronic kidney disease: Plan: Patient admitted for worsening SOB, hypoxia, with b/l pleural effusions consistent with acute on chronic CHF exacerbation complicated by MARIELA and anemia. Nephrology consulted earlier this admission and given several doses of IV lasix. Improved respiratory status this morning. Echo with stable findings, preserved LV systolic function, improved pulm pressures from 2019 and moderate mitral stenosis. Given her ongoing acute kidney injury will defer diuretic management to our nephrology colleagues. Okay to DC telemetry from a cardiac standpoint. continue all other meds as listed above. Admission and Anticipated Discharge Date Admission Date: February 16, 2021 Subjective Patient seen and examined, chart reviewed. She notes that her breathing is somewhat improved today but still overall weak and fatigued. Denies chest pain, palpitations or lightheadedness. Telemetry reviewed: Normal sinus rhythm with underlying right bundle branch block pattern. Review of Systems Review of Systems: All systems reviewed & are unremarkable except as noted in HPI & below Physical Exam Physical Exam: General: Awake, alert and oriented x 3. No acute distress. HEENT: Normocephalic, atraumatic. Pupils equal, round and reactive to light and accommodation. Extraocular muscles are intact. Anicteric sclera. Moist mucous membranes. Neck: No JVD. No bruit. Cardiovascular: Regular. Positive S-4. Normal S-1 and S-2. No S-3. 3/6 holosystolic ejection murmur, left sternal border, mid-clavicular line with radiation to the axilla. No rubs. Pulmonary: Clear to auscultation bilaterally. No rales, rhonchi, or wheezing. Abdomen: Bowel sounds x 4, soft. No rebound, guarding or tenderness. No organomegaly. Extremities: No clubbing, cyanosis or edema. +2 pedal pulses bilaterally. Skin: Warm and dry. Results & Data ([facility]) Vital Signs (Past 12 Hours) Vital Signs Temp Pulse Pulse Resp BP BP Pulse Ox 02/19/21 11:04 36.5 C 63 20 140/54 L 94 02/19/21 07:30 65 02/19/21 07:22 36.8 C 61 19 163/73 H 92 02/19/21 04:23 60 92 02/19/21 04:19 37.1 C 57 L 16 145/75 H 92 02/19/21 03:19 60 147/76 H 92 02/19/21 02:19 36.6 C 59 L 17 143/73 H 91 02/19/21 01:49 60 16 142/80 H 90 02/19/21 01:34 61 144/72 H 93 02/19/21 01:18 36.4 C L 63 20 143/69 H 91
[2021-02-19] MEDS ORDERED: traMADol HCL 50 MG TABLET PO STA (13:37)
[2021-02-19] MEDS ORDERED: traMADol HCL 50 MG TABLET PO PRN (13:37)
--- NOTE | 2021-02-19 13:37 | Hospitalist Progress Note ---
Date of Service February 19, 2021 Assessment & Plan (1) Acute on chronic heart failure with preserved ejection fraction: Plan: History of chronic diastolic heart failure and mitral stenosis with HTN and gout. Per last cardiology outpatient note she was supposed to be taking Lasix 40mg PO BID, however, intake med list reflects lasix 40mg only once daily. She has received several doses of Lasix and reports feeling better with improved swelling. BP was low but now improved to 140s systolic. With persistent hypoxia and low urine output (laguerre in place) with positive fluid balance, cont with scheduled Lasix IV BID. Still denies cough, fevers, chills. Although reports feeling improved she is less convincing in looking at her. May require more aggressive diuresis. (2) Hypoxia: Plan: More than likely related to fluid overload from heart failure, however, also covering [facility] [facility] antibiotics as there is a possibility for pneumonia given the imaging findings and clinical picture. Also anemia may be a contributing factor as explained below. (3) Wound of right lower extremity: Plan: Large ischemic ulcer with eschar of her right lower extremity. No evidence of osteomyelitis on the ankle xray, however, an MRI would be the gold standard test to rule this out definitively. Also with ulcerations of her right medial malle olus and her right medial thigh. 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 Defer management to vascular who is consulted. Cont medical management of PAD. Started tramadol PRN, cont Tylenol PRN. (4) Acute on chronic anemia: Plan: Appears to have multifactorial symptomatic anemia with iron deficiency present despite taking iron supplements. Per cardiology her goal Hb would be 9-10. Reports feeling better since blood transfusion overnight. Notably patient reports never having had a colonoscopy in the past. She is willing to undergo this outpatient which will be recommended with ongoing iron deficiency despite supplementation. (5) Acute worsening of stage 3 chronic kidney disease: Plan: likely 2/2 ATN given the current clinical picture. Nephrology also expressed concerns independently that her anemia may be adversely affecting her respiratory status. Recommend continue with loop diuretic as above. (6) PAD (peripheral artery disease): Plan: Has a long-standing h/o PAD and has followed with [facility] Vascular surgery in the past. Has a h/o right SFA stenting and left AKA in 2010 due to progressive peripheral arterial disease. Awaiting vascular thoughts regarding intervention. (7) DVT prophylaxis: Plan: SCDs/no chemoprophylaxis in setting of anemia and consideration/monitoring for ongoing GI bleeding DNR/DNI Dispo-uncertain at this time. DO Marlon Townsend Hospitalist Admission and Anticipated Discharge Date Admission Date: February 16, 2021 Subjective 85 yo F presented with worsening shortness of breath, swelling in lower extremities and a severe arterial ulceration on her RLE that is painful. +dyspnea with exertion She reports some improvement in breathing today after blood administration overnight She denies chest pain, lightheadedness has a bilateral resting tremor present this evening that she says is new, maybe for days? but appears to be somewhat disconcerting to her. She is dropping objects-still doing this today. Tolerating PO Some pain present in her legs and requesting tramadol Review of Systems Review of Systems: At least ten systems were reviewed and negative except as indicated in HPI above. Physical Exam Physical Exam: CONSTITUTIONAL: WNWD, vitals as above, generally well- appearing, NAD EYES: normal conjunctivae, no scleral icterus ENT: external ear and nose normal, oropharynx clear NECK: trachea midline RESPIRATORY: clear to auscultation bilaterally, no crackles, rales or wheezes, normal respiratory effort CARDIOVASCULAR: regular rate and rhythm, S1 and 2 heard without murmurs, gallops or rubs, no JVD, no peripheral edema GASTROINTESTINAL: soft, nontender, ND, no guarding. MUSCULOSKELETAL: generalized weakness, head is normocephalic and atraumatic, LLE warm and well perfused, s/p AKA on right wtih residual limb-from what I can visualize there is no edema and skin is intact. SKIN: warm and dry, large wound with eschar (from pictures) on LLE, wrapped and not visualized, small stage II ulceration on medial thigh open, not draining, no surrounding erythema. Painful. NEUROLOGIC: CN 2-12 grossly intact, normal cognition, normal speech, no gross focal deficits. PSYCHIATRIC: alert cooperative and answering questions appropriately. Results & Data Results & Data ([facility]) Vital Signs (Past 12 Hours) Vital Signs Temp Pulse Pulse Resp BP BP Pulse Ox 02/19/21 11:04 36.5 C 63 20 140/54 L 94 02/19/21 07:30 65 02/19/21 07:22 36.8 C 61 19 163/73 H 92 02/19/21 04:23 60 92 02/19/21 04:19 37.1 C 57 L 16 145/75 H 92 02/19/21 03:19 60 147/76 H 92 02/19/21 02:19 36.6 C 59 L 17 143/73 H 91 02/19/21 01:49 60 16 142/80 H 90 Laboratory Results Short CBC 02/19/21 Range/Units 06:56 WBC 8.53 (4.8-10.8) K/uL Hgb 9.2 L (12.0-16.0) g/dL Hct 29.4 L (37-47) % Plt Count 190 (130-400) K/uL BMP 02/19/21 06:56 Sodium 142 Potassium 4.8 Chloride 113 H Carbon Dioxide 21 BUN 110 H Creatinine 2.83 H Glucose 84 Calcium 7.9 L Medications Administered Current Inpatient Medications Acetaminophen (Acetaminophen 325 Mg Tab) 650 mg PO Q4H PRN PRN Reason: Pain or Fever Stop: 03/18/21 16:53 Last Admin: 02/18/21 12:37 Dose: 650 mg Documented by: Albuterol (Albut/Ipratrop 3mg/0.5mg Neb 3 Ml Vial) 3 ml NEB QIDR PRN PRN Reason: sob/wheezing Stop: 03/18/21 16:53 Allopurinol (Allopurinol 100 Mg Tab) 100 mg PO [facility] Stop: 03/19/21 08:59 Last Admin: 02/19/21 09:03 Dose: 100 mg Documented by: Amlodipine Besylate (Amlodipine Besylate 5 Mg Tab) 10 mg PO [facility] Stop: 03/19/21 08:59 Last Admin: 02/17/21 08:37 Dose: 10 mg Documented by: Atorvastatin Calcium (Atorvastatin 10 Mg Tab) 10 mg PO [facility] Stop: 03/19/21 08:59 Last Admin: 02/19/21 09:03 Dose: 10 mg Documented by: Clopidogrel Bisulfate (Clopidogrel Bisulfate 75 Mg Tab) 75 mg PO [facility] Stop: 03/19/21 08:59 Cyanocobalamin (Cyanocobalamin 500 Mcg Tablet (Vitamin B-12)) 1,000 mcg PO [facility] Stop: 03/19/21 08:59 Last Admin: 02/19/21 09:03 Dose: 1,000 mcg Documented by: Ferrous Sulfate (Ferrous Sulfate 325 Mg Tab) 325 mg PO BID [facility] Stop: 03/18/21 20:59 Last Admin: 02/19/21 09:03 Dose: 325 mg Documented by: Gabapentin (Gabapentin 100 Mg Cap) 100 mg PO Q8H [facility] Stop: 03/18/21 21:59 Last Admin: 02/19/21 06:20 Dose: 100 mg Documented by: Pantoprazole Sodium 40 mg/ (Syringe) 10 mls @ 5 mls/min IV BID [facility] Stop: 03/18/21 20:59 Last Admin: 02/19/21 09:03 Dose: 5 mls/min Documented by: Azithromycin 500 mg/ Dextrose 255 mls @ 127.5 mls/hr IV Q24H [facility]; Protocol Stop: 02/23/21 16:59 Last Infusion: 02/18/21 20:48 Dose: Infused Documented by: Cefepime HCl 1,000 mg/ Syringe 11.3 mls @ 5.5 mls/min IV Q12H [facility]; Protocol Stop: 02/23/21 19:59 Last Admin: 02/19/21 09:05 Dose: 5.5 mls/min Documented by: Furosemide 40 mg/ Syringe 4 mls @ 4 mls/min IV BID17 [facility] Stop: 03/21/21 08:59 Last Admin: 02/19/21 09:04 Dose: 4 mls/min Documented by: Metoprolol Succinate (Metoprolol Succ 50mg Ext Rel Tab) 100 mg PO QAM [facility] Stop: 03/19/21 08:59 Last Admin: 02/19/21 09:03 Dose: 100 mg Documented by: Miscellaneous Information (Cefepime Consult Active) 0 ea N/A UD PRN PRN Reason: Consult Stop: 03/18/21 16:53 Miscellaneous Information (Vancomycin Consult Active) 1 ea N/A UD PRN PRN Reason: Consult Stop: 03/18/21 21:18 Multivitamins/Minerals (Cerovite Adv Formula Tab) 1 tab PO DAILY [facility] Stop: 03/19/21 08:59 Last Admin: 02/19/21 09:03 Dose: 1 tab Documented by: Ondansetron HCl (Ondansetron Inj 2 Mg/Ml 2 Ml Vial) 4 mg IV Q6H PRN PRN Reason: Nausea Stop: 03/18/21 16:53 Polyethylene Glycol (Polyethylene (Miralax) 17 Gm Pack) 17 gm PO DAILY PRN PRN Reason: Constipation Stop: 03/18/21 16:53 Tramadol HCl (Tramadol Hcl 50 Mg Tablet) 50 mg PO Q4H PRN PRN Reason: severe pain (rating 7-10) Stop: 03/18/21 16:53 Tramadol HCl (Tramadol Hcl 50 Mg Tablet) 50 mg PO NOW STA Stop: 02/19/21 13:38 Tramadol HCl (Tramadol Hcl 50 Mg Tablet) 50 mg PO Q4H PRN PRN Reason: Pain Stop: 03/21/21 13:36 Vitamin D (Cholecalciferol 1,000 Units 25 Mcg Tab) 2,000 units PO [facility] Stop: 03/19/21 08:59 Last Admin: 02/19/21 09:03 Dose: 2,000 units Documented by:
--- NOTE | 2021-02-19 14:15 | Pharmacy Report ---
Pharmacy Abx Dose Short Note - Date of Service February 19, 2021 - Assessment & Plan Assessment 85 year old F receiving vancomycin/cefepime for treatment of possible osteomyelitis Day # 4, SCr continues to increase Plan Vancomycin * Random level this morning 21.3 mg/dL; calculated patient specific PK parameters with level from yesterday morning (no doses between level), Ke = 0.002, T1/2 ~270 hours, patient should still be therapeutic tomorrow morning, will not redose today. * Will obtain random level in AM, continue to dose by levels. Pharmacy will continue to follow and will adjust dose/frequency as necessary. Thank you.
[2021-02-19] MEDS: AZITHROMYCIN 500 MG in DEXTROSE 5% 250 ML IV SCH (16:27)
[2021-02-19] MEDS: traMADol HCL 50 MG TABLET PO PRN (20:23)
[2021-02-20] MEDS: GABAPENTIN 100 MG CAP PO SCH ×3 (06:02→21:50)
[2021-02-20 07:25] LABS: Hematocrit (blood only) 29.6 % (37-47); Hemoglobin 9.2 g/dL (12.0-16.0); Mean Corpuscular Hgb Conc 31.1 g/dL (32-36); Mean Platelet Volume 8.7 fL (7.4-10.4); Platelet Count 165 K/uL (130-400); RDW Standard Deviation 57.7 fL (36.4-46.3); Red Blood Count 3.29 M/uL (4.2-5.4); White Blood Count 8.83 K/uL (4.8-10.8)
[2021-02-20 08:11] LABS: BUN Creatinine Ratio 36.4 (10-20); Calcium 8.1 mg/dl (8.5-10.1); Creatinine Clr Calc Pharmacy 11.5 ml/min; Est GFR (African American) 15.3 ml/min; Est GFR (Non-African American) 13.2 ml/min; Magnesium 2.8 mg/dl (1.8-2.4); Phosphorus 3.8 mg/dl (2.5-4.9); Potassium 4.6 mmol/L (3.5-5.1)
[2021-02-20] MEDS: CEFEPIME 1,000 MG in SYRINGE 0 ML IV SCH ×2 (09:07→20:24)
[2021-02-20] MEDS: FUROSEMIDE 40 MG in SYRINGE 0 ML IV SCH ×2 (09:08→17:17)
[2021-02-20] MEDS: PANTOprazole 40 MG in SYRINGE 0 ML IV SCH ×2 (09:08→20:25)
[2021-02-20] MEDS: FERROUS SULFATE 325 MG TAB PO SCH ×2 (09:09→20:25)
[2021-02-20] MEDS: ATORVASTATIN 10 MG TAB PO SCH (09:10)
[2021-02-20] MEDS: METOPROLOL SUCC 50MG EXT REL TAB PO SCH (09:10)
[2021-02-20] MEDS: allopurinoL 100 MG TAB PO SCH (09:11)
[2021-02-20] MEDS: CEROVITE ADV FORMULA TAB PO SCH (09:12)
[2021-02-20] MEDS: CHOLECALCIFEROL 1,000 UNITS 25 MCG TAB PO SCH (09:13)
[2021-02-20] MEDS: CYANOCOBALAMIN 500 MCG TABLET (VITAMIN B-12) PO SCH (09:14)
--- NOTE | 2021-02-20 09:35 | Consultation ---
Date of Consultation February 20, 2021 Assessment & Plan (1) PAD (peripheral artery disease): Pt with mild/moderate PAD on US, but warm, well perfused foot with biphasic doppler signals to R toe. Pt's US also reviewed by Dr Henderson, does not recommend vascular surgical intervention at this time. Any endovascular treatment would pose large risk to kidneys and likely result in dialysis dependency, and there are no signs of ischemia to R foot. Could consider debridement of RLE wounds, but will defer to orthopedics for definitive treatment. Please call if needed. History of Present Illness Reason for Consultation: PAD Attending Physician: Zhanna Flor MD History of Present Illness 85 yo f with multiple medical problems, including CKD, CHF, HTN, gout, prolonged QT, CAD, mitral valve stenosis, PAD, LLE AKA, chronic anemia, admitted with MARIELA and severe RLE wounds, seen in consultation today for PAD. Pt states she previously had RLE stenting by Dr Sheppard at [place] in 2010. Pt is a poor historian and is unable state the exact reason for her LLE AKA or when it occurred. States she noted pain in RLE about 2 weeks ago, and then noted the wounds. States she ambulates with her LLE prosthetic and denies RLE claudication, although likely does not ambulate fast or far enough. Pt admits pain in RLE wounds, but none in foot/toes. Pt admits some confusion recently and states she just wants to be with her (who is ). Pt denies chest pain, SOB, fever, abd pain, N/V, cough, other complaints. RLE arterial US demonstrates biphasic flow throughout, without focal flow limiting stenosis. Allergies Allergy/AdvReac Type Severity Reaction Status Date / Time No Known Allergies Allergy Unverified 02/16/21 08:30 Home Medications Medication Instructions Recorded Confirmed Type Saccharomyces boulardii 250 mg 250 mg PO QAM 02/16/21 02/16/21 History capsule (Florastor) allopurinol 100 mg tablet 100 mg PO QAM 02/16/21 02/16/21 History (Zyloprim) amlodipine 10 mg tablet (Norvasc) 10 mg PO QAM 02/16/21 02/16/21 History atorvastatin 10 mg tablet (Lipitor) 10 mg PO QAM 02/16/21 02/16/21 History cholecalciferol (vitamin D3) 50 50 mcg PO QAM 02/16/21 02/16/21 History mcg (2,000 unit) capsule (Vitamin D3) clopidogrel 75 mg tablet (Plavix) 75 mg PO QAM 02/16/21 02/16/21 History cyanocobalamin (vitamin B-12) 1,000 mcg PO QAM 02/16/21 02/16/21 History 1,000 mcg tablet (Vitamin B-12) enoxaparin 30 mg/0.3 mL 30 mg SUBCUT HS 02/16/21 02/16/21 History subcutaneous syringe (Lovenox) ferrous sulfate 325 mg (65 mg 325 mg PO BID 02/16/21 02/16/21 History iron) tablet (FeroSul) furosemide 40 mg tablet (Lasix) 40 mg PO QAM 02/16/21 02/16/21 History gabapentin 100 mg capsule 100 mg PO Q8H 02/16/21 02/16/21 History (Neurontin) ipratropium 0.5 mg-albuterol 3 mg 3 ml INHALATION Q6H 02/16/21 02/16/21 History (2.5 mg base)/3 mL nebulization soln losartan 50 mg tablet (Cozaar) 50 mg PO Q12 02/16/21 02/16/21 History metoprolol succinate 100 mg 100 mg PO QAM 02/16/21 02/16/21 History tablet,extended release 24 hr (Toprol XL) tramadol 50 mg tablet (Ultram) 50 mg PO Q4H 02/16/21 02/16/21 History vitamin A-vitamin C-vit E-min 1 tab PO BID 02/16/21 02/16/21 History tablet (Ocutabs) Patient History Medical History ASCVD (arteriosclerotic cardiovascular disease) Chronic heart failure with preserved ejection fraction (HFpEF) CKD (chronic kidney disease) stage 3, GFR 30-59 ml/min baseline cr 1.2-1.4 Gout HTN (hypertension) Mitral valve stenosis PAD (peripheral artery disease) PVD (peripheral vascular disease) T2DM (type 2 diabetes mellitus) last a1c 5.8 2018 Surgical History History of removal of ovarian cyst Hx of AKA (above knee amputation) Hx of cholecystectomy S/P peripheral artery angioplasty R SFA stenting Family History Mother ALS (amyotrophic lateral sclerosis) Father , 77 Coronary heart disease Sister Myocardial infarction Breast cancer Social History Smoking Status: Never smoker Hx Alcohol Use: No Hx Substance Use: No Preferred Language: Telugu Communication Ability: Effective Datapower Developer Required: No Beliefs That Will Affect Care: None Current Living Situation: Alone and Rehab Current Living Situation Comment: [place] How many Children do You have: 1 Other Information That Helps Us Care for You: No Feels Safe at Home: Yes Safety Concerns: Feels Safe At This Time Assistive Devices: Denture - Upper, Denture - Lower and Oxygen - Continuous Review of Systems Review of Systems: 14 systems reviewed and negative aside from HPI Physical Exam Constitutional: WD/WN, vitals as above cooperative; + not healthy appearing and not in distress ENMT: Ears: no hearing impairment Neck: trachea midline Respiratory: normal respiratory effort; no respiratory distress Auscultation: + diminished lung sounds and + crackles (mild basilar) Cardiovascular: Rate/Rhythm: regular rate and regular rhythm Vessels: femoral pulses present, posterior tibial pulses present (LLE AKA, RLE + doppler), dorsalis pedis pulses present (LLE AKA, RLE + doppler) and radial pulses present; no carotid bruit and + abnormal peripheral pulses Extremities: normal capillary refill Gastrointestinal (Abdomen): Inspection/Auscultation: abdomen normal to inspection and normal bowel sounds Percussion/Palpation: abdomen soft; abdomen nontender Musculoskeletal: Extremities: + amputation noted (LLE AKA) Skin: + ulcer (R medial malleolus) and + eschar (large confluent over tibia) Neurologic: moves all extremities, awake and + confused; no focal motor deficits Psychiatric: Orientation: alert, oriented to person and oriented to place Eye Contact: + fair eye contact Affect: + depressed affect and + tearful affect Results & Data ([facility]) Vital Signs (Past 12 Hours) Vital Signs Temp Pulse Pulse Resp BP Pulse Ox 02/20/21 08:09 36.9 C 68 18 158/66 H 92 02/20/21 07:30 60 02/20/21 06:40 36.7 C 62 18 130/67 93 02/20/21 03:58 36.6 C 61 18 130/70 94 02/19/21 22:29 36.7 C 62 19 133/70 94
[2021-02-20] MEDS: traMADol HCL 50 MG TABLET PO PRN ×2 (09:49→20:24)
--- NOTE | 2021-02-20 10:53 | Cardiology Progress Note ---
Date of Service February 20, 2021 Assessment & Plan (1) Acute and chronic respiratory failure with hypoxia: (2) Chronic heart failure with preserved ejection fraction (HFpEF): (3) Mitral valve stenosis: (4) Pleural effusion: (5) Acute on chronic anemia: (6) Acute worsening of stage 3 chronic kidney disease: Plan: Patient is slowly improving. From a cardiac standpoint she is stable. Recommend no additional cardiac testing at this time. Diuretic management per nephrology. Admission and Anticipated Discharge Date Admission Date: February 16, 2021 Subjective No complaints and feels better today. Review of Systems Review of Systems: Review of Systems: See HPI for pertinent positives. All other 10 point review of systems are negative. Physical Exam Physical Exam: General: no acute distress and stated age Head: normocephalic, no masses, lesions, tenderness or abnormalities Eyes: conjunctiva are pink and non-injected, sclera clear Neck: supple, no adenopathy, no bruits, normal jugular venous pulse, no hepatojugular reflux Chest: normal shape and normal respiratory effort Lungs: clear to auscultation and percussion Cardiac Exam: - regular rate & rhythm, no murmurs gallops or rubs - normal S1, normal S2 Pulses: 2(+) throughout Abdomen: abdomen soft, non-tender, no abnormal masses and no hepatosplenomegaly Musculoskeletal: no gait disturbance, no joint inflammation, no deforming arthritis Extremities: no edema and no cyanosis Neuro: grossly normal exam Results & Data ([facility]) Vital Signs (Past 12 Hours) Vital Signs Temp Pulse Pulse Resp BP Pulse Ox 02/20/21 10:37 36.7 C 65 18 132/49 L 93 02/20/21 08:09 36.9 C 68 18 158/66 H 92 02/20/21 07:30 60 02/20/21 06:40 36.7 C 62 18 130/67 93 02/20/21 03:58 36.6 C 61 18 130/70 94 Laboratory Results Laboratory Results - last 24 hr 02/18/21 02/19/21 02/19/21 16:35 11:22 16:14 WBC RBC Hgb Hct MCV MCH MCHC RDW Std Deviation RDW Coeff of Hugo Plt Count MPV Peripher Smr Path Cons Sodium Potassium Chloride Carbon Dioxide Anion Gap BUN Creatinine Est Cr Clr Drug Dosing Est GFR ( Amer) Est GFR (Non-Af Amer) BUN/Creatinine Ratio Glucose POC Glucose 169 H 136 H Calcium Phosphorus Magnesium Random Vancomycin 02/20/21 02/20/21 02/20/21 07:08 07:08 07:08 WBC 8.83 RBC 3.29 L Hgb 9.2 L Hct 29.6 L MCV 90.0 MCH 28.0 MCHC 31.1 L RDW Std Deviation 57.7 H RDW Coeff of Hugo 18.0 H Plt Count 165 MPV 8.7 Peripher Smr Path Cons Sodium 142 Potassium 4.6 Chloride 113 H Carbon Dioxide 22 Anion Gap 7.0 BUN 112 H Creatinine 3.07 H Est Cr Clr Drug Dosing 11.5 Est GFR ( Amer) 15.3 Est GFR (Non-Af Amer) 13.2 BUN/Creatinine Ratio 36.4 H Glucose 88 POC Glucose Calcium 8.1 L Phosphorus 3.8 Magnesium 2.8 H Random Vancomycin 19.1 Medications Administered Current Inpatient Medications Acetaminophen (Acetaminophen 325 Mg Tab) 650 mg PO Q4H PRN PRN Reason: Pain or Fever Stop: 03/18/21 16:53 Last Admin: 02/18/21 12:37 Dose: 650 mg Documented by: Albuterol (Albut/Ipratrop 3mg/0.5mg Neb 3 Ml Vial) 3 ml NEB QIDR PRN PRN Reason: sob/wheezing Stop: 03/18/21 16:53 Allopurinol (Allopurinol 100 Mg Tab) 100 mg PO [facility] Stop: 03/19/21 08:59 Last Admin: 02/20/21 09:11 Dose: 100 mg Documented by: Amlodipine Besylate (Amlodipine Besylate 5 Mg Tab) 10 mg PO [facility] Stop: 03/19/21 08:59 Last Admin: 02/17/21 08:37 Dose: 10 mg Documented by: Atorvastatin Calcium (Atorvastatin 10 Mg Tab) 10 mg PO [facility] Stop: 03/19/21 08:59 Last Admin: 02/20/21 09:10 Dose: 10 mg Documented by: Clopidogrel Bisulfate (Clopidogrel Bisulfate 75 Mg Tab) 75 mg PO [facility] Stop: 03/19/21 08:59 Cyanocobalamin (Cyanocobalamin 500 Mcg Tablet (Vitamin B-12)) 1,000 mcg PO [facility] Stop: 03/19/21 08:59 Last Admin: 02/20/21 09:14 Dose: 1,000 mcg Documented by: Ferrous Sulfate (Ferrous Sulfate 325 Mg Tab) 325 mg PO BID [facility] Stop: 03/18/21 20:59 Last Admin: 02/20/21 09:09 Dose: 325 mg Documented by: Gabapentin (Gabapentin 100 Mg Cap) 100 mg PO Q8H [facility] Stop: 03/18/21 21:59 Last Admin: 02/20/21 06:02 Dose: 100 mg Documented by: Pantoprazole Sodium 40 mg/ (Syringe) 10 mls @ 5 mls/min IV BID [facility] Stop: 03/18/21 20:59 Last Admin: 02/20/21 09:08 Dose: 5 mls/min Documented by: Azithromycin 500 mg/ Dextrose 255 mls @ 127.5 mls/hr IV Q24H [facility]; Protocol Stop: 02/23/21 16:59 Last Infusion: 02/19/21 19:12 Dose: Infused Documented by: Cefepime HCl 1,000 mg/ Syringe 11.3 mls @ 5.5 mls/min IV Q12H [facility]; Protocol Stop: 02/23/21 19:59 Last Admin: 02/20/21 09:07 Dose: 5.5 mls/min Documented by: Furosemide 40 mg/ Syringe 4 mls @ 4 mls/min IV BID17 [facility] Stop: 03/21/21 08:59 Last Admin: 02/20/21 09:08 Dose: 4 mls/min Documented by: Vancomycin HCl 500 mg/ Sodium (Chloride) 110 mls @ 132 mls/hr IV ONE ONE; Protocol Stop: 02/20/21 11:49 Metoprolol Succinate (Metoprolol Succ 50mg Ext Rel Tab) 100 mg PO QAM [facility] Stop: 03/19/21 08:59 Last Admin: 02/20/21 09:10 Dose: 100 mg Documented by: Miscellaneous Information (Cefepime Consult Active) 0 ea N/A UD PRN PRN Reason: Consult Stop: 03/18/21 16:53 Miscellaneous Information (Vancomycin Consult Active) 1 ea N/A UD PRN PRN Reason: Consult Stop: 03/18/21 21:18 Multivitamins/Minerals (Cerovite Adv Formula Tab) 1 tab PO DAILY [facility] Stop: 03/19/21 08:59 Last Admin: 02/20/21 09:12 Dose: 1 tab Documented by: Ondansetron HCl (Ondansetron Inj 2 Mg/Ml 2 Ml Vial) 4 mg IV Q6H PRN PRN Reason: Nausea Stop: 03/18/21 16:53 Polyethylene Glycol (Polyethylene (Miralax) 17 Gm Pack) 17 gm PO DAILY PRN PRN Reason: Constipation Stop: 03/18/21 16:53 Tramadol HCl (Tramadol Hcl 50 Mg Tablet) 50 mg PO Q4H PRN PRN Reason: severe pain (rating 7-10) Stop: 03/18/21 16:53 Last Admin: 02/20/21 09:49 Dose: 50 mg Documented by: Tramadol HCl (Tramadol Hcl 50 Mg Tablet) 50 mg PO Q4H PRN PRN Reason: Pain Stop: 03/21/21 13:36 Vitamin D (Cholecalciferol 1,000 Units 25 Mcg Tab) 2,000 units PO [facility] Stop: 03/19/21 08:59 Last Admin: 02/20/21 09:13 Dose: 2,000 units Documented by:
[2021-02-20] MEDS ORDERED: VANCOMYCIN HCL 500 MG in 0.9 % SODIUM CHLORIDE 100 ML IV ONE (11:00)
--- NOTE | 2021-02-20 14:29 | Hospitalist Progress Note ---
Date of Service February 20, 2021 Assessment & Plan (1) Acute on chronic heart failure with preserved ejection fraction: Plan: History of chronic diastolic heart failure and mitral stenosis with HTN and gout. Per last cardiology outpatient note she was supposed to be taking Lasix 40mg PO BID, however, intake med list reflects lasix 40mg only once daily. Appreciate cardiology input. We will continue IV Lasix 40 mg twice daily. Continue monitor ins and outs eder g with daily weights. Kwok catheter is in place. Overall patient reports feeling better. (2) Hypoxia: Plan: Most likely secondary to heart failure. Possible bacterial component as well. We will continue cefepime/Zithromax. (3) Wound of right lower extremity: Plan: Large ischemic ulcer with eschar of her right lower extremity. No evidence of osteomyelitis on the ankle xray, however, an MRI would be the gold standard test to rule this out definitively. Also with ulcerations of her right medial malleolus and her right medial thigh. 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 Cont medical management of PAD. Started tramadol PRN, cont Tylenol PRN. Appreciate vascular surgery input. No signs of ischemia to the right lower extremity. Patient would be a high risk candidate for any endovascular treatment as it would result in dialysis dependency as per vascular surgery. Recommending considering debridement of the right lower extremity wounds. Consult orthopedics. (4) Acute on chronic anemia: Plan: Appears to have multifactorial symptomatic anemia with iron deficiency present despite taking iron supplements. Per cardiology her goal Hb would be 9-10. Reports feeling better since blood transfusion overnight. Notably patient reports never having had a colonoscopy in the past. She is willing to undergo this outpatient which will be recommended with ongoing iron deficiency despite supplementation. (5) Acute worsening of stage 3 chronic kidney disease: Plan: likely 2/2 ATN given the current clinical picture. Nephrology also expressed concerns independently that her anemia may be adversely affecting her respiratory status. Recommend continue with loop diuretic as above. (6) PAD (peripheral artery disease): Plan: Has a long-standing h/o PAD and has followed with [facility] Vascular surgery in the past. Has a h/o right SFA stenting and left AKA in 2010 due to progressive peripheral arterial disease. Awaiting vascular thoughts regarding intervention. (7) DVT prophylaxis: Plan: SCDs/no chemoprophylaxis in setting of anemia and consideration/monitoring for ongoing GI bleeding DNR/DNI Dispo-uncertain at this time. Admission and Anticipated Discharge Date Admission Date: February 16, 2021 Subjective Patient is awake and alert this morning. Currently she is on 4 L of nasal cannula. Resting comfortably. Reports that shortness of breath is improved. Denies any chest pain or abdominal pain. Denies any nausea or vomiting. Does report she is having discomfort in the right lower extremity. Review of Systems Review of Systems: All systems reviewed & are unremarkable except as noted in HPI & below Physical Exam Physical Exam: General: Awake and alert, does not appear to be in any distress HENT: NCAT, MMM, EOMI Eyes: PERRLA Neck: Supple, normal range of motion CVS: normal rate and rhythm Resp: b/l decreased breath sounds Abdomen: Soft, ND/NT Extremities: Right lower extremity is Jake wrapped Neuro: face symmetric, no gross focal deficits appreciated Skin: warm and dry, no rashes/lesions/errythema MSK: normal ROM, no joint swelling/erythema Results & Data Results & Data ([facility]) Vital Signs (Past 12 Hours) Vital Signs Temp Pulse Pulse Resp BP Pulse Ox 02/20/21 10:37 36.7 C 65 18 132/49 L 93 02/20/21 08:09 36.9 C 68 18 158/66 H 92 02/20/21 07:30 60 02/20/21 06:40 36.7 C 62 18 130/67 93 02/20/21 03:58 36.6 C 61 18 130/70 94
--- NOTE | 2021-02-20 14:32 | Pharmacy Report ---
Pharmacy [facility] Short Note - Date of Service February 20, 2021 - Assessment & Plan Assessment 85 year old F receiving vancomycin and cefepime for treatment of right lower extremity wound infection with concern for possible osteomyelitis/also possible pneumonia. Cultures negative at this time. Renal function worsening, SCr: 3.07 mg/dL today with eCrCl of 19.1 mL/min. Day # 5 of antimicrobial therapy. Plan Vancomycin * Will dose by random level given very extended half-life * Last dose of vancomycin 500 mg given on 02/17 (~63 hours prior to dose), trough level of 19.1 mcg/mL * Now safe to re-dose, Will give one-time vancomycin dose of 500 mg * Will order an additional random level in approximately 48 hours Cefepime * 1 g IV q12h - target dose of 2 g IV q8h * Remains appropriate, will need to decrease to 1 g IV q24h if renal function worsens any further Pharmacy will continue to follow and will adjust dose/frequency as necessary. Thank you.
--- NOTE | 2021-02-20 15:10 | Communication Note ---
Date of Service: February 20, 2021 Vascular service consult reviewed. Will discuss case with Dr. Mazariegos about wound debridement. Wound debridement would be fairly extensive and likely re quire skin grafting. Will await his further input.
[2021-02-20] MEDS: AZITHROMYCIN 500 MG in DEXTROSE 5% 250 ML IV SCH (17:17)
--- NOTE | 2021-02-20 19:09 | Nephrology Progress Note ---
Date of Service February 20, 2021 Assessment & Plan (1) Acute worsening of stage 3 chronic kidney disease: Plan: - ATN, given the urine sediment picture and the clinical situation. baseline creatinine 1.2-1.4. - creatinine slowly uptrending w/ higher dosed diuretics - OK with 40 mg iv bid w/ Daily assesment of Volume status for diuretic dosing. - Her BUN is quite high (though stable) as well as creatinine, but there is disproportionately high BUN combined with very low hemoglobin on presentation. There is a possibility of gastrointestinal bleed causing a disproportionate rise in the BUN and needs to be investigated. - Recommend work up/treatment of anemia also contributing to her respiratory status. - No further workup is needed from renal standpoint. Continue Laguerre catheter and continue strict input/output charting. - Avoid nonsteroidal anti-inflammatory drugs, angiotensin converting enzyme inhibitor, angiotensin receptor anna, contrast agents for the time being. Renally dose all the antibiotics. Admission and Anticipated Discharge Date Admission Date: February 16, 2021 Subjective no sob, no n/v, no abd pain or palpitations Review of Systems Review of Systems: All systems reviewed & are unremarkable except as noted in Subjective Physical Exam Constitutional: well developed, well nourished and cooperative; no acute distress Eyes: EOM intact bilaterally ENMT: Ears: no external ear abnormality Nose: no external nose abnormality Mouth: + dry oral mucous membranes Neck: no nuchal rigidity Respiratory: normal respiratory effort (on 2L 02NC) and able to speak in complete sentences Auscultation: + diminished lung sounds and + wheezes (some exp) Cardiovascular: Rate/Rhythm: regular rate and regular rhythm Heart Sounds: normal S1 and normal S2 Extremities: + edema (1-2+ BL hips) Gastrointestinal (Abdomen): Inspection/Auscultation: normal bowel sounds Pe rcussion/Palpation: abdomen soft; abdomen nontender Musculoskeletal: Extremities: + abnormal strength and + amputation noted (LLE AKA) Skin: no rashes, warm and dry Neurologic: cisneros, fluent speech, no tremor Genitourinary: laguerre w/ ample light urine Results & Data ([facility]) Vital Signs (Past 12 Hours) Vital Signs Temp Pulse Pulse Resp BP Pulse Ox 02/20/21 15:25 36.6 C 60 19 144/65 H 95 02/20/21 15:04 61 02/20/21 10:37 36.7 C 65 18 132/49 L 93 02/20/21 08:09 36.9 C 68 18 158/66 H 92 02/20/21 07:30 60 Laboratory Results 02/20/21 07:08 02/20/21 07:08
[2021-02-21] MEDS: GABAPENTIN 100 MG CAP PO SCH ×3 (05:24→20:20)
[2021-02-21] MEDS: PANTOprazole 40 MG in SYRINGE 0 ML IV SCH ×2 (09:27→20:19)
[2021-02-21] MEDS: FUROSEMIDE 40 MG in SYRINGE 0 ML IV SCH (09:27)
[2021-02-21] MEDS: FERROUS SULFATE 325 MG TAB PO SCH ×2 (09:28→20:19)
[2021-02-21] MEDS: CEROVITE ADV FORMULA TAB PO SCH (09:28)
[2021-02-21] MEDS: ATORVASTATIN 10 MG TAB PO SCH (09:28)
[2021-02-21] MEDS: CYANOCOBALAMIN 500 MCG TABLET (VITAMIN B-12) PO SCH (09:28)
[2021-02-21] MEDS: METOPROLOL SUCC 50MG EXT REL TAB PO SCH (09:28)
[2021-02-21] MEDS: allopurinoL 100 MG TAB PO SCH (09:28)
[2021-02-21] MEDS: CHOLECALCIFEROL 1,000 UNITS 25 MCG TAB PO SCH (09:28)
--- NOTE | 2021-02-21 11:22 | Magnetic Resonance Report ---
MR lower leg RT wo con CLINICAL HISTORY: h/o extensive LE wound TECHNIQUE: Multisequence, multiplanar MR images of the right lower leg were obtained without contra st.. COMPARISON: None available at the time of this dictation. FINDINGS: No evidence of acute fracture. No joint effusion is seen. Soft tissue edema is seen in the medial sof t tissues and about the ankle and foot. No bony edema to suggest osteomyelitis. IMPRESSION: Soft tissue edema compatible with wound/infection, without evidence of underlying osteomyelitis. ACT 112: Negative or not required by law. Electronically signed by: Leonard Underwood M.D. 02/21/2021 11:21 AM
--- NOTE | 2021-02-21 11:34 | Nephrology Progress Note ---
Date of Service February 21, 2021 Assessment & Plan (1) Acute worsening of stage 3 chronic kidney disease: Plan: slowly worsening nonoliguric Stage 2 MARIELA from ATN, given the urine sediment picture and the clinical situation. baseline creatinine 1.2-1.4. she had anot her episode of MARIELA during recent [place] admission, which resolved by hospital d/c to [facility], which is where she was rehabbing before this admission. No 02 needs prior to [place] admission. -vanco level 19 on 02/20 in response to which she had a small dose same day; dosed by level - creatinine slowly uptrending after higher dosed diuretics - lasix 40 mg iv bid17 to continue -monitor/treat anemia; did have as low as 6.9 hgb this admission - No further workup is needed from renal standpoint. Continue Kwok catheter and continue strict input/output charting. - Avoid nonsteroidal anti-inflammatory drugs, angiotensin converting enzyme inhibitor, angiotensin receptor anna, contrast agents for the time being. Renally dose all antibiotics. Admission and Anticipated Discharge Date Admission Date: February 16, 2021 Subjective seen on rounds 1520 > no c/o worsening breathing, no c/o edema or uncontrolled pain; ortho plans finalizing but likely for d/c home w/ daily dressing changes by [facility] and [facility] clinic f/u. c/o some mild stump pain Review of Systems Review of Systems: All systems reviewed & are unremarkable except as noted in Subjective Physical Exam Constitutional: well developed, well nourished and cooperative; no acute distress Eyes: EOM intact bilaterally ENMT: Ears: no external ear abnormality Nose: no external nose abnormality Mouth: + dry oral mucous membranes Neck: no nuchal rigidity Respiratory: normal respiratory effort (on 2L 02NC) and able to speak in complete sentences Auscultation: + diminished lung sounds Cardiovascular: Rate/Rhythm: regular rate and regular rhythm Heart Sounds: normal S1 and normal S2 Extremities: + edema (trace - 1+ BL hips) Gastrointestinal (Abdomen): Inspection/Auscultation: normal bowel sounds Percussion/Palpation: abdomen soft; abdomen nontender Musculoskeletal: Extremities: + abnormal strength and + amputation noted (LLE AKA) Skin: no rashes, warm and dry R ankle/hindfoot wrapped Results & Data ([facility]) Vital Signs (Past 12 Hours) Vital Signs Temp Pulse Resp BP Pulse Ox 02/21/21 07:59 36.9 C 98 H 22 114/69 93 02/21/21 03:32 35.6 C L 61 20 122/63 98 Laboratory Results 02/20/21 07:08 02/21/21 11:49
[2021-02-21] MEDS: CEFEPIME 1,000 MG in SYRINGE 0 ML IV SCH (11:40)
[2021-02-21 12:38] LABS: BUN Creatinine Ratio 33.9 (10-20); Calcium 8.3 mg/dl (8.5-10.1); Creatinine Clr Calc Pharmacy 10.9 ml/min; Est GFR (African American) 14.5 ml/min; Est GFR (Non-African American) 12.5 ml/min; Potassium 4.2 mmol/L (3.5-5.1)
[2021-02-21] MEDS: traMADol HCL 50 MG TABLET PO PRN ×2 (13:16→19:36)
--- NOTE | 2021-02-21 13:31 | Cardiology Progress Note ---
Date of Service February 21, 2021 Assessment & Plan (1) Acute and chronic respiratory failure with hypoxia: (2) Chronic heart failure with preserved ejection fraction (HFpEF): (3) Mitral valve stenosis: (4) Acute on chronic anemia: (5) Acute worsening of stage 3 chronic kidney disease: Plan: From a cardiac standpoint the patient is stable. No additional cardiac testing or recommendations at this time. Admission and Anticipated Discharge Date Admission Date: February 16, 2021 Subjective No new cardiac complaints patient is having some nausea and vomiting. Review of Systems Review of Systems: Review of Systems: See HPI for pertinent positives. All other 10 point review of systems are negative. Physical Exam Physical Exam: General: no acute distress and stated age Head: normocephalic, no masses, lesions, tenderness or abnormalities Eyes: conjunctiva are pink and non-injected, sclera clear Neck: supple, no adenopathy, no bruits, normal jugular venous pulse, no hepatojugular reflux Chest: normal shape and normal respiratory effort Lungs: clear to auscultation and percussion Cardiac Exam: - regular rate & rhythm, no murmurs gallops or rubs - normal S1, normal S2 Pulses: 2(+) throughout Abdomen: abdomen soft, non-tender, no abnormal masses and no hepatosplenomegaly Musculoskeletal: no gait disturbance, no joint inflammation, no deforming arthritis Extremities: no edema and no cyanosis Neuro: grossly normal exam Results & Data ([facility]) Vital Signs (Past 12 Hours) Vital Signs Temp Pulse Resp BP Pulse Ox 02/21/21 12:15 36.4 C L 66 19 161/75 H 97 02/21/21 07:59 36.9 C 98 H 22 114/69 93 02/21/21 03:32 35.6 C L 61 20 122/63 98 Laboratory Results Laboratory Results - last 24 hr 02/20/21 02/21/21 16:31 11:49 Sodium 140 Potassium 4.2 Chloride 111 H Carbon Dioxide 26 Anion Gap 3.0 BUN 109 H Creatinine 3.21 H Est Cr Clr Drug Dosing 10.9 Est GFR ( Amer) 14.5 Est GFR (Non-Af Amer) 12.5 BUN/Creatinine Ratio 33.9 H Glucose 109 H POC Glucose 147 H Calcium 8.3 L Medications Administered Current Inpatient Medications Acetaminophen (Acetaminophen 325 Mg Tab) 650 mg PO Q4H PRN PRN Reason: Pain or Fever Stop: 03/18/21 16:53 Last Admin: 02/18/21 12:37 Dose: 650 mg Documented by: Albuterol (Albut/Ipratrop 3mg/0.5mg Neb 3 Ml Vial) 3 ml NEB QIDR PRN PRN Reason: sob/wheezing Stop: 03/18/21 16:53 Allopurinol (Allopurinol 100 Mg Tab) 100 mg PO QAM [facility] Stop: 03/19/21 08:59 Last Admin: 02/21/21 09:28 Dose: 100 mg Documented by: Amlodipine Besylate (Amlodipine Besylate 5 Mg Tab) [facility] [place] Stop: 03/19/21 08:59 Last Admin: 02/17/21 08:37 Dose: 10 mg Documented by: Atorvastatin Calcium (Atorvastatin 10 Mg Tab) 10 mg PO QAM [facility] Stop: 03/19/21 08:59 Last Admin: 02/21/21 09:28 Dose: 10 mg Documented by: Clopidogrel Bisulfate (Clopidogrel Bisulfate 75 Mg Tab) 75 mg PO [facility] Stop: 03/19/21 08:59 Cyanocobalamin (Cyanocobalamin 500 Mcg Tablet (Vitamin B-12)) 1,000 mcg PO QAOK [facility] [place] Stop: 03/19/21 08:59 Last Admin: 02/21/21 09:28 Dose: 1,000 mcg Documented by: Ferrous Sulfate (Ferrous Sulfate 325 Mg Tab) 325 mg PO BID [facility] Stop: 03/18/21 20:59 Last Admin: 02/21/21 09:28 Dose: 325 mg Documented by: Furosemide (Furosemide 40 Mg/4 Ml Vial) 40 mg IV BID17 [facility] Stop: 03/23/21 16:59 Gabapentin (Gabapentin 100 Mg Cap) 100 mg PO Q8H [facility] Stop: 03/18/21 21:59 Last Admin: 02/21/21 05:24 Dose: 100 mg Documented by: Pantoprazole Sodium 40 mg/ (Syringe) 10 mls @ 5 mls/min IV BID [facility] Stop: 03/18/21 20:59 Last Admin: 02/21/21 09:27 Dose: 5 mls/min Documented by: Azithromycin 500 mg/ Dextrose 255 mls @ 127.5 mls/hr IV Q24H [facility]; Protocol Stop: 02/23/21 16:59 Last Infusion: 02/20/21 21:39 Dose: Infused Documented by: Cefepime HCl 1,000 mg/ Syringe 11.3 mls @ 5.5 mls/min IV Q12H [facility]; Protocol Stop: 02/23/21 19:59 Last Admin: 02/21/21 11:40 Dose: 5.5 mls/min Documented by: Metoprolol Succinate (Metoprolol Succ 50mg Ext Rel Tab) 100 mg PO QAM [facility] Stop: 03/19/21 08:59 Last Admin: 02/21/21 09:28 Dose: 100 mg Documented by: Miscellaneous Information (Cefepime Consult Active) 0 ea N/A UD PRN PRN Reason: Consult Stop: 03/18/21 16:53 Miscellaneous Information (Vancomycin Consult Active) 1 ea N/A UD PRN PRN Reason: Consult Stop: 03/18/21 21:18 Multivitamins/Minerals (Cerovite Adv Formula Tab) 1 tab PO DAILY [facility] Stop: 03/19/21 08:59 Last Admin: 02/21/21 09:28 Dose: 1 tab Documented by: Ondansetron HCl (Ondansetron Inj 2 Mg/Ml 2 Ml Vial) 4 mg IV Q6H PRN PRN Reason: Nausea Stop: 03/18/21 16:53 Last Admin: 02/21/21 12:09 Dose: 4 mg Documented by: Polyethylene Glycol (Polyethylene (Miralax) 17 Gm Pack) 17 gm PO DAILY PRN PRN Reason: Constipation Stop: 03/18/21 16:53 Tramadol HCl (Tramadol Hcl 50 Mg Tablet) 50 mg PO Q4H PRN PRN Reason: severe pain (rating 7-10) Stop: 03/18/21 16:53 Last Admin: 02/21/21 13:16 Dose: 50 mg Documented by: Tramadol HCl (Tramadol Hcl 50 Mg Tablet) 50 mg PO Q4H PRN PRN Reason: Pain Stop: 03/21/21 13:36 Vitamin D (Cholecalciferol 1,000 Units 25 Mcg Tab) 2,000 units PO QAOK [facility] [place] [facility] Stop: 03/19/21 08:59 Last Admin: 02/21/21 09:28 Dose: 2,000 units Documented by:
--- NOTE | 2021-02-21 14:21 | Orthopedic Progress Note ---
Date of Service February 21, 2021 Assessment & Plan (1) Wound of right lower extremity: Plan: Dr. Mazariegos's plans are to continue to let the wound demarcate with likely plans of debridement in the future. I spoke to Dr. Hutchins at the wound care center. With the patient being fairly nonambulatory, Unna boot would be less advisable at this point in time. Continue daily dressing changes with painting the wounds with Betadine. Will discuss final plans with Dr Mazariegos. Likely plan will be daily dressing changes with services with f/u in wound care as well as well as f/u with him in his office but will confirm with him. Admission and Anticipated Discharge Date Admission Date: February 16, 2021 Subjective Return to see patient today to review her right lower extremity wounds. MRI was performed showing no osteomyelitis and only showing signs of edema of the soft tissue indicating either a wound or infection. Patient is lying in bed awake and alert. She is talkative. Mihaela Marino is present from wound care as well. No new complaints. Physical Exam Physical Exam: Dressings removed from the right lower extremity. The medial ankle ulcer appears to be healing over. She has a small amount of blood that is coming from the wound secondary to removal of the dressing. There is no overt purulence and/or erythema. The eschar on her lower leg continues to darken and demarcate. No overt erythema noted. No purulent drainage that I can see. No new areas have started. Wounds were painted with Betadine and covered with ABDs and Kerlix. Results & Data ([facility]) Vital Signs (Past 12 Hours) Vital Signs Temp Pulse Pulse Resp BP Pulse Ox 02/21/21 12:15 36.4 C L 66 19 161/75 H 97 02/21/21 08:00 60 02/21/21 07:59 36.9 C 98 H 22 114/69 93 02/21/21 03:32 35.6 C L 61 20 122/63 98
--- NOTE | 2021-02-21 14:44 | Hospitalist Progress Note ---
Date of Service February 21, 2021 Assessment & Plan (1) Acute and chronic respiratory failure with hypoxia: (2) Pleural effusion: Plan: This is a 85-year-old female who has significant past medical history of chronic heart failure with preserved ejection fraction, mitral valve stenosis, HTN, HLD, history of PAD/PVD status post left AKA and right SFA stenting, CKD stage III baseline creatinine 1.2-1.4, history of C. difficile, history of T2DM who presents to ED secondary to shortness of breath 1 week. Prior to initial hospitalization at [facility] pt did not require O2. Has been on 2 L since discharge and today hypoxic requiring 5L. L Pleural effusion vs retrocardiac effusion vs opacity - concern for volume overload/CHF given significantly elevated probnp vs HAP. Pt is without fever and cough so feel infectious source less likely; although mild wbc 11k, but procal normal. admit to PCU obtain echocardiogram consult cardiology Trop detectable but negative continue O2 supplementation wean as able continue with empiric antibiotic until infection ruled out but feel less likely, IV cefepime and azithromycin MRSA Screen incentive spirometry/nebs ordered (3) Chronic heart failure with preserved ejection fraction (HFpEF): Plan: Last echocardiogram 02/2020 revealed grade 2 diastolic dysfunction, mild AV sclerosis, mild AR, moderate mitral stenosis, EF 60% Obtain echocardiogram Last proBNP 02/2020 10,061, today greater than 35,000 Concern for possible CHF component Cardiology consulted Strict I's and O's, daily weights (4) Acute worsening of stage 3 chronic kidney disease: Plan: Baseline creatinine 1.2-1.4 BUN 28, creatinine 2.48 Urine studies obtained obtain renal ultrasound consult nephrology - discussed and feels likely ATN in setting of hyoxia and CHF Give Lasix 80mg IV x 1, monitor response Kwok catheter in place to obtain strict I's and O's hold nephrotoxic agents, oral lasix and losartan (5) Acute on chronic anemia: Plan: baseline H&H H&H today 7.0 22.9 Previous history of iron deficiency, continue iron supplements On 02/14+ FOBT at [facility], initially declined GI work-up, but after further discussion with patient and family now wishes to pursue H&H every 8, type and cross in place 2 units on hold, transfuse hemoglobin less than 7 PPI IV twice daily Consult GI repeat hgb 6.9 will transfuse 1 unit prbc with 40mg IV lasix post transfusion (6) Wound of right lower extremity: (7) PAD (peripheral artery disease): Plan: hx of R SFA stenting, hx of L AKA with residual limb/prosthesis on statin, plavix - hold plavix for now, resume when able consult wound care, no overt looking cellulitis (8) HTN (hypertension): Plan: BP controlled continue amlodipine and metoprolol with parameters hold losartan 2/2 to kalin (9) DVT prophylaxis: Plan: None 2/2 to vascular wounds and concern for bleeding Dispo: PCU PCP: Brinda DNR/DNI Admission and Anticipated Discharge Date Admission Date: February 16, 2021 Subjective Reports some abdominal discomfort today. She is awake, alert and oriented x3. Currently remains on 2 L of nasal cannula. Reports shortness of breath is improved. Denies any coughing. Did have an episode of vomiting earlier. Other review of system is negative. Review of Systems Review of Systems: All systems reviewed & are unremarkable except as noted in HPI & below Physical Exam Physical Exam: General: Awake and alert, does not appear to be in any distress HENT: NCAT, MMM, EOMI Eyes: PERRLA Neck: Supple, normal range of motion CVS: normal rate and rhythm Resp: b/l decreased breath sounds Abdomen: Soft, ND/NT Extremities: Right lower extremity is Jake wrapped Neuro: face symmetric, no gross focal deficits appreciated Skin: warm and dry, no rashes/lesions/errythema MSK: normal ROM, no joint swelling/erythema Results & Data Results & Data ([facility]) Vital Signs (Past 12 Hours) Vital Signs Temp Pulse Pulse Resp BP Pulse Ox 02/21/21 12:15 36.4 C L 66 19 161/75 H 97 02/21/21 08:00 60 02/21/21 07:59 36.9 C 98 H 22 114/69 93 02/21/21 03:32 35.6 C L 61 20 122/63 98
--- NOTE | 2021-02-21 15:07 | Hospitalist Progress Note ---
Date of Service February 21, 2021 Assessment & Plan (1) Acute on chronic heart failure with preserved ejection fraction: Plan: History of chronic diastolic heart failure and mitral stenosis with HTN and gout. Per last cardiology outpatient note she was supposed to be taking Lasix 40mg PO BID, however, intake med list reflects lasix 40mg only once daily. Appreciate cardiology input. Hold lasix for today given worsening renal function. Continue monitor ins and outs along with daily weights. Kwok catheter is in place. Overall patient reports feeling better. Currently remains on 2 L of nasal cannula. (2) Hypoxia: Plan: Most likely secondary to heart failure. Possible bacterial component as well. We will continue cefepime/Zithromax. (3) Wound of right lower extremity: Plan: Large ischemic ulcer with eschar of her right lower extremity. No evidence of osteomyelitis on the ankle xray, however, an MRI would be the gold standard test to rule this out definitively. Also with ulcerations of her right medial malleolus and her right medial thigh. 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 Cont medical management of PAD. Started tramadol PRN, cont Tylenol PRN. Appreciate vascular surgery input. No signs of ischemia to the right lower extremity. Patient would be a high risk candidate for any endovascular treatment as it would result in dialysis dependency as per vascular surgery. Recommending considering debridement of the right lower extremity wounds. Orthopedics was consulted. MRI of the right lower extremity was obtained without any osteomyelitis. Ortho recommended daily dressing changes with Betadine. Likely follow-up with wound care as an outpatient. Orthopedics will discuss with Dr. aMzariegos. (4) Acute on chronic anemia: Plan: Appears to have multifactorial symptomatic anemia with iron deficiency present despite taking iron supplements. Per cardiology her goal Hb would be 9-10. Reports feeling better since blood transfusion. Notably patient reports never having had a colonoscopy in the past. She is willing to undergo this outpatient which will be recommended with ongoing iron deficiency despite supplementation. Most recent hemoglobin at 9.2. (5) Acute worsening of stage 3 chronic kidney disease: Plan: 2/2 ATN given the current clinical picture. Nephrology also expressed concerns independently that her anemia may be adversely affecting her respiratory status. Creatinine has been slowly trending upward. Today at 3.21 from 3.07. Holding diuretics for now. (6) PAD (peripheral artery disease): Plan: Has a long-standing h/o PAD and has followed with [facility] Vascular surgery in the past. Has a h/o right SFA stenting and left AKA in 2010 due to progressive peripheral arterial disease. Continue Plavix 75 mg daily. (7) HTN (hypertension): Plan: BP controlled continue amlodipine and metoprolol with parameters hold losartan 2/2 to kalin (8) DVT prophylaxis: Plan: None 2/2 to vascular wounds and concern for bleeding Dispo: PCU PCP: Brinda DNR/DNI (9) PVD (peripheral vascular disease): Admission and Anticipated Discharge Date Admission Date: February 16, 2021 Subjective Reports some abdominal discomfort today. She is awake, alert and oriented x3. Currently remains on 2 L of nasal cannula. Reports shortness of breath is improved. Denies any coughing. Did have an episode of vomiting earlier. Other review of system is negative. Review of Systems Review of Systems: All systems reviewed & are unremarkable except as noted in HPI & below Physical Exam Physical Exam: General: Awake and alert, does not appear to be in any distress HENT: NCAT, MMM, EOMI Eyes: PERRLA Neck: Supple, normal range of motion CVS: normal rate and rhythm Resp: b/l decreased breath sounds Abdomen: Soft, ND/NT Extremities: Right lower extremity is Jake wrapped Neuro: face symmetric, no gross focal deficits appreciated Skin: warm and dry, no rashes/lesions/errythema MSK: normal ROM, no joint swelling/erythema Results & Data Results & Data ([facility]) Vital Signs (Past 12 Hours) Vital Signs Temp Pulse Pulse Resp BP Pulse Ox 02/21/21 12:15 36.4 C L 66 19 161/75 H 97 02/21/21 08:00 60 02/21/21 07:59 36.9 C 98 H 22 114/69 93 02/21/21 03:32 35.6 C L 61 20 122/63 98
[2021-02-21] MEDS: FUROSEMIDE 40 MG/4 ML VIAL IV SCH (17:42)
[2021-02-21] MEDS: AZITHROMYCIN 500 MG in DEXTROSE 5% 250 ML IV SCH (17:45)
[2021-02-22] MEDS: GABAPENTIN 100 MG CAP PO SCH ×3 (05:48→20:49)
[2021-02-22 06:10] LABS: Hemoglobin 9.3 g/dL (12.0-16.0); Mean Corpuscular Hemoglobin 27.9 pg (25-34); Mean Corpuscular Volume 90.1 fL (80-100); Mean Platelet Volume 9.1 fL (7.4-10.4); Platelet Count 152 K/uL (130-400); Red Blood Count 3.33 M/uL (4.2-5.4)
[2021-02-22 07:00] LABS: BUN Creatinine Ratio 33.7 (10-20); Calcium 8.2 mg/dl (8.5-10.1); Creatinine Clr Calc Pharmacy 11.2 ml/min; Est GFR (African American) 15.1 ml/min; Magnesium 2.6 mg/dl (1.8-2.4); Phosphorus 4.3 mg/dl (2.5-4.9); Potassium 4.4 mmol/L (3.5-5.1)
[2021-02-22] MEDS: ACETAMINOPHEN 325 MG TAB PO PRN (07:39)
[2021-02-22] MEDS: allopurinoL 100 MG TAB PO SCH (08:02)
[2021-02-22] MEDS: CHOLECALCIFEROL 1,000 UNITS 25 MCG TAB PO SCH (08:03)
[2021-02-22] MEDS: CYANOCOBALAMIN 500 MCG TABLET (VITAMIN B-12) PO SCH (08:05)
[2021-02-22] MEDS: FERROUS SULFATE 325 MG TAB PO SCH ×2 (08:05→20:13)
[2021-02-22] MEDS: METOPROLOL SUCC 50MG EXT REL TAB PO SCH (08:06)
[2021-02-22] MEDS: ADVANCED PROBIOTIC 1250 MG CAPSULE PO SCH (08:06)
[2021-02-22] MEDS: PANTOprazole 40 MG in SYRINGE 0 ML IV SCH ×2 (08:06→20:13)
[2021-02-22] MEDS: CEROVITE ADV FORMULA TAB PO SCH (08:06)
--- NOTE | 2021-02-22 08:15 | XRay Report ---
XR chest 1V portable HISTORY: 85 years-old Female follow up follow-up study in a patient with pulmonary opacities COMPARISON: Chest radiograph 02/16/2021 TECHNIQUE: Portable AP view of the chest FINDINGS: The cardiac silhouette is enlarged. Pulmonary vascular congestion with interstitial coarsening, mildl y progressed from comparison. Left greater than right layering pleural effusions with bibasilar conso lidation is redemonstrated. Atherosclerotic plaque of the thoracic aorta. Degenerative changes of the shoulders and spine. IMPRESSION: 1. Cardiomegaly with pulmonary edema. 2. Left greater than right layering pleural effusions with bibasilar consolidation suggestive of atel ectasis versus pneumonia. ACT 112: Negative or not required by law. The above report was generated using voice recognition software. It may contain grammatical, syntax o r spelling errors. Electronically signed by: Alex Davidson M.D. 02/22/2021 8:14 AM
--- NOTE | 2021-02-22 09:07 | Pharmacy Report ---
Pharmacy Abx Dose Short Note - Date of Service February 22, 2021 - Assessment & Plan Assessment 85 year old F receiving vancomycin and cefepime for treatment of right lower extremity wound infection with concern for possible osteomyelitis/also possible pneumonia. Cultures negative at this time. Day # 7 of antimicrobial therapy. Plan Vancomycin * Random vancomycin level this AM ~18 mcg/ml (goal 15-20 mcg/ml) * Plan to redose again today with vancomycin 500 mg x 1 to maintain estimated peak of ~30 mcg/ml * Renal function remains elevated, Scr today 3.11 * Likely could continue with Q48 hr dosing of vancomycin if renal function remains the same Cefepime * 1 g IV q24hr - target dose of 2 g IV q8h * Appropriate for CrCl <11 - continue same for now Pharmacy will continue to follow and will adjust dose/frequency as necessary. Thank you.
[2021-02-22] MEDS: ATORVASTATIN 10 MG TAB PO SCH (10:10)
[2021-02-22] MEDS: FUROSEMIDE 40 MG/4 ML VIAL IV SCH ×2 (10:10→18:25)
[2021-02-22] MEDS: CEFEPIME 1,000 MG in SYRINGE 0 ML IV SCH (10:41)
[2021-02-22] MEDS ORDERED: VANCOMYCIN HCL 500 MG in 0.9 % SODIUM CHLORIDE 100 ML IV ONE (11:00)
[2021-02-22] MEDS: traMADol HCL 50 MG TABLET PO PRN (14:24)
--- NOTE | 2021-02-22 14:40 | Surgery Consultation ---
Date of Consultation February 22, 2021 Assessment & Plan (1) Wound of right lower extremity: Wound images were reviewed with orthopedics and Dr. Nolen. Joelle has significant eschar in addition to her many comorbidities and poor nutrition status. Will order a pre-albumin to help determine her ability to heal wounds. Due to the large wound, and limited ability to see the depth and involved underlying structures, would recommend debridement by orthopedics with placement of wound vac. If patient is able to get a bed of healthy, granular tissue, she may be an eventual candidate for skin graft. Will continue to follow. (2) PAD (peripheral artery disease): (3) PVD (peripheral vascular disease): Supervising Physician Co-Signing Physician Notes I personally saw and examined this patient and agree with the findings, assessment and plan. Patient seen at bedside around 5 pm. Does not know etiology/timeline of wound. Photos reviewed. Large area of necrosis right lower leg, with several small ulcers present. Vascular eval-no endovascular intervention due to risk of renal failure. Albumin 1.6; recommend prealbumin with morning labs. Wound will not heal with albumin less than 2. If wound is debrided, would recommend VAC and nutritional support followed by split thickness graft when granulation is present. Will follow. History of Present Illness Attending Physician: Quoc Chaudhary MD History of Present Illness Joelle is being seen in consultation for right lower extremity wound. She was admitted to [facility] on 02/16/21 for shortness of breath. She has significant PMH including chronic heart failure with preserved ejection fraction, but type 2 diastolic dysfunction, mitral valve stenosis, severe peripheral arterial disease, type 2 diabetes at late age of onset, gout, hypertension, chronic kidney disease, baseline creatinine 1.2-1.4, removal of ovarian cyst, history of above-knee amputation, cholecystectomy, status post peripheral artery angioplasty, right SFA stenting. Joelle was hospitalized from 01/29-02/[address] [facility] for right lower extremity cellulitis. She was initially treated with IV vancomycin and cefepime, then transitioned to PO cefdinir. Her right leg was treated with local wound care, left leg AKA stump with pain since her amputation. She does not wear prosthesis due to chronic discomfort in the stump. Since she has been inpatient, her right lower extremity wounds are being treated with Betadine painting daily. She has been followed by orthopedics who is planning OR debridement. Studies performed include MRI 02/21 No evidence of acute fracture. No joint effusion is seen. Soft tissue edema is seen in the medial soft tissues and about the ankle and foot. No bony edema to suggest osteomyelitis. IMPRESSION: Soft tissue edema compatible with wound/infection, without evidence of underlying osteomyelitis. Duplex Scan Lower Extremity 02/17 findings compatible with PAD Vascular services were consulted- advise against vascular surgical intervention. Allergies Allergy/AdvReac Type Severity Reaction Status Date / Time No Known Allergies Allergy Unverified 02/16/21 08:30 Home Medications Medication Instructions Recorded Confirmed Type Saccharomyces boulardii 250 mg 250 mg PO QAM 02/16/21 02/16/21 History capsule (Florastor) allopurinol 100 mg tablet 100 mg PO QAM 02/16/21 02/16/21 History (Zyloprim) amlodipine 10 mg tablet (Norvasc) 10 mg PO QAM 02/16/21 02/16/21 History atorvastatin 10 mg tablet (Lipitor) 10 mg PO QAM 02/16/21 02/16/21 History cholecalciferol (vitamin D3) 50 50 mcg PO QAM 02/16/21 02/16/21 History mcg (2,000 unit) capsule (Vitamin D3) clopidogrel 75 mg tablet (Plavix) 75 mg PO QAM 02/16/21 02/16/21 History cyanocobalamin (vitamin B-12) 1,000 mcg PO QAM 02/16/21 02/16/21 History 1,000 mcg tablet (Vitamin B-12) enoxaparin 30 mg/0.3 mL 30 mg SUBCUT HS 02/16/21 02/16/21 History subcutaneous syringe (Lovenox) ferrous sulfate 325 mg (65 mg 325 mg PO BID 02/16/21 02/16/21 History iron) tablet (FeroSul) furosemide 40 mg tablet (Lasix) 40 mg PO QAM 02/16/21 02/16/21 History gabapentin 100 mg capsule 100 mg PO Q8H 02/16/21 02/16/21 History (Neurontin) ipratropium 0.5 mg-albuterol 3 mg 3 ml INHALATION Q6H 02/16/21 02/16/21 History (2.5 mg base)/3 mL nebulization soln losartan 50 mg tablet (Cozaar) 50 mg PO Q12 02/16/21 02/16/21 History metoprolol succinate 100 mg 100 mg PO QAM 02/16/21 02/16/21 History tablet,extended release 24 hr (Toprol XL) tramadol 50 mg tablet (Ultram) 50 mg PO Q4H 02/16/21 02/16/21 History vitamin A-vitamin C-vit E-min 1 tab PO BID 02/16/21 02/16/21 History tablet (Ocutabs) Patient History Medical History ASCVD (arteriosclerotic cardiovascular disease) Chronic heart failure with preserved ejection fraction (HFpEF) CKD (chronic kidney disease) stage 3, GFR 30-59 ml/min baseline cr 1.2-1.4 Gout HTN (hypertension) Mitral valve stenosis PAD (peripheral artery disease) PVD (peripheral vascular disease) T2DM (type 2 diabetes mellitus) last a1c 5.8 2017 Surgical History History of removal of ovarian cyst Hx of AKA (above knee amputation) Hx of cholecystectomy S/P peripheral artery angioplasty R SFA stenting Family History Mother ALS (amyotrophic lateral sclerosis) Father , 77 Coronary heart disease Sister Myocardial infarction Breast cancer Social History Smoking Status: Never smoker Hx Alcohol Use: No Hx Substance Use: No Preferred Language: Yoruba Communication Ability: Effective Internet Webmaster Required: No Beliefs That Will Affect Care: None Current Living Situation: Alone and Rehab Current Living Situation Comment: [place] How many Children do You have: 1 Other Information That Helps Us Care for You: No Feels Safe at Home: Yes Safety Concerns: Feels Safe At This Time Assistive Devices: Oxygen - Continuous Review of Systems Review of Systems: All systems reviewed & are unremarkable except as noted in HPI & below Physical Exam Physical Exam: Patient resting comfortable in bed. Her right leg is dressed appropriate with gauze/Kerlix in place. There is no saturation through her dressings. Inpatient wound pictures reviewed- significant eschar on right lower extremity, appears to be circumferential, with multiple ulcers with eschar noted on leg and ankle. Results & Data ([facility]) Vital Signs (Past 12 Hours) Vital Signs Temp Pulse Pulse Resp BP Pulse Ox 02/22/21 11:32 36.8 C 68 18 155/75 H 95 02/22/21 09:00 60 02/22/21 06:49 36.7 C 62 16 148/70 H 94 02/22/21 04:03 36.5 C 58 L 18 154/67 H 94 PG Care Time/CCT Total # of Minutes Spent Total Time Spent with Patient: Total time spent is greater than 50% in coordination of care (as documented) at patient's floor/unit and/or counseling patient: Coding Level of Care Code 20002 Initial Inpt Care Lvl 3 Diagnoses Wound of right lower extremity S81.801A PAD (peripheral artery disease) I73.9 PVD (peripheral vascular disease) I73.9
[2021-02-22] MEDS: AZITHROMYCIN 500 MG in DEXTROSE 5% 250 ML IV SCH (17:48)
--- NOTE | 2021-02-22 19:45 | Nephrology Progress Note ---
Date of Service February 22, 2021 Assessment & Plan (1) Acute worsening of stage 3 chronic kidney disease: Plan: slowly worsening nonoliguric Stage 2 MARIELA from ATN, given the urine sediment picture and the clinical situation. baseline creatinine 1.2-1.4. she had anot her episode of MARIELA during recent [facility] admission, which resolved by hospital d/c to [facility], which is where she was rehabbing before this admission. No 02 needs prior to [facility] admission. -vanco dosed by level - creatinine plateau'd in low 3s after resuming 40 mg IV bid lasix >> will ch gonsalo to 30 mg IV tid -monitor/treat anemia; did have as low as 6.9 hgb this admission - No further workup is needed from renal standpoint. Continue Kwok catheter and continue strict input/output charting. - Avoid nonsteroidal anti-inflammatory drugs, angiotensin converting enzyme inhibitor, angiotensin receptor anna, contrast agents for the time being. Renally dose all antibiotics. Admission and Anticipated Discharge Date Admission Date: February 16, 2021 Subjective surgery saw pt > recommend eval by ortho for debridement in OR if appropriate. pt remains exhausted, weak, needs fed. Review of Systems Review of Systems: All systems reviewed & are unremarkable except as noted in Subjective Physical Exam Constitutional: well developed, + frail appearing and cooperative; no acute distress Eyes: EOM intact bilaterally ENMT: Ears: no external ear abnormality Nose: no external nose abnormality Mouth: + dry oral mucous membranes Neck: no nuchal rigidity Respiratory: normal respiratory effort (on 2L 02NC) and able to speak in complete sentences (but speech limited today by fatigue) Auscultation: + diminished lung sounds Cardiovascular: Rate/Rhythm: regular rate and regular rhythm Heart Sounds: normal S1 and normal S2 Extremities: + edema (trace - 1+ BL hips) Gastrointestinal (Abdomen): Inspection/Auscultation: normal bowel sounds Percussion/Palpation: abdomen soft; abdomen nontender Musculoskeletal: Extremities: + abnormal strength and + amputation noted (LLE AKA) Skin: no rashes, warm and dry R foot wrapped Results & Data ([facility]) Vital Signs (Past 12 Hours) Vital Signs Temp Pulse Pulse Resp BP Pulse Ox 02/22/21 15:35 36.9 C 62 18 181/72 H 95 02/22/21 15:13 62 02/22/21 11:32 36.8 C 68 18 155/75 H 95 02/22/21 09:00 60 Laboratory Results 02/22/21 05:49 02/22/21 05:49
--- NOTE | 2021-02-22 20:37 | Hospitalist Progress Note ---
Date of Service February 22, 2021 Assessment & Plan (1) Acute on chronic heart failure with preserved ejection fraction: Plan: History of chronic diastolic heart failure and mitral stenosis with HTN and gout. Per last cardiology outpatient note she was supposed to be taking Lasix 40mg PO BID, however, intake med list reflects lasix 40mg only once daily. Appreciate cardiology input. Continue monitor ins and outs along with daily weights. Kwok catheter is in place. Overall patient reports feeling better. Currently remains on 2 L of nasal cannula. On IV lasix per nephrology , increase from 40 iv bid to 30 iv tid (2) Hypoxia: Plan: Most likely secondary to heart failure. Possible bacterial component as well. and atelectasis We will continue cefepime/Zithromax. (3) Wound of right lower extremity: Plan: Large ischemic ulcer with eschar of her right lower extremity. Also with ulcerations of her right medial malleolus and her right medial thigh. 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 Cont medical management of PAD. Started tramadol PRN, cont Tylenol PRN. Appreciate vascular surgery input. No signs of ischemia to the right lower extremity. Patient would be a high risk candidate for any endovascular treatment as it would result in dialysis dependency as per vascular surgery. Recommending considering debridement of the right lower extremity wounds. Orthopedics was consulted. MRI of the right lower extremity was obtained without any osteomyelitis. Ortho recommended daily dressing changes with Betadine. Possible debridement in the next few days w/ Dr. Mazariegos. Plastic surgery (Dr. Nolen) also consulted as pt may need skin graft. (4) Acute on chronic anemia: Plan: Appears to have multifactorial symptomatic anemia with iron deficiency present despite taking iron supplements. Per cardiology her goal Hb would be 9-10. Reports feeling better since blood transfusion. Notably patient reports never having had a colonoscopy in the past. She is willing to undergo this outpatient which will be recommended with ongoing iron deficiency despite supplementation. Most recent hemoglobin at 9.2. (5) Acute worsening of stage 3 chronic kidney disease: Plan: 2/2 ATN given the current clinical picture. Nephrology also expressed concerns independently that her anemia may be adversely affecting her respiratory status. Creatinine has been slowly trending upward. and now seems stable around 3 Increase IV lasix from 40 iv bid to 30 iv tid (6) PAD (peripheral artery disease): Plan: Has a long-standing h/o PAD and has followed with [facility] Vascular surgery in the past. Has a h/o right SFA stenting and left AKA in 2010 due to progressive peripheral arterial disease. Continue Plavix 75 mg daily. (7) HTN (hypertension): Plan: BP controlled continue amlodipine and metoprolol with parameters hold losartan 2/2 to mariela (8) DVT prophylaxis: Plan: None 2/2 to vascular wounds and concern for bleeding Dispo: PCU PCP: Brinda DNR/DNI (9) PVD (peripheral vascular disease): Admission and Anticipated Discharge Date Admission Date: February 16, 2021 Subjective Patient seen in follow-up of CHF exacerbation, MARIELA, PAD, with RLE wound Pt is sitting up in bed, in NAD, using suppl. O2, appears very tired she is able to answer questions appropriately Denies fever, chills, chest pain, shortness of breath Seen at the bedside w/ Dr. Nolen (plastic surgery) Discussed plan w/ ortho this AM Review of Systems Review of Systems: All systems reviewed & are unremarkable except as noted in Subjective Physical Exam Physical Exam: General: elderly obese F, chronically ill appearing, in NAD, on NC HEENT: NCAT, MMM, EOMI, PERRL Neck: Supple, normal range of motion CVS: normal rate and rhythm Resp: b/l decreased breath sounds, no wheezing, rhonchi Abdomen: Soft, ND/NT Extremities: RLE in dressings (photos by wound care reviewed - large eschar/ necrosis), LLE BKA Neuro: awake and alert, face symmetric, speech fluent, moves extremities Skin: warm and dry (RLE as above) Results & Data Results & Data ([facility]) Vital Signs (Past 12 Hours) Vital Signs Temp Pulse Pulse Resp BP Pulse Ox 02/22/21 19:46 36.8 C 59 L 16 142/57 H 95 02/22/21 15:35 36.9 C 62 18 181/72 H 95 02/22/21 15:13 62 02/22/21 11:32 36.8 C 68 18 155/75 H 95 02/22/21 09:00 60 Laboratory Results 02/22/21 02/22/21 02/22/21 Range/Units 05:49 05:49 05:49 WBC 8.70 (4.8-10.8) K/uL RBC 3.33 L (4.2-5.4) M/uL Hgb 9.3 L (12.0-16.0) g/dL Hct 30.0 L (37-47) % MCV 90.1 (80-100) fL MCH 27.9 (25-34) pg MCHC 31.0 L (32-36) g/dL RDW Std Deviation 58.0 H (36.4-46.3) fL RDW Coeff of Hugo 18.0 H (11.5-14.5) % Plt Count 152 (130-400) K/uL MPV 9.1 (7.4-10.4) fL Sodium 140 (136-145) mmol/L Potassium 4.4 (3.5-5.1) mmol/L Chloride 110 H (98-107) mmol/L Carbon Dioxide 23 (21-32) mmol/L Anion Gap 7.0 (3-11) BUN 105 H (7-18) mg/dl Creatinine 3.11 H (0.6-1.2) mg/dl Est Cr Clr Drug Dosing 11.2 ml/min Est GFR ( Amer) 15.1 ml/min Est GFR (Non-Af Amer) 13.0 ml/min BUN/Creatinine Ratio 33.7 H (10-20) Glucose 82 (70-99) mg/dl Calcium 8.2 L (8.5-10.1) mg/dl Phosphorus 4.3 (2.5-4.9) mg/dl Magnesium 2.6 H (1.8-2.4) mg/dl Procalcitonin 0.08 (0-0.5) ng/ml Random Vancomycin mcg/ml 02/22/21 Range/Units 05:49 WBC (4.8-10.8) K/uL RBC (4.2-5.4) M/uL Hgb (12.0-16.0) g/dL Hct (37-47) % MCV (80-100) fL MCH (25-34) pg MCHC (32-36) g/dL RDW Std Deviation (36.4-46.3) fL RDW Coeff of Hugo (11.5-14.5) % Plt Count (130-400) K/uL MPV (7.4-10.4) fL Sodium (136-145) mmol/L Potassium (3.5-5.1) mmol/L Chloride (98-107) mmol/L Carbon Dioxide (21-32) mmol/L Anion Gap (3-11) BUN (7-18) mg/dl Creatinine (0.6-1.2) mg/dl Est Cr Clr Drug Dosing ml/min Est GFR ( Amer) ml/min Est GFR (Non-Af Amer) ml/min BUN/Creatinine Ratio (10-20) Glucose (70-99) mg/dl Calcium (8.5-10.1) mg/dl Phosphorus (2.5-4.9) mg/dl Magnesium (1.8-2.4) mg/dl Procalcitonin (0-0.5) ng/ml Random Vancomycin 17.6 mcg/ml Medications Administered Current Inpatient Medications Acetaminophen (Acetaminophen 325 Mg Tab) 650 mg PO Q4H PRN PRN Reason: Pain or Fever Stop: 03/18/21 16:53 Last Admin: 02/22/21 07:39 Dose: 650 mg Documented by: Albuterol (Albut/Ipratrop 3mg/0.5mg Neb 3 Ml Vial) 3 ml NEB QIDR PRN PRN Reason: sob/wheezing Stop: 03/18/21 16:53 Allopurinol (Allopurinol 100 Mg Tab) 100 mg PO [facility] Stop: 03/19/21 08:59 Last Admin: 02/22/21 08:02 Dose: 100 mg Documented by: Amlodipine Besylate (Amlodipine Besylate 5 Mg Tab) 10 mg PO [facility] Stop: 03/19/21 08:59 Last Admin: 02/17/21 08:37 Dose: 10 mg Documented by: Atorvastatin Calcium (Atorvastatin 10 Mg Tab) 10 mg PO [facility] Stop: 03/19/21 08:59 Last Admin: 02/22/21 10:10 Dose: 10 mg Documented by: Clopidogrel Bisulfate (Clopidogrel Bisulfate 75 Mg Tab) 75 mg PO [facility] Stop: 03/19/21 08:59 Cyanocobalamin (Cyanocobalamin 500 Mcg Tablet (Vitamin B-12)) 1,000 mcg PO [facility] Stop: 03/19/21 08:59 Last Admin: 02/22/21 08:05 Dose: 1,000 mcg Documented by: Ferrous Sulfate (Ferrous Sulfate 325 Mg Tab) 325 mg PO BID [facility] Stop: 03/18/21 20:59 Last Admin: 02/22/21 20:13 Dose: 325 mg Documented by: Furosemide (Furosemide 40 Mg/4 Ml Vial) 30 mg IV TID [facility] Stop: 03/25/21 07:59 Gabapentin (Gabapentin 100 Mg Cap) 100 mg PO Q8H [facility] Stop: 03/18/21 21:59 Last Admin: 02/22/21 14:20 Dose: 100 mg Documented by: Pantoprazole Sodium 40 mg/ (Syringe) 10 mls @ 5 mls/min IV BID [facility] Stop: 03/18/21 20:59 Last Admin: 02/22/21 20:13 Dose: 5 mls/min Documented by: Azithromycin 500 mg/ Dextrose 255 mls @ 127.5 mls/hr IV Q24H [facility]; Protocol Stop: 02/23/21 16:59 Last Infusion: 02/22/21 19:52 Dose: Infused Documented by: Cefepime HCl 1,000 mg/ Syringe 11.3 mls @ 5.5 mls/min IV Q24H [facility]; Protocol Stop: 03/01/21 10:59 Last Admin: 02/22/21 10:41 Dose: 5.5 mls/min Documented by: Lactobacillus Acidoph/Casei/Rhamnos (Advanced Probiotic 1250 Mg Capsule) 2 cap PO DAILY [facility] Stop: 03/24/21 08:59 Last Admin: 02/22/21 08:06 Dose: 2 cap Documented by: Metoprolol Succinate (Metoprolol Succ 50mg Ext Rel Tab) 100 mg PO QAM [facility] Stop: 03/19/21 08:59 Last Admin: 02/22/21 08:06 Dose: 100 mg Documented by: Miscellaneous Information (Cefepime Consult Active) 0 ea N/A UD PRN PRN Reason: Consult Stop: 03/18/21 16:53 Miscellaneous Information (Vancomycin Consult Active) 1 ea N/A UD PRN PRN Reason: Consult Stop: 03/18/21 21:18 Multivitamins/Minerals (Cerovite Adv Formula Tab) 1 tab PO DAILY [facility] Stop: 03/19/21 08:59 Last Admin: 02/22/21 08:06 Dose: 1 tab Documented by: Ondansetron HCl (Ondansetron Inj 2 Mg/Ml 2 Ml Vial) 4 mg IV Q6H PRN PRN Reason: Nausea Stop: 03/18/21 16:53 Last Admin: 02/21/21 12:09 Dose: 4 mg Documented by: Polyethylene Glycol (Polyethylene (Miralax) 17 Gm Pack) 17 gm PO DAILY PRN PRN Reason: Constipation Stop: 03/18/21 16:53 Tramadol HCl (Tramadol Hcl 50 Mg Tablet) 50 mg PO Q4H PRN PRN Reason: severe pain (rating 7-10) Stop: 03/18/21 16:53 Last Admin: 02/22/21 14:24 Dose: 50 mg Documented by: Tramadol HCl (Tramadol Hcl 50 Mg Tablet) 50 mg PO Q4H PRN PRN Reason: Pain Stop: 03/21/21 13:36 Vitamin D (Cholecalciferol 1,000 Units 25 Mcg Tab) 2,000 units PO [facility] Stop: 03/19/21 08:59 Last Admin: 02/22/21 08:03 Dose: 2,000 units Documented by:
[2021-02-22] MEDS ORDERED: FUROSEMIDE 40 MG/4 ML VIAL IV SCH (21:00)
[2021-02-23] MEDS: GABAPENTIN 100 MG CAP PO SCH ×3 (05:58→21:23)
[2021-02-23 07:18] LABS: Hematocrit (blood only) 29.2 % (37-47); Hemoglobin 9.1 g/dL (12.0-16.0); Mean Corpuscular Hemoglobin 27.7 pg (25-34); Mean Corpuscular Hgb Conc 31.2 g/dL (32-36); Mean Platelet Volume 8.5 fL (7.4-10.4); Platelet Count 150 K/uL (130-400); RDW Coefficient of Variation 18.3 % (11.5-14.5); RDW Standard Deviation 58.6 fL (36.4-46.3); Red Blood Count 3.28 M/uL (4.2-5.4); White Blood Count 9.57 K/uL (4.8-10.8)
[2021-02-23 07:56] LABS: BUN Creatinine Ratio 32.2 (10-20); Calcium 8.4 mg/dl (8.5-10.1); Creatinine Clr Calc Pharmacy 10.8 ml/min; Est GFR (African American) 14.2 ml/min; Est GFR (Non-African American) 12.2 ml/min; Magnesium 2.4 mg/dl (1.8-2.4); Phosphorus 4.2 mg/dl (2.5-4.9); Potassium 4.2 mmol/L (3.5-5.1); Prealbumin 16.3 mg/dl (20-40)
[2021-02-23] MEDS: FUROSEMIDE 40 MG/4 ML VIAL IV SCH ×4 (07:56→21:23)
[2021-02-23] MEDS: ADVANCED PROBIOTIC 1250 MG CAPSULE PO SCH (08:00)
[2021-02-23] MEDS: CHOLECALCIFEROL 1,000 UNITS 25 MCG TAB PO SCH (08:00)
[2021-02-23] MEDS: PANTOprazole 40 MG in SYRINGE 0 ML IV SCH ×2 (08:00→21:23)
[2021-02-23] MEDS: FERROUS SULFATE 325 MG TAB PO SCH ×2 (08:01→21:23)
[2021-02-23] MEDS: CEROVITE ADV FORMULA TAB PO SCH (08:01)
[2021-02-23] MEDS: METOPROLOL SUCC 50MG EXT REL TAB PO SCH (08:01)
[2021-02-23] MEDS: CYANOCOBALAMIN 500 MCG TABLET (VITAMIN B-12) PO SCH (08:01)
[2021-02-23] MEDS: allopurinoL 100 MG TAB PO SCH (08:01)
[2021-02-23] MEDS: ATORVASTATIN 10 MG TAB PO SCH (08:02)
[2021-02-23] MEDS: CEFEPIME 1,000 MG in SYRINGE 0 ML IV SCH (11:25)
--- NOTE | 2021-02-23 15:05 | Hospitalist Progress Note ---
Date of Service February 23, 2021 Assessment & Plan (1) Acute on chronic heart failure with preserved ejection fraction: Plan: History of chronic diastolic heart failure and mitral stenosis with HTN and gout. Per last cardiology outpatient note she was supposed to be taking Lasix 40mg PO BID, however, intake med list reflects lasix 40mg only once daily. Appreciate cardiology input. Continue monitor I/Os along with daily weights. Kwok catheter is in place. Overall patient reports feeling better. Currently remains on 2 L of nasal cannula. On IV lasix per nephrology, now on Lasix 30 IV TID (2) Hypoxia: Plan: Most likely secondary to heart failure. Possible bacterial component as well. and atelectasis Continue cefepime/Zithromax. (3) Wound of right lower extremity: Plan: Large ischemic ulcer with eschar of her right lower extremity. Also with ulcerations of her right medial malleolus and her right medial thigh. 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 Cont medical management of PAD. Started tramadol PRN, cont Tylenol PRN. Appreciate vascular surgery input. Patient would be a high risk candidate for any endovascular treatment as it would result in dialysis dependency as per vascular surgery. Recommending considering debridement of the right lower extremity wounds. Orthopedics was consulted. MRI of the right lower extremity was obtained without any osteomyelitis. Ortho recommended daily dressing changes with Betadine. Possible debridement in the next few days w/ Dr. Mazariegos. Plastic surgery (Dr. Nolen) also consulted as pt may need skin graft. (4) Acute on chronic anemia: Plan: Appears to have multifactorial symptomatic anemia with iron deficiency present despite taking iron supplements. Per cardiology her goal Hb would be 9-10. Reports feeling better since blood transfusion. Notably patient reports never having had a colonoscopy in the past. She is willing to undergo this outpatient which will be recommended with ongoing iron deficiency despite supplementation. Most recent hemoglobin at 9.2. (5) Acute worsening of stage 3 chronic kidney disease: Plan: 2/2 ATN given the current clinical picture. Nephrology also expressed concerns independently that her anemia may be adversely affecting her respiratory status. Creatinine has been slowly trending upward. and now seems stable around 3 Currently on lasix 30 IV TID, nephrology closely following (6) PAD (peripheral artery disease): Plan: Has a long-standing h/o PAD and has followed with [facility] Vascular surgery in the past. Has a h/o right SFA stenting and left AKA in 2010 due to progressive peripheral arterial disease. Continue Plavix 75 mg daily. (7) HTN (hypertension): Plan: BP controlled continue amlodipine and metoprolol with parameters hold losartan 2/2 to mariela (8) DVT prophylaxis: Plan: None 2/2 to vascular wounds and concern for bleeding Dispo: PCU PCP: Dr. Parry DNR/DNI (9) PVD (peripheral vascular disease): Admission and Anticipated Discharge Date Admission Date: February 16, 2021 Subjective Patient seen in follow-up of CHF exacerbation, MARIELA, PAD, with RLE wound Pt is sitting up in bed, in NAD, using suppl. O2, appears tired and weak she is able to answer questions appropriately Denies fever, chills, chest pain, shortness of breath Per orthopedics, possible debridement over the weekend Review of Systems Review of Systems: All systems reviewed & are unremarkable except as noted in Subjective Physical Exam Physical Exam: General: elderly obese F, chronically ill appearing, in NAD, on NC HEENT: NCAT, MMM, EOMI, PERRL Neck: Supple, normal range of motion CVS: normal rate and rhythm Resp: b/l decreased breath sounds, no wheezing, rhonchi Abdomen: Soft, ND/NT Extremities: RLE in dressings (photos by wound care reviewed - large eschar/ ne crosis), LLE BKA Neuro: awake and alert, face symmetric, speech fluent, moves extremities Skin: warm and dry (RLE as above) Results & Data Results & Data ([facility]) Vital Signs (Past 12 Hours) Vital Signs Temp Pulse Resp BP Pulse Ox 02/23/21 12:01 36.7 C 62 16 151/66 H 96 02/23/21 07:55 37.0 C 65 19 155/54 H 95 02/23/21 05:21 36.7 C 69 16 146/56 H 93 Laboratory Results 02/23/21 02/23/21 02/23/21 Range/Units 06:58 06:58 06:58 WBC 9.57 (4.8-10.8) K/uL RBC 3.28 L (4.2-5.4) M/uL Hgb 9.1 L (12.0-16.0) g/dL Hct 29.2 L (37-47) % MCV 89.0 (80-100) fL MCH 27.7 (25-34) pg MCHC 31.2 L (32-36) g/dL RDW Std Deviation 58.6 H (36.4-46.3) fL RDW Coeff of Hugo 18.3 H (11.5-14.5) % Plt Count 150 (130-400) K/uL MPV 8.5 (7.4-10.4) fL Sodium 141 (136-145) mmol/L Potassium 4.2 (3.5-5.1) mmol/L Chloride 113 H (98-107) mmol/L Carbon Dioxide 22 (21-32) mmol/L Anion Gap 7.0 (3-11) BUN 106 H (7-18) mg/dl Creatinine 3.28 H (0.6-1.2) mg/dl Est Cr Clr Drug Dosing 10.8 ml/min Est GFR ( Amer) 14.2 ml/min Est GFR (Non-Af Amer) 12.2 ml/min BUN/Creatinine Ratio 32.2 H (10-20) Glucose 90 (70-99) mg/dl Calcium 8.4 L (8.5-10.1) mg/dl Phosphorus 4.2 (2.5-4.9) mg/dl Magnesium 2.4 (1.8-2.4) mg/dl Prealbumin 16.0 L 16.3 L (20-40) mg/dl Medications Administered Current Inpatient Medications Acetaminophen (Acetaminophen 325 Mg Tab) 650 mg PO Q4H PRN PRN Reason: Pain or Fever Stop: 03/18/21 16:53 Last Admin: 02/22/21 07:39 Dose: 650 mg Documented by: Albuterol (Albut/Ipratrop 3mg/0.5mg Neb 3 Ml Vial) 3 ml NEB QIDR PRN PRN Reason: sob/wheezing Stop: 03/18/21 16:53 Allopurinol (Allopurinol 100 Mg Tab) 100 mg PO [facility] Stop: 03/19/21 08:59 Last Admin: 02/23/21 08:01 Dose: 100 mg Documented by: Amlodipine Besylate (Amlodipine Besylate 5 Mg Tab) 10 mg PO [facility] Stop: 03/19/21 08:59 Last Admin: 02/17/21 08:37 Dose: 10 mg Documented by: Atorvastatin Calcium (Atorvastatin 10 Mg Tab) 10 mg PO QAM [facility] Stop: 03/19/21 08:59 Last Admin: 02/23/21 08:02 Dose: 10 mg Documented by: Clopidogrel Bisulfate (Clopidogrel Bisulfate 75 Mg Tab) 75 mg PO QAM [facility] Stop: 03/19/21 08:59 Cyanocobalamin (Cyanocobalamin 500 Mcg Tablet (Vitamin B-12)) 1,000 mcg PO QAM [facility] Stop: 03/19/21 08:59 Last Admin: 02/23/21 08:01 Dose: 1,000 mcg Documented by: Ferrous Sulfate (Ferrous Sulfate 325 Mg Tab) 325 mg PO BID [facility] Stop: 03/18/21 20:59 Last Admin: 02/23/21 08:01 Dose: 325 mg Documented by: Furosemide (Furosemide 40 Mg/4 Ml Vial) 30 mg IV TID [facility] Stop: 03/25/21 13:59 Last Admin: 02/23/21 13:30 Dose: 30 mg Documented by: Gabapentin (Gabapentin 100 Mg Cap) 100 mg PO Q8H [facility] Stop: 03/18/21 21:59 Last Admin: 02/23/21 13:31 Dose: 100 mg Documented by: Pantoprazole Sodium 40 mg/ (Syringe) 10 mls @ 5 mls/min IV BID [facility] Stop: 03/18/21 20:59 Last Admin: 02/23/21 08:00 Dose: 5 mls/min Documented by: Azithromycin 500 mg/ Dextrose 255 mls @ 127.5 mls/hr IV Q24H [facility]; Protocol Stop: 02/23/21 16:59 Last Infusion: 02/22/21 19:52 Dose: Infused Documented by: Cefepime HCl 1,000 mg/ Syringe 11.3 mls @ 5.5 mls/min IV Q24H [facility]; Protocol Stop: 03/01/21 10:59 Last Admin: 02/23/21 11:25 Dose: 5.5 mls/min Documented by: Lactobacillus Acidoph/Casei/Rhamnos (Advanced Probiotic 1250 Mg Capsule) 2 cap PO DAILY [facility] Stop: 03/24/21 08:59 Last Admin: 02/23/21 08:00 Dose: 2 cap Documented by: Metoprolol Succinate (Metoprolol Succ 50mg Ext Rel Tab) 100 mg PO QAM [facility] Stop: 03/19/21 08:59 Last Admin: 02/23/21 08:01 Dose: 100 mg Documented by: Miscellaneous Information (Cefepime Consult Active) 0 ea N/A UD PRN PRN Reason: Consult Stop: 03/18/21 16:53 Miscellaneous Information (Vancomycin Consult Active) 1 ea N/A UD PRN PRN Reason: Consult Stop: 03/18/21 21:18 Multivitamins/Minerals (Cerovite Adv Formula Tab) 1 tab PO DAILY [facility] Stop: 03/19/21 08:59 Last Admin: 02/23/21 08:01 Dose: 1 tab Documented by: Ondansetron HCl (Ondansetron Inj 2 Mg/Ml 2 Ml Vial) 4 mg IV Q6H PRN PRN Reason: Nausea Stop: 03/18/21 16:53 Last Admin: 02/21/21 12:09 Dose: 4 mg Documented by: Polyethylene Glycol (Polyethylene (Miralax) 17 Gm Pack) 17 gm PO DAILY PRN PRN Reason: Constipation Stop: 03/18/21 16:53 Tramadol HCl (Tramadol Hcl 50 Mg Tablet) 50 mg PO Q4H PRN PRN Reason: severe pain (rating 7-10) Stop: 03/18/21 16:53 Last Admin: 02/22/21 14:24 Dose: 50 mg Documented by: Tramadol HCl (Tramadol Hcl 50 Mg Tablet) 50 mg PO Q4H PRN PRN Reason: Pain Stop: 03/21/21 13:36 Vitamin D (Cholecalciferol 1,000 Units 25 Mcg Tab) 2,[facility] Stop: 03/19/21 08:59 Last Admin: 02/23/21 08:00 Dose: 2,000 units Documented by:
--- NOTE | 2021-02-23 17:30 | Nephrology Progress Note ---
Date of Service February 23, 2021 Assessment & Plan (1) Acute worsening of stage 3 chronic kidney disease: Plan: slowly worsening nonoliguric Stage 2 MARIELA from ATN, given the urine sediment picture and the clinical situation. baseline creatinine 1.2-1.4. she had anot her episode of MARIELA during recent [facility] admission, which resolved by hospital d/c to [facility], which is where she was rehabbing before this admission. No 02 needs prior to [facility] admission. -vanco dosed by level - creatinine plateau'd in low 3s after resuming 40 mg IV bid lasix >> cont dose since 02/23 AM of 30 mg IV tid -monitor/treat anemia; did have as low as 6.9 hgb this admission - No further workup is needed from renal standpoint. Continue Kwok catheter and continue strict input/output charting. - Avoid nonsteroidal anti-inflammatory drugs, angiotensin converting enzyme inhibitor, angiotensin receptor anna, contrast agents for the time being. Renally dose all antibiotics. Admission and Anticipated Discharge Date Admission Date: February 16, 2021 Subjective still taking minimal po but trying. denies sob, denies uncontrolled pain. matthew es worsening edema. has friable skin/emerging ulcer near sacrum Review of Systems Review of Systems: All systems reviewed & are unremarkable except as noted in Subjective Physical Exam Constitutional: well developed, + frail appearing and cooperative; no acute distress Eyes: EOM intact bilaterally ENMT: Ears: no external ear abnormality Nose: no external nose abnormality Mouth: + dry oral mucous membranes Neck: no nuchal rigidity Respiratory: normal respiratory effort (on 2L 02NC) and able to speak in complete sentences (but speech limited) Auscultation: + diminished lung sounds Cardiovascular: Rate/Rhythm: regular rate and regular rhythm Heart Sounds: normal S1 and normal S2 Extremities: + edema (trace BL hips) Gastrointestinal (Abdomen): Inspection/Auscultation: normal bowel sounds Percussion/Palpation: abdomen soft; abdomen nontender Musculoskeletal: Extremities: + abnormal strength and + amputation noted (LLE AKA) Skin: no rashes, warm and dry Results & Data ([facility]) Vital Signs (Past 12 Hours) Vital Signs Temp Pulse Pulse Resp BP Pulse Ox 02/23/21 15:56 36.6 C 63 17 164/64 H 96 02/23/21 14:00 83 02/23/21 12:01 36.7 C 62 16 151/66 H 96 02/23/21 07:55 37.0 C 65 19 155/54 H 95 Laboratory Results 02/23/21 06:58 02/23/21 06:58
[2021-02-24 06:48] LABS: Hematocrit (blood only) 32.3 % (37-47); Hemoglobin 10.1 g/dL (12.0-16.0); Mean Corpuscular Hemoglobin 28.1 pg (25-34); Mean Corpuscular Hgb Conc 31.3 g/dL (32-36); Mean Platelet Volume 8.8 fL (7.4-10.4); Platelet Count 139 K/uL (130-400); RDW Coefficient of Variation 18.1 % (11.5-14.5); RDW Standard Deviation 58.9 fL (36.4-46.3); Red Blood Count 3.59 M/uL (4.2-5.4); White Blood Count 8.67 K/uL (4.8-10.8)
[2021-02-24 07:39] LABS: BUN Creatinine Ratio 32.6 (10-20); Calcium 8.6 mg/dl (8.5-10.1); Creatinine Clr Calc Pharmacy 10.8 ml/min; Est GFR (African American) 14.4 ml/min; Est GFR (Non-African American) 12.4 ml/min; Magnesium 2.5 mg/dl (1.8-2.4); Potassium 3.7 mmol/L (3.5-5.1)
[2021-02-24] MEDS ORDERED: VANCOMYCIN HCL 500 MG in 0.9 % SODIUM CHLORIDE 100 ML IV SCH (08:00)
[2021-02-24] MEDS: GABAPENTIN 100 MG CAP PO SCH ×3 (08:18→21:01)
[2021-02-24] MEDS: CHOLECALCIFEROL 1,000 UNITS 25 MCG TAB PO SCH (08:19)
[2021-02-24] MEDS: CEROVITE ADV FORMULA TAB PO SCH (08:19)
[2021-02-24] MEDS: ATORVASTATIN 10 MG TAB PO SCH (08:19)
[2021-02-24] MEDS: FERROUS SULFATE 325 MG TAB PO SCH ×2 (08:19→21:01)
[2021-02-24] MEDS: CYANOCOBALAMIN 500 MCG TABLET (VITAMIN B-12) PO SCH (08:19)
[2021-02-24] MEDS: allopurinoL 100 MG TAB PO SCH (08:19)
[2021-02-24] MEDS: ADVANCED PROBIOTIC 1250 MG CAPSULE PO SCH (08:19)
[2021-02-24] MEDS: PANTOprazole 40 MG in SYRINGE 0 ML IV SCH ×2 (08:19→21:00)
[2021-02-24] MEDS: METOPROLOL SUCC 50MG EXT REL TAB PO SCH (08:19)
[2021-02-24] MEDS: FUROSEMIDE 40 MG/4 ML VIAL IV SCH ×4 (08:20→21:00)
--- NOTE | 2021-02-24 10:50 | Pharmacy Report ---
Pharmacy Vanc AUC Short Note - Date of Service February 24, 2021 - Assessment & Plan Assessment 85 year old F receiving vancomycin and cefepime for treatment of right lower extremity wound infection. MRI shows no evidence of osteomyelitis. Patient with acute/chronic kidney disease. Renal function has been relatively stable over past few days based on labs and vanco levels. Day # 9 of antimicrobial therapy. Plan Vancomycin * Will dose by random level given very extended half-life * Random level this morning of 17.7 mcg/mL, ~48 hours after last dose of 500 mg * Will give additional 500 mg IV dose now and recheck random level in 48 hours Cefepime * 1 g IV q24h - target dose of 2 g IV q8h * Remains appropriate for eCrCl of 10.8 mL/min Pharmacy will continue to follow and will adjust dose/frequency as necessary. Thank you.
[2021-02-24] MEDS: CEFEPIME 1,000 MG in SYRINGE 0 ML IV SCH (11:55)
--- NOTE | 2021-02-24 14:30 | Hospitalist Progress Note ---
Date of Service February 24, 2021 Assessment & Plan (1) Acute on chronic heart failure with preserved ejection fraction: Plan: History of chronic diastolic heart failure and mitral stenosis with HTN and gout. Per last cardiology outpatient note she was supposed to be taking Lasix 40mg PO BID, however, intake med list reflects lasix 40mg only once daily. Appreciate cardiology input. Continue monitor I/Os along with daily weights. Kwok catheter is in place. Overall patient reports feeling better. Currently remains on 2 L of nasal cannula. On IV lasix per nephrology, now on Lasix 30 IV TID (2) Hypoxia: Plan: Most likely secondary to heart failure. Possible bacterial component as well. and atelectasis Continue cefepime/Zithromax. (3) Wound of right lower extremity: Plan: Large ischemic ulcer with eschar of her right lower extremity. Also with ulcerations of her right medial malleolus and her right medial thigh. 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 Cont medical management of PAD. Started tramadol PRN, cont Tylenol PRN. Appreciate vascular surgery input. Patient would be a high risk candidate for any endovascular treatment as it would result in dialysis dependency as per vascular surgery. Recommending considering debridement of the right lower extremity wounds. Orthopedics was consulted. MRI of the right lower extremity was obtained without any osteomyelitis. Ortho recommended daily dressing changes with Betadine. Possible debridement in the next few days w/ Dr. Mazariegos. Plastic surgery (Dr. Nolen) also consulted as pt may need skin graft. Prealbumin ordered - 16. Concerned that due to poor nutrition, patient's wound may not heal properly.. Encouraged PO intake and improved nutrition. (4) Acute on chronic anemia: Plan: Appears to have multifactorial symptomatic anemia with iron deficiency present despite taking iron supplements. Per cardiology her goal Hb would be 9-10. Reports feeling better since blood transfusion. Notably patient reports never having had a colonoscopy in the past. She is willing to undergo this outpatient which will be recommended with ongoing iron deficiency despite supplementation. Current hemoglobin 10.1 (5) Acute worsening of stage 3 chronic kidney disease: Plan: 2/2 ATN given the current clinical picture. Nephrology also expressed concerns independently that her anemia may be adversely affecting her respiratory status. Creatinine has been slowly trending upward. and now seems stable around slightly above 3 Currently on lasix 30 IV TID, nephrology closely following (6) PAD (peripheral artery disease): Plan: Has a long-standing h/o PAD and has followed with [facility] Vascular surgery in the past. Has a h/o right SFA stenting and left AKA in 2010 due to progressive peripheral arterial disease. Continue Plavix 75 mg daily. (7) HTN (hypertension): Plan: BP controlled continue amlodipine and metoprolol with parameters hold losartan 2/2 to mariela (8) DVT prophylaxis: Plan: None 2/2 to vascular wounds and concern for bleeding Dispo: PCU PCP: Dr. Parry DNR/DNI (9) PVD (peripheral vascular disease): Admission and Anticipated Discharge Date Admission Date: February 16, 2021 Subjective Patient seen in follow-up of CHF exacerbation, MARIELA, PAD, with RLE wound Pt is sitting up in bed, in NAD, using suppl. O2 1L via NC, appears tired and weak but better than yesterday she is able to answer questions appropriately Denies fever, chills, chest pain, shortness of breath Per orthopedics, possible debridement over the weekend Patient's daughter present at the bedside, and updated. Review of Systems Review of Systems: All systems reviewed & are unremarkable except as noted in Subjective Physical Exam Physical Exam: General: elderly obese F, chronically ill appearing, in NAD, on 1L NC HEENT: NCAT, MMM, EOMI, PERRL Neck: Supple, normal range of motion CVS: normal rate and rhythm Resp: b/l decreased breath sounds, no wheezing, rhonchi Abdomen: Soft, ND/NT Extremities: RLE in dressings (photos by wound care reviewed - large eschar/ necrosis), LLE BKA Neuro: awake and alert, face symmetric, speech fluent, moves extremities Skin: warm and dry (RLE as above) Results & Data Results & Data ([facility]) Vital Signs (Past 12 Hours) Vital Signs Temp Pulse Pulse Resp BP BP Pulse Ox 02/24/21 11:51 36.3 C L 69 22 151/68 H 151/68 H 90 02/24/21 08:01 36.7 C 61 18 145/72 H 99 02/24/21 08:00 62 02/24/21 03:03 36.4 C L 59 L 24 159/71 H 96 Laboratory Results 1002/24/21 02/24/21 Range/Units 06:24 06:24 06:24 WBC 8.67 (4.8-10.8) K/uL RBC 3.59 L (4.2-5.4) M/uL Hgb 10.1 L (12.0-16.0) g/dL Hct 32.3 L (37-47) % MCV 90.0 (80-100) fL MCH 28.1 (25-34) pg MCHC 31.3 L (32-36) g/dL RDW Std Deviation 58.9 H (36.4-46.3) fL RDW Coeff of Hugo 18.1 H (11.5-14.5) % Plt Count 139 (130-400) K/uL MPV 8.8 (7.4-10.4) fL Sodium 141 (136-145) mmol/L Potassium 3.7 (3.5-5.1) mmol/L Chloride 109 H (98-107) mmol/L Carbon Dioxide 26 (21-32) mmol/L Anion Gap 6.0 (3-11) BUN 105 H (7-18) mg/dl Creatinine 3.23 H (0.6-1.2) mg/dl Est Cr Clr Drug Dosing 10.8 ml/min Est GFR ( Amer) 14.4 ml/min Est GFR (Non-Af Amer) 12.4 ml/min BUN/Creatinine Ratio 32.6 H (10-20) Glucose 106 H (70-99) mg/dl Calcium 8.6 (8.5-10.1) mg/dl Phosphorus 4.0 (2.5-4.9) mg/dl Magnesium 2.5 H (1.8-2.4) mg/dl Random Vancomycin 17.7 mcg/ml Medications Administered Current Inpatient Medications Acetaminophen (Acetaminophen 325 Mg Tab) 650 mg PO Q4H PRN PRN Reason: Pain or Fever Stop: 03/18/21 16:53 Last Admin: 02/22/21 07:39 Dose: 650 mg Documented by: Albuterol (Albut/Ipratrop 3mg/0.5mg Neb 3 Ml Vial) 3 ml NEB QIDR PRN PRN Reason: sob/wheezing Stop: 03/18/21 16:53 Allopurinol (Allopurinol 100 Mg Tab) 100 mg PO QAM [facility] Stop: 03/19/21 08:59 Last Admin: 02/24/21 08:19 Dose: 100 mg Documented by: Amlodipine Besylate (Amlodipine Besylate 5 Mg Tab) 10 mg PO QAM [facility] Stop: 03/19/21 08:59 Last Admin: 02/17/21 08:37 Dose: 10 mg Documented by: Atorvastatin Calcium (Atorvastatin 10 Mg Tab) 10 mg PO QAM [facility] Stop: 03/19/21 08:59 Last Admin: 02/24/21 08:19 Dose: 10 mg Documented by: Clopidogrel Bisulfate (Clopidogrel Bisulfate 75 Mg Tab) 75 mg PO QAM [facility] Stop: 03/19/21 08:59 Cyanocobalamin (Cyanocobalamin 500 Mcg Tablet (Vitamin B-12)) 1,000 mcg PO QAM [facility] Stop: 03/19/21 08:59 Last Admin: 02/24/21 08:19 Dose: 1,000 mcg Documented by: Ferrous Sulfate (Ferrous Sulfate 325 Mg Tab) 325 mg PO BID [facility] Stop: 03/18/21 20:59 Last Admin: 02/24/21 08:19 Dose: 325 mg Documented by: Furosemide (Furosemide 40 Mg/4 Ml Vial) 30 mg IV TID [facility] Stop: 03/25/21 13:59 Last Admin: 02/24/21 13:10 Dose: 30 mg Documented by: Gabapentin (Gabapentin 100 Mg Cap) 100 mg PO Q8H [facility] Stop: 03/18/21 21:59 Last Admin: 02/24/21 13:10 Dose: 100 mg Documented by: Pantoprazole Sodium 40 mg/ (Syringe) 10 mls @ 5 mls/min IV BID [facility] Stop: 03/18/21 20:59 Last Admin: 02/24/21 08:19 Dose: 5 mls/min Documented by: Cefepime HCl 1,000 mg/ Syringe 11.3 mls @ 5.5 mls/min IV Q24H [facility]; Protocol Stop: 03/01/21 10:59 Last Admin: 02/24/21 11:55 Dose: 5.5 mls/min Documented by: Lactobacillus Acidoph/Casei/Rhamnos (Advanced Probiotic 1250 Mg Capsule) 2 cap PO DAILY [facility] Stop: 03/24/21 08:59 Last Admin: 02/24/21 08:19 Dose: 2 cap Documented by: Metoprolol Succinate (Metoprolol Succ 50mg Ext Rel Tab) 100 mg PO QAM [facility] Stop: 03/19/21 08:59 Last Admin: 02/24/21 08:19 Dose: 100 mg Documented by: Miscellaneous Information (Cefepime Consult Active) 0 ea N/A UD PRN PRN Reason: Consult Stop: 03/18/21 16:53 Miscellaneous Information (Vancomycin Consult Active) 1 ea N/A UD PRN PRN Reason: Consult Stop: 03/18/21 21:18 Multivitamins/Minerals (Cerovite Adv Formula Tab) 1 tab PO DAILY [facility] Stop: 03/19/21 08:59 Last Admin: 02/24/21 08:19 Dose: 1 tab Documented by: Ondansetron HCl (Ondansetron Inj 2 Mg/Ml 2 Ml Vial) 4 mg IV Q6H PRN PRN Reason: Nausea Stop: 03/18/21 16:53 Last Admin: 02/21/21 12:09 Dose: 4 mg Documented by: Polyethylene Glycol (Polyethylene (Miralax) 17 Gm Pack) 17 gm PO DAILY PRN PRN Reason: Constipation Stop: 03/18/21 16:53 Tramadol HCl (Tramadol Hcl 50 Mg Tablet) 50 mg PO Q4H PRN PRN Reason: severe pain (rating 7-10) Stop: 03/18/21 16:53 Last Admin: 02/22/21 14:24 Dose: 50 mg Documented by: Tramadol HCl (Tramadol Hcl 50 Mg Tablet) 50 mg PO Q4H PRN PRN Reason: Pain Stop: 03/21/21 13:36 Vitamin D (Cholecalciferol 1,000 Units 25 Mcg Tab) [facility] Stop: 03/19/21 08:59 Last Admin: 02/24/21 08:19 Dose: 2,000 units Documented by:
--- NOTE | 2021-02-24 18:10 | Nephrology Progress Note ---
Date of Service February 24, 2021 Assessment & Plan (1) Acute worsening of stage 3 chronic kidney disease: Plan: slowly worsening nonoliguric Stage 2 MARIELA from ATN, given the urine sediment picture and the clinical situation. baseline creatinine 1.2-1.4. she had anot her episode of MARIELA during recent [place] admission, which resolved by hospital d/c to [facility] which is where she was rehabbing before this admission. No chronic 02 needs prior to [place] admission. -vanco dosed by level - >>>>>creatinine plateau'd in low 3s after resuming 40 mg IV bid lasix >> cont dose since 02/23 AM of 30 mg IV tid; she is over a liter negative with this so far today so will continue same; she is tolerating elevated BUN but am starting to worry she may need dialysis for volume mgt; creatinine of 3 in this 85 y/o w/ LE amputation and vol OL is misleadingly low; have not d/w pt and will cont to observe for now -monitor/treat anemia; did have as low as 6.9 hgb this admission -Continue Laguerre catheter and continue strict input/output charting. - Avoid nonsteroidal anti-inflammatory drugs, angiotensin converting enzyme inhibitor, angiotensin receptor anna, contrast agents for the time being. Renally dose all antibiotics. Admission and Anticipated Discharge Date Admission Date: February 16, 2021 Subjective seen on rounds early this am; no c/o pain or sob; remains weak; tolerating lasix w/o issues; ortho following Review of Systems Review of Systems: All systems reviewed & are unremarkable except as noted in Subjective Physical Exam Constitutional: well developed, + frail appearing and cooperative; no acute distress Eyes: EOM intact bilaterally ENMT: Ears: no external ear abnormality Nose: no external nose abnormality Mouth: + dry oral mucous membranes Neck: no nuchal rigidity Respiratory: normal respiratory effort (on 2L 02NC) and able to speak in complete sentences (but speech limited) Auscultation: + diminished lung sounds Cardiovascular: Rate/Rhythm: regular rate and regular rhythm Heart Sounds: normal S1 and normal S2 Extremities: + edema (trace BL hips) Gastrointestinal (Abdomen): Inspection/Auscultation: normal bowel sounds Percussion/Palpation: abdomen soft; abdomen nontender Musculoskeletal: Extremities: + abnormal strength and + amputation noted (LLE AKA) Skin: no rashes, warm and dry Neurologic: Motor/Sensory: + tremor (and abnormal motor strength BLUE) Genitourinary: laguerre w/ ample light yellow urine Results & Data ([facility]) Vital Signs (Past 12 Hours) Vital Signs Temp Pulse Pulse Resp BP BP Pulse Ox 02/24/21 15:35 36.5 C 70 20 165/66 H 96 02/24/21 15:10 70 02/24/21 11:51 36.3 C L 69 22 151/68 H 151/68 H 90 02/24/21 08:01 36.7 C 61 18 145/72 H 99 02/24/21 08:00 62 Laboratory Results 02/24/21 06:24 02/24/21 06:24
[2021-02-25] MEDS: GABAPENTIN 100 MG CAP PO SCH ×3 (05:18→21:50)
[2021-02-25 08:26] LABS: Hematocrit (blood only) 32.5 % (37-47); Hemoglobin 10.1 g/dL (12.0-16.0); Mean Corpuscular Hemoglobin 27.7 pg (25-34); Mean Corpuscular Hgb Conc 31.1 g/dL (32-36); Mean Corpuscular Volume 89.3 fL (80-100); Mean Platelet Volume 10.2 fL (7.4-10.4); Platelet Count 138 K/uL (130-400); RDW Coefficient of Variation 18.3 % (11.5-14.5); RDW Standard Deviation 58.7 fL (36.4-46.3); Red Blood Count 3.64 M/uL (4.2-5.4); White Blood Count 11.86 K/uL (4.8-10.8)
[2021-02-25] MEDS: PANTOprazole 40 MG in SYRINGE 0 ML IV SCH (08:27)
[2021-02-25] MEDS: ADVANCED PROBIOTIC 1250 MG CAPSULE PO SCH (08:28)
[2021-02-25] MEDS: CYANOCOBALAMIN 500 MCG TABLET (VITAMIN B-12) PO SCH (08:28)
[2021-02-25] MEDS: allopurinoL 100 MG TAB PO SCH (08:28)
[2021-02-25] MEDS: CHOLECALCIFEROL 1,000 UNITS 25 MCG TAB PO SCH (08:28)
[2021-02-25] MEDS: CEROVITE ADV FORMULA TAB PO SCH (08:28)
[2021-02-25] MEDS: METOPROLOL SUCC 50MG EXT REL TAB PO SCH (08:28)
[2021-02-25] MEDS: ATORVASTATIN 10 MG TAB PO SCH (08:28)
[2021-02-25] MEDS: FERROUS SULFATE 325 MG TAB PO SCH ×2 (08:29→20:08)
[2021-02-25] MEDS: FUROSEMIDE 40 MG/4 ML VIAL IV SCH ×3 (08:29→20:07)
[2021-02-25 08:58] LABS: BUN Creatinine Ratio 34.2 (10-20); Calcium 8.8 mg/dl (8.5-10.1); Creatinine Clr Calc Pharmacy 11.4 ml/min; Est GFR (African American) 15.4 ml/min; Est GFR (Non-African American) 13.3 ml/min; Magnesium 2.4 mg/dl (1.8-2.4); Phosphorus 4.2 mg/dl (2.5-4.9); Potassium 3.8 mmol/L (3.5-5.1)
[2021-02-25] MEDS ORDERED: bisacodyL 10 MG SUPP PR STA (09:40)
--- NOTE | 2021-02-25 10:01 | XRay Report ---
XR chest 1V portable HISTORY: Shortness of breath. follow up COMPARISON: Chest 02/22/2021. FINDINGS: Perihilar interstitial thickening with bilateral pleural effusions and bibasilar densities. This is slightly progressed and suggest progressive pulmonary edema. The heart remains mildly enlarg ed. No pneumothorax. Advanced degenerative changes again noted within the shoulders. IMPRESSION: 1. Progressive moderate pulmonary edema with bilateral pleural effusions. 2. Bibasilar densities are nonspecific and could represent atelectasis or pneumonia. ACT 112: Negative or not required by law. Electronically signed by: Darryl Lima M.D. 02/25/2021 10:00 AM
--- NOTE | 2021-02-25 10:08 | Hospitalist Progress Note ---
Date of Service February 25, 2021 Assessment & Plan (1) Acute on chronic heart failure with preserved ejection fraction: Plan: History of chronic diastolic heart failure and mitral stenosis with HTN and gout. Per last cardiology outpatient note she was supposed to be taking Lasix 40mg PO BID, however, intake med list reflects lasix 40mg only once daily. Appreciate cardiology input. Continue monitor I/Os along with daily weights. Kwok catheter is in place. Overall patient reports feeling better. Currently remains on 2 L of nasal cannula. On IV lasix per nephrology, now on Lasix 30 IV TID (2) Hypoxia: Plan: Most likely secondary to heart failure. Possible bacterial component as well. and atelectasis Continued cefepime/Zithromax. Finished Zithromax (02/24) (3) Wound of right lower extremity: Plan: Large ischemic ulcer with eschar of her right lower extremity. Also with ulcerations of her right medial malleolus and her right medial thigh. 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 Cont medical management of PAD. Started tramadol PRN, cont Tylenol PRN. Appreciate vascular surgery input. Patient would be a high risk candidate for any endovascular treatment as it would result in dialysis dependency as per vascular surgery. Recommending considering debridement of the right lower extremity wounds. Orthopedics was consulted. MRI of the right lower extremity was obtained without any osteomyelitis. Ortho recommended daily dressing changes with Betadine. Possible debridement tomorrow (02/25) w/ Dr. Mazariegos. Plastic surgery (Dr. Nolen) also consulted as pt may need skin graft. Prealbumin ordered - 16. Concerned that due to poor nutrition, patient's wound may not heal properly. Encouraged PO intake and improved nutrition. (4) Acute on chronic anemia: Plan: Appears to have multifactorial symptomatic anemia with iron deficiency present despite taking iron supplements. Per cardiology her goal Hb would be 9-10. Reports feeling better since blood transfusion. Notably patient reports never having had a colonoscopy in the past. She is willing to undergo this outpatient which will be recommended with ongoing iron deficiency despite supplementation. Current hemoglobin 10.1, stable (5) Acute worsening of stage 3 chronic kidney disease: Plan: 2/2 ATN given the current clinical picture. Nephrology also expressed concerns independently that her anemia may be adversely affecting her respiratory status. Creatinine has been slowly trending upward. and now seems stable around slightly above 3 Currently on lasix 30 IV TID, nephrology closely following (6) PAD (peripheral artery disease): Plan: Has a long-standing h/o PAD and has followed with [facility] Vascular surgery in the past. Has a h/o right SFA stenting and left AKA in 2010 due to progressive peripheral arterial disease. Continue Plavix 75 mg daily. (7) HTN (hypertension): Plan: BP controlled continue amlodipine and metoprolol with parameters hold losartan 2/2 to mariela (8) DVT prophylaxis: Plan: None 2/2 to vascular wounds and concern for bleeding Dispo: PCU PCP: Dr. Parry DNR/DNI (9) PVD (peripheral vascular disease): Admission and Anticipated Discharge Date Admission Date: February 16, 2021 Subjective Patient seen in follow-up of CHF exacerbation, MARIELA, PAD, with RLE wound Pt is sitting up in bed, in NAD, using suppl. O2 via NC, appears tired and weak She is able to answer questions appropriately Denies fever, chills, chest pain, shortness of breath Reports constipation Per orthopedics, likely debridement tomorrow Patient's daughter present at the bedside yesterday and updated. Ordered CXR to heather doss. edema - will discuss w/ nephro if ok to hold IV lasix prior to OR Review of Systems Review of Systems: All systems reviewed & are unremarkable except as noted in Subjective Physical Exam Physical Exam: General: elderly obese F, chronically ill appearing, in NAD, on 2L NC HEENT: NCAT, MMM, EOMI, PERRL Neck: Supple, normal range of motion CVS: normal rate and rhythm Resp: b/l decreased breath sounds, no wheezing, rhonchi Abdomen: Soft, ND/NT, + bowel sounds Extremities: RLE in dressings (photos by wound care reviewed - large eschar/ necrosis), LLE BKA Neuro: awake and alert, face symmetric, speech fluent, moves extremities Skin: warm and dry (RLE as above) Results & Data Results & Data ([facility]) Vital Signs (Past 12 Hours) Vital Signs Temp Pulse Pulse Resp BP Pulse Ox 02/25/21 08:00 71 02/25/21 07:28 37.1 C 71 20 139/69 95 02/25/21 04:05 36.8 C 67 74 18 135/61 91 Laboratory Results 02/25/21 02/25/21 02/24/21 Range/Units 08:11 08:11 16:25 WBC 11.86 H (4.8-10.8) K/uL RBC 3.64 L (4.2-5.4) M/uL Hgb 10.1 L (12.0-16.0) g/dL Hct 32.5 L (37-47) % MCV 89.3 (80-100) fL MCH 27.7 (25-34) pg MCHC 31.1 L (32-36) g/dL RDW Std Deviation 58.7 H (36.4-46.3) fL RDW Coeff of Hugo 18.3 H (11.5-14.5) % Plt Count 138 (130-400) K/uL MPV 10.2 (7.4-10.4) fL Sodium 142 (136-145) mmol/L Potassium 3.8 (3.5-5.1) mmol/L Chloride 110 H (98-107) mmol/L Carbon Dioxide 23 (21-32) mmol/L Anion Gap 9.0 (3-11) BUN 105 H (7-18) mg/dl Creatinine 3.06 H (0.6-1.2) mg/dl Est Cr Clr Drug Dosing 11.4 ml/min Est GFR ( Amer) 15.4 ml/min Est GFR (Non-Af Amer) 13.3 ml/min BUN/Creatinine Ratio 34.2 H (10-20) Glucose 158 H (70-99) mg/dl POC Glucose 131 H (70-99) mg/dl Calcium 8.8 (8.5-10.1) mg/dl Phosphorus 4.2 (2.5-4.9) mg/dl Magnesium 2.4 (1.8-2.4) mg/dl Medications Administered Current Inpatient Medications Acetaminophen (Acetaminophen 325 Mg Tab) 650 mg PO Q4H PRN PRN Reason: Pain or Fever Stop: 03/18/21 16:53 Last Admin: 02/22/21 07:39 Dose: 650 mg Documented by: Albuterol (Albut/Ipratrop 3mg/0.5mg Neb 3 Ml Vial) 3 ml NEB QIDR PRN PRN Reason: sob/wheezing Stop: 03/18/21 16:53 Allopurinol (Allopurinol 100 Mg Tab) 100 mg PO QAM [facility] Stop: 03/19/21 08:59 Last Admin: 02/25/21 08:28 Dose: 100 mg Documented by: Amlodipine Besylate (Amlodipine Besylate 5 Mg Tab) 10 mg PO QAM [facility] Stop: 03/19/21 08:59 Last Admin: 02/17/21 08:37 Dose: 10 mg Documented by: Atorvastatin Calcium (Atorvastatin 10 Mg Tab) 10 mg PO QAM [facility] Stop: 03/19/21 08:59 Last Admin: 02/25/21 08:28 Dose: 10 mg Documented by: Clopidogrel Bisulfate (Clopidogrel Bisulfate 75 Mg Tab) 75 mg PO QAM [facility] Stop: 03/19/21 08:59 Cyanocobalamin (Cyanocobalamin 500 Mcg Tablet (Vitamin B-12)) 1,000 mcg PO QAM [facility] Stop: 03/19/21 08:59 Last Admin: 02/25/21 08:28 Dose: 1,000 mcg Documented by: Docusate Sodium (Docusate Sodium 100 Mg Cap) 100 mg PO BID [facility] Stop: 03/27/21 10:14 Ferrous Sulfate (Ferrous Sulfate 325 Mg Tab) 325 mg PO BID [facility] Stop: 03/18/21 20:59 Last Admin: 02/25/21 08:29 Dose: 325 mg Documented by: Furosemide (Furosemide 40 Mg/4 Ml Vial) 30 mg IV TID [facility] Stop: 03/25/21 13:59 Last Admin: 02/25/21 08:29 Dose: 30 mg Documented by: Gabapentin (Gabapentin 100 Mg Cap) 100 mg PO Q8H [facility] Stop: 03/18/21 21:59 Last Admin: 02/25/21 05:18 Dose: 100 mg Documented by: Pantoprazole Sodium 40 mg/ (Syringe) 10 mls @ 5 mls/min IV BID [facility] Stop: 03/18/21 20:59 Last Admin: 02/25/21 08:27 Dose: 5 mls/min Documented by: Cefepime HCl 1,000 mg/ Syringe 11.3 mls @ 5.5 mls/min IV Q24H [facility]; Protocol Stop: 03/01/21 10:59 Last Admin: 02/24/21 11:55 Dose: 5.5 mls/min Documented by: Lactobacillus Acidoph/Casei/Rhamnos (Advanced Probiotic 1250 Mg Capsule) 2 cap PO DAILY [facility] Stop: 03/24/21 08:59 Last Admin: 02/25/21 08:28 Dose: 2 cap Documented by: Metoprolol Succinate (Metoprolol Succ 50mg Ext Rel Tab) 100 mg PO QAM [facility] Stop: 03/19/21 08:59 Last Admin: 02/25/21 08:28 Dose: 100 mg Documented by: Miscellaneous Information (Cefepime Consult Active) 0 ea N/A UD PRN PRN Reason: Consult Stop: 03/18/21 16:53 Miscellaneous Information (Vancomycin Consult Active) 1 ea N/A UD PRN PRN Reason: Consult Stop: 03/18/21 21:18 Multivitamins/Minerals (Cerovite Adv Formula Tab) 1 tab PO DAILY [facility] Stop: 03/19/21 08:59 Last Admin: 02/25/21 08:28 Dose: 1 tab Documented by: Ondansetron HCl (Ondansetron Inj 2 Mg/Ml 2 Ml Vial) 4 mg IV Q6H PRN PRN Reason: Nausea Stop: 03/18/21 16:53 Last Admin: 02/21/21 12:09 Dose: 4 mg Documented by: Polyethylene Glycol (Polyethylene (Miralax) 17 Gm Pack) 17 gm PO DAILY PRN PRN Reason: Constipation Stop: 03/18/21 16:53 Last Admin: 02/25/21 08:27 Dose: 17 gm Documented by: Tramadol HCl (Tramadol Hcl 50 Mg Tablet) 50 mg PO Q4H PRN PRN Reason: severe pain (rating 7-10) Stop: 03/18/21 16:53 Last Admin: 02/22/21 14:24 Dose: 50 mg Documented by: Tramadol HCl (Tramadol Hcl 50 Mg Tablet) 50 mg PO Q4H PRN PRN Reason: Pain Stop: 03/21/21 13:36 Vitamin D (Cholecalciferol 1,000 Units 25 Mcg Tab) 2,000 units PO QAM [facility] Stop: 03/19/21 08:59 Last Admin: 02/25/21 08:28 Dose: 2,000 units Documented by:
[2021-02-25] MEDS: DOCUSATE SODIUM 100 MG CAP PO SCH ×2 (10:40→20:10)
[2021-02-25] MEDS: CEFEPIME 1,000 MG in SYRINGE 0 ML IV SCH (11:46)
[2021-02-25] MEDS: traMADol HCL 50 MG TABLET PO PRN (13:44)
[2021-02-25] MEDS: ACETAMINOPHEN 325 MG TAB PO PRN (15:55)
--- NOTE | 2021-02-25 16:30 | Nephrology Progress Note ---
Date of Service February 25, 2021 Assessment & Plan (1) Acute worsening of stage 3 chronic kidney disease: Plan: nonoliguric Stage 2 MARIELA from ATN, given the urine sediment picture and the clinical situation. baseline creatinine 1.2-1.4. she had another episode of AK I during recent [facility] admission, which resolved by hospital d/c to [facility], which is where she was rehabbing before this admission. No chronic 02 needs prior to [facility] admission. -vanco dosed by level - >>>>>creatinine remains plateau'd in low 3s after resuming 40 mg IV bid lasix >> cont dose since 02/23 AM of 30 mg IV tid; she is over a liter negative daily with this and XRay today shows may even need more fluid removal than this so for today so will continue same; she is tolerating elevated BUN but am starting to worry she may need dialysis for volume mgt; creatinine of 3 in this 85 y/o w/ LE amputation and vol OL is misleadingly low; have not d/w pt and will cont to observe for now -monitor/treat anemia; did have as low as 6.9 hgb this admission -Continue Kwok catheter and continue strict input/output charting. - Avoid nonsteroidal anti-inflammatory drugs, angiotensin converting enzyme inhibitor, angiotensin receptor anna, contrast agents for the time being. Renally dose all antibiotics. TReAT constipation with miralax, dulcolax, colace as already being done; could add senna; could consider lactulose as last resort; avoid fleets Admission and Anticipated Discharge Date Admission Date: February 16, 2021 Subjective c/o constipation and abd pain/GI upset; no sob; no edema; no leg/musculoskel pain; had stool softener and only minimal bm Review of Systems Review of Systems: All systems reviewed & are unremarkable except as noted in Subjective Physical Exam Constitutional: well developed, + frail appearing and cooperative; no acute distress Eyes: EOM intact bilaterally ENMT: Ears: no external ear abnormality Nose: no external nose abnormality Mouth: + dry oral mucous membranes Neck: no nuchal rigidity Respiratory: normal respiratory effort (on 2L 02NC) and able to speak in c omplete sentences (but speech limited) Auscultation: + diminished lung sounds Cardiovascular: Rate/Rhythm: regular rate and regular rhythm Heart Sounds: normal S1 and normal S2 Extremities: + edema (trace BL hips) Gastrointestinal (Abdomen): Inspection/Auscultation: normal bowel sounds Percussion/Palpation: abdomen soft; abdomen nontender Musculoskeletal: Extremities: + abnormal strength and + amputation noted (LLE AKA) Skin: no rashes, warm and dry Neurologic: Motor/Sensory: + tremor (and abnormal motor strength BLUE) Genitourinary: Kwok with ample yellow urine Results & Data ([facility]) Vital Signs (Past 12 Hours) Vital Signs Temp Pulse Pulse Resp BP Pulse Ox 02/25/21 15:40 37.8 C H 75 16 159/76 H 91 02/25/21 15:03 75 02/25/21 11:51 37.2 C 71 20 145/72 H 90 02/25/21 08:00 71 02/25/21 07:28 37.1 C 71 20 139/69 95 Laboratory Results 02/25/21 08:11 02/25/21 08:11 Diagnostic Findings cxr today Progressive moderate pulmonary edema with bilateral pleural effusions. Bibasilar densities are nonspecific and could represent atelectasis or pneumonia.
[2021-02-25 18:44] LABS: Appearance Urine Turbid (Clear); Bacteria Urine Automated Negative (Negative); Bilirubin Urine Negative (Negative); Blood Urine 3+ (Negative); Color Urine Yellow; Epithelial Cell Urine Auto >30 /lpf (0-5); Glucose Urine UA Negative (Negative); Ketones Urine Negative (Negative); Leukocyte Esterase Urine 2+ (Negative); Nitrite Urine Negative (Negative); Protein Urine 3+ (Negative); Specific Gravity Urine 1.015 (1.000-1.030); Urobilinogen Urine Negative (Negative); WBC Urine Automated >30 /hpf (0-5)
[2021-02-25] MEDS: PANTOprazole 40 MG TAB PO SCH (20:08)
[2021-02-26] MEDS: GABAPENTIN 100 MG CAP PO SCH ×3 (05:35→21:00)
[2021-02-26 06:13] LABS: Hematocrit (blood only) 30.7 % (37-47); Hemoglobin 9.5 g/dL (12.0-16.0); Mean Corpuscular Hemoglobin 27.9 pg (25-34); Mean Corpuscular Hgb Conc 30.9 g/dL (32-36); Mean Platelet Volume 9.9 fL (7.4-10.4); Platelet Count 132 K/uL (130-400); RDW Coefficient of Variation 18.6 % (11.5-14.5); RDW Standard Deviation 60.7 fL (36.4-46.3); Red Blood Count 3.41 M/uL (4.2-5.4); White Blood Count 11.44 K/uL (4.8-10.8)
[2021-02-26 06:35] LABS: BUN Creatinine Ratio 33.3 (10-20); Calcium 8.6 mg/dl (8.5-10.1); Creatinine Clr Calc Pharmacy 10.7 ml/min; Est GFR (African American) 14.4 ml/min; Est GFR (Non-African American) 12.4 ml/min; Magnesium 2.5 mg/dl (1.8-2.4); Phosphorus 4.4 mg/dl (2.5-4.9); Potassium 3.6 mmol/L (3.5-5.1)
[2021-02-26] MEDS ORDERED: BUPIVACAINE 0.5 % 5 MG/1 ML MPF 30ML VIAL ONE (07:28)
[2021-02-26] MEDS ORDERED: POTASSIUM CHLORIDE CRTAB 20 MEQ TABCR PO STA (07:51)
--- NOTE | 2021-02-26 07:51 | Hospitalist Progress Note ---
Date of Service February 26, 2021 Assessment & Plan (1) Acute on chronic heart failure with preserved ejection fraction: Plan: History of chronic diastolic heart failure and mitral stenosis with HTN and gout. Per last cardiology outpatient note she was supposed to be taking Lasix 40mg PO BID, however, intake med list reflects lasix 40mg only once daily. Appreciate cardiology input. Continue monitor I/Os along with daily weights. Kwok catheter is in place. Overall patient reports feeling better. Currently remains on 2 L of nasal cannula. On IV lasix per nephrology, now on Lasix 30 IV TID (2) Hypoxia: Plan: Most likely secondary to heart failure. Possible bacterial component as well. and atelectasis Continued cefepime/Zithromax. Finished Zithromax (02/24) (3) Wound of right lower extremity: Plan: Large ischemic ulcer with eschar of her right lower extremity. Also with ulcerations of her right medial malleolus and her right medial thigh. 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 Cont medical management of PAD. Started tramadol PRN, cont Tylenol PRN. Appreciate vascular surgery input. Patient would be a high risk candidate for any endovascular treatment as it would result in dialysis dependency as per vascular surgery. Recommending considering debridement of the right lower extremity wounds. Orthopedics was consulted. MRI of the right lower extremity was obtained without any osteomyelitis. Ortho recommended daily dressing changes with Betadine. Now s/p debridement earlier today (02/26) w/ Dr. Mazariegos. Plastic surgery (Dr. Nolen) also consulted as pt may need skin graft. Prealbumin ordered - 16. Concerned that due to poor nutrition, patient's wound may not heal properly. Encouraged PO intake and improved nutrition. (4) Acute on chronic anemia: Plan: Appears to have multifactorial symptomatic anemia with iron deficiency present despite taking iron supplements. Per cardiology her goal Hb would be 9-10. Reports feeling better since blood transfusion. Notably patient reports never having had a colonoscopy in the past. She is willing to undergo this outpatient which will be recommended with ongoing iron deficiency despite supplementation. Current hemoglobin 9.5, stable (5) Acute worsening of stage 3 chronic kidney disease: Plan: 2/2 ATN given the current clinical picture. Nephrology also expressed concerns independently that her anemia may be adversely affecting her respiratory status. Creatinine has been slowly trending upward. and now seems stable around slightly above 3 Currently on lasix 30 IV TID, nephrology closely following (6) PAD (peripheral artery disease): Plan: Has a long-standing h/o PAD and has followed with [facility] Vascular surgery in the past. Has a h/o right SFA stenting and left AKA in 2010 due to progressive peripheral arterial disease. Continue Plavix 75 mg daily. (7) HTN (hypertension): Plan: BP controlled continue amlodipine and metoprolol with parameters hold losartan 2/2 to mariela (8) DVT prophylaxis: Plan: None 2/2 to vascular wounds and concern for bleeding Dispo: PCU PCP: Dr. Parry DNR/DNI (9) PVD (peripheral vascular disease): Admission and Anticipated Discharge Date Admission Date: February 16, 2021 Subjective Patient seen in follow-up of CHF exacerbation, MARIELA, PAD, with RLE wound Pt is sitting up in bed, in NAD, using suppl. O2 via NC, appears tired and weak She is able to answer questions appropriately Denies fever, chills, chest pain, shortness of breath Had severe constipation, now resolved with lactulose enema, patient reports feeling much better now Underwent debridement (RLE wound) with orthopedics earlier this morning Review of Systems Review of Systems: All systems reviewed & are unremarkable except as noted in Subjective Physical Exam Physical Exam: General: elderly obese F, chronically ill appearing, in NAD, on 2L NC HEENT: NCAT, MMM, EOMI, PERRL Neck: Supple, normal range of motion CVS: normal rate and rhythm Resp: b/l decreased breath sounds, no wheezing, rhonchi Abdomen: Soft, ND/NT, + bowel sounds Extremities: RLE in dressings (photos by wound care reviewed - large eschar/ necrosis -now right lower extremity is in surgical dressings, postop), LLE BKA Neuro: awake and alert, face symmetric, speech fluent, moves extremities Skin: warm and dry (RLE as above) Results & Data Results & Data ([facility]) Vital Signs (Past 12 Hours) Vital Signs Temp Pulse Pulse Resp BP BP Pulse Ox 02/26/21 07:14 36.4 C L 68 18 136/70 96 02/26/21 07:01 61 02/26/21 06:18 70 02/26/21 04:27 36.5 C 70 15 153/63 H 96 02/25/21 23:09 36.9 C 69 16 160/64 H 94 Laboratory Results 02/26/21 02/26/21 02/26/21 Range/Units 05:44 05:44 05:44 WBC 11.44 H (4.8-10.8) K/uL RBC 3.41 L (4.2-5.4) M/uL Hgb 9.5 L (12.0-16.0) g/dL Hct 30.7 L (37-47) % MCV 90.0 (80-100) fL MCH 27.9 (25-34) pg MCHC 30.9 L (32-36) g/dL RDW Std Deviation 60.7 H (36.4-46.3) fL RDW Coeff of Hugo 18.6 H (11.5-14.5) % Plt Count 132 (130-400) K/uL MPV 9.9 (7.4-10.4) fL Sodium 143 (136-145) mmol/L Potassium 3.6 (3.5-5.1) mmol/L Chloride 109 H (98-107) mmol/L Carbon Dioxide 28 (21-32) mmol/L Anion Gap 6.0 (3-11) BUN 107 H (7-18) mg/dl Creatinine 3.23 H (0.6-1.2) mg/dl Est Cr Clr Drug Dosing 10.7 ml/min Est GFR ( Amer) 14.4 ml/min Est GFR (Non-Af Amer) 12.4 ml/min BUN/Creatinine Ratio 33.3 H (10-20) Glucose 101 H (70-99) mg/dl Calcium 8.6 (8.5-10.1) mg/dl Phosphorus 4.4 (2.5-4.9) mg/dl Magnesium 2.5 H (1.8-2.4) mg/dl Procalcitonin (0-0.5) ng/ml Urine Color Urine Appearance (Clear) Urine pH (4.5-7.5) Ur Specific Cu[place] (1.000-1.030) Urine Protein (Negative) Urine Glucose (UA) (Negative) Urine Ketones (Negative) Urine Blood (Negative) Urine Nitrite (Negative) Urine Bilirubin (Negative) Urine Urobilinogen (Negative) Ur Leukocyte Esterase (Negative) Urine WBC (Auto) (0-5) /hpf Urine RBC (Auto) (0-4) /hpf U Hyaline Cast (Auto) (0-5) /lpf U Epithel Cells (Auto) (0-5) /lpf Urine Bacteria (Auto) (Negative) Granular Casts (0) /lpf Urine Yeast (None Prsent) Random Vancomycin 19.8 mcg/ml 02/25/21 02/25/21 02/25/21 Range/Units 18:28 17:25 08:11 WBC (4.8-10.8) K/uL RBC (4.2-5.4) M/uL Hgb (12.0-16.0) g/dL Hct (37-47) % MCV (80-100) fL MCH (25-34) pg MCHC (32-36) g/dL RDW Std Deviation (36.4-46.3) fL RDW Coeff of Hugo (11.5-14.5) % Plt Count (130-400) K/uL MPV (7.4-10.4) fL Sodium 142 (136-145) mmol/L Potassium 3.8 (3.5-5.1) mmol/L Chloride 110 H (98-107) mmol/L Carbon Dioxide 23 (21-32) mmol/L Anion Gap 9.0 (3-11) BUN 105 H (7-18) mg/dl Creatinine 3.06 H (0.6-1.2) mg/dl Est Cr Clr Drug Dosing 11.4 ml/min Est GFR ( Amer) 15.4 ml/min Est GFR (Non-Af Amer) 13.3 ml/min BUN/Creatinine Ratio 34.2 H (10-20) Glucose 158 H (70-99) mg/dl Calcium 8.8 (8.5-10.1) mg/dl Phosphorus 4.2 (2.5-4.9) mg/dl Magnesium 2.4 (1.8-2.4) mg/dl Procalcitonin 0.17 (0-0.5) ng/ml Urine Color Yellow Urine Appearance Turbid A (Clear) Urine pH 5.0 (4.5-7.5) Ur Specific [place] 1.015 (1.000-1.030) Urine Protein 3+ H (Negative) Urine Glucose (UA) Negative (Negative) Urine Ketones Negative (Negative) Urine Blood 3+ H (Negative) Urine Nitrite Negative (Negative) Urine Bilirubin Negative (Negative) Urine Urobilinogen Negative (Negative) Ur Leukocyte Esterase 2+ H (Negative) Urine WBC (Auto) >30 H (0-5) /hpf Urine RBC (Auto) 10-30 H (0-4) /hpf U Hyaline Cast (Auto) 5-10 H (0-5) /lpf U Epithel Cells (Auto) >30 H (0-5) /lpf Urine Bacteria (Auto) Negative (Negative) Granular Casts 1-5 H (0) /lpf Urine Yeast Budding w/ Hyphae A (None Prsent) Random Vancomycin mcg/ml 02/25/21 Range/Units 08:11 WBC 11.86 H (4.8-10.8) K/uL RBC 3.64 L (4.2-5.4) M/uL Hgb 10.1 L (12.0-16.0) g/dL Hct 32.5 L (37-47) % MCV 89.3 (80-100) fL MCH 27.7 (25-34) pg MCHC 31.1 L (32-36) g/dL RDW Std Deviation 58.7 H (36.4-46.3) fL RDW Coeff of Hugo 18.3 H (11.5-14.5) % Plt Count 138 (130-400) K/uL MPV 10.2 (7.4-10.4) fL Sodium (136-145) mmol/L Potassium (3.5-5.1) mmol/L Chloride (98-107) mmol/L Carbon Dioxide (21-32) mmol/L Anion Gap (3-11) BUN (7-18) mg/dl Creatinine (0.6-1.2) mg/dl Est Cr Clr Drug Dosing ml/min Est GFR ( Amer) ml/min Est GFR (Non-Af Amer) ml/min BUN/Creatinine Ratio (10-20) Glucose (70-99) mg/dl Calcium (8.5-10.1) mg/dl Phosphorus (2.5-4.9) mg/dl Magnesium (1.8-2.4) mg/dl Procalcitonin (0-0.5) ng/ml Urine Color Urine Appearance (Clear) Urine pH (4.5-7.5) Ur Specific [place] (1.000-1.030) Urine Protein (Negative) Urine Glucose (UA) (Negative) Urine Ketones (Negative) Urine Blood (Negative) Urine Nitrite (Negative) Urine Bilirubin (Negative) Urine Urobilinogen (Negative) Ur Leukocyte Esterase (Negative) Urine WBC (Auto) (0-5) /hpf Urine RBC (Auto) (0-4) /hpf U Hyaline Cast (Auto) (0-5) /lpf U Epithel Cells (Auto) (0-5) /lpf Urine Bacteria (Auto) (Negative) Granular Casts (0) /lpf Urine Yeast (None Prsent) Random Vancomycin mcg/ml Medications Administered Current Inpatient Medications Acetaminophen (Acetaminophen 325 Mg Tab) 650 mg PO Q4H PRN PRN Reason: Pain or Fever Stop: 03/18/21 16:53 Last Admin: 02/25/21 15:55 Dose: 650 mg Documented by: Albuterol (Albut/Ipratrop 3mg/0.5mg Neb 3 Ml Vial) 3 ml NEB QIDR PRN PRN Reason: sob/wheezing Stop: 03/18/21 16:53 Allopurinol (Allopurinol 100 Mg Tab) 100 mg PO [facility] Stop: 03/19/21 08:59 Last Admin: 02/25/21 08:28 Dose: 100 mg Documented by: Amlodipine Besylate (Amlodipine Besylate 5 Mg Tab) 10 mg PO [facility] Stop: 03/19/21 08:59 Last Admin: 02/17/21 08:37 Dose: 10 mg Documented by: Atorvastatin Calcium (Atorvastatin 10 Mg Tab) 10 mg PO [facility] Stop: 03/19/21 08:59 Last Admin: 02/25/21 08:28 Dose: 10 mg Documented by: Clopidogrel Bisulfate (Clopidogrel Bisulfate 75 Mg Tab) 75 mg PO [facility] Stop: 03/19/21 08:59 Cyanocobalamin (Cyanocobalamin 500 Mcg Tablet (Vitamin B-12)) 1,000 mcg PO [facility] Stop: 03/19/21 08:59 Last Admin: 02/25/21 08:28 Dose: 1,000 mcg Documented by: Docusate Sodium (Docusate Sodium 100 Mg Cap) 100 mg PO BID [facility] Stop: 03/27/21 10:14 Last Admin: 02/25/21 20:10 Dose: 100 mg Documented by: Ferrous Sulfate (Ferrous Sulfate 325 Mg Tab) 325 mg PO BID JARRELL Stop: 03/18/21 20:59 Last Admin: 02/25/21 20:08 Dose: 325 mg Documented by: Furosemide (Furosemide 40 Mg/4 Ml Vial) 30 mg IV TID JARRELL Stop: 03/25/21 13:59 Last Admin: 02/25/21 20:07 Dose: 30 mg Documented by: Gabapentin (Gabapentin 100 Mg Cap) 100 mg PO Q8H JARRELL Stop: 03/18/21 21:59 Last Admin: 02/26/21 05:35 Dose: 100 mg Documented by: Cefepime HCl 1,000 mg/ Syringe 11.3 mls @ 5.5 mls/min IV Q24H [facility]; Protocol Stop: 03/01/21 10:59 Last Admin: 02/25/21 11:46 Dose: 5.5 mls/min Documented by: Lactobacillus Acidoph/Casei/Rhamnos (Advanced Probiotic 1250 Mg Capsule) 2 cap PO DAILY [facility] Stop: 03/24/21 08:59 Last Admin: 02/25/21 08:28 Dose: 2 cap Documented by: Metoprolol Succinate (Metoprolol Succ 50mg Ext Rel Tab) 100 mg PO QAM [facility] Stop: 03/19/21 08:59 Last Admin: 02/25/21 08:28 Dose: 100 mg Documented by: Miscellaneous Information (Cefepime Consult Active) 0 ea N/A UD PRN PRN Reason: Consult Stop: 03/18/21 16:53 Miscellaneous Information (Vancomycin Consult Active) 1 ea N/A UD PRN PRN Reason: Consult Stop: 03/18/21 21:18 Multivitamins/Minerals (Cerovite Adv Formula Tab) 1 tab PO DAILY [facility] Stop: 03/19/21 08:59 Last Admin: 02/25/21 08:28 Dose: 1 tab Documented by: Ondansetron HCl (Ondansetron Inj 2 Mg/Ml 2 Ml Vial) 4 mg IV Q6H PRN PRN Reason: Nausea Stop: 03/18/21 16:53 Last Admin: 02/21/21 12:09 Dose: 4 mg Documented by: Pantoprazole Sodium (Pantoprazole 40 Mg Tab) 40 mg PO BID [facility]; Protocol Stop: 03/27/21 20:59 Last Admin: 02/25/21 20:08 Dose: 40 mg Documented by: Polyethylene Glycol (Polyethylene (Miralax) 17 Gm Pack) 17 gm PO DAILY PRN PRN Reason: Constipation Stop: 03/18/21 16:53 Last Admin: 02/25/21 08:27 Dose: 17 gm Documented by: Tramadol HCl (Tramadol Hcl 50 Mg Tablet) 50 mg PO Q4H PRN PRN Reason: severe pain (rating 7-10) Stop: 03/18/21 16:53 Last Admin: 02/25/21 13:44 Dose: 50 mg Documented by: Tramadol HCl (Tramadol Hcl 50 Mg Tablet) 50 mg PO Q4H PRN PRN Reason: Pain Stop: 03/21/21 13:36 Vitamin D (Cholecalciferol 1,000 Units 25 Mcg Tab) [facility] Stop: 03/19/21 08:59 Last Admin: 02/25/21 08:28 Dose: 2,000 units Documented by:
--- NOTE | 2021-02-26 07:52 | Anesthesiology Consultation ---
Date of Service February 26, 2021 Assessment & Plan Chart Review Chart Review: Acceptable Risk for Surgery and Patient NOT seen in Pre Admission Testing Consults Requested none ASA ASA4 Proposed Anesthesia Anesthesia Type: General History Surgery Operation Date: 02/26/21 07:30 Proposed Procedures p Incision and Drainage Extremity(Right) - Kahlil Mazariegos DO Height/Weight Height: 4 ft 11 in Weight: 68.2 kg Allergies Allergy/AdvReac Type Severity Reaction Status Date / Time No Known Allergies Allergy Unverified 02/16/21 08:30 Medications Home Medications Medication Instructions Recorded Confirmed Last Taken Saccharomyces boulardii 250 mg 250 mg PO QAM 02/16/21 02/16/21 Unknown capsule (Florastor) allopurinol 100 mg tablet 100 mg PO QAM 02/16/21 02/16/21 Unknown (Zyloprim) amlodipine 10 mg tablet (Norvasc) 10 mg PO QAM 02/16/21 02/16/21 Unknown atorvastatin 10 mg tablet (Lipitor) 10 mg PO QAM 02/16/21 02/16/21 Unknown cholecalciferol (vitamin D3) 50 50 mcg PO QAM 02/16/21 02/16/21 Unknown mcg (2,000 unit) capsule (Vitamin D3) clopidogrel 75 mg tablet (Plavix) 75 mg PO QAM 02/16/21 02/16/21 Unknown cyanocobalamin (vitamin B-12) 1,000 mcg PO QAM 02/16/21 02/16/21 Unknown 1,000 mcg tablet (Vitamin B-12) enoxaparin 30 mg/0.3 mL 30 mg SUBCUT HS 02/16/21 02/16/21 Unknown subcutaneous syringe (Lovenox) ferrous sulfate 325 mg (65 mg 325 mg PO BID 02/16/21 02/16/21 Unknown iron) tablet (FeroSul) furosemide 40 mg tablet (Lasix) 40 mg PO QAM 02/16/21 02/16/21 Unknown gabapentin 100 mg capsule 100 mg PO Q8H 02/16/21 02/16/21 Unknown (Neurontin) ipratropium 0.5 mg-albuterol 3 mg 3 ml INHALATION Q6H 02/16/21 02/16/21 Unknown (2.5 mg base)/3 mL nebulization soln losartan 50 mg tablet (Cozaar) 50 mg PO Q12 02/16/21 02/16/21 Unknown metoprolol succinate 100 mg 100 mg PO QAM 02/16/21 02/16/21 Unknown tablet,extended release 24 hr (Toprol XL) tramadol 50 mg tablet (Ultram) 50 mg PO Q4H 02/16/21 02/16/21 Unknown vitamin A-vitamin C-vit E-min 1 tab PO BID 02/16/21 02/16/21 Unknown tablet (Ocutabs) Active Medications Generic Name Dose Route Start Last Admin Trade Name Freq PRN Reason Stop Dose Admin Acetaminophen 650 mg 02/16/21 16:54 02/25/21 15:55 Acetaminophen 325 Mg Tab PO 03/18/21 16:53 650 mg Q4H PRN Administration Pain or Fever Allopurinol 100 mg 02/17/21 09:00 02/25/21 08:28 Allopurinol 100 Mg Tab PO 03/19/21 08:59 100 mg QAM JARRELL Administration Amlodipine Besylate 10 mg 02/17/21 09:00 02/17/21 08:37 Amlodipine Besylate 5 Mg Tab PO 03/19/21 08:59 10 mg QAM JARRELL Administration Atorvastatin Calcium 10 mg 02/17/21 09:00 02/25/21 08:28 Atorvastatin 10 Mg Tab PO 03/19/21 08:59 10 mg QAM JARRELL Administration Cyanocobalamin 1,000 mcg 02/17/21 09:00 02/25/21 08:28 Cyanocobalamin 500 Mcg Tablet (Vitamin B-12) PO 03/19/21 08:59 1,000 mcg QAM JARRELL Administration Docusate Sodium 100 mg 02/25/21 10:15 02/25/21 20:10 Docusate Sodium 100 Mg Cap PO 03/27/21 10:14 100 mg BID JARRELL Administration Ferrous Sulfate 325 mg 02/16/21 21:00 02/25/21 20:08 Ferrous Sulfate 325 Mg Tab PO 03/18/21 20:59 325 mg BID JARRELL Administration Furosemide 30 mg 02/23/21 14:00 02/25/21 20:07 Furosemide 40 Mg/4 Ml Vial IV 03/25/21 13:59 30 mg TID JARRELL Administration Gabapentin 100 mg 02/16/21 22:00 02/26/21 05:35 Gabapentin 100 Mg Cap PO 03/18/21 21:59 100 mg Q8H JARRELL Administration Cefepime HCl 1,000 mg/ Syringe 11.3 mls @ 5.5 mls/min 02/22/21 11:00 02/25/21 11:46 IV 03/01/21 10:59 5.5 mls/min Q24H JARRELL Administration Protocol Lactobacillus Acidoph/Casei/Rhamnos 2 cap 02/22/21 09:00 02/25/21 08:28 Advanced Probiotic 1250 Mg Capsule PO 03/24/21 08:59 2 cap DAILY JARRELL Administration Metoprolol Succinate 100 mg 02/17/21 09:00 02/25/21 08:28 Metoprolol Succ 50mg Ext Rel Tab PO 03/19/21 08:59 100 mg QAM JARRELL Administration Multivitamins/Minerals 1 tab 02/17/21 09:00 02/25/21 08:28 Cerovite Adv Formula Tab PO 03/19/21 08:59 1 tab DAILY JARRELL Administration Ondansetron HCl 4 mg 02/16/21 16:54 02/21/21 12:09 Ondansetron Inj 2 Mg/Ml 2 Ml Vial IV 03/18/21 16:53 4 mg Q6H PRN Administration Nausea Pantoprazole Sodium 40 mg 02/25/21 21:00 02/25/21 20:08 Pantoprazole 40 Mg Tab PO 03/27/21 20:59 40 mg BID JARRELL Administration Protocol Polyethylene Glycol 17 gm 02/16/21 16:54 02/25/21 08:27 Polyethylene (Miralax) 17 Gm Pack PO 03/18/21 16:53 17 gm DAILY PRN Administration Constipation Tramadol HCl 50 mg 02/16/21 16:54 02/25/21 13:44 Tramadol Hcl 50 Mg Tablet PO 03/18/21 16:53 50 mg Q4H PRN Administration severe pain (rating 7-10) Vitamin D 2,000 units 02/17/21 09:00 02/25/21 08:28 Cholecalciferol 1,000 Units 25 Mcg Tab PO 03/19/21 08:59 2,000 units QAM JARRELL Administration Past Medical History Medical History ASCVD (arteriosclerotic cardiovascular disease) Chronic heart failure with preserved ejection fraction (HFpEF) CKD (chronic kidney disease) stage 3, GFR 30-59 ml/min baseline cr 1.2-1.4 Gout HTN (hypertension) Mitral valve stenosis PAD (peripheral artery disease) PVD (peripheral vascular disease) T2DM (type 2 diabetes mellitus) last a1c 5.8 2018 Exercise / Class Metabolic Activity III < 4 Walking/Shop/Light housework Past Family History Family History Mother ALS (amyotrophic lateral sclerosis) Father , 77 Coronary heart disease Sister Myocardial infarction Breast cancer Past Surgical History Surgical History History of removal of ovarian cyst Hx of AKA (above knee amputation) Hx of cholecystectomy S/P peripheral artery angioplasty R SFA stenting Past Anesthesia History No Hx of Anesthesia Complications and No Family Hx of Anesthesia Complications History of PONV No Hx of PONV and No Hx of Motion Sickness Social History Smoking Status: Never smoker Hx Alcohol Use: No Hx Substance Use: No Physical Exam Vital Signs Last Vital Signs Temp 36.4 C L 02/26/21 07:14 Pulse 68 02/26/21 07:14 Resp 18 02/26/21 07:14 BP 136/70 02/26/21 07:14 Pulse Ox 96 02/26/21 07:14 Testing Laboratory Results 02/26/21 05:44 02/26/21 05:44 PT 10.9 Seconds (9.0-12.0) 02/16/21 07:30 INR 1.1 (0.9-1.1) 02/16/21 07:30 APTT 22.6 Seconds (21.0-31.0) 02/16/21 07:30 Urine Color Yellow 02/25/21 18:28 Urine Appearance Turbid (Clear) A 02/25/21 18:28 Urine pH 5.0 (4.5-7.5) 02/25/21 18:28 Ur Specific [place] 1.015 (1.000-1.030) 02/25/21 18:28 Urine Protein 3+ (Negative) H 02/25/21 18:28 Urine Glucose (UA) Negative (Negative) 02/25/21 18:28 Urine Ketones Negative (Negative) 02/25/21 18:28 Urine Nitrite Negative (Negative) 02/25/21 18:28 Ur Leukocyte Esterase 2+ (Negative) H 02/25/21 18:28 Urine WBC (Auto) >30 /hpf (0-5) H 02/25/21 18:28 Urine RBC (Auto) 10-30 /hpf (0-4) H 02/25/21 18:28 U Hyaline Cast (Auto) 5-10 /lpf (0-5) H 02/25/21 18:28 U Epithel Cells (Auto) >30 /lpf (0-5) H 02/25/21 18:28 Urine Bacteria (Auto) Negative (Negative) 02/25/21 18:28 Blood Type O Positive 02/16/21 14:46 Antibody Screen NEGATIVE 02/16/21 14:46 02/16/21 07:57 Aerobic Blood Culture - Final Blood No growth in Aerobic bottle after 5 days. Anaerobic Blood Culture - Final No growth in Anaerobic bottle after 5 days. 02/16/21 07:57 Aerobic Blood Culture - Final Blood No growth in Aerobic bottle after 5 days. Anaerobic Blood Culture - Final 02/16/21 12:37 Urine Culture - Final Urine,Clean Catch No growth - less than 1,000 colonies/mL. Electrocardiogram Date: 02/16/21 Findings: + NSR @ (at 68;infer. infarct;anterolat. infarct, ages ?) and + RBBB Chest X-Ray Date: 02/25/21 Findings: + cardiomegaly, + infiltrate (bibasilar densities), + pulmonary vascular congestion (mod. pulm edema) and + pleural effusion (B/L pleural effusion) Echocardiogram Date: 02/17/21 EF: 60% LV Function: normal RWMA: + none Other Findings: + atrial enlargement (severe LAE), + LVH (mild) and + diastolic dysfunction (Grade 2) Valvular Disease: + AI (mild AR), + MS (moderate mitral stenosis) and + MR (mild MR) pulmonary HTN-50 mmhg
--- NOTE | 2021-02-26 08:24 | History & Physical Bridge Note ---
Date of Service February 26, 2021 History & Physical Bridge Note I have examined the patient, reviewed the History & Physical and in the interval since the performance of the History & Physical I have noted the following changes of clinical significance:Will require extensive debridement right upper and lower leg today.
[2021-02-26] MEDS ORDERED: fentaNYL citrate 100 MCG/2 ML VIAL ONE ×2 (08:29→10:07)
[2021-02-26] MEDS ORDERED: PROPOFOL IV EMULSION 10 MG/ML 20 ML VIAL IV ONE (08:29)
[2021-02-26] MEDS ORDERED: LIDOCAINE 2% 2 ML VIAL/AMP(20MG/ML) INFIL ONE (08:29)
--- NOTE | 2021-02-26 08:42 | Pharmacy Report ---
Pharmacy Abx Dose Short Note - Date of Service February 26, 2021 - Assessment & Plan Assessment 85 year old F receiving vancomycin and cefepime for treatment of right lower extremity wound infection. MRI shows no evidence of osteomyelitis. Patient with acute/chronic kidney disease. Renal function has been relatively stable over past few days based on labs and vanco levels. Patient to OR this morning for I+D of wound. Day #11 of antimicrobial therapy. Discussed plan with provider who would like antibiotics continued today. Will reevaluate post-op. Plan Vancomycin * Will dose by random level given very extended half-life * Random level this morning of 19.8 mcg/mL, ~48 hours after last dose of 500 mg * Will give additional 500 mg IV dose now and recheck random level as appropriate Cefepime * 1 g IV q24h - target dose of 2 g IV q8h * Will continue q24h dosing for now. If therapy is continued, may consider q12h dosing. Pharmacy will continue to follow and will adjust dose/frequency as necessary. Thank you.
[2021-02-26] MEDS ORDERED: ceFAZolin 1000MG 1,000 MG/7.5 ML SYR IV ONE (09:11)
[2021-02-26] MEDS ORDERED: PHENYLEPHRINE 100MCG/ML 5ML SYR ONE (09:13)
[2021-02-26] MEDS ORDERED: ONDANSETRON INJ 2 MG/ML 2 ML VIAL ONE (09:13)
--- NOTE | 2021-02-26 10:02 | Post Operative Brief Note ---
Immediate Post Op Note v1 Date of Surgery February 26, 2021 Pre & Post Diagnosis Operation Date: 02/26/21 07:30 Pre-Op Diagnosis: Right Lower Extremity extensive circumferential necrotic wound 22 cm x 25.5 cm x 1.4 cm, medial ankle necrotic wound 2.5 cm x 3.0 cm x 0.1 cm, anterior medial ankle necrotic wound 1.5 cm x 1.0 cm x 0.1 cm, anterior lateral ankle necrotic wound 1.0 cm x 1.0 cm x 0.1 cm, anterior lateral ankle necrotic wound 1.6 cm x 1.6 cm x 0.1 cm, peripheral artery disease, CKD stage III, CHF Post-Op Diagnosis: Right Lower Extremity extensive circumferential necrotic wound 22 cm x 25.5 cm x 1.4 cm, medial ankle necrotic wound 2.5 cm x 3.0 cm x 0.1 cm, anterior medial ankle necrotic wound 1.5 cm x 1.0 cm x 0.1 cm, anterior lateral ankle necrotic wound 1.0 cm x 1.0 cm x 0.1 cm, anterior lateral ankle necrotic wound 1.6 cm x 1.6 cm x 0.1 cm, peripheral artery disease, CKD stage III, CHF I identified the patient and participated in the time-out.: Yes Procedure Operation Date: 02/26/21 07:30 Actual Procedures Extensive debridement including skin, subcutaneous tissue, fascia right Lower Leg Circumferential necrosis: 22 cmx25.5 cmx1.4cm Extensive debridement including skin, subcutaneous tissue, fascia Medial Ankle: 2.5cmx3.0 cmx0.1cm Extensive debridement including skin, subcutaneous tissue, fascia Anterior Medial Ankle: 1.5 cmx1.0 cmx0.1cm Extensive debridement including skin, subcutaneous tissue, fascia Anterior Lateral Ankle: 1.0 cmx1.0 cmx0.1 cm Extensive debridement including skin, subcutaneous tissue, fascia Anterolateral Ankle: 1.6 cmx1.6 cmx0.1 cm (Right) - Kahlil Mazariegos DO Surgeon Kahlil Mazariegos DO [employer]on Electrician None Estimated Blood Loss 30 Findings Consistent with Post-Op Diagnosis Specimens Necrotic tissue for pathological specimen Aerobic, anaerobic, Gram stain subcutaneous tissue right lower leg medial Drains Kwok Catheter Anesthesia Type General Complications none Disposition Accompanied Patient To Recovery: Yes
[2021-02-26] MEDS ORDERED: FLUMAZENIL 0.1 MG/1 ML 10 ML VIAL IV PRN (10:07)
[2021-02-26] MEDS ORDERED: PROMETHAZINE HCL 12.5 MG in SODIUM CHLORIDE 0.9% 50 ML IV PRN (10:07)
[2021-02-26] MEDS ORDERED: NALOXONE HCL 0.4 MG/1 ML VIAL/CARP IV PRN (10:07)
[2021-02-26] MEDS ORDERED: ONDANSETRON INJ 2 MG/ML 2 ML VIAL IV PRN (10:07)
[2021-02-26] MEDS ORDERED: LABETALOL HCL IV 5 MG/ML 20ML IV PRN (10:07)
[2021-02-26] MEDS ORDERED: ATROPINE SULFATE 0.1 MG/ML 10ML SYR IV PRN (10:07)
[2021-02-26] MEDS ORDERED: ePHEDrine sulfate 50 MG/ML AMP IV PRN (10:07)
[2021-02-26] MEDS: fentaNYL citrate 100 MCG/2 ML VIAL IV PRN ×2 (10:09→10:17)
--- NOTE | 2021-02-26 10:35 | Anesthesiology Progress Note ---
Date of Service February 26, 2021 Anesthesia Post Procedure Vital Signs Vital Signs: Temp Pulse Pulse Pulse Resp BP BP 02/26/21 10:25 65 14 160/57 H 02/26/21 10:15 62 14 176/58 H 02/26/21 10:05 69 10 L 174/68 H 02/26/21 09:58 36.1 C L 65 18 161/94 H 02/26/21 07:14 36.4 C L 68 18 136/70 02/26/21 07:01 61 02/26/21 06:18 70 02/26/21 04:27 36.5 C 70 15 153/63 H 02/25/21 23:09 36.9 C 69 16 160/64 H 02/25/21 19:17 36.7 C 69 17 131/76 02/25/21 17:23 36.8 C 02/25/21 15:40 37.8 C H 75 16 159/76 H 02/25/21 15:03 75 02/25/21 11:51 37.2 C 71 20 145/72 H Pulse Ox 02/26/21 10:25 93 02/26/21 10:15 97 02/26/21 10:05 95 02/26/21 09:58 95 02/26/21 07:14 96 02/26/21 07:01 02/26/21 06:18 02/26/21 04:27 96 02/25/21 23:09 94 02/25/21 19:17 94 02/25/21 17:23 02/25/21 15:40 91 02/25/21 15:03 02/25/21 11:51 90 Pain Intensity Right Leg: Pain Intensity: 2 Transfer of Care Handoff Completed per policy Notes Mental Status: alert / awake / arousable Patient Amnestic to Procedure: Yes Nausea / Vomiting: adequately controlled Pain: adequately controlled Airway Patency, RR, SpO2: stable & adequate BP & HR: stable & adequate Hydration State: stable & adequate Anesthetic Complications: no major complications apparent
[2021-02-26] MEDS ORDERED: VANCOMYCIN HCL 500 MG in 0.9 % SODIUM CHLORIDE 100 ML IV SCH (11:00)
[2021-02-26] MEDS: METOPROLOL SUCC 50MG EXT REL TAB PO SCH (11:12)
[2021-02-26] MEDS: ADVANCED PROBIOTIC 1250 MG CAPSULE PO SCH (11:12)
[2021-02-26] MEDS: CHOLECALCIFEROL 1,000 UNITS 25 MCG TAB PO SCH (11:12)
[2021-02-26] MEDS: PANTOprazole 40 MG TAB PO SCH ×2 (11:13→20:57)
[2021-02-26] MEDS: DOCUSATE SODIUM 100 MG CAP PO SCH ×2 (11:13→20:57)
[2021-02-26] MEDS: CYANOCOBALAMIN 500 MCG TABLET (VITAMIN B-12) PO SCH (11:13)
[2021-02-26] MEDS: FUROSEMIDE 40 MG/4 ML VIAL IV SCH ×3 (11:14→20:56)
[2021-02-26] MEDS: CEROVITE ADV FORMULA TAB PO SCH (11:14)
[2021-02-26] MEDS: ATORVASTATIN 10 MG TAB PO SCH (11:14)
[2021-02-26] MEDS: allopurinoL 100 MG TAB PO SCH (11:14)
[2021-02-26] MEDS: CEFEPIME 1,000 MG in SYRINGE 0 ML IV SCH (11:18)
[2021-02-26] MEDS ORDERED: POTASSIUM CHLORIDE CRTAB 20 MEQ TABCR PO SCH (11:30)
[2021-02-26] MEDS: FERROUS SULFATE 325 MG TAB PO SCH ×2 (12:12→20:57)
--- NOTE | 2021-02-26 12:15 | Operative Report (OR) ---
DATE OF PROCEDURE: 02/26/2021. PREOPERATIVE DIAGNOSES: 1. Right lower extremity extensive circumferential necrotic wound 22 x 25.5 x 1.4 cm. 2. Medial ankle necrotic wound 2.5 x 3.0 x 0.1 cm. 3. Anteromedial ankle necrotic wound 1.5 x 1.0 x 0.1 cm. 4. Anterolateral ankle necrotic wound 1.0 x 1.0 x 0.1 cm. 5. Anterolateral ankle necrotic wound 1.6 x 1.6 x 0.1 cm. 6. Peripheral artery disease. 7. Chronic kidney disease, stage III. 8. Congestive heart failure. POSTOPERATIVE DIAGNOSES: 1. Right lower extremity extensive circumferential necrotic wound 22 x 25.5 x 1.4 cm. 2. Medial ankle necrotic wound 2.5 x 3.0 x 0.1 cm. 3. Anteromedial ankle necrotic wound 1.5 x 1.0 x 0.1 cm. 4. Anterolateral ankle necrotic wound 1.0 x 1.0 x 0.1 cm. 5. Anterolateral ankle necrotic wound 1.6 x 1.6 x 0.1 cm. 6. Peripheral artery disease. 7. Chronic kidney disease, stage III. 8. Congestive heart failure. PROCEDURES PERFORMED: 1. Right lower extremity extensive debridement including skin, subcutaneous tissue, fascia, right lo wer leg circumferential necrosis 22 x 25.5 x 1.4 cm. 2. Extensive debridement including skin, subcutaneous tissue, fascia medial ankle 2.5 x 3.0 x 0.1 cm . 3. Extensive debridement including skin, subcutaneous tissue, fascia anteromedial ankle 1.5 x 1.0 x 0.1 cm. 4. Extensive debridement including skin, subcutaneous tissue, fascia anterolateral ankle 1.0 x 1.0 x 0.1 cm. 5. Extensive debridement including skin, subcutaneous tissue, fascia and anterolateral ankle, 1.6 x 1.6 x 0.1 cm right lower extremity. SURGEON: Kahlil Mazariegos DO. ECOMMER[employer] MARKETING SPECIALIST: None. ANESTHESIA: General. SPECIMENS: 1. Necrotic tissue for pathologic specimen, right lower extremity. 2. Aerobic, anaerobic, Gram stain subcutaneous tissue right lower leg medial. DRAINS: None. COMPLICATIONS: None. BLOOD LOSS: 30 mL. PERTINENT HISTORY: This is an 85-year-old female who had previous left above-knee amputation perform ed, presents with severe necrotic wounds as noted above. The patient apparently had some severe swel ling of the right lower extremity and then as the swelling subsided, she had noted change in the colo r of the skin, which was then slowly progressively turning completely black and formed hard eschar. She presented to the hospital. She was admitted for multiple medical issues as noted above and withi n the medical record and she was seen by Vascular Surgery, felt that they could offer no improvement in her vascular circumstance and Plastic Surgery recommended extensive debridement first with possibi lity of skin grafting is salvage. The patient was then scheduled for surgery as indicated. All potential risks, benefits, complications, alternatives, rehab potential for incomplete relief of symptoms, need for further surgery, DVT, PE, , persistent pain, swelling, scarring, weakness, ne urovascular injury, wound complications, loss of function, and possible need for below-knee or above- knee amputation. The patient decided to proceed with the procedure as indicated. DESCRIPTION OF PROCEDURE: The patient was taken to the operative suite and placed supine on the oper ating table. After review of consent and identification of proper site, the patient was anesthetized , LMA was placed. Right lower extremity was then sterilely prepped and draped in the usual fashion, elevated and placed on a bump. After surgical timeout was performed, a #15 blade scalpel was used to begin unroofing the substantial extensive eschar, which is noted to be circumferential around the ri [facility] [place] lower extremity as a mid calf and medially based primary wound with extension circumferentially a round the right lower extremity. This was measured to be 22 x 25.5 x 1.4 cm in depth. This was iveth ply unroofed including the eschar, the skin, the subcutaneous tissue down to the level of the fascia. This was also continued for separate identifiable wound, noting medial ankle 2.5 x 3.0 x 0.1 cm. T his was also unroofed with a 15 blade scalpel including the eschar, skin and subcutaneous tissue down to the level of fascia. Next, the anteromedial ankle necrotic area measuring 1.5 x 1.0 x 0.1 cm also sharply unroofed includi ng the skin, subcutaneous tissue, eschar and fascia. Next, attention was directed toward the anterol ateral ankle necrotic region measuring 1.0 x 1.0 cm unroofed down to a depth of 0.1 cm including esch ar, skin, subcutaneous tissue down to the level of fascia. Next, attention was directed toward the a nterolateral ankle necrotic region measuring 1.6 x 1.6 cm sharply unroofed down to a depth of 0.1 cm including skin, subcutaneous tissue, eschar down to the level of fascia. Once the areas of fatty nec rosis were sharply excised with a 15-blade scalpel and the use of a large curette, the remainder of t he tissue had some viability and was then extensively lavaged with pulsatile lavage with 3 liters of saline with 1 gram of Ancef until clear. Next, top gloves were changed, top sheet was changed, and t hen a soft tissue dressing was applied consisting of Adaptic, sterile 4 x 4s, cast padding, ABD pads x3, Kerlix roll and 6-inch Jake wrap. The patient was then awakened and taken to recovery in stable c ondition. Job ID: [id number]
[2021-02-26] MEDS: UNIT DOSE COMPOUND PR SCH ×2 (13:02→19:24)
[2021-02-26] MEDS: LACTULOSE 200 GM, WATER, STERILE IRRIG 700 ML, BARCODE IDENTIFIER 1 EA PR SCH ×2 (13:07→19:24)
[2021-02-26] MEDS: POLYETHYLENE (MIRALAX) 17 GM PACK PO SCH ×2 (13:07→20:56)
[2021-02-26] MEDS: traMADol HCL 50 MG TABLET PO PRN (15:59)
[2021-02-27] MEDS: UNIT DOSE COMPOUND PR SCH (03:52)
[2021-02-27] MEDS: LACTULOSE 200 GM, WATER, STERILE IRRIG 700 ML, BARCODE IDENTIFIER 1 EA PR SCH (03:52)
[2021-02-27] MEDS: GABAPENTIN 100 MG CAP PO SCH ×3 (06:23→20:10)
[2021-02-27 07:30] LABS: Hemoglobin 8.6 g/dL (12.0-16.0); Mean Corpuscular Hgb Conc 30.7 g/dL (32-36); Mean Corpuscular Volume 91.2 fL (80-100); Mean Platelet Volume 9.8 fL (7.4-10.4); Platelet Count 128 K/uL (130-400); RDW Coefficient of Variation 18.7 % (11.5-14.5); RDW Standard Deviation 61.5 fL (36.4-46.3); Red Blood Count 3.07 M/uL (4.2-5.4); White Blood Count 10.98 K/uL (4.8-10.8)
[2021-02-27 08:03] LABS: BUN Creatinine Ratio 31.1 (10-20); Calcium 8.6 mg/dl (8.5-10.1); Creatinine Clr Calc Pharmacy 9.8 ml/min; Est GFR (Non-African American) 11.2 ml/min; Magnesium 2.5 mg/dl (1.8-2.4); Potassium 3.9 mmol/L (3.5-5.1)
[2021-02-27 08:04] LABS: Phosphorus 5.1 mg/dl (2.5-4.9)
[2021-02-27] MEDS: CHOLECALCIFEROL 1,000 UNITS 25 MCG TAB PO SCH (08:52)
[2021-02-27] MEDS: ATORVASTATIN 10 MG TAB PO SCH (08:52)
[2021-02-27] MEDS: allopurinoL 100 MG TAB PO SCH (08:52)
[2021-02-27] MEDS: CLOPIDOGREL BISULFATE 75 MG TAB PO SCH (08:53)
[2021-02-27] MEDS: PANTOprazole 40 MG TAB PO SCH ×2 (08:53→20:11)
[2021-02-27] MEDS: CEROVITE ADV FORMULA TAB PO SCH (08:54)
[2021-02-27] MEDS: FERROUS SULFATE 325 MG TAB PO SCH ×2 (08:57→20:11)
[2021-02-27] MEDS: FUROSEMIDE 40 MG/4 ML VIAL IV SCH ×2 (08:58→20:10)
[2021-02-27] MEDS: DOCUSATE SODIUM 100 MG CAP PO SCH ×2 (09:08→20:12)
[2021-02-27] MEDS: ADVANCED PROBIOTIC 1250 MG CAPSULE PO SCH (09:08)
[2021-02-27] MEDS: CYANOCOBALAMIN 500 MCG TABLET (VITAMIN B-12) PO SCH (09:08)
[2021-02-27] MEDS: METOPROLOL SUCC 50MG EXT REL TAB PO SCH (09:10)
[2021-02-27] MEDS: POLYETHYLENE (MIRALAX) 17 GM PACK PO SCH ×2 (09:10→20:09)
--- NOTE | 2021-02-27 09:37 | Nephrology Progress Note ---
Date of Service February 27, 2021 Assessment & Plan Admission and Anticipated Discharge Date Admission Date: February 16, 2021 Subjective Assessment & Plan (1) Acute worsening of stage 3 chronic kidney disease: Plan: nonoliguric MARIELA from [facility], given the urine sediment picture and the clinical situation. baseline creatinine 1.2-1.4. she had another episode of MARIELA during recent [place] admission, which resolved by hospital d/c to [facility], which is where she was rehabbing before this admission. No chronic 02 needs prior to [place] admission. Now needing it - Not much urine with lasix 30 tid--less than 1000 ml yesterday. Change to 60 bid. -monitor/treat anemia; did have as low as 6.9 hgb this admission. -Continue Kwok catheter and continue strict input/output charting. - Avoid nonsteroidal anti-inflammatory drugs, angiotensin converting enzyme inhibitor, angiotensin receptor anna, contrast agents for the time being. Renally dose all antibiotics. She will not be a candidate for Chronic or acute Dialysis if such need arise. Palliative consult helpful Admission and Anticipated Discharge Date Admission Date: February 16, 2021 Subjective Slightly better today. had foot surgery yesterday.on o2 but no overt SOB. Lot of edema Review of Systems Review of Systems: All systems reviewed & are unremarkable except as noted in Subjective Physical Exam Constitutional: well developed, + frail appearing and cooperative; no acute distress Eyes: EOM intact bilaterally ENMT: Ears: no external ear abnormality Nose: no external nose abnormality Mouth: + dry oral mucous membranes Neck: no nuchal rigidity Respiratory: normal respiratory effort (on 2L 02NC) and able to speak in complete sentences (but speech limited) Auscultation: + diminished lung sounds Cardiovascular: Rate/Rhythm: regular rate and regular rhythm Heart Sounds: normal S1 and normal S2 Extremities: + edema (trace BL hips) Gastrointestinal (Abdomen): Inspection/Auscultation: normal bowel sounds Percussion/Palpation: abdomen soft; abdomen nontender Musculoskeletal: Extremities: + abnormal strength and + amputation noted (LLE AKA) Skin: no rashes, warm and dry Neurologic: Motor/Sensory: + tremor (and abnormal motor strength BLUE) Genitourinary: Kwok with ample yellow urine Results & Data ([facility]) Vital Signs (Past 12 Hours) Vital Signs Temp Pulse Pulse Resp BP Pulse Ox 02/27/21 09:22 56 L 02/27/21 04:20 57 L 16 138/61 99 02/27/21 03:55 36.3 C L 61 18 134/76 99 02/27/21 00:00 60 02/26/21 23:17 36.3 C L 64 18 109/65 96
--- NOTE | 2021-02-27 10:11 | Cardiology Progress Note ---
Date of Service February 27, 2021 Assessment & Plan (1) Acute and chronic respiratory failure with hypoxia: (2) Chronic heart failure with preserved ejection fraction (HFpEF): (3) Mitral valve stenosis: (4) Acute on chronic anemia: (5) Acute worsening of stage 3 chronic kidney disease: Plan: Unfortunately patient has been nonoliguric MARIELA, with ongoing pleural effusions, requiring IV diuresis and worsening of her creatinine. Nephrology following closely. Furosemide had been reduced to 30 TID over the weekend with limited urine output. Furosemide increased to 60 mg BID this morning. Not a candidate for dialysis. She required debridement of her right lower extremity wound yesterday. Remains wrapped. From a cardiac standpoint, given her pleural effusions, requires ongoing diuresis. Monitor renal function closely. Continue other cardiovascular meds including ASA, plavix, statin, amlodipine, metoprolol. TATIANA/ARB on hold. Would consider palliative care consult as well depending on how she responds to treatment over the next few days. Case discussed with Dr. Yun Admission and Anticipated Discharge Date Admission Date: February 16, 2021 Supervising Physician Co-Signing Physician Notes Supervising Physician Attestation: I have personally performed a history and physical examination on the patient. I agree with the physician food and beverage assistant manager's findings and plan as documented with the following additions. Subjective: No complaints Exam: Regular rhythm Data: Hemoglobin 8.6 Creatinine 3.51 Assessment and Plan: As noted above. Curt Yun, DO Subjective Patient evaluated today due to extended hospital stay with complex issues including CHF, hypoxia, lower extremity wound/ulceration due to PVD, anemia, and nonoliguric MARIELA from [facility]. Nephrology has been following closely. Unfortunately creatinine continues to rise with limited urine production. Furosemide increased this morning to 60 mg BID. Patient also had right LE debridement yesterday in the OR. Tolerated procedure. Extremity wrapped. At time of evaluation this morning, patient resting in bed comfortably. Reports "feeling good". Denies CP or SOB. Remains on supplemental O2. No distress. Voices no complaints Review of Systems Review of Systems: All systems reviewed & are unremarkable except as noted in HPI & below Physical Exam Constitutional: WD/WN, vitals as above + ill appearing; no acute distress Respiratory: normal respiratory effort; no labored breathing Auscultation: + diminished lung sounds Cardiovascular: Rate/Rhythm: regular rate and regular rhythm Heart Sounds: + murmur (II/ at apex) Vessels: no JVD Extremities: + edema (left upper extremity edema, left AKA, right LE wrapped) Gastrointestinal (Abdomen): normal bowel sounds, soft, nontender, no hepatosplenomegaly Skin: no rashes, warm and dry Neurologic: PERRL, EOMI, accommodation nl, no face palsy, no dysarthria Psychiatric: A+Ox3, euthymic affect Results & Data ([facility]) Vital Signs (Past 12 Hours) Vital Signs Temp Pulse Pulse Resp BP Pulse Ox 02/27/21 09:22 56 L 02/27/21 04:20 57 L 16 138/61 99 02/27/21 03:55 36.3 C L 61 18 134/76 99 02/27/21 00:00 60 02/26/21 23:17 36.3 C L 64 18 109/65 96 Laboratory Results 02/27/21 02/27/21 02/26/21 Range/Units 07:05 07:05 16:11 WBC 10.98 H (4.8-10.8) K/uL RBC 3.07 L (4.2-5.4) M/uL Hgb 8.6 L (12.0-16.0) g/dL Hct 28.0 L (37-47) % MCV 91.2 (80-100) fL MCH 28.0 (25-34) pg MCHC 30.7 L (32-36) g/dL RDW Std Deviation 61.5 H (36.4-46.3) fL RDW Coeff of Hugo 18.7 H (11.5-14.5) % Plt Count 128 L (130-400) K/uL MPV 9.8 (7.4-10.4) fL Sodium 144 (136-145) mmol/L Potassium 3.9 (3.5-5.1) mmol/L Chloride 110 H (98-107) mmol/L Carbon Dioxide 25 (21-32) mmol/L Anion Gap 9.0 (3-11) BUN 109 H (7-18) mg/dl Creatinine 3.51 H (0.6-1.2) mg/dl Est Cr Clr Drug Dosing 9.8 ml/min Est GFR ( Amer) 13.0 ml/min Est GFR (Non-Af Amer) 11.2 ml/min BUN/Creatinine Ratio 31.1 H (10-20) Glucose 101 H (70-99) mg/dl POC Glucose 147 H (70-99) mg/dl Calcium 8.6 (8.5-10.1) mg/dl Phosphorus 5.1 H (2.5-4.9) mg/dl Magnesium 2.5 H (1.8-2.4) mg/dl Diagnostic Findings Telemetry reviewed - Sinus bradycardia in the 50-60's; Overnight she had several ventricular couplets with one 7 beat run of possible VT during sleep. Medications Administered Current Inpatient Medications Acetaminophen (Acetaminophen 325 Mg Tab) 650 mg PO Q4H PRN PRN Reason: Pain or Fever Stop: 03/18/21 16:53 Last Admin: 02/25/21 15:55 Dose: 650 mg Documented by: Albuterol (Albut/Ipratrop 3mg/0.5mg Neb 3 Ml Vial) 3 ml NEB QIDR PRN PRN Reason: sob/wheezing Stop: 03/18/21 16:53 Allopurinol (Allopurinol 100 Mg Tab) 100 mg PO [facility] Stop: 03/19/21 08:59 Last Admin: 02/27/21 08:52 Dose: 100 mg Documented by: Amlodipine Besylate (Amlodipine Besylate 5 Mg Tab) 10 mg PO [facility] Stop: 03/19/21 08:59 Last Admin: 02/17/21 08:37 Dose: 10 mg Documented by: Atorvastatin Calcium (Atorvastatin 10 Mg Tab) 10 mg PO [facility] Stop: 03/19/21 08:59 Last Admin: 02/27/21 08:52 Dose: 10 mg Documented by: Clopidogrel Bisulfate (Clopidogrel Bisulfate 75 Mg Tab) 75 mg PO [facility] Stop: 03/19/21 08:59 Last Admin: 02/27/21 08:53 Dose: 75 mg Documented by: Lactulose 200 gm/ Sterile Water 700 ml/ BARCODE IDENTIFIER 1 ea 0 gm [place] Q8H [facility] Stop: 03/28/21 11:59 Last Admin: 02/27/21 03:52 Dose: Not Given Documented by: Cyanocobalamin (Cyanocobalamin 500 Mcg Tablet (Vitamin B-12)) 1,000 mcg PO [facility] Stop: 03/19/21 08:59 Last Admin: 02/27/21 09:08 Dose: 1,000 mcg Documented by: Docusate Sodium (Docusate Sodium 100 Mg Cap) 100 mg PO BID [facility] Stop: 03/27/21 10:14 Last Admin: 02/27/21 09:08 Dose: 100 mg Documented by: Ferrous Sulfate (Ferrous Sulfate 325 Mg Tab) 325 mg PO BID [facility] Stop: 03/18/21 20:59 Last Admin: 02/27/21 08:57 Dose: 325 mg Documented by: Furosemide (Furosemide 40 Mg/4 Ml Vial) 60 mg IV Q12 [facility] Stop: 03/29/21 20:59 Gabapentin (Gabapentin 100 Mg Cap) 100 mg PO Q8H [facility] Stop: 03/18/21 21:59 Last Admin: 02/27/21 06:23 Dose: 100 mg Documented by: Cefepime HCl 1,000 mg/ Syringe 11.3 mls @ 5.5 mls/min IV Q24H [facility]; Protocol Stop: 03/01/21 10:59 Last Admin: 02/26/21 11:18 Dose: 5.5 mls/min Documented by: Lactobacillus Acidoph/Casei/Rhamnos (Advanced Probiotic 1250 Mg Capsule) 2 cap PO DAILY [facility] Stop: 03/24/21 08:59 Last Admin: 02/27/21 09:08 Dose: 2 cap Documented by: Metoprolol Succinate (Metoprolol Succ 50mg Ext Rel Tab) 100 mg PO QAM [facility] Stop: 03/19/21 08:59 Last Admin: 02/27/21 09:10 Dose: 100 mg Documented by: Miscellaneous (Unit Dose Compound) 1 ea [place] Q8H [facility] Stop: 03/28/21 11:59 Last Admin: 02/27/21 03:52 Dose: Not Given Documented by: Miscellaneous Information (Cefepime Consult Active) 0 ea N/A UD PRN PRN Reason: Consult Stop: 03/18/21 16:53 Miscellaneous Information (Vancomycin Consult Active) 1 ea N/A UD PRN PRN Reason: Consult Stop: 03/18/21 21:18 Multivitamins/Minerals (Cerovite Adv Formula Tab) 1 tab PO DAILY [facility] Stop: 03/19/21 08:59 Last Admin: 02/27/21 08:54 Dose: 1 tab Documented by: Ondansetron HCl (Ondansetron Inj 2 Mg/Ml 2 Ml Vial) 4 mg IV Q6H PRN PRN Reason: Nausea Stop: 03/18/21 16:53 Last Admin: 02/21/21 12:09 Dose: 4 mg Documented by: Pantoprazole Sodium (Pantoprazole 40 Mg Tab) 40 mg PO BID [facility]; Protocol Stop: 03/27/21 20:59 Last Admin: 02/27/21 08:53 Dose: 40 mg Documented by: Polyethylene Glycol (Polyethylene (Miralax) 17 Gm Pack) 17 gm PO BID [facility] Stop: 03/28/21 11:59 Last Admin: 02/27/21 09:10 Dose: Not Given Documented by: Tramadol HCl (Tramadol Hcl 50 Mg Tablet) 50 mg PO Q4H PRN PRN Reason: severe pain (rating 7-10) Stop: 03/18/21 16:53 Last Admin: 02/26/21 15:59 Dose: 50 mg Documented by: Tramadol HCl (Tramadol Hcl 50 Mg Tablet) 50 mg PO Q4H PRN PRN Reason: Pain Stop: 03/21/21 13:36 Vitamin D (Cholecalciferol 1,000 Units 25 Mcg Tab) 2,000 units PO QAM [facility] Stop: 03/19/21 08:59 Last Admin: 02/27/21 08:52 Dose: 2,000 units Documented by:
[2021-02-27] MEDS: CEFEPIME 1,000 MG in SYRINGE 0 ML IV SCH (10:53)
--- NOTE | 2021-02-27 11:09 | Surgery Progress Note ---
Date of Service February 27, 2021 Assessment & Plan (1) Acute worsening of stage 3 chronic kidney disease: (2) Wound of right lower extremity: Plan: Patient had OR debridement yesterday of extensive right lower extremity wounds. She is not currently a good skin graft candidate with worsening kidney disease and malnutrition, will continue to follow patient. Admission and Anticipated Discharge Date Admission Date: February 16, 2021 Supervising Physician Co-Signing Physician Notes I personally saw and examined this patient and agree with the assessment and plan. Worsening kidney function as well as recommendations for palliative care consultation noted. Local wound care for now, will follow along and be available for grafting if wounds show signs of granulation and patient conditions are amenable to surgery. Cooper Lai was seen bedside today with Dr. Nolen. She is POD #1 of extensive debridement of her right lower extremity by Dr. Mazariegos. She reports no pain. She is noted to be in worsening acute on chronic Stage 3 kidney disease. Physical Exam Physical Exam: right lower extremity with dressings intact. no saturation of dressings, Results & Data ([facility]) Vital Signs (Past 12 Hours) Vital Signs Temp Pulse Pulse Resp BP Pulse Ox 02/27/21 09:22 56 L 02/27/21 08:00 61 18 170/65 H 100 02/27/21 04:20 57 L 16 138/61 99 02/27/21 03:55 36.3 C L 61 18 134/76 99 02/27/21 00:00 60 02/26/21 23:17 36.3 C L 64 18 109/65 96 PG Care Time/CCT Total # of Minutes Spent Total Time Spent with Patient: Total time spent is greater than 50% in coordination of care (as documented) at patient's floor/unit and/or counseling patient: Coding Level of Care Code 71677 Subseq Hosp Care Lvl 1 Diagnoses Acute worsening of stage 3 chronic kidney disease N18.30 Wound of right lower extremity S81.801A
--- NOTE | 2021-02-27 17:26 | Hospitalist Progress Note ---
Date of Service February 27, 2021 Assessment & Plan (1) Acute on chronic heart failure with preserved ejection fraction: Plan: History of chronic diastolic heart failure and mitral stenosis with HTN and gout. Per last cardiology outpatient note she was supposed to be taking Lasix 40mg PO BID, however, intake med list reflects lasix 40mg only once daily. Appreciate cardiology input. Continue monitor I/Os along with daily weights. Kwok catheter is in place. Overall patient reports feeling better. Currently remains on 2 L of nasal cannula. On IV lasix per nephrology, was on Lasix 30 IV TID - now increase to 60 IV BID, as urine output is poor and pt still quite edematous (2) Hypoxia: Plan: Most likely secondary to heart failure. Possible bacterial component as well. and atelectasis Continued cefepime/Zithromax. Finished Zithromax (02/24) (3) Wound of right lower extremity: Plan: Large ischemic ulcer with eschar of her right lower extremity. Also with ulcerations of her right medial malleolus and her right medial thigh. 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 Cont medical management of PAD. Started tramadol PRN, cont Tylenol PRN. Appreciate vascular surgery input. Patient would be a high risk candidate for any endovascular treatment as it would result in dialysis dependency as per vascular surgery. Recommending considering debridement of the right lower extremity wounds. Orthopedics was consulted. MRI of the right lower extremity was obtained without any osteomyelitis. Ortho recommended daily dressing changes with Betadine. Now s/p debridement yesterday (02/26) w/ Dr. Mazariegos. Plastic surgery (Dr. Nolen) also consulted as pt may need skin graft. Prealbumin ordered - 16. Concerned that due to poor nutrition, patient's wound may not heal properly. Encouraged PO intake and improved nutrition. ID consulted -recommend to continue cefepime for now, stop vancomycin, hope is to discharge on p.o. Augmentin or cipro + clindamycin, renally dosed (4) Acute on chronic anemia: Plan: Appears to have multifactorial symptomatic anemia with iron deficiency present despite taking iron supplements. Per cardiology her goal Hb would be 9-10. Reports feeling better since blood transfusion. Notably patient reports never having had a colonoscopy in the past. She is willing to undergo this outpatient which will be recommended with ongoing iron deficiency despite supplementation. Current hemoglobin ~9 (5) Acute worsening of stage 3 chronic kidney disease: Plan: 2/2 ATN given the current clinical picture. Nephrology also expressed concerns independently that her anemia may be adversely affecting her respiratory status. Creatinine has been slowly trending upward. and now seems stable around slightly above 3 Was on lasix 30 IV TID -> 60 IV BID as urine output is poor and pt still quite edematous Nephrology closely following, don't feel she is a candidate for HD (6) PAD (peripheral artery disease): Plan: Has a long-standing h/o PAD and has followed with [facility] Vascular surgery in the past. Has a h/o right SFA stenting and left AKA in 2010 due to progressive peripheral arterial disease. Continue Plavix 75 mg daily. (7) HTN (hypertension): Plan: BP controlled continue amlodipine and metoprolol with parameters hold losartan 2/2 to mariela (8) DVT prophylaxis: Plan: None 2/2 to vascular wounds and concern for bleeding Dispo: PCU PCP: Dr. Parry DNR/DNI (9) PVD (peripheral vascular disease): Admission and Anticipated Discharge Date Admission Date: February 16, 2021 Subjective Patient seen in follow-up of CHF exacerbation, MARIELA, PAD, with RLE wound Pt is sitting up in bed, in NAD, using suppl. O2 via NC, appears comfortable and more awake She is able to answer questions appropriately Denies fever, chills, chest pain, shortness of breath Had severe constipation, now resolved with lactulose enema, patient reports feeling much better now Underwent debridement (RLE wound) with orthopedics yesterday Review of Systems Review of Systems: All systems reviewed & are unremarkable except as noted in Subjective Physical Exam Physical Exam: General: elderly obese F, chronically ill appearing, in NAD, on 2L NC HEENT: NCAT, MMM, EOMI, PERRL Neck: Supple, normal range of motion CVS: normal rate and rhythm Resp: b/l decreased breath sounds, no wheezing, rhonchi Abdomen: Soft, ND/NT, + bowel sounds Extremities: RLE in dressings (photos by wound care reviewed - large eschar/ necrosis -now right lower extremity is in surgical dressings, postop), LLE BKA Neuro: awake and alert, face symmetric, speech fluent, moves extremities Skin: warm and dry (RLE as above) Results & Data Results & Data ([facility]) Vital Signs (Past 12 Hours) Vital Signs Temp Pulse Pulse Resp BP Pulse Ox 02/27/21 16:00 36.5 C 60 20 141/81 H 97 02/27/21 15:44 53 L 02/27/21 12:08 37.0 C 69 18 161/74 H 95 02/27/21 09:22 56 L 02/27/21 08:00 61 18 170/65 H 100 Laboratory Results 02/27/21 02/27/21 Range/Units 07:05 07:05 WBC 10.98 H (4.8-10.8) K/uL RBC 3.07 L (4.2-5.4) M/uL Hgb 8.6 L (12.0-16.0) g/dL Hct 28.0 L (37-47) % MCV 91.2 (80-100) fL MCH 28.0 (25-34) pg MCHC 30.7 L (32-36) g/dL RDW Std Deviation 61.5 H (36.4-46.3) fL RDW Coeff of Hugo 18.7 H (11.5-14.5) % Plt Count 128 L (130-400) K/uL MPV 9.8 (7.4-10.4) fL Sodium 144 (136-145) mmol/L Potassium 3.9 (3.5-5.1) mmol/L Chloride 110 H (98-107) mmol/L Carbon Dioxide 25 (21-32) mmol/L Anion Gap 9.0 (3-11) BUN 109 H (7-18) mg/dl Creatinine 3.51 H (0.6-1.2) mg/dl Est Cr Clr Drug Dosing 9.8 ml/min Est GFR ( Amer) 13.0 ml/min Est GFR (Non-Af Amer) 11.2 ml/min BUN/Creatinine Ratio 31.1 H (10-20) Glucose 101 H (70-99) mg/dl Calcium 8.6 (8.5-10.1) mg/dl Phosphorus 5.1 H (2.5-4.9) mg/dl Magnesium 2.5 H (1.8-2.4) mg/dl Medications Administered Current Inpatient Medications Acetaminophen (Acetaminophen 325 Mg Tab) 650 mg PO Q4H PRN PRN Reason: Pain or Fever Stop: 03/18/21 16:53 Last Admin: 02/25/21 15:55 Dose: 650 mg Documented by: Albuterol (Albut/Ipratrop 3mg/0.5mg Neb 3 Ml Vial) 3 ml NEB QIDR PRN PRN Reason: sob/wheezing Stop: 03/18/21 16:53 Allopurinol ([facility]ol 100 Mg Tab) [facility] Stop: 03/19/21 08:59 Last Admin: 02/27/21 08:52 Dose: 100 mg Documented by: Amlodipine Besylate (Amlodipine Besylate 5 Mg Tab) [facility] [place] Stop: 03/19/21 08:59 Last Admin: 02/17/21 08:37 Dose: 10 mg Documented by: Atorvastatin Calcium (Atorvastatin 10 Mg Tab) [facility] [place] Stop: 03/19/21 08:59 Last Admin: 02/27/21 08:52 Dose: 10 mg Documented by: Clopidogrel Bisulfate (Clopidogrel Bisulfate 75 Mg Tab) 75 mg PO QAM [facility] Stop: 03/19/21 08:59 Last Admin: 02/27/21 08:53 Dose: 75 mg Documented by: Cyanocobalamin (Cyanocobalamin 500 Mcg Tablet (Vitamin B-12)) 1,000 mcg PO QAM [facility] Stop: 03/19/21 08:59 Last Admin: 02/27/21 09:08 Dose: 1,000 mcg Documented by: Docusate Sodium (Docusate Sodium 100 Mg Cap) 100 mg PO BID [facility] Stop: 03/27/21 10:14 Last Admin: 02/27/21 09:08 Dose: 100 mg Documented by: Ferrous Sulfate (Ferrous Sulfate 325 Mg Tab) 325 mg PO BID [facility] Stop: 03/18/21 20:59 Last Admin: 02/27/21 08:57 Dose: 325 mg Documented by: Furosemide (Furosemide 40 Mg/4 Ml Vial) 60 mg IV Q12 [facility] Stop: 03/29/21 20:59 Gabapentin (Gabapentin 100 Mg Cap) 100 mg PO Q8H [facility] Stop: 03/18/21 21:59 Last Admin: 02/27/21 14:53 Dose: 100 mg Documented by: Cefepime HCl 1,000 mg/ Syringe 11.3 mls @ 5.5 mls/min IV Q24H [facility]; Protocol Stop: 03/01/21 10:59 Last Admin: 02/27/21 10:53 Dose: 5.5 mls/min Documented by: Lactobacillus Acidoph/Casei/Rhamnos (Advanced Probiotic 1250 Mg Capsule) 2 cap PO DAILY [facility] Stop: 03/24/21 08:59 Last Admin: 02/27/21 09:08 Dose: 2 cap Documented by: Metoprolol Succinate (Metoprolol Succ 50mg Ext Rel Tab) 100 mg PO QAM [facility] Stop: 03/19/21 08:59 Last Admin: 02/27/21 09:10 Dose: 100 mg Documented by: Miscellaneous Information (Cefepime Consult Active) 0 ea N/A UD PRN PRN Reason: Consult Stop: 03/18/21 16:53 Miscellaneous Information (Vancomycin Consult Active) 1 ea N/A UD PRN PRN Reason: Consult Stop: 03/18/21 21:18 Multivitamins/Minerals (Cerovite Adv Formula Tab) 1 tab PO DAILY [facility] Stop: 03/19/21 08:59 Last Admin: 02/27/21 08:54 Dose: 1 tab Documented by: Ondansetron HCl (Ondansetron Inj 2 Mg/Ml 2 Ml Vial) 4 mg IV Q6H PRN PRN Reason: Nausea Stop: 03/18/21 16:53 Last Admin: 02/21/21 12:09 Dose: 4 mg Documented by: Pantoprazole Sodium (Pantoprazole 40 Mg Tab) 40 mg PO BID [facility]; Protocol Stop: 03/27/21 20:59 Last Admin: 02/27/21 08:53 Dose: 40 mg Documented by: Polyethylene Glycol (Polyethylene (Miralax) 17 Gm Pack) 17 gm PO BID [facility] Stop: 03/28/21 11:59 Last Admin: 02/27/21 09:10 Dose: Not Given Documented by: Tramadol HCl (Tramadol Hcl 50 Mg Tablet) 50 mg PO Q4H PRN PRN Reason: severe pain (rating 7-10) Stop: 03/18/21 16:53 Last Admin: 02/26/21 15:59 Dose: 50 mg Documented by: Tramadol HCl (Tramadol Hcl 50 Mg Tablet) 50 mg PO Q4H PRN PRN Reason: Pain Stop: 03/21/21 13:36 Vitamin D (Cholecalciferol 1,000 Units 25 Mcg Tab) 2,000 units PO QAM [facility] Stop: 03/19/21 08:59 Last Admin: 02/27/21 08:52 Dose: 2,000 units Documented by:
--- NOTE | 2021-02-27 19:22 | Orthopedic Progress Note ---
Date of Service February 27, 2021 Assessment & Plan (1) Wound of right lower extremity: Plan: POD #1 s/p 1. Right lower extremity extensive debridement including skin, subcutaneous tissue, fascia, right lower leg circumferential necrosis 22 x 25.5 x 1.4 cm. 2. Extensive debridement including skin, subcutaneous tissue, fascia medial ankle 2.5 x 3.0 x 0.1 cm. 3. Extensive debridement including skin, subcutaneous tissue, fascia anteromedial ankle 1.5 x 1.0 x 0.1 cm. 4. Extensive debridement including skin, subcutaneous tissue, fascia anterolateral ankle 1.0 x 1.0 x 0.1 cm. 5. Extensive debridement including skin, subcutaneous tissue, fascia and ant erolateral ankle, 1.6 x 1.6 x 0.1 cm right lower extremity. Dressing changed today. Discussed wound VAC with Dr. Mazariegos but there is concern of some fluid loss with the large wound. NWB RLE. Will monitor the wound throughout admission. Awaiting cultures. D/C planning--uncertain at this time. Admission and Anticipated Discharge Date Admission Date: February 16, 2021 Subjective States the right leg is generally feeling better. Painful during dressing change. No new complaints today. Physical Exam Constitutional: WD/WN, vitals as above no acute distress Musculoskeletal: Right lower leg: large wound/ulceration consisting of most of the lower leg. The eschar has been debrided. Mild bleeding throughout the wound. Tender with dressing change. Results & Data ([facility]) Vital Signs (Past 12 Hours) Vital Signs Temp Pulse Pulse Resp BP Pulse Ox 02/27/21 16:00 36.5 C 60 20 141/81 H 97 02/27/21 15:44 53 L 02/27/21 12:08 37.0 C 69 18 161/74 H 95 02/27/21 09:22 56 L 02/27/21 08:00 61 18 170/65 H 100
[2021-02-28] MEDS: traMADol HCL 50 MG TABLET PO PRN ×2 (01:57→06:26)
[2021-02-28] MEDS: GABAPENTIN 100 MG CAP PO SCH ×3 (06:26→21:55)
[2021-02-28 07:27] LABS: Hematocrit (blood only) 25.1 % (37-47); Hemoglobin 7.8 g/dL (12.0-16.0); Mean Corpuscular Hemoglobin 27.8 pg (25-34); Mean Corpuscular Hgb Conc 31.1 g/dL (32-36); Mean Corpuscular Volume 89.3 fL (80-100); Mean Platelet Volume 9.4 fL (7.4-10.4); Platelet Count 118 K/uL (130-400); RDW Coefficient of Variation 18.7 % (11.5-14.5); RDW Standard Deviation 61.2 fL (36.4-46.3); Red Blood Count 2.81 M/uL (4.2-5.4); White Blood Count 9.26 K/uL (4.8-10.8)
[2021-02-28 08:18] LABS: Calcium 8.6 mg/dl (8.5-10.1); Est GFR (African American) 13.2 ml/min; Est GFR (Non-African American) 11.4 ml/min; Phosphorus 4.6 mg/dl (2.5-4.9); Potassium 3.7 mmol/L (3.5-5.1)
[2021-02-28] MEDS: allopurinoL 100 MG TAB PO SCH (08:36)
[2021-02-28] MEDS: ATORVASTATIN 10 MG TAB PO SCH (08:37)
[2021-02-28] MEDS: CLOPIDOGREL BISULFATE 75 MG TAB PO SCH (08:37)
[2021-02-28] MEDS: CHOLECALCIFEROL 1,000 UNITS 25 MCG TAB PO SCH (08:37)
[2021-02-28] MEDS: ADVANCED PROBIOTIC 1250 MG CAPSULE PO SCH (08:38)
[2021-02-28] MEDS: CYANOCOBALAMIN 500 MCG TABLET (VITAMIN B-12) PO SCH (08:38)
[2021-02-28] MEDS: FERROUS SULFATE 325 MG TAB PO SCH ×2 (08:38→21:57)
[2021-02-28] MEDS: CEROVITE ADV FORMULA TAB PO SCH (08:39)
[2021-02-28] MEDS: PANTOprazole 40 MG TAB PO SCH ×2 (08:39→21:57)
[2021-02-28] MEDS: FUROSEMIDE 40 MG/4 ML VIAL IV SCH ×2 (08:46→21:56)
[2021-02-28] MEDS: METOPROLOL SUCC 50MG EXT REL TAB PO SCH (08:49)
[2021-02-28] MEDS: DOCUSATE SODIUM 100 MG CAP PO SCH ×2 (09:06→21:59)
[2021-02-28] MEDS: POLYETHYLENE (MIRALAX) 17 GM PACK PO SCH ×2 (09:06→21:59)
[2021-02-28] MEDS: CEFEPIME 1,000 MG in SYRINGE 0 ML IV SCH (11:14)
--- NOTE | 2021-02-28 11:28 | Nephrology Progress Note ---
Date of Service February 28, 2021 Assessment & Plan Admission and Anticipated Discharge Date Admission Date: February 16, 2021 Subjective Assessment & Plan Admission and Anticipated Discharge Date Admission Date: February 16, 2021 Subjective Assessment & Plan (1) Acute worsening of stage 3 chronic kidney disease: Plan: nonoliguric MARIELA from ATN, given the urine sediment picture and the clinical situation. baseline creatinine 1.2-1.4. she had another episode of MARIELA during recent [facility] admission, which resolved by hospital d/c to [facility], which is where she was rehabbing before this admission. No chronic 02 needs prior to [facility] admission. Now needing it -Not much urine even with lasix 60 bid but slightly more. raise to 80 bid --renal labs about same as yesterday--at least did not get worse. --Continue Kwok catheter and continue strict input/output charting. - Avoid nonsteroidal anti-inflammatory drugs, angiotensin converting enzyme inhibitor, angiotensin receptor anna, contrast agents for the time being. Renally dose all antibiotics. She will not be a candidate for Chronic or acute Dialysis if such need arise. Palliative consult will be helpful Subjective Slightly better today. had foot surgery yesterday.on o2 but no overt SOB. Lot of edema Review of Systems Review of Systems: All systems reviewed & are unremarkable except as noted in Subjective Physical Exam Constitutional: well developed, + frail appearing and cooperative; no acute distress Eyes: EOM intact bilaterally ENMT: Ears: no external ear abnormality Nose: no external nose abnormality Mouth: + dry oral mucous membranes Neck: no nuchal rigidity Respiratory: normal respiratory effort (on 2L 02NC) and able to speak in complete sentences (but speech limited) Auscultation: + diminished lung sounds Cardiovascular: Rate/Rhythm: regular rate and regular rhythm Heart Sounds: normal S1 and normal S2 Extremities: + edema (trace BL hips) Gastrointestinal (Abdomen): Inspection/Auscultation: normal bowel sounds Percussion/Palpation: abdomen soft; abdomen nontender Musculoskeletal: Extremities: + abnormal strength and + amputation noted (LLE AKA) Skin: no rashes, warm and dry Neurologic: Motor/Sensory: + tremor (and abnormal motor strength BLUE) Genitourinary: Kwok with ample yellow urine Results & Data ([facility]) Vital Signs (Past 12 Hours) Vital Signs Temp Pulse Pulse Pulse Resp BP Pulse Ox 02/28/21 09:10 59 L 02/28/21 07:46 36.4 C L 63 19 144/77 H 95 02/28/21 04:00 36.5 C 60 16 149/71 H 96 02/28/21 00:00 36.4 C L 60 63 16 151/68 H 95
--- NOTE | 2021-02-28 16:22 | Orthopedic Progress Note ---
Date of Service February 28, 2021 Assessment & Plan (1) Wound of right lower extremity: Plan: POD #2 s/p 1. Right lower extremity extensive debridement including skin, subcutaneous tissue, fascia, right lower leg circumferential necrosis 22 x 25.5 x 1.4 cm. 2. Extensive debridement including skin, subcutaneous tissue, fascia medial ankle 2.5 x 3.0 x 0.1 cm. 3. Extensive debridement including skin, subcutaneous tissue, fascia anteromedial ankle 1.5 x 1.0 x 0.1 cm. 4. Extensive debridement including skin, subcutaneous tissue, fascia anterolateral ankle 1.0 x 1.0 x 0.1 cm. 5. Extensive debridement including skin, subcutaneous tissue, fascia and ant erolateral ankle, 1.6 x 1.6 x 0.1 cm right lower extremity. Dressing kept in place today. Discussed wound VAC with the patient and the concern of more loss of fluid. NWB RLE. Will monitor the wound throughout admission. May need to consider other surgical options. Awaiting cultures. D/C planning--uncertain at this time. Admission and Anticipated Discharge Date Admission Date: February 16, 2021 Subjective States the lower leg is more comfortable today in the dressing. No new RLE complaints. Physical Exam Constitutional: WD/WN, vitals as above no acute distress Musculoskeletal: Right lower leg: Dressing C/D/I. No drainage through the dressing. Psychiatric: Orientation: alert and oriented x 3 Speech: normal rate/rhythm/volume of speech Results & Data ([facility]) Vital Signs (Past 12 Hours) Vital Signs Temp Pulse Pulse Pulse Resp BP Pulse Ox 02/28/21 14:58 72 02/28/21 14:46 36.7 C 72 16 115/64 96 02/28/21 11:48 36.5 C 67 16 133/68 97 02/28/21 09:10 59 L 02/28/21 07:46 36.4 C L 63 19 144/77 H 95
[2021-02-28] MEDS ORDERED: SODIUM CHLORIDE 0.9% 250 ML IV PRN (20:15)
--- NOTE | 2021-02-28 20:15 | Hospitalist Progress Note ---
Date of Service February 28, 2021 Assessment & Plan (1) Acute on chronic heart failure with preserved ejection fraction: Plan: History of chronic diastolic heart failure and mitral stenosis with HTN and gout. Per last cardiology outpatient note she was supposed to be taking Lasix 40mg PO BID, however, intake med list reflects lasix 40mg only once daily. Appreciate cardiology input. Continue monitor I/Os along with daily weights. Kwok catheter is in place. Overall patient reports feeling better. Currently remains on 2 L of nasal cannula. On IV lasix per nephrology, increased to 60 IV BID yesterday -> now 80 IV BID, as urine output is poor and pt still quite edematous (2) Hypoxia: Plan: Most likely secondary to heart failure. Possible bacterial component as well. and atelectasis Continued cefepime/Zithromax. Finished Zithromax (02/24) (3) Wound of right lower extremity: Plan: Large ischemic ulcer with eschar of her right lower extremity. Also with ulcerations of her right medial malleolus and her right medial thigh. 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 Cont medical management of PAD. Started tramadol PRN, cont Tylenol PRN. Appreciate vascular surgery input. Patient would be a high risk candidate for any endovascular treatment as it would result in dialysis dependency as per vascular surgery. Recommending considering debridement of the right lower extremity wounds. Orthopedics was consulted. MRI of the right lower extremity was obtained without any osteomyelitis. Ortho recommended daily dressing changes with Betadine. Now s/p debridement yesterday (02/26) w/ Dr. Mazariegos. Plastic surgery (Dr. Nolen) also consulted as pt may need skin graft. Prealbumin ordered - 16. Concerned that due to poor nutrition, patient's wound may not heal properly. Encouraged PO intake and improved nutrition. ID consulted -recommend to continue cefepime for now, stop vancomycin, hope is to discharge on p.o. Augmentin or cipro + clindamycin, renally dosed (4) Acute on chronic anemia: Plan: Appears to have multifactorial symptomatic anemia with iron deficiency present despite taking iron supplements. Per cardiology her goal Hb would be 9-10. Reports feeling better since blood transfusion. Notably patient reports never having had a colonoscopy in the past. She is willing to undergo this outpatient which will be recommended with ongoing iron deficiency despite supplementation. 02/28 - Current hemoglobin <8, will transfuse 1 unit of pRBC (5) Acute worsening of stage 3 chronic kidney disease: Plan: 2/2 ATN given the current clinical picture. Nephrology also expressed concerns independently that her anemia may be adversely affecting her respiratory status. Creatinine has been slowly trending upward. and now seems stable around slightly above 3 Increased lasix to 60 IV BID yesterday -> now 80 IV BID as urine output is poor and pt still quite edematous Nephrology closely following, don't feel she is a candidate for HD (6) PAD (peripheral artery disease): Plan: Has a long-standing h/o PAD and has followed with [facility] Vascular surgery in the past. Has a h/o right SFA stenting and left AKA in 2010 due to progressive peripheral arterial disease. Continue Plavix 75 mg daily. (7) HTN (hypertension): Plan: BP controlled continue amlodipine and metoprolol with parameters hold losartan 2/2 to mariela (8) DVT prophylaxis: Plan: None 2/2 to vascular wounds and concern for bleeding Dispo: PCU PCP: Dr. Parry DNR/DNI (9) PVD (peripheral vascular disease): Admission and Anticipated Discharge Date Admission Date: February 16, 2021 Subjective Patient seen in follow-up of CHF exacerbation, MARIELA, PAD, with RLE wound Pt is sitting up in bed, in NAD, using suppl. O2 via NC, appears comfortable and more awake She is able to answer questions appropriately Denies fever, chills, chest pain, shortness of breath Underwent debridement (RLE wound) with orthopedics Hgb <8, will transfuse 1 unit of pRBC, will need to closely monitor fluid status Review of Systems Review of Systems: All systems reviewed & are unremarkable except as noted in Subjective Physical Exam Physical Exam: General: elderly obese F, chronically ill appearing, in NAD, on 2L NC HEENT: NCAT, MMM, EOMI, PERRL Neck: Supple, normal range of motion CVS: normal rate and rhythm Resp: b/l decreased breath sounds, no wheezing, rhonchi Abdomen: Soft, ND/NT, + bowel sounds Extremities: RLE in dressings (photos by wound care reviewed - large eschar/ necrosis -now right lower extremity is in surgical dressings, postop), LLE BKA Neuro: awake and alert, face symmetric, speech fluent, moves extremities Skin: warm and dry (RLE as above) Results & Data Results & Data ([facility]) Vital Signs (Past 12 Hours) Vital Signs Temp Pulse Pulse Pulse Resp BP Pulse Ox 02/28/21 19:28 37.4 C 74 18 134/66 02/28/21 14:58 72 02/28/21 14:46 36.7 C 72 16 115/64 96 02/28/21 11:48 36.5 C 67 16 133/68 97 02/28/21 09:10 59 L Laboratory Results 02/28/21 02/28/21 02/28/21 Range/Units 07:02 07:02 07:02 WBC 9.26 (4.8-10.8) K/uL RBC 2.81 L (4.2-5.4) M/uL Hgb 7.8 L (12.0-16.0) g/dL Hct 25.1 L (37-47) % MCV 89.3 (80-100) fL MCH 27.8 (25-34) pg MCHC 31.1 L (32-36) g/dL RDW Std Deviation 61.2 H (36.4-46.3) fL RDW Coeff of Hugo 18.7 H (11.5-14.5) % Plt Count 118 L (130-400) K/uL MPV 9.4 (7.4-10.4) fL Sodium 144 (136-145) mmol/L Potassium 3.7 (3.5-5.1) mmol/L Chloride 110 H (98-107) mmol/L Carbon Dioxide 24 (21-32) mmol/L Anion Gap 9.0 (3-11) BUN 111 H (7-18) mg/dl Creatinine 3.48 H (0.6-1.2) mg/dl Est Cr Clr Drug Dosing 10.0 ml/min Est GFR ( Amer) 13.2 ml/min Est GFR (Non-Af Amer) 11.4 ml/min BUN/Creatinine Ratio 32.0 H (10-20) Glucose 96 (70-99) mg/dl Calcium 8.6 (8.5-10.1) mg/dl Phosphorus 4.6 (2.5-4.9) mg/dl Random Vancomycin 21.3 mcg/ml Medications Administered Current Inpatient Medications Acetaminophen (Acetaminophen 325 Mg Tab) 650 mg PO Q4H PRN PRN Reason: Pain or Fever Stop: 03/18/21 16:53 Last Admin: 02/25/21 15:55 Dose: 650 mg Documented by: Albuterol (Albut/Ipratrop 3mg/0.5mg Neb 3 Ml Vial) 3 ml NEB QIDR PRN PRN Reason: sob/wheezing Stop: 03/18/21 16:53 Allopurinol (Allopurinol 100 Mg Tab) 100 mg PO QAM [facility] Stop: 03/19/21 08:59 Last Admin: 02/28/21 08:36 Dose: 100 mg Documented by: Amlodipine Besylate (Amlodipine Besylate 5 Mg Tab) 10 mg PO QAM [facility] Stop: 03/19/21 08:59 Last Admin: 02/17/21 08:37 Dose: 10 mg Documented by: Atorvastatin Calcium (Atorvastatin 10 Mg Tab) [facility] Stop: 03/19/21 08:59 Last Admin: 02/28/21 08:37 Dose: 10 mg Documented by: Clopidogrel Bisulfate (Clopidogrel Bisulfate 75 Mg Tab) 75 mg PO QAM [facility] Stop: 03/19/21 08:59 Last Admin: 02/28/21 08:37 Dose: 75 mg Documented by: Cyanocobalamin (Cyanocobalamin 500 Mcg Tablet (Vitamin B-12)) 1,000 mcg PO QAM [facility] Stop: 03/19/21 08:59 Last Admin: 02/28/21 08:38 Dose: 1,000 mcg Documented by: Docusate Sodium (Docusate Sodium 100 Mg Cap) 100 mg PO BID [facility] Stop: 03/27/21 10:14 Last Admin: 02/28/21 09:06 Dose: 100 mg Documented by: Ferrous Sulfate (Ferrous Sulfate 325 Mg Tab) 325 mg PO BID [facility] Stop: 03/18/21 20:59 Last Admin: 02/28/21 08:38 Dose: 325 mg Documented by: Furosemide (Furosemide 40 Mg/4 Ml Vial) 80 mg IV Q12 [facility] Stop: 03/30/21 20:59 Gabapentin (Gabapentin 100 Mg Cap) 100 mg PO Q8H [facility] Stop: 03/18/21 21:59 Last Admin: 02/28/21 14:47 Dose: 100 mg Documented by: Cefepime HCl 1,000 mg/ Syringe 11.3 mls @ 5.5 mls/min IV Q24H [facility]; Protocol Stop: 03/08/21 23:59 Last Admin: 02/28/21 11:14 Dose: 5.5 mls/min Documented by: Lactobacillus Acidoph/Casei/Rhamnos (Advanced Probiotic 1250 Mg Capsule) 2 cap PO DAILY [facility] Stop: 03/24/21 08:59 Last Admin: 02/28/21 08:38 Dose: 2 cap Documented by: Metoprolol Succinate (Metoprolol Succ 50mg Ext Rel Tab) 100 mg PO QAM [facility] Stop: 03/19/21 08:59 Last Admin: 02/28/21 08:49 Dose: 100 mg Documented by: Multivitamins/Minerals (Cerovite Adv Formula Tab) 1 tab PO DAILY [facility] Stop: 03/19/21 08:59 Last Admin: 02/28/21 08:39 Dose: 1 tab Documented by: Ondansetron HCl (Ondansetron Inj 2 Mg/Ml 2 Ml Vial) 4 mg IV Q6H PRN PRN Reason: Nausea Stop: 03/18/21 16:53 Last Admin: 02/21/21 12:09 Dose: 4 mg Documented by: Pantoprazole Sodium (Pantoprazole 40 Mg Tab) 40 mg PO BID [facility]; Protocol Stop: 03/27/21 20:59 Last Admin: 02/28/21 08:39 Dose: 40 mg Documented by: Polyethylene Glycol (Polyethylene (Miralax) 17 Gm Pack) 17 gm PO BID [facility] Stop: 03/28/21 11:59 Last Admin: 02/28/21 09:06 Dose: Not Given Documented by: Tramadol HCl (Tramadol Hcl 50 Mg Tablet) 50 mg PO Q4H PRN PRN Reason: severe pain (rating 7-10) Stop: 03/18/21 16:53 Last Admin: 02/28/21 06:26 Dose: 50 mg Documented by: Tramadol HCl (Tramadol Hcl 50 Mg Tablet) 50 mg PO Q4H PRN PRN Reason: Pain Stop: 03/21/21 13:36 Vitamin D (Cholecalciferol 1,000 Units 25 Mcg Tab) 2,000 [facility] Stop: 03/19/21 08:59 Last Admin: 02/28/21 08:37 Dose: 2,000 units Documented by:
[2021-03-01] MEDS: GABAPENTIN 100 MG CAP PO SCH ×3 (05:53→20:54)
--- NOTE | 2021-03-01 06:50 | Orthopedic Progress Note ---
Date of Service March 01, 2021 Assessment & Plan (1) Wound of right lower extremity: Plan: POD #3 s/p 1. Right lower extremity extensive debridement including skin, subcutaneous tissue, fascia, right lower leg circumferential necrosis 22 x 25.5 x 1.4 cm. 2. Extensive debridement including skin, subcutaneous tissue, fascia medial ankle 2.5 x 3.0 x 0.1 cm. 3. Extensive debridement including skin, subcutaneous tissue, fascia anteromedial ankle 1.5 x 1.0 x 0.1 cm. 4. Extensive debridement including skin, subcutaneous tissue, fascia anterolateral ankle 1.0 x 1.0 x 0.1 cm. 5. Extensive debridement including skin, subcutaneous tissue, fascia and ant erolateral ankle, 1.6 x 1.6 x 0.1 cm right lower extremity. Dressing kept in place today. Discussed wound VAC with the patient and the concern of more loss of fluid. NWB RLE. Will monitor the wound throughout admission. May need to consider other surgical options. Awaiting cultures. D/C planning--uncertain at this time. Admission and Anticipated Discharge Date Admission Date: February 16, 2021 Subjective Patient is resting in bed comfortably. She is postop day 3 from her right wound I&D. She has minimal complaint of pain in her leg at this time. No other complaints. Denies chest pain, shortness of breath, nausea/vomiting, fever/chills. Review of Systems Review of Systems: All systems reviewed & are unremarkable except as noted in Subjective Physical Exam Physical Exam: Right lower leg: Dressing is clean dry and intact. No calf tenderness. Toes are mobile, cap refill less than 3 seconds. Distally sensation neurovascular status intact. Constitutional: WD/WN, vitals as above Results & Data ([facility]) Vital Signs (Past 12 Hours) Vital Signs Temp Pulse Pulse Pulse Resp BP BP 03/01/21 03:06 36.6 C 77 14 147/55 H 03/01/21 02:05 36.8 C 59 L 12 134/61 03/01/21 01:07 36.9 C 65 15 132/68 03/01/21 00:11 36.8 C 70 14 129/70 03/01/21 00:07 36.8 C 70 14 129/70 03/01/21 00:00 74 02/28/21 23:37 36.7 C 74 14 129/70 02/28/21 23:36 36.7 C 74 14 129/70 02/28/21 23:22 36.7 C 72 14 132/68 02/28/21 23:02 36.6 C 74 14 134/70 02/28/21 22:24 36.6 C 71 71 14 137/69 02/28/21 19:28 37.4 C 74 18 134/66 Pulse Ox 03/01/21 03:06 100 03/01/21 02:05 98 03/01/21 01:07 100 03/01/21 00:11 98 03/01/21 00:07 98 03/01/21 00:00 02/28/21 23:37 97 02/28/21 23:36 97 02/28/21 23:22 97 02/28/21 23:02 97 02/28/21 22:24 97 02/28/21 19:28
[2021-03-01] MEDS: CYANOCOBALAMIN 500 MCG TABLET (VITAMIN B-12) PO SCH (08:47)
[2021-03-01] MEDS: allopurinoL 100 MG TAB PO SCH (08:47)
[2021-03-01] MEDS: ATORVASTATIN 10 MG TAB PO SCH (08:47)
[2021-03-01] MEDS: CLOPIDOGREL BISULFATE 75 MG TAB PO SCH (08:47)
[2021-03-01] MEDS: CHOLECALCIFEROL 1,000 UNITS 25 MCG TAB PO SCH (08:47)
[2021-03-01] MEDS: METOPROLOL SUCC 50MG EXT REL TAB PO SCH (08:48)
[2021-03-01] MEDS: DOCUSATE SODIUM 100 MG CAP PO SCH ×2 (08:48→20:54)
[2021-03-01] MEDS: FERROUS SULFATE 325 MG TAB PO SCH ×2 (08:48→20:54)
[2021-03-01] MEDS: ADVANCED PROBIOTIC 1250 MG CAPSULE PO SCH (08:48)
[2021-03-01] MEDS: CEROVITE ADV FORMULA TAB PO SCH (08:49)
[2021-03-01] MEDS: PANTOprazole 40 MG TAB PO SCH ×2 (08:49→20:56)
[2021-03-01] MEDS: POLYETHYLENE (MIRALAX) 17 GM PACK PO SCH ×2 (08:49→20:54)
--- NOTE | 2021-03-01 09:21 | Nephrology Progress Note ---
Date of Service March 01, 2021 Assessment & Plan Admission and Anticipated Discharge Date Admission Date: February 16, 2021 Subjective Subjective Assessment & Plan (1) Acute worsening of stage 3 chronic kidney disease: Plan: nonoliguric MARIELA from ATN, given the urine sediment picture and the clinical situation. baseline creatinine 1.2-1.4. she had another episode of MARIELA during recent [place] admission, which resolved by hospital d/c to [facility], which is where she was rehabbing before this admission. No chronic 02 needs prior to [place] admission. Now needing it -Not much urine even with lasix 80 bid --only 650 ml. conitnue lasix 80 bid --renal labs pending today. --Continue Kwok catheter and continue strict input/output charting. - Avoid nonsteroidal anti-inflammatory drugs, angiotensin converting enzyme inhibitor, angiotensin receptor anna, contrast agents for the time being. Renally dose all antibiotics. She will not be a candidate for Chronic or acute Dialysis if such need arise--Cardiac/vascular/Age/Frailness. Palliative consult will be helpful in that case. For now no dialysis needed as creat abnormal but stable in the mid 3 range Subjective Slightly better today. had foot surgery .on o2 but no overt SOB. Lot of edema Review of Systems Review of Systems: All systems reviewed & are unremarkable except as noted in Subjective Physical Exam Constitutional: well developed, + frail appearing and cooperative; no acute distress Eyes: EOM intact bilaterally ENMT: Ears: no external ear abnormality Nose: no external nose abnormality Mouth: + dry oral mucous membranes Neck: no nuchal rigidity Respiratory: normal respiratory effort (on 2L 02NC) and able to speak in co mplete sentences (but speech limited) Auscultation: + diminished lung sounds Cardiovascular: Rate/Rhythm: regular rate and regular rhythm Heart Sounds: normal S1 and normal S2 Extremities: + edema (trace BL hips) Gastrointestinal (Abdomen): Inspection/Auscultation: normal bowel sounds Percussion/Palpation: abdomen soft; abdomen nontender Musculoskeletal: Extremities: + abnormal strength and + amputation noted (LLE AKA) Skin: no rashes, warm and dry Neurologic: Motor/Sensory: + tremor (and abnormal motor strength BLUE) Genitourinary: Kwok with ample yellow urine Results & Data ([facility]) Vital Signs (Past 12 Hours) Vital Signs Temp Pulse Pulse Pulse Resp BP BP 03/01/21 07:19 61 11/03/21 07:15 36.4 C L 63 16 157/70 H 03/01/21 03:06 36.6 C 77 14 147/55 H 03/01/21 02:05 36.8 C 59 L 12 134/61 03/01/21 01:07 36.9 C 65 15 132/68 03/01/21 00:11 36.8 C 70 14 129/70 03/01/21 00:07 36.8 C 70 14 129/70 03/01/21 00:00 74 02/28/21 23:37 36.7 C 74 14 129/70 02/28/21 23:36 36.7 C 74 14 129/70 02/28/21 23:22 36.7 C 72 14 132/68 02/28/21 23:02 36.6 C 74 14 134/70 02/28/21 22:24 36.6 C 71 71 14 137/69 Pulse Ox 03/01/21 07:19 03/01/21 07:15 98 03/01/21 03:06 100 03/01/21 02:05 98 03/01/21 01:07 100 03/01/21 00:11 98 03/01/21 00:07 98 03/01/21 00:00 02/28/21 23:37 97 02/28/21 23:36 97 02/28/21 23:22 97 02/28/21 23:02 97 02/28/21 22:24 97
[2021-03-01] MEDS: FUROSEMIDE 40 MG/4 ML VIAL IV SCH ×2 (09:23→20:54)
[2021-03-01 10:09] LABS: BUN Creatinine Ratio 31.1 (10-20); Calcium 8.6 mg/dl (8.5-10.1); Creatinine Clr Calc Pharmacy 9.6 ml/min; Est GFR (African American) 12.6 ml/min; Est GFR (Non-African American) 10.8 ml/min; Potassium 3.6 mmol/L (3.5-5.1)
[2021-03-01] MEDS: CEFEPIME 1,000 MG in SYRINGE 0 ML IV SCH (11:19)
--- NOTE | 2021-03-01 20:01 | Hospitalist Progress Note ---
Date of Service March 01, 2021 Assessment & Plan (1) Acute on chronic heart failure with preserved ejection fraction: (2) Wound of right lower extremity: Plan: #. Acute on chronic heart failure with preserved ejection fraction: History of chronic diastolic heart failure and mitral stenosis with HTN and gout. Per last cardiology outpatient note she was supposed to be taking Lasix 40mg PO BID, however, intake med list reflects lasix 40mg only once daily. Strict I's and O's, -2.3 L so far. Maintain Kwok for I's and O's. Overall patient reports feeling better and is currently on 1 L nasal cannula oxygen. Cardiology on board: Managing diuresis, continue other cardiovascular meds including ASA, Plavix, statin, amlodipine, metoprolol. TATIANA/ARB on hold. On IV lasix per nephrology, currently on 80 mg IV twice daily. #. Hypoxia: Most likely secondary to heart failure. Possible bacterial component as well. and atelectasis s/p zithromax 02/24 Continue cefepime 02/24 #. Wound of right lower extremity: Large ischemic ulcer with eschar of her right lower extremity. Also with ulcerations of her right medial malleolus and her right medial thigh. 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 Cont medical management of PAD. Started tramadol PRN, cont Tylenol PRN. Vascular surgery consulted: Patient at high risk candidate for any endovascular treatment as it would result in dialysis dependency, recommends debridement of the RLE wounds. Orthopedics on board: MRI RLEno evidence of OM. Status post debridement 02/[address] Mazariegos. Recommends daily dressing changes with Betadine. Plastic surgery [Dr. Nolen] also consulted as patient may need a skin graft. Prealbumin 16, concern for for nutrition and lack of proper wound healing. Encourage p.o. intake and improve nutrition. ID consulted: Continue cefepime for now, plan to discharge on p.o. Augmentin or Cipro plus Clinda, renally dosed. Encourage protein intake, continue wound care, continue supportive management. #. Acute on chronic anemia: +ve [facility] 02/14 Per GI, her baseline Hb is 7 Appears to have multifactorial symptomatic anemia with iron deficiency present despite taking iron supplements. Per cardiology her goal Hb would be 9-10. Reports feeling better since blood transfusion. Notably patient reports never having had a colonoscopy in the past. She is willing to undergo this outpatient which will be recommended with ongoing iron deficiency despite supplementation. Status post 3 unit transfusion this admission Monitor hemoglobin daily and as needed. #. Acute worsening of stage 3 chronic kidney disease: 2/2 ATN given the current clinical picture. Nephrology also expressed concerns independently that her anemia may be adversely affecting her respiratory status. Creatinine has been slowly trending upward. and now seems stable around slightly above 3.5 Nephrology on board: Continue with Kwok, actively dosing Lasix, avoid any NSAIDs/TATIANA inhibitor/ARB/contrast agents. Renally dose all antibiotics. Not a candidate for chronic or acute dialysis if those need arise. Recommends palliative consult in such case. #. PAD (peripheral artery disease): Has a long-standing h/o PAD and has followed with [facility] Vascular surgery in the past. Has a h/o right SFA stenting and left AKA in 2010 due to progressive peripheral arterial disease. Continue Plavix 75 mg daily. #. HTN (hypertension): BP fairly under control. continue amlodipine and metoprolol with parameters hold losartan 2/2 to kalin #. DVT prophylaxis: None 2/2 to vascular wounds and concern for bleeding Dispo: PCU PCP: Dr. Parry DNR/DNI Admission and Anticipated Discharge Date Admission Date: February 16, 2021 Subjective Patient was lying semiupright in bed, eating her lunch, on 1 L nasal cannula oxygen, NAD, no acute events overnight per patient. Patient denies any headache/dizziness/chest pain/palpitation/other review of symptoms. Physical Exam Physical Exam: GENERAL: Alert and oriented x3. NAD, on 1L. HEENT: No pallor, no icterus. Pupils equal, round and reactive to light. Oral mucosa moist. NECK: No JVD, no neck masses. HEART: S1 and S2 heard. Regular rate and rhythm. No murmur, no gallop. RESPIRATORY SYSTEM: Normal AP diameter. No accessory muscle use. No wheezing, no crackles. ABDOMEN: Soft, bowel sounds present, nontender, no distention. CENTRAL NERVOUS SYSTEM: No facial droop. Speech is clear. Obeys simple commands. Moves extremities. EXTREMITIES: RLE in dressings (photos by wound care reviewed - large eschar/ necrosis -now right lower extremity is in surgical dressings, postop), LLE BKA. Results & Data Results & Data ([facility]) Vital Signs (Past 12 Hours) Vital Signs Temp Pulse Resp BP Pulse Ox 03/01/21 15:13 36.4 C L 70 16 177/70 H 96 03/01/21 11:10 35.6 C L 69 16 173/69 H 97
[2021-03-02] MEDS: GABAPENTIN 100 MG CAP PO SCH ×3 (05:41→20:12)
[2021-03-02 06:28] LABS: Basophils # (auto) 0.05 K/uL (0-0.2); Basophils % (auto) 0.5 %; Eosinophils # (auto) 0.18 K/uL (0-0.5); Eosinophils % (auto) 1.8 %; Hemoglobin 9.5 g/dL (12.0-16.0); Immature Granulocytes # (auto) 0.25 K/uL (0.00-0.02); Immature Granulocytes % (auto) 2.6 %; Lymphocytes # (auto) 1.01 K/uL (1.2-3.4); Lymphocytes % (auto) 10.4 %; Mean Corpuscular Hemoglobin 28.4 pg (25-34); Mean Corpuscular Hgb Conc 31.7 g/dL (32-36); Mean Corpuscular Volume 89.6 fL (80-100); Mean Platelet Volume 9.6 fL (7.4-10.4); Monocytes # (auto) 0.66 K/uL (0.11-0.59); Monocytes % (auto) 6.8 %; Neutrophils # (auto) 7.58 K/uL (1.4-6.5); Neutrophils % (auto) 77.9 %; Platelet Count 116 K/uL (130-400); RDW Coefficient of Variation 17.8 % (11.5-14.5); RDW Standard Deviation 57.4 fL (36.4-46.3); Red Blood Count 3.35 M/uL (4.2-5.4); White Blood Count 9.73 K/uL (4.8-10.8)
[2021-03-02 06:58] LABS: BUN Creatinine Ratio 33.4 (10-20); Calcium 8.8 mg/dl (8.5-10.1); Creatinine Clr Calc Pharmacy 9.8 ml/min; Est GFR (African American) 12.9 ml/min; Est GFR (Non-African American) 11.1 ml/min; Potassium 3.7 mmol/L (3.5-5.1)
[2021-03-02] MEDS: CHOLECALCIFEROL 1,000 UNITS 25 MCG TAB PO SCH (08:56)
[2021-03-02] MEDS: CEROVITE ADV FORMULA TAB PO SCH (08:56)
[2021-03-02] MEDS: FUROSEMIDE 40 MG/4 ML VIAL IV SCH ×2 (08:57→20:13)
[2021-03-02] MEDS: METOPROLOL SUCC 50MG EXT REL TAB PO SCH (08:57)
[2021-03-02] MEDS: FERROUS SULFATE 325 MG TAB PO SCH ×2 (08:57→20:12)
[2021-03-02] MEDS: DOCUSATE SODIUM 100 MG CAP PO SCH ×2 (08:57→20:13)
[2021-03-02] MEDS: POLYETHYLENE (MIRALAX) 17 GM PACK PO SCH ×2 (08:57→20:12)
[2021-03-02] MEDS: PANTOprazole 40 MG TAB PO SCH ×2 (08:58→20:12)
[2021-03-02] MEDS: ADVANCED PROBIOTIC 1250 MG CAPSULE PO SCH (08:58)
[2021-03-02] MEDS: ATORVASTATIN 10 MG TAB PO SCH (08:58)
[2021-03-02] MEDS: CLOPIDOGREL BISULFATE 75 MG TAB PO SCH (08:58)
[2021-03-02] MEDS: allopurinoL 100 MG TAB PO SCH (08:59)
[2021-03-02] MEDS: CYANOCOBALAMIN 500 MCG TABLET (VITAMIN B-12) PO SCH (08:59)
[2021-03-02] MEDS: CEFEPIME 1,000 MG in SYRINGE 0 ML IV SCH (11:04)
--- NOTE | 2021-03-02 14:24 | Nephrology Progress Note ---
Date of Service March 02, 2021 Assessment & Plan Admission and Anticipated Discharge Date Admission Date: February 16, 2021 Subjective Assessment & Plan (1) Acute worsening of stage 3 chronic kidney disease: Plan: nonoliguric MARIELA from ATN, given the urine sediment picture and the clinical situation. baseline creatinine 1.2-1.4. she had another episode of MARIELA during recent [place] admission, which resolved by hospital d/c to [facility], which is where she was rehabbing before this admission. No chronic 02 needs prior to [place] admission. Now needing it -Not much urine even with lasix 80 bid Continue lasix 80 bid. ATN seems pretty Dense and not responding to lasix --renal labs reveiwed--creat in mid 3;s for many days now --Continue Kwok catheter and continue strict input/output charting. - Avoid nonsteroidal anti-inflammatory drugs, angiotensin converting enzyme inhibitor, angiotensin receptor anna, contrast agents for the time being. Renally dose all antibiotics. She will not be a candidate for Chronic or acute Dialysis if such need arise--Cardiac/vascular/Age/Frailness. Palliative consult will be helpful in that case. For now no dialysis needed as creat abnormal but stable in the mid 3 range. Subjective Slightly better today. .on o2 but no overt SOB. Lot of edema Review of Systems Review of Systems: All systems reviewed & are unremarkable except as noted in Subjective Physical Exam Constitutional: well developed, + frail appearing and cooperative; no acute distress Eyes: EOM intact bilaterally ENMT: Ears: no external ear abnormality Nose: no external nose abnormality Mouth: + dry oral mucous membranes Neck: no nuchal rigidity Respiratory: normal respiratory effort (on 2L 02NC) and able to speak in complete sentences (but speech limited) Auscultation: + diminished lung sounds Cardiovascular: Rate/Rhythm: regular rate and regular rhythm Heart Sounds: normal S1 and normal S2 Extremities: + edema (trace BL hips) Gastrointestinal (Abdomen): Inspection/Auscultation: normal bowel sounds Percussion/Palpation: abdomen soft; abdomen nontender Musculoskeletal: Extremities: + abnormal strength and + amputation noted (LLE AKA) Skin: no rashes, warm and dry Neurologic: Motor/Sensory: + tremor (and abnormal motor strength BLUE) Genitourinary: Kwok with ample yellow urine Results & Data ([facility]) Vital Signs (Past 12 Hours) Vital Signs Temp Pulse Pulse Pulse Resp BP Pulse Ox 03/02/21 11:49 36.4 C L 69 16 157/79 H 98 03/02/21 07:44 58 L 03/02/21 06:46 36.5 C 61 16 133/70 97 03/02/21 03:42 36.7 C 70 17 148/68 H 95
--- NOTE | 2021-03-02 15:33 | Surgery Progress Note ---
Date of Service March 02, 2021 Assessment & Plan (1) Wound of right lower extremity: Plan: Patient is currently not a surgical candidate for skin grafting. Will continue with current wound dressings of Adaptic, ABD gauze and kerlix, change daily to prevent wound from drying. If patient becomes a candidate for wound vac, this may help promote further granulation of the wound bed. Will continue to follow. Admission and Anticipated Discharge Date Admission Date: February 16, 2021 Cooper Lai was seen bedside today with Mihaela Marino. She is POD #4 of extensive debridement of her right lower extremity by Dr. Mazariegos. She reports no pain. She is noted to be in worsening acute on chronic Stage 3 kidney disease, not a candidate for dialysis. Dressings have not been changed since surgery. Physical Exam Physical Exam: I removed her surgical dressings- TATIANA wrap, Kerlix, 4x4 gauze and adaptic. Wound bed is down to fascia on the medial leg, exposed vascular structures. there area areas of eschar, ischemic changes on wound bed periphery. lateral wound bed has some granulation tissue. there is bleeding noted. medial ankle wound is superficial. periwound with chronic vascular changes. wound dressed with adaptic, ABD, kerlix. Results & Data ([facility]) Vital Signs (Past 12 Hours) Vital Signs Temp Pulse Pulse Pulse Resp BP Pulse Ox 03/02/21 15:11 61 03/02/21 11:49 36.4 C L 69 16 157/79 H 98 03/02/21 07:44 58 L 03/02/21 06:46 36.5 C 61 16 133/70 97 03/02/21 03:42 36.7 C 70 17 148/68 H 95 PG Care Time/CCT Total # of Minutes Spent Total Time Spent with Patient: Total time spent is greater than 50% in coordination of care (as documented) at patient's floor/unit and/or counseling patient: Coding Level of Care Code 89548 Subseq Hosp Care Lvl 2 Diagnoses Wound of right lower extremity S81.801A
--- NOTE | 2021-03-02 17:50 | Hospitalist Progress Note ---
Date of Service March 02, 2021 Assessment & Plan (1) Acute on chronic heart failure with preserved ejection fraction: (2) Wound of right lower extremity: Plan: #. Acute on chronic heart failure with preserved ejection fraction: History of chronic diastolic heart failure and mitral stenosis with HTN and gout. Per last cardiology outpatient note she was supposed to be taking Lasix 40mg PO BID, however, intake med list reflects lasix 40mg only once daily. Strict I's and O's, -2.3 L so far. Maintain Kwok for I's and O's. Overall patient reports feeling better and is currently on 1 L nasal cannula oxygen. Cardiology on board: Managing diuresis, continue other cardiovascular meds including ASA, Plavix, statin, amlodipine, metoprolol. TATIANA/ARB on hold. On IV lasix per nephrology, currently on 80 mg IV twice daily. #. Hypoxia: Most likely secondary to heart failure. Possible bacterial component as well. and atelectasis s/p zithromax 02/24 Continue cefepime 02/24 #. Wound of right lower extremity: Large ischemic ulcer with eschar of her right lower extremity. Also with ulcerations of her right medial malleolus and her right medial thigh. 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 Cont medical management of PAD. Started tramadol PRN, cont Tylenol PRN. Vascular surgery consulted: Patient at high risk candidate for any endovascular treatment as it would result in dialysis dependency, recommends debridement of the RLE wounds. Orthopedics on board: MRI RLEno evidence of OM. Status post debridement 02/[address] Mazariegos. Recommends daily dressing changes with Betadine. Plastic surgery [Dr. Nolen] also consulted as patient may need a skin graft. Prealbumin 16, concern for for nutrition and lack of proper wound healing. Encourage p.o. intake and improve nutrition. Thinks patient is not a surgical candidate for skin grafting. Continue current wound dressing/change daily to prevent wound from drying. ID consulted: Continue cefepime for now, plan to discharge on p.o. Augmentin or Cipro plus Clinda, renally dosed. Encourage protein intake, continue wound care, continue supportive management. #. Acute on chronic anemia: +[facility] Per GI, her baseline Hb is 7 Appears to have multifactorial symptomatic anemia with iron deficiency present despite taking iron supplements. Per cardiology her goal Hb would be 9-10. Reports feeling better since blood transfusion. Notably patient reports never having had a colonoscopy in the past. She is w illing to undergo this outpatient which will be recommended with ongoing iron deficiency despite supplementation. Status post 3 unit transfusion this admission Monitor hemoglobin daily and as needed. #. Acute worsening of stage 3 chronic kidney disease: 2/2 ATN given the current clinical picture. Nephrology also expressed concerns independently that her anemia may be adversely affecting her respiratory status. Creatinine has been slowly trending upward. and now seems stable around slightly above 3.5 Nephrology on board: Continue with Kwok, actively dosing Lasix, avoid any NSAIDs/TATIANA inhibitor/ARB/contrast agents. Renally dose all antibiotics. Not a candidate for chronic or acute dialysis if those need arise. Recommends palliative consult in such case. #. PAD (peripheral artery disease): Has a long-standing h/o PAD and has followed with [facility] Vascular surgery in the past. Has a h/o right SFA stenting and left AKA in 2010 due to progressive peripheral arterial disease. Continue Plavix 75 mg daily. #. HTN (hypertension): BP fairly under control. continue amlodipine and metoprolol with parameters hold losartan 2/2 to kalin #. DVT prophylaxis: None 2/2 to vascular wounds and concern for bleeding Dispo: PCU PCP: Dr. Parry DNR/DNI Admission and Anticipated Discharge Date Admission Date: February 16, 2021 Subjective Patient lying semiupright in bed, NAD, on 2 L nasal cannula oxygen. No acute events overnight. Patient is eating and moving bowels okay. Patient denies any headache/chills/shortness of breath/chest pain/palpitations/any pain in her leg/other review of symptoms. Physical Exam Physical Exam: GENERAL: Alert and oriented x3. NAD, on 2L. HEENT: No pallor, no icterus. Pupils equal, round and reactive to light. Oral mucosa moist. NECK: No JVD, no neck masses. HEART: S1 and S2 heard. Regular rate and rhythm. No murmur, no gallop. RESPIRATORY SYSTEM: Normal AP diameter. No accessory muscle use. No wheezing, no crackles. ABDOMEN: Soft, bowel sounds present, nontender, no distention. CENTRAL NERVOUS SYSTEM: No facial droop. Speech is clear. Obeys simple commands. Moves extremities. EXTREMITIES: RLE in dressings (photos by wound care reviewed - large eschar/ necrosis -now right lower extremity is in surgical dressings, postop), CHEIKH SALAZAR. Results & Data Results & Data ([facility]) Vital Signs (Past 12 Hours) Vital Signs Temp Pulse Pulse Pulse Resp BP Pulse Ox 03/02/21 15:26 36.5 C 69 19 165/63 H 94 03/02/21 15:11 61 03/02/21 11:49 36.4 C L 69 16 157/79 H 98 03/02/21 07:44 58 L 03/02/21 06:46 36.5 C 61 16 133/70 97
[2021-03-03] MEDS: GABAPENTIN 100 MG CAP PO SCH ×3 (05:57→21:52)
[2021-03-03 08:20] LABS: Basophils # (auto) 0.03 K/uL (0-0.2); Basophils % (auto) 0.3 %; Eosinophils # (auto) 0.18 K/uL (0-0.5); Hematocrit (blood only) 29.6 % (37-47); Hemoglobin 9.2 g/dL (12.0-16.0); Immature Granulocytes # (auto) 0.15 K/uL (0.00-0.02); Immature Granulocytes % (auto) 1.6 %; Lymphocytes # (auto) 0.67 K/uL (1.2-3.4); Lymphocytes % (auto) 7.3 %; Mean Corpuscular Hgb Conc 31.1 g/dL (32-36); Mean Corpuscular Volume 90.2 fL (80-100); Mean Platelet Volume 9.2 fL (7.4-10.4); Monocytes % (auto) 8.7 %; Neutrophils # (auto) 7.32 K/uL (1.4-6.5); Neutrophils % (auto) 80.1 %; Platelet Count 110 K/uL (130-400); RDW Coefficient of Variation 17.8 % (11.5-14.5); RDW Standard Deviation 57.7 fL (36.4-46.3); Red Blood Count 3.28 M/uL (4.2-5.4); White Blood Count 9.15 K/uL (4.8-10.8)
[2021-03-03] MEDS: CYANOCOBALAMIN 500 MCG TABLET (VITAMIN B-12) PO SCH (08:24)
[2021-03-03] MEDS: allopurinoL 100 MG TAB PO SCH (08:24)
[2021-03-03] MEDS: METOPROLOL SUCC 50MG EXT REL TAB PO SCH (08:24)
[2021-03-03] MEDS: ATORVASTATIN 10 MG TAB PO SCH (08:24)
[2021-03-03] MEDS: CEROVITE ADV FORMULA TAB PO SCH (08:24)
[2021-03-03] MEDS: POLYETHYLENE (MIRALAX) 17 GM PACK PO SCH ×2 (08:25→21:50)
[2021-03-03] MEDS: CHOLECALCIFEROL 1,000 UNITS 25 MCG TAB PO SCH (08:25)
[2021-03-03] MEDS: DOCUSATE SODIUM 100 MG CAP PO SCH ×2 (08:25→22:38)
[2021-03-03] MEDS: PANTOprazole 40 MG TAB PO SCH ×2 (08:25→21:51)
[2021-03-03] MEDS: CLOPIDOGREL BISULFATE 75 MG TAB PO SCH (08:25)
[2021-03-03] MEDS: ADVANCED PROBIOTIC 1250 MG CAPSULE PO SCH (08:25)
[2021-03-03] MEDS: FUROSEMIDE 40 MG/4 ML VIAL IV SCH ×2 (08:26→21:58)
[2021-03-03 09:19] LABS: BUN Creatinine Ratio 39.1 (10-20); Calcium 8.8 mg/dl (8.5-10.1); Creatinine Clr Calc Pharmacy 11.5 ml/min; Est GFR (African American) 15.6 ml/min; Est GFR (Non-African American) 13.4 ml/min; Potassium 3.4 mmol/L (3.5-5.1)
[2021-03-03] MEDS: FERROUS SULFATE 325 MG TAB PO SCH ×2 (10:10→21:51)
[2021-03-03] MEDS: amLODIPine BESYLATE 5 MG TAB PO SCH (10:10)
--- NOTE | 2021-03-03 10:15 | Nephrology Progress Note ---
Date of Service March 03, 2021 Assessment & Plan Admission and Anticipated Discharge Date Admission Date: February 16, 2021 Subjective Assessment & Plan (1) Acute worsening of stage 3 chronic kidney disease: Plan: nonoliguric MARIELA from ATN, given the urine sediment picture and the clinical situation. baseline creatinine 1.2-1.4. she had another episode of MARIELA during recent [facility] admission, which resolved by hospital d/c to [facility], which is where she was rehabbing before this admission. No chronic 02 needs prior to [facility] admission. Now needing it -yesterday there was lot more urine > 2 liters. More hopeful now that ATN has peaked and will get better from here. Also Creat down. BUN up a bit. ---Continue Kwok catheter and continue strict input/output charting. - Avoid nonsteroidal anti-inflammatory drugs, angiotensin converting enzyme inhibitor, angiotensin receptor anna, contrast agents for the time being. Renally dose all antibiotics. She will not be a candidate for Chronic or acute Dialysis if such need arise--Cardiac/vascular/Age/Frailness. Palliative consult will be helpful in that case. For now no dialysis needed as creat trendig down with increasing urine--ATN likely peaked. Lower Lasix to 60 iv bid. may have to lower further depending on response Subjective Slightly better today. .on o2 but no overt SOB. Lot of edema Review of Systems Review of Systems: All systems reviewed & are unremarkable except as noted in Subjective Physical Exam Constitutional: well developed, + frail appearing and cooperative; no acute distress Eyes: EOM intact bilaterally ENMT: Ears: no external ear abnormality Nose: no external nose abnormality Mouth: + dry oral mucous membranes Neck: no nuchal rigidity Respiratory: normal respiratory effort (on 2L 02NC) and able to speak in complete sentences (but speech limited) Auscultation: + diminished lung sounds Cardiovascular: Rate/Rhythm: regular rate and regular rhythm Heart Sounds: normal S1 and normal S2 Extremities: + edema (trace BL hips) Gastrointestinal (Abdomen): Inspection/Auscultation: normal bowel sounds Percussion/Palpation: abdomen soft; abdomen nontender Musculoskeletal: Extremities: + abnormal strength and + amputation noted (LLE AKA) Skin: no rashes, warm and dry Neurologic: Motor/Sensory: + tremor (and abnormal motor strength BLUE) Genitourinary: Kwok with ample yellow urine Results & Data ([facility]) Vital Signs (Past 12 Hours) Vital Signs Temp Pulse Pulse Pulse Resp BP Pulse Ox 03/03/21 03:16 36.7 C 77 16 161/66 H 96 03/03/21 00:09 36.6 C 82 17 129/58 L 96 03/02/21 23:13 85
[2021-03-03] MEDS: CEFEPIME 1,000 MG in SYRINGE 0 ML IV SCH (11:56)
--- NOTE | 2021-03-03 18:45 | Hospitalist Progress Note ---
Date of Service March 03, 2021 Assessment & Plan (1) Acute on chronic heart failure with preserved ejection fraction: (2) Wound of right lower extremity: Plan: #. Acute on chronic heart failure with preserved ejection fraction: History of chronic diastolic heart failure and mitral stenosis with HTN and gout. Per last cardiology outpatient note she was supposed to be taking Lasix 40mg PO BID, however, intake med list reflects lasix 40mg only once daily. Strict I's and O's, -5.0 L so far. Maintain Kwok for I's and O's. Making more urine currently. Overall patient reports feeling better and is currently on 1 L nasal cannula o xygen. Cardiology on board: Managing diuresis, continue other cardiovascular meds including ASA, Plavix, statin, amlodipine, metoprolol. TATIANA/ARB on hold. On IV lasix per nephrology, currently on 60 mg IV twice daily. #. Hypoxia: Most likely secondary to heart failure. Possible bacterial component as well. and atelectasis s/p zithromax 02/24 Continue cefepime 02/24 #. Wound of right lower extremity: Large ischemic ulcer with eschar of her right lower extremity. Also with ulcerations of her right medial malleolus and her right medial thigh. 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 Cont medical management of PAD. Started tramadol PRN, cont Tylenol PRN. Vascular surgery consulted: Patient at high risk candidate for any endovascular treatment as it would result in dialysis dependency, recommends debridement of the RLE wounds. Orthopedics on board: MRI RLEno evidence of OM. Status post debridement 02/[address] Mazariegos. Recommends daily dressing changes with Betadine. Plastic surgery [Dr. Nolen] also consulted as patient may need a skin graft. Prealbumin 16, concern for for nutrition and lack of proper wound healing. Encourage p.o. intake and improve nutrition. Thinks patient is not a surgical candidate for skin grafting. Continue current wound dressing/change daily to prevent wound from drying. ID consulted:Continue cefepime for now, plan to discharge on p.o. Augmentin or Cipro plus Clinda, renally dosed. Encourage protein intake, continue wound care, continue supportive management. #. Acute on chronic anemia: +[facility] Per GI, her baseline Hb is 7 Appears to have multifactorial symptomatic anemia with iron deficiency present despite taking iron supplements. Per cardiology her goal Hb would be 9-10. Reports feeling better since blood transfusion. Notably patient reports never having had a colonoscopy in the past. She is w illing to undergo this outpatient which will be recommended with ongoing iron deficiency despite supplementation. Status post 3 unit transfusion this admission Monitor hemoglobin daily and as needed. #. Acute worsening of stage 3 chronic kidney disease: 2/2 ATN given the current clinical picture. Nephrology also expressed concerns independently that her anemia may be adversely affecting her respiratory status. Creatinine has been slowly trending upward but now seems to be getting better. Nephrology on board: Continue with Kwok, actively dosing Lasix, avoid any NSAIDs/TATIANA inhibitor/ARB/contrast agents. Renally dose all antibiotics. Not a candidate for chronic or acute dialysis if those need arise. Recommends palliative consult in such case. #. PAD (peripheral artery disease): Has a long-standing h/o PAD and has followed with [facility] Vascular surgery in the past. Has a h/o right SFA stenting and left AKA in 2010 due to progressive peripheral arterial disease. Continue Plavix 75 mg daily. #. HTN (hypertension): BP fairly under control. continue amlodipine and metoprolol with parameters hold losartan 2/2 to kalin #. DVT prophylaxis: None 2/2 to vascular wounds and concern for bleeding Dispo: PCU PCP: Dr. Parry DNR/DNI Disposition: Pending renal improvement and lower extremity wound improvement, when okay with nephrology and orthopedic/vascular surgery. CM working with placement. Admission and Anticipated Discharge Date Admission Date: February 16, 2021 Subjective Patient lying semiupright in bed, NAD, on 1 L nasal cannula oxygen. No acute events overnight. Patient is eating and moving bowels okay. Patient denies any headache/chills/shortness of breath/chest pain/palpitations/any pain in her leg/other review of symptoms. Physical Exam Physical Exam: GENERAL: Alert and oriented x3. NAD, on 1L. HEENT: No pallor, no icterus. Pupils equal, round and reactive to light. Oral mucosa moist. NECK: No JVD, no neck masses. HEART: S1 and S2 heard. Regular rate and rhythm. No murmur, no gallop. RESPIRATORY SYSTEM: Normal AP diameter. No accessory muscle use. No wheezing, no crackles. ABDOMEN: Soft, bowel sounds present, nontender, no distention. CENTRAL NERVOUS SYSTEM: No facial droop. Speech is clear. Obeys simple commands. Moves extremities. EXTREMITIES: RLE in dressings (photos by wound care reviewed - large eschar/ necrosis -now right lower extremity is in surgical dressings, postop), LLE BKA. Results & Data Results & Data ([facility]) Vital Signs (Past 12 Hours) Vital Signs Temp Pulse Resp BP BP Pulse Ox 03/03/21 16:03 36.7 C 69 16 175/66 H 97 03/03/21 12:27 36.6 C 72 16 155/77 H 96
[2021-03-04] MEDS: GABAPENTIN 100 MG CAP PO SCH ×3 (05:58→21:19)
[2021-03-04 06:41] LABS: Basophils # (auto) 0.05 K/uL (0-0.2); Basophils % (auto) 0.6 %; Eosinophils % (auto) 2.6 %; Hematocrit (blood only) 29.7 % (37-47); Hemoglobin 9.3 g/dL (12.0-16.0); Immature Granulocytes # (auto) 0.14 K/uL (0.00-0.02); Immature Granulocytes % (auto) 1.8 %; Lymphocytes # (auto) 0.69 K/uL (1.2-3.4); Lymphocytes % (auto) 8.9 %; Mean Corpuscular Hemoglobin 28.4 pg (25-34); Mean Corpuscular Hgb Conc 31.3 g/dL (32-36); Mean Corpuscular Volume 90.8 fL (80-100); Mean Platelet Volume 9.6 fL (7.4-10.4); Monocytes # (auto) 0.63 K/uL (0.11-0.59); Monocytes % (auto) 8.1 %; Neutrophils # (auto) 6.08 K/uL (1.4-6.5); Platelet Count 105 K/uL (130-400); RDW Standard Deviation 58.3 fL (36.4-46.3); Red Blood Count 3.27 M/uL (4.2-5.4); White Blood Count 7.79 K/uL (4.8-10.8)
[2021-03-04 07:06] LABS: BUN Creatinine Ratio 42.1 (10-20); Calcium 9.2 mg/dl (8.5-10.1); Creatinine Clr Calc Pharmacy 11.9 ml/min; Est GFR (African American) 16.8 ml/min; Est GFR (Non-African American) 14.5 ml/min; Magnesium 2.4 mg/dl (1.8-2.4); Potassium 3.2 mmol/L (3.5-5.1)
[2021-03-04] MEDS: CHOLECALCIFEROL 1,000 UNITS 25 MCG TAB PO SCH (07:59)
[2021-03-04] MEDS: ADVANCED PROBIOTIC 1250 MG CAPSULE PO SCH (07:59)
[2021-03-04] MEDS: PANTOprazole 40 MG TAB PO SCH ×2 (07:59→21:20)
[2021-03-04] MEDS: CLOPIDOGREL BISULFATE 75 MG TAB PO SCH (08:00)
[2021-03-04] MEDS: FERROUS SULFATE 325 MG TAB PO SCH ×2 (08:00→21:19)
[2021-03-04] MEDS: CYANOCOBALAMIN 500 MCG TABLET (VITAMIN B-12) PO SCH (08:00)
[2021-03-04] MEDS: CEROVITE ADV FORMULA TAB PO SCH (08:00)
[2021-03-04] MEDS: ATORVASTATIN 10 MG TAB PO SCH (08:00)
[2021-03-04] MEDS: allopurinoL 100 MG TAB PO SCH (08:00)
[2021-03-04] MEDS: METOPROLOL SUCC 50MG EXT REL TAB PO SCH (08:00)
[2021-03-04] MEDS: FUROSEMIDE 40 MG/4 ML VIAL IV SCH (08:01)
[2021-03-04] MEDS: POLYETHYLENE (MIRALAX) 17 GM PACK PO SCH ×2 (08:01→21:18)
[2021-03-04] MEDS: DOCUSATE SODIUM 100 MG CAP PO SCH ×2 (08:04→21:19)
[2021-03-04] MEDS ORDERED: POTASSIUM CHLORIDE CRTAB 20 MEQ TABCR PO STA (08:48)
[2021-03-04] MEDS: amLODIPine BESYLATE 5 MG TAB PO SCH (09:03)
[2021-03-04] MEDS: CEFEPIME 1,000 MG in SYRINGE 0 ML IV SCH (11:15)
--- NOTE | 2021-03-04 11:46 | Nephrology Progress Note ---
Date of Service March 04, 2021 Assessment & Plan (1) Acute worsening of stage 3 chronic kidney disease: Plan: nonoliguric Stage 2 MARIELA from ATN, given the urine sediment picture and the clinical situation. baseline creatinine 1.2-1.4. she had another episode of AK I during recent [facility] admission, which resolved by hospital d/c to [facility], which is where she was rehabbing before this admission. No chronic 02 needs prior to [facility] admission. - >>>>>creatinine remains plateau'd in low 3s after resuming 40 mg IV bid lasix >> cont dose since 02/23 AM of 30 mg IV tid; has been getting Lasix 60 mg twice daily. BUN is up to 120. -Hold Lasix today and probably resume 40 mg twice daily tomorrow -Continue potassium supplements. Admission and Anticipated Discharge Date Admission Date: February 16, 2021 Subjective Seen in follow-up for acute renal failure and CHF. Her breathing is better. No leg swelling. She remains on oxygen nasal cannula. Creatinine down to 2.8 but BUN of 120 Review of Systems Review of Systems: All other systems were reviewed and negative except as noted in HPI Physical Exam Physical Exam: General exam: Appears comfortable, no acute distress HEENT: Pupils are equal and reactive to light Neck: No JVD, neck is supple trachea is midline Respiratory system: Crackles bilaterally. Gastrointestinal: Abdomen is soft, non distended, non tender, bowel sounds are present CVS: Regular rate and rhythm. No murmurs, rubs or gallops Musculoskeletal: No joint or muscle tenderness Extremities: Left BKA Neuro: Oriented, no tremors, no focal neurological deficits Skin: No rashes Results & Data ([facility]) Vital Signs (Past 12 Hours) Vital Signs Temp Pulse Pulse Resp BP BP Pulse Ox 03/04/21 06:17 36.6 C 69 15 148/71 H 96 03/04/21 03:49 36.7 C 74 17 135/68 99 Laboratory Results 03/04/21 05:24 03/04/21 05:24 WBC 7.79 RBC 3.27 L MCV 90.8 MCH 28.4 MCHC 31.3 L RDW Std Deviation 58.3 H RDW Coeff of Hugo 18.0 H Plt Count 105 L MPV 9.6
--- NOTE | 2021-03-04 14:57 | Hospitalist Progress Note ---
Date of Service March 04, 2021 Assessment & Plan (1) Acute on chronic heart failure with preserved ejection fraction: (2) Wound of right lower extremity: Plan: #. Acute on chronic heart failure with preserved ejection fraction: History of chronic diastolic heart failure and mitral stenosis with HTN and gout. Per last cardiology outpatient note she was supposed to be taking Lasix 40mg PO BID, however, intake med list reflects lasix 40mg only once daily. Strict I's and O's, -6.5 L so far. Maintain Kwok for I's and O's. Making more urine lately. Overall patient reports feeling better and is currently on 1 L nasal cannula oxygen. Cardiology on board: Managing diuresis, continue other cardiovascular meds including ASA, Plavix, statin, amlodipine, metoprolol. TATIANA/ARB on hold. Lasix being managed by nephrology. #. Hypoxia: Most likely secondary to heart failure. Possible bacterial component as well. and atelectasis s/p zithromax 02/24 Continue cefepime 02/24 #. Wound of right lower extremity: Large ischemic ulcer with eschar of her right lower extremity. Also with ulcerations of her right medial malleolus and her right medial thigh. 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 Cont medical management of PAD. Started tramadol PRN, cont Tylenol PRN. Vascular surgery consulted: Patient at high risk candidate for any endovascular treatment as it would result in dialysis dependency, recommends debridement of the RLE wounds. Orthopedics on board: MRI RLEno evidence of OM. Status post debridement 02/[address] Mazariegos. Recommends daily dressing changes with Betadine. Plastic surgery [Dr. Nolen] also consulted as patient may need a skin graft. Prealbumin 16, concern for for nutrition and lack of proper wound healing. Encourage p.o. intake and improve nutrition. Thinks patient is not a surgical candidate for skin grafting. Continue current wound dressing/change daily to prevent wound from drying. ID consulted:Continue cefepime for now, plan to discharge on p.o. Augmentin or Cipro plus Clinda, renally dosed. Encourage protein intake, continue wound care, continue supportive management. #. Acute on chronic anemia: +[facility]; 03/03 FOBT negative in hospital. Per GI, her baseline Hb is 7 Appears to have multifactorial symptomatic anemia with iron deficiency present despite taking iron supplements. Per cardiology her goal Hb would be 9-10. Reports feeling better since blood transfusion. Notably patient reports never having had a colonoscopy in the past. She is w illing to undergo this outpatient which will be recommended with ongoing iron deficiency despite supplementation. Status post 3 unit transfusion this admission Monitor hemoglobin daily and as needed. #. Acute worsening of stage 3 chronic kidney disease: #. Hypokalemia Baseline creatinine 1.2-1.4 per nephrology. 2/2 ATN given the current clinical picture. Nephrology also expressed concerns independently that her anemia may be adversely affecting her respiratory status. Creatinine has been slowly trending upward but now seems to be getting better. Nephrology on board: Continue with Rissa, actively dosing Lasix, avoid any NSAIDs/TATIANA inhibitor/ARB/contrast agents. Renally dose all antibiotics. Not a candidate for chronic or acute dialysis if those need arise. Recommends palliative consult in such case. Per nephrology, IV diuresis on hold, plan to resume Lasix 40 mg twice daily from tomorrow. Potassium 3.2, replaced 20 mEq, judicious replacement given worsening CKD. #. PAD (peripheral artery disease): Has a long-standing h/o PAD and has followed with [facility] Vascular surgery in the past. Has a h/o right SFA stenting and left AKA in 2010 due to progressive peripheral arterial disease. Continue Plavix 75 mg daily. #. HTN (hypertension): BP fairly under control. continue amlodipine and metoprolol with parameters hold losartan 2/2 to kalin #. DVT prophylaxis: None 2/2 to vascular wounds and concern for bleeding Dispo: PCU PCP: Dr. Parry DNR/DNI Disposition: Pending renal improvement and lower extremity wound improvement, when okay with nephrology and orthopedic/vascular surgery. CM working with placement. Admission and Anticipated Discharge Date Admission Date: February 16, 2021 Subjective Patient was lying semiupright in bed, on 1 L nasal cannula oxygen, NAD, no acute events overnight. Patient is eating and moving bowels okay. Patient denies headache/chest pain/dizziness/other review of symptoms. Physical Exam Physical Exam: GENERAL: Alert and oriented x3. NAD, on 1L. HEENT: No pallor, no icterus. Pupils equal, round and reactive to light. Oral mucosa moist. NECK: No JVD, no neck masses. HEART: S1 and S2 heard. Regular rate and rhythm. No murmur, no gallop. RESPIRATORY SYSTEM: Normal AP diameter. No accessory muscle use. No wheezing, no crackles. ABDOMEN: Soft, bowel sounds present, nontender, no distention. CENTRAL NERVOUS SYSTEM: No facial droop. Speech is clear. Obeys simple commands. Moves extremities. EXTREMITIES: RLE in dressings (photos by wound care reviewed - large eschar/ necrosis -now right lower extremity is in surgical dressings, postop), LLE BKA. Urinary catheter in situ with yellow urine collection. Results & Data Results & Data ([facility]) Vital Signs (Past 12 Hours) Vital Signs Temp Pulse Pulse Resp BP BP Pulse Ox 03/04/21 11:42 36.6 C 67 20 164/65 H 97 03/04/21 06:17 36.6 C 69 15 148/71 H 96 03/04/21 03:49 36.7 C 74 17 135/68 99
[2021-03-05] MEDS: GABAPENTIN 100 MG CAP PO SCH ×3 (06:19→21:39)
[2021-03-05 06:56] LABS: Hematocrit (blood only) 29.9 % (37-47); Hemoglobin 9.2 g/dL (12.0-16.0); Mean Corpuscular Hemoglobin 28.7 pg (25-34); Mean Corpuscular Hgb Conc 30.8 g/dL (32-36); Mean Corpuscular Volume 93.1 fL (80-100); RDW Standard Deviation 60.5 fL (36.4-46.3); Red Blood Count 3.21 M/uL (4.2-5.4); White Blood Count 7.59 K/uL (4.8-10.8)
[2021-03-05 07:17] LABS: Basophils # (auto) 0.04 K/uL (0-0.2); Basophils % (auto) 0.5 %; Eosinophils # (auto) 0.22 K/uL (0-0.5); Eosinophils % (auto) 2.9 %; Immature Granulocytes # (auto) 0.13 K/uL (0.00-0.02); Immature Granulocytes % (auto) 1.7 %; Lymphocytes # (auto) 0.68 K/uL (1.2-3.4); Monocytes # (auto) 0.66 K/uL (0.11-0.59); Monocytes % (auto) 8.7 %; Neutrophils # (auto) 5.86 K/uL (1.4-6.5); Neutrophils % (auto) 77.2 %; Platelet Count 92 K/uL (130-400)
[2021-03-05 07:23] LABS: BUN Creatinine Ratio 43.2 (10-20); Calcium 8.7 mg/dl (8.5-10.1); Creatinine Clr Calc Pharmacy 12.3 ml/min; Est GFR (African American) 17.6 ml/min; Est GFR (Non-African American) 15.2 ml/min; Potassium 3.6 mmol/L (3.5-5.1)
[2021-03-05] MEDS: amLODIPine BESYLATE 5 MG TAB PO SCH (07:25)
[2021-03-05] MEDS: PANTOprazole 40 MG TAB PO SCH ×2 (07:26→21:38)
[2021-03-05] MEDS: DOCUSATE SODIUM 100 MG CAP PO SCH ×2 (07:27→21:41)
[2021-03-05] MEDS: CHOLECALCIFEROL 1,000 UNITS 25 MCG TAB PO SCH (07:27)
[2021-03-05] MEDS: FERROUS SULFATE 325 MG TAB PO SCH ×2 (07:27→21:39)
[2021-03-05] MEDS: CLOPIDOGREL BISULFATE 75 MG TAB PO SCH (07:28)
[2021-03-05] MEDS: CEROVITE ADV FORMULA TAB PO SCH (07:28)
[2021-03-05] MEDS: ATORVASTATIN 10 MG TAB PO SCH (07:29)
[2021-03-05] MEDS: ADVANCED PROBIOTIC 1250 MG CAPSULE PO SCH (07:29)
[2021-03-05] MEDS: allopurinoL 100 MG TAB PO SCH (07:30)
[2021-03-05] MEDS: METOPROLOL SUCC 50MG EXT REL TAB PO SCH (07:30)
[2021-03-05] MEDS: CYANOCOBALAMIN 500 MCG TABLET (VITAMIN B-12) PO SCH (07:30)
[2021-03-05] MEDS: POLYETHYLENE (MIRALAX) 17 GM PACK PO SCH ×2 (07:31→21:38)
[2021-03-05] MEDS ORDERED: FUROSEMIDE 40 MG/4 ML VIAL IV SCH ×2 (09:00)
--- NOTE | 2021-03-05 10:07 | Nephrology Progress Note ---
Date of Service March 05, 2021 Assessment & Plan (1) Acute worsening of stage 3 chronic kidney disease: Plan: nonoliguric Stage 2 MARIELA from [facility], given the urine sediment picture and the clinical situation. baseline creatinine 1.2-1.4. she had another episode of AK I during recent [place] admission, which resolved by hospital d/c to [facility], which is where she was rehabbing before this admission. No chronic 02 needs prior to [place] admission. - >>>>>creatinine remains plateau'd in low 3s after resuming 40 mg IV bid lasix >> cont dose since 02/23 AM of 30 mg IV tid; has been getting Lasix 60 mg twice daily. Lasix held yesterday. BUN is 118 and creatinine of 2.7. Sodium remains slightly high at 146. -Continue to hold Lasix today and probably resume 40 mg twice daily tomorrow -Continue potassium supplements. -Patient needs to drink about 1.5 L of water daily Admission and Anticipated Discharge Date Admission Date: February 16, 2021 Subjective Seen in follow-up for acute renal failure and CHF. She feels better today. No shortness of breath. She is on 2 L nasal cannula. She was -500 mL even without Lasix yesterday. Review of Systems Review of Systems: All other systems were reviewed and negative except as noted in HPI Physical Exam Physical Exam: General exam: Appears comfortable, no acute distress. On oxygen nasal cannula HEENT: Pupils are equal and reactive to light Neck: No JVD, neck is supple trachea is midline Respiratory system: Crackles bilaterally. Gastrointestinal: Abdomen is soft, non distended, non tender, bowel sounds are present CVS: Regular rate and rhythm. No murmurs, rubs or gallops Musculoskeletal: No joint or muscle tenderness Extremities: Left BKA Neuro: Oriented, no tremors, no focal neurological deficits Skin: No rashes Results & Data ([facility]) Vital Signs (Past 12 Hours) Vital Signs Temp Pulse Pulse Pulse Resp BP BP 03/05/21 08:00 66 03/05/21 07:50 36.8 C 74 20 198/67 H 03/05/21 02:40 36.4 C L 68 18 158/64 H 03/04/21 23:25 36.7 C 64 17 165/55 H Pulse Ox 03/05/21 08:00 03/05/21 07:50 97 03/05/21 02:40 99 03/04/21 23:25 95 Laboratory Results 03/05/21 06:27 03/05/21 06:27 WBC 7.59 RBC 3.21 L MCV 93.1 MCH 28.7 MCHC 30.8 L RDW Std Deviation 60.5 H RDW Coeff of Hugo 18.0 H Plt Count 92 L MPV 9.0
[2021-03-05] MEDS: CEFEPIME 1,000 MG in SYRINGE 0 ML IV SCH (11:43)
--- NOTE | 2021-03-05 15:19 | Hospitalist Progress Note ---
Date of Service March 05, 2021 Assessment & Plan (1) Acute on chronic heart failure with preserved ejection fraction: (2) Wound of right lower extremity: Plan: #. Acute on chronic heart failure with preserved ejection fraction: History of chronic diastolic heart failure and mitral stenosis with HTN and gout. Per last cardiology outpatient note she was supposed to be taking Lasix 40mg PO BID, however, intake med list reflects lasix 40mg only once daily. Strict I's and O's, -7.1 L so far. Maintain Kwok for I's and O's. Making more urine lately. Overall patient reports feeling better and is currently on 1 L nasal cannula oxygen. Cardiology on board: Managing diuresis, continue other cardiovascular meds including ASA, Plavix, statin, amlodipine, metoprolol. TATIANA/ARB on hold. Lasix being managed by nephrology. Lasix is still on hold per nephrology note. #. Hypoxia: Most likely secondary to heart failure. Possible bacterial component as well. and atelectasis s/p zithromax 02/24 Continue cefepime 02/24 #. Wound of right lower extremity: Large ischemic ulcer with eschar of her right lower extremity. Also with ulcerations of her right medial malleolus and her right medial thigh. 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 Cont medical management of PAD. Started tramadol PRN, cont Tylenol PRN. Vascular surgery consulted: Patient at high risk candidate for any endovascular treatment as it would result in dialysis dependency, recommends debridement of the RLE wounds. Orthopedics on board: MRI RLEno evidence of OM. Status post debridement 02/[address] Mazariegos. Recommends daily dressing changes with Betadine. Plastic surgery [Dr. Nolen] also consulted as patient may need a skin graft. Prealbumin 16, concern for for nutrition and lack of proper wound healing. Encourage p.o. intake and improve nutrition. Thinks patient is not a surgical candidate for skin grafting. Continue current wound dressing/change daily to prevent wound from drying. ID consulted:Continue cefepime for now, plan to discharge on p.o. Augmentin or Cipro plus Clinda, renally dosed. Encourage protein intake, continue wound care, continue supportive management. #. Acute on chronic anemia: [facility]; 03/03 FOBT negative in hospital. Per GI, her baseline Hb is 7 Appears to have multifactorial symptomatic anemia with iron deficiency present despite taking iron supplements. Per cardiology her goal Hb would be 9-10. Reports feeling better since blood transfusion. Notably patient reports never having had a colonoscopy in the past. She is w illing to undergo this outpatient which will be recommended with ongoing iron deficiency despite supplementation. Status post 3 unit transfusion this admission Monitor hemoglobin daily and as needed. #. Acute worsening of stage 3 chronic kidney disease: #. Hypokalemia Baseline creatinine 1.2-1.4 per nephrology. 2/2 [facility] given the current clinical picture. Nephrology also expressed concerns independently that her anemia may be adversely affecting her respiratory status. Creatinine has been slowly trending upward but now seems to be getting better. Creatinine 2.74 today. Nephrology on board: Continue with Rissa, actively dosing Lasix, avoid any NSAIDs/TATIANA inhibitor/ARB/contrast agents. Renally dose all antibiotics. Not a candidate for chronic or acute dialysis if those need arise. Recommends palliative consult in such case. Per nephrology, IV diuresis on hold, plan to resume Lasix 40 mg twice daily probable from tomorrow. Monitor potassium daily, WNL today, judicious replacement when needed given worsening CKD. #. PAD (peripheral artery disease): Has a long-standing h/o PAD and has followed with [facility] Vascular surgery in the past. Has a h/o right SFA stenting and left AKA in 2010 due to progressive peripheral arterial disease. Continue Plavix 75 mg daily. #. HTN (hypertension): BP fairly under control. continue amlodipine and metoprolol with parameters hold losartan 2/2 to kalin #. DVT prophylaxis: None 2/2 to vascular wounds and concern for bleeding Dispo: PCU PCP: Dr. Parry DNR/DNI Disposition: Pending renal improvement and lower extremity wound improvement, when okay with nephrology and orthopedic/vascular surgery. CM working with placement. Admission and Anticipated Discharge Date Admission Date: February 16, 2021 Subjective Patient was lying semiupright in bed, on 1 L nasal cannula oxygen, NAD, no acute events overnight. She is eating and moving bowels okay. Patient denies any fever/chills/headache/chest pain/palpitation/other review of symptoms. Physical Exam Physical Exam: GENERAL: Alert and oriented x3. NAD, on 1L. HEENT: No pallor, no icterus. Pupils equal, round and reactive to light. Oral mucosa moist. NECK: No JVD, no neck masses. HEART: S1 and S2 heard. Regular rate and rhythm. No murmur, no gallop. RESPIRATORY SYSTEM: Normal AP diameter. No accessory muscle use. No wheezing, no crackles. ABDOMEN: Soft, bowel sounds present, nontender, no distention. CENTRAL NERVOUS SYSTEM: No facial droop. Speech is clear. Obeys simple commands. Moves extremities. EXTREMITIES: RLE in dressings (photos by wound care reviewed - large eschar/ necrosis -now right lower extremity is in surgical dressings, postop), LLE AKA. Urinary catheter in situ with yellow urine collection. Results & Data Results & Data ([facility]) Vital Signs (Past 12 Hours) Vital Signs Temp Pulse Pulse Resp BP Pulse Ox 03/05/21 11:42 67 18 107/54 L 97 03/05/21 08:00 66 03/05/21 07:50 36.8 C 74 20 198/67 H 97
[2021-03-06] MEDS: GABAPENTIN 100 MG CAP PO SCH ×3 (05:56→20:38)
[2021-03-06] MEDS ORDERED: ALBUMIN 25% 12.5 GM/50 ML VIAL IV ONE (07:00)
[2021-03-06 07:29] LABS: Hematocrit (blood only) 28.3 % (37-47); Hemoglobin 8.7 g/dL (12.0-16.0); Mean Corpuscular Hemoglobin 28.8 pg (25-34); Mean Corpuscular Hgb Conc 30.7 g/dL (32-36); Mean Corpuscular Volume 93.7 fL (80-100); RDW Coefficient of Variation 18.2 % (11.5-14.5); RDW Standard Deviation 61.6 fL (36.4-46.3); Red Blood Count 3.02 M/uL (4.2-5.4)
[2021-03-06 07:44] LABS: Mean Platelet Volume 9.3 fL (7.4-10.4); Platelet Count 85 K/uL (130-400)
[2021-03-06 08:02] LABS: BUN Creatinine Ratio 42.7 (10-20); Calcium 8.9 mg/dl (8.5-10.1); Creatinine Clr Calc Pharmacy 12.7 ml/min; Est GFR (Non-African American) 15.5 ml/min; Potassium 3.5 mmol/L (3.5-5.1)
[2021-03-06] MEDS: CLOPIDOGREL BISULFATE 75 MG TAB PO SCH (08:03)
[2021-03-06] MEDS: CHOLECALCIFEROL 1,000 UNITS 25 MCG TAB PO SCH (08:03)
[2021-03-06] MEDS: PANTOprazole 40 MG TAB PO SCH ×2 (08:03→20:38)
[2021-03-06] MEDS: CEROVITE ADV FORMULA TAB PO SCH (08:03)
[2021-03-06] MEDS: allopurinoL 100 MG TAB PO SCH (08:03)
[2021-03-06] MEDS: METOPROLOL SUCC 50MG EXT REL TAB PO SCH (08:03)
[2021-03-06] MEDS: DOCUSATE SODIUM 100 MG CAP PO SCH ×2 (08:04→20:37)
[2021-03-06] MEDS: amLODIPine BESYLATE 5 MG TAB PO SCH (08:04)
[2021-03-06] MEDS: FERROUS SULFATE 325 MG TAB PO SCH ×2 (08:04→20:37)
[2021-03-06] MEDS: ADVANCED PROBIOTIC 1250 MG CAPSULE PO SCH (08:04)
[2021-03-06] MEDS: POLYETHYLENE (MIRALAX) 17 GM PACK PO SCH ×2 (08:05→20:37)
[2021-03-06] MEDS: CYANOCOBALAMIN 500 MCG TABLET (VITAMIN B-12) PO SCH (08:05)
[2021-03-06] MEDS: ATORVASTATIN 10 MG TAB PO SCH (08:05)
--- NOTE | 2021-03-06 10:52 | Nephrology Progress Note ---
Date of Service March 06, 2021 Assessment & Plan (1) Acute worsening of stage 3 chronic kidney disease: Plan: nonoliguric Stage 2 MARIELA from [facility], given the urine sediment picture and the clinical situation. baseline creatinine 1.2-1.4. she had another episode of AK I during recent [place] admission, which resolved by hospital d/c to [facility], which is where she was rehabbing before this admission. No chronic 02 needs prior to [place] admission. - >>>>>creatinine remains plateau'd in high 2s after holding 40 mg IV bid lasix after 11/7 AM dose >> unchanged BUN in 110s essentially and creatinine of 2.7. Sodium a bit better at 143. -resume lasix at lower dose 20 mg IV tid -cxr ordered re pl m edema on earlier images -resumed potassium supplements 40 mEq po now and daily -daily bmp/monitor dosing -Patient needs to drink about 1.5 L of water daily Admission and Anticipated Discharge Date Admission Date: February 16, 2021 Subjective seen on rounds at 1145 today. no worsening sob; ate 1/2 a burger; had albumin ON for hypotension; wound images reviewed Review of Systems 2 Review of Systems: All systems reviewed & are unremarkable except as noted in Subjective Physical Exam Constitutional: well developed, + frail appearing and cooperative; no acute distress Eyes: EOM intact bilaterally ENMT: Ears: no external ear abnormality Nose: no external nose abnormality Mouth: + dry oral mucous membranes Neck: no nuchal rigidity Respiratory: normal respiratory effort (on 2L 02NC) and able to speak in complete sentences (but speech limited) Auscultation: + diminished lung sounds Cardiovascular: Rate/Rhythm: regular rate and regular rhythm Heart Sounds: normal S1 and normal S2 Extremities: + edema (trace BL hips) Gastrointestinal (Abdomen): Inspection/Auscultation: normal bowel sounds Percussion/Palpation: abdomen soft; abdomen nontender Musculoskeletal: Extremities: + abnormal strength and + amputation noted (LLE AKA) Skin: no rashes, warm and dry Neurologic: Motor/Sensory: + tremor (and abnormal motor strength BLUE) Genitourinary: laguerre w/ ample light urine Results & Data ([facility]) Vital Signs (Past 12 Hours) Vital Signs Temp Pulse Pulse Pulse Resp BP BP 03/06/21 07:35 36.7 C 68 16 128/63 03/06/21 04:11 36.7 C 69 14 156/70 H 03/05/21 23:51 37.1 C 62 15 151/70 H 03/05/21 23:00 62 Pulse Ox 03/06/21 07:35 96 03/06/21 04:11 97 03/05/21 23:51 96 03/05/21 23:00 Laboratory Results 03/06/21 07:11 03/06/21 07:11
[2021-03-06] MEDS: CEFEPIME 1,000 MG in SYRINGE 0 ML IV SCH (11:25)
--- NOTE | 2021-03-06 13:30 | Hospitalist Progress Note ---
Date of Service March 06, 2021 Assessment & Plan (1) Acute on chronic heart failure with preserved ejection fraction: (2) Wound of right lower extremity: Plan: #. Acute on chronic heart failure with preserved ejection fraction: History of chronic diastolic heart failure and mitral stenosis with HTN and gout. Per last cardiology outpatient note she was supposed to be taking Lasix 40mg PO BID, however, intake med list reflects lasix 40mg only once daily. Strict I's and O's, -7.5 L so far. Maintain Kwok for I's and O's. Overall patient reports feeling better and is currently on 1 L nasal cannula oxygen. Cardiology on board: Managing diuresis, continue other cardiovascular meds including ASA, Plavix, statin, amlodipine, metoprolol. TATIANA/ARB on hold. Lasix being managed by nephrology. Lasix is still on hold per nephrology. #. Hypoxia: Most likely secondary to heart failure. Possible bacterial component as well. and atelectasis s/p zithromax 02/24 On cefepime 02/24 for wound treatment purposes. #. Wound of right lower extremity: Large ischemic ulcer with eschar of her right lower extremity. Also with ulcerations of her right medial malleolus and her right medial thigh. 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 Cont medical management of PAD. Started tramadol PRN, cont Tylenol PRN. Vascular surgery consulted: Patient at high risk candidate for any endovascular treatment as it would result in dialysis dependency, recommends debridement of the RLE wounds. Orthopedics on board: MRI RLEno evidence of OM. Status post debridement 02/[address] Mazariegos. Recommends daily dressing changes with Betadine. Plastic surgery [Dr. Nolen] also consulted as patient may need a skin graft. Prealbumin 16, concern for nutrition and lack of proper wound healing. Encourage p.o. intake and improve nutrition. Thinks patient is not a surgical candidate for skin grafting. Continue current wound dressing/change daily to prevent wound from drying. ID consulted:Continue cefepime for now, plan to discharge on p.o. Augmentin or Cipro plus Clinda, renally dosed. Encourage protein intake, continue wound care, continue supportive management. #. Acute on chronic anemia: [facility]; 03/03 FOBT negative in hospital. Per GI, her baseline Hb is 7 Appears to have multifactorial symptomatic anemia with iron deficiency present despite taking iron supplements. Per cardiology her goal Hb would be 9-10. Reports feeling better since blood transfusion. Notably patient reports never having had a colonoscopy in the past. She is w illing to undergo this outpatient which will be recommended with ongoing iron deficiency despite supplementation. Status post 3 unit transfusion this admission Monitor hemoglobin daily and as needed. #. Acute worsening of stage 3 chronic kidney disease: #. Hypokalemia Baseline creatinine 1.2-1.4 per nephrology. 2/2 [facility] given the current clinical picture. Nephrology also expressed concerns independently that her anemia may be adversely affecting her respiratory status. Creatinine has been slowly trending upward but now seems to be getting better little by little since last 4-5 days. Creatinine 2.69 today. Nephrology on board: Continue with Rissa, actively dosing Lasix, avoid any NSAIDs/TATIANA inhibitor/ARB/contrast agents. Renally dose all antibiotics. Not a candidate for chronic or acute dialysis if those need arise. Recommends palliative consult if such situation arises. Per nephrology, IV diuresis on hold, plan to resume Lasix 40 mg twice daily probable from tomorrow. Monitor potassium daily, WNL today, judicious replacement when needed given worsening CKD. #. PAD (peripheral artery disease): Has a long-standing h/o PAD and has followed with [facility] Vascular surgery in the past. Has a h/o right SFA stenting and left AKA in 2010 due to progressive peripheral arterial disease. Continue Plavix 75 mg daily. #. HTN (hypertension): BP fairly under control. continue amlodipine and metoprolol with parameters hold losartan 2/2 to kalin #. DVT prophylaxis: None 2/2 to vascular wounds and concern for bleeding Dispo: PCU PCP: Dr. Parry DNR/DNI Disposition: Pending renal improvement and lower extremity wound improvement, when okay with nephrology and orthopedic/vascular surgery. CM working with placement. Admission and Anticipated Discharge Date Admission Date: February 16, 2021 Subjective Patient was lying semiupright in bed, on 1 L nasal cannula oxygen, NAD, no acute events overnight. She is eating and moving bowels okay. Patient denies any f ever/chills/headache/chest pain/palpitation/other review of symptoms. Her wound dressing was changed today. Physical Exam Physical Exam: GENERAL: Alert and oriented x3. NAD, on 1L. HEENT: No pallor, no icterus. Pupils equal, round and reactive to light. Oral mucosa moist. NECK: No JVD, no neck masses. HEART: S1 and S2 heard. Regular rate and rhythm. No murmur, no gallop. RESPIRATORY SYSTEM: Normal AP diameter. No accessory muscle use. No wheezing, no crackles. ABDOMEN: Soft, bowel sounds present, nontender, no distention. CENTRAL NERVOUS SYSTEM: No facial droop. Speech is clear. Obeys simple commands. Moves extremities. EXTREMITIES: RLE in dressings (photos by wound care reviewed - large eschar/ necrosis -now right lower extremity is in surgical dressings, postop), LLE AKA. Urinary catheter in situ with yellow urine collection. Results & Data Results & Data ([facility]) Vital Signs (Past 12 Hours) Vital Signs Temp Pulse Pulse Resp BP Pulse Ox 03/06/21 11:49 36.8 C 96 H 16 152/77 H 94 03/06/21 07:35 36.7 C 68 16 128/63 96 03/06/21 04:11 36.7 C 69 14 156/70 H 97
--- NOTE | 2021-03-06 18:37 | XRay Report ---
XR chest 1V portable CLINICAL HISTORY: increasing 02 needs off diuretic TECHNIQUE: Single frontal radiograph of the chest was obtained. Comparison: Comparison is made to chest one view 02/25/2021 FINDINGS: No lines and tubes are seen. Calcified aortic knob is seen. Bilateral lower lung predominant airspace opacities are seen. Small right and moderate left pleural effusions noted. IMPRESSION: 1. Bilateral lower lung predominant airspace opacities which may represent atelectasis or pneumonia, and/or aspiration. 2. Small right and moderate left pleural effusions. ACT 112: Negative or not required by law. Electronically signed by: Leonard Underwood M.D. 03/06/2021 6:36 PM
[2021-03-06] MEDS: FUROSEMIDE INJ 20 MG/2 ML VIAL IV SCH (18:39)
[2021-03-06] MEDS: POTASSIUM CHLORIDE PWD 20 MEQ PACK PO SCH (20:37)
[2021-03-07] MEDS: GABAPENTIN 100 MG CAP PO SCH ×3 (05:28→21:01)
[2021-03-07] MEDS: FUROSEMIDE INJ 20 MG/2 ML VIAL IV SCH ×3 (05:28→21:07)
[2021-03-07 07:06] LABS: Hematocrit (blood only) 28.4 % (37-47); Hemoglobin 8.7 g/dL (12.0-16.0); Mean Corpuscular Hemoglobin 28.6 pg (25-34); Mean Corpuscular Hgb Conc 30.6 g/dL (32-36); Mean Corpuscular Volume 93.4 fL (80-100); RDW Coefficient of Variation 18.3 % (11.5-14.5); RDW Standard Deviation 61.2 fL (36.4-46.3); Red Blood Count 3.04 M/uL (4.2-5.4); White Blood Count 8.57 K/uL (4.8-10.8)
[2021-03-07 07:14] LABS: Platelet Count 88 K/uL (130-400)
[2021-03-07 07:34] LABS: Calcium 8.8 mg/dl (8.5-10.1); Creatinine Clr Calc Pharmacy 12.1 ml/min; Est GFR (African American) 16.9 ml/min; Est GFR (Non-African American) 14.6 ml/min; Potassium 3.6 mmol/L (3.5-5.1)
--- NOTE | 2021-03-07 08:12 | Nephrology Progress Note ---
Date of Service March 07, 2021 Assessment & Plan (1) Acute worsening of stage 3 chronic kidney disease: Plan: Stable/plateaued nonoliguric Stage 2 MARIELA from [facility], given the urine sediment picture and the clinical situation. baseline creatinine 1.2-1.4. she had anot her episode of MARIELA during recent [place] admission, which resolved by hospital d/c to [facility], which is where she was rehabbing before this admission. No chronic 02 needs prior to [place] admission. creatinine remains plateau'd in high 2's and BUN high 110s. sodium remains high normal >> no encephalopathy or other uremic sx currently despite very high BUN. Mild hypokalemia which is slightly improved. Other chemistries and volume status generally acceptable, though she continues with mild volume overload -monitor for uremic sx -cont lasix at 20 mg IV tid -cxr ordered re pl m edema on earlier images >> no ongoing plm edema; moderate pleural effusion L and small R noted -cont potassium supplements 40 mEq daily -daily bmp/monitor dosing -Patient needs to eat well and less importantly to maintain fluid intake; no indication for FR currently but protein rich intake is more important than water intake for her and she remains with significant diuretic dependence Care coordinated with Dr. Doyle Admission and Anticipated Discharge Date Admission Date: February 16, 2021 Subjective Some pain at vaginal introitus after Kwok caught on her leg overnight and was talked. Feels her breathing is okay. States she is eating fairly well. Acknowledges fatigue Review of Systems Review of Systems: All systems reviewed & are unremarkable except as noted in Subjective Physical Exam Constitutional: well developed, + frail appearing and cooperative; no acute distress Eyes: EOM intact bilaterally ENMT: Ears: no external ear abnormality Nose: no external nose abnormality Mouth: + dry oral mucous membranes Neck: no nuchal rigidity Respiratory: normal respiratory effort (on 1L 02NC) and able to speak in complete sentences (but speech limited) Auscultation: + diminished lung sounds Cardiovascular: Rate/Rhythm: regular rate and regular rhythm Heart Sounds: normal S1 and normal S2 Extremities: no edema Gastrointestinal (Abdomen): Inspection/Auscultation: normal bowel sounds Percussion/Palpation: abdomen soft; abdomen nontender Musculoskeletal: Extremities: + abnormal strength and + amputation noted (LLE AKA) Skin: no rashes, warm and dry Right lower extremity wound wrapped Neurologic: Motor/Sensory: + tremor (and abnormal motor strength BLUE) Psychiatric: Orientation: oriented x 3 Insight: good insight Judgement: good judgement Genitourinary: Kwok with ample clear yellow urine Results & Data ([facility]) Vital Signs (Past 12 Hours) Vital Signs Temp Pulse Pulse Resp BP BP Pulse Ox 03/07/21 08:01 37.2 C 79 20 120/66 98 03/07/21 03:53 36.6 C 84 20 144/63 H 95 03/06/21 23:12 71 03/06/21 23:02 36.8 C 74 18 147/63 H 94 Laboratory Results 03/07/21 06:36 03/07/21 06:36 Diagnostic Findings cxr 1. Bilateral lower lung predominant airspace opacities which may represent atelectasis or pneumonia, and/or aspiration. 2. Small right and moderate left pleural effusions.
[2021-03-07] MEDS: ADVANCED PROBIOTIC 1250 MG CAPSULE PO SCH (09:33)
[2021-03-07] MEDS: PANTOprazole 40 MG TAB PO SCH ×2 (09:33→21:01)
[2021-03-07] MEDS: METOPROLOL SUCC 50MG EXT REL TAB PO SCH (09:33)
[2021-03-07] MEDS: CYANOCOBALAMIN 500 MCG TABLET (VITAMIN B-12) PO SCH (09:34)
[2021-03-07] MEDS: CHOLECALCIFEROL 1,000 UNITS 25 MCG TAB PO SCH (09:34)
[2021-03-07] MEDS: CLOPIDOGREL BISULFATE 75 MG TAB PO SCH (09:34)
[2021-03-07] MEDS: DOCUSATE SODIUM 100 MG CAP PO SCH ×2 (09:34→21:02)
[2021-03-07] MEDS: amLODIPine BESYLATE 5 MG TAB PO SCH (09:35)
[2021-03-07] MEDS: POTASSIUM CHLORIDE PWD 20 MEQ PACK PO SCH (09:35)
[2021-03-07] MEDS: ATORVASTATIN 10 MG TAB PO SCH (09:35)
[2021-03-07] MEDS: allopurinoL 100 MG TAB PO SCH (09:35)
[2021-03-07] MEDS: CEROVITE ADV FORMULA TAB PO SCH (09:40)
[2021-03-07] MEDS: FERROUS SULFATE 325 MG TAB PO SCH ×2 (09:40→21:02)
[2021-03-07] MEDS: POLYETHYLENE (MIRALAX) 17 GM PACK PO SCH ×2 (09:41→21:01)
[2021-03-07] MEDS: CEFEPIME 1,000 MG in SYRINGE 0 ML IV SCH (11:19)
--- NOTE | 2021-03-07 17:01 | Hospitalist Progress Note ---
Date of Service March 07, 2021 Assessment & Plan (1) Acute on chronic heart failure with preserved ejection fraction: (2) Wound of right lower extremity: Plan: #. Acute on chronic heart failure with preserved ejection fraction: History of chronic diastolic heart failure and mitral stenosis with HTN and gout. Per last cardiology outpatient note she was supposed to be taking Lasix 40mg PO BID, however, intake med list reflects lasix 40mg only once daily. Strict I's and O's, -7.5 L so far. Maintain Kwok for I's and O's. Overall patient reports feeling better and is currently on 1 L nasal cannula oxygen. Cardiology on board: Managing diuresis, continue other cardiovascular meds including ASA, Plavix, statin, amlodipine, metoprolol. TATIANA/ARB on hold. Lasix being managed by nephrology. Update nephrology if expected discharge; discussed they will come with discharge recommendation accordingly. #. Hypoxia: Most likely secondary to heart failure. Possible bacterial component as well. and atelectasis s/p zithromax 02/24 On cefepime 02/24 for wound treatment purposes. #. Wound of right lower extremity: Large ischemic ulcer with eschar of her right lower extremity. Also with ulcerations of her right medial malleolus and her right medial thigh. 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 Cont medical management of PAD. Started tramadol PRN, cont Tylenol PRN. Vascular surgery consulted: Patient at high risk candidate for any endovascular treatment as it would result in dialysis dependency, recommends debridement of the RLE wounds. Orthopedics on board: MRI RLEno evidence of OM. Status post debridement 02/[address] Mazariegos. Recommends daily dressing changes with Betadine. Plastic surgery [Dr. Nolen] also consulted as patient may need a skin graft. Prealbumin 16, concern for nutrition and lack of proper wound healing. Encourage p.o. intake and improve nutrition. Thinks patient is not a surgical candidate for skin grafting. Continue current wound dressing/change daily to prevent wound from drying. ID consulted:Continue cefepime for now, plan to discharge on p.o. Augmentin or Cipro plus Clinda, renally dosed. Encourage protein intake, continue wound care, continue supportive management. Discussed with plastic surgery, plan to have a look under wound tomorrow. Await further recommendation. Discussed with orthopedics, recommends seeing wound care center regularly, no further recommendation. #. Acute on chronic anemia: +ve [facility]; 03/03 FOBT negative in hospital. Per GI, her baseline Hb is 7 Appears to have multifactorial symptomatic anemia with iron deficiency present despite taking iron supplements. Per cardiology her goal Hb would be 9-10. Reports feeling better since blood transfusion. Notably patient reports never having had a colonoscopy in the past. She is w illing to undergo this outpatient which will be recommended with ongoing iron deficiency despite supplementation. Status post 3 unit transfusion this admission Monitor hemoglobin daily and as needed. #. Acute worsening of stage 3 chronic kidney disease: #. Hypokalemia Baseline creatinine 1.2-1.4 per nephrology. 2/2 ATN given the current clinical picture. Nephrology also expressed concerns independently that her anemia may be adversely affecting her respiratory status. Creatinine has been slowly trending upward but now seems to be getting better little by little since last 4-5 days. Creatinine 2.69 today. Nephrology on board: Continue with Rissa, actively dosing Lasix, avoid any NSAIDs/TATIANA inhibitor/ARB/contrast agents. Renally dose all antibiotics. Not a candidate for chronic or acute dialysis if those need arise. Recommends palliative consult if such situation arises. Per nephrology, IV diuresis on hold, plan to resume Lasix 40 mg twice daily probable from tomorrow. Monitor potassium daily, WNL today, judicious replacement when needed given worsening CKD. #. PAD (peripheral artery disease): Has a long-standing h/o PAD and has followed with [facility] Vascular surgery in the past. Has a h/o right SFA stenting and left AKA in 2010 due to progressive peripheral arterial disease. Continue Plavix 75 mg daily. #. HTN (hypertension): BP fairly under control. continue amlodipine and metoprolol with parameters hold losartan 2/2 to kalin #. DVT prophylaxis: None 2/2 to vascular wounds and concern for bleeding Dispo: PCU PCP: Dr. Parry DNR/DNI Disposition: Discuss with surgery tomorrow for final plans and discharge recommendation, update nephrology if plan for discharge for discharge recommendation, patient will need placement. Patient will need follow-up with wound care clinic regularly. CM working with placement. Admission and Anticipated Discharge Date Admission Date: February 16, 2021 Subjective Patient was seen and examined at bedside. Patient was lying semiupright in bed, on 1 L nasal cannula oxygen, NAD, no acute events overnight. Patient denies pain/headache/chills/chest pain/palpitation/increased shortness of breath/other review of symptoms. Patient reports eating and moving bowels okay. Patient has urinary catheter in situ with yellow urine collection. Physical Exam Physical Exam: GENERAL: Alert and oriented x3. NAD, on 1L. HEENT: No pallor, no icterus. Pupils equal, round and reactive to light. Oral mucosa moist. NECK: No JVD, no neck masses. HEART: S1 and S2 heard. Regular rate and rhythm. No murmur, no gallop. RESPIRATORY SYSTEM: Normal AP diameter. No accessory muscle use. No wheezing, no crackles. ABDOMEN: Soft, bowel sounds present, nontender, no distention. CENTRAL NERVOUS SYSTEM: No facial droop. Speech is clear. Obeys simple commands. Moves extremities. EXTREMITIES: RLE in dressings (photos by wound care reviewed - large eschar/ necrosis -now right lower extremity is in surgical dressings, postop), LLE AKA. Urinary catheter in situ with yellow urine collection. Results & Data Results & Data ([facility]) Vital Signs (Past 12 Hours) Vital Signs Temp Pulse Pulse Resp BP BP Pulse Ox 03/07/21 15:24 36.8 C 71 18 146/71 H 94 03/07/21 12:24 36.6 C 68 16 151/65 H 97 03/07/21 08:01 37.2 C 79 20 120/66 98 03/07/21 08:00 82
[2021-03-07] MEDS: traMADol HCL 50 MG TABLET PO PRN (21:00)
[2021-03-08] MEDS: FUROSEMIDE INJ 20 MG/2 ML VIAL IV SCH ×2 (05:11→12:59)
[2021-03-08] MEDS: GABAPENTIN 100 MG CAP PO SCH ×3 (05:13→21:16)
[2021-03-08 07:08] LABS: Hematocrit (blood only) 26.8 % (37-47); Hemoglobin 8.3 g/dL (12.0-16.0); Mean Corpuscular Hemoglobin 28.4 pg (25-34); Mean Corpuscular Volume 91.8 fL (80-100); RDW Coefficient of Variation 18.5 % (11.5-14.5); RDW Standard Deviation 61.7 fL (36.4-46.3); Red Blood Count 2.92 M/uL (4.2-5.4); White Blood Count 6.83 K/uL (4.8-10.8)
[2021-03-08 07:11] LABS: Platelet Count 87 K/uL (130-400)
[2021-03-08 07:43] LABS: BUN Creatinine Ratio 38.1 (10-20); Calcium 8.9 mg/dl (8.5-10.1); Creatinine Clr Calc Pharmacy 11.1 ml/min; Est GFR (African American) 15.3 ml/min; Est GFR (Non-African American) 13.2 ml/min; Potassium 3.9 mmol/L (3.5-5.1)
--- NOTE | 2021-03-08 08:31 | Nephrology Progress Note ---
Date of Service March 08, 2021 Assessment & Plan (1) Acute worsening of stage 3 chronic kidney disease: Plan: recurrent but stable/plateaued nonoliguric Stage 2 MARIELA from ATN, given the urine sediment picture and the clinical situation. baseline creatinine 1.2-1.4. she had another episode of MARIELA during recent [facility] admission, which resolved by hospital d/c to [facility], which is where she was rehabbing before this admission. No chronic 02 needs prior to [facility] admission. creatinine remains plateau'd in high 2's/low 3's and BUN high 110s. sodium remains high normal >> no encephalopathy or other uremic sx currently despite very high BUN. Mild hypokalemia which is today improved. Other chemistries and volume status generally acceptable, though she continues with mild volume overload -cxr ordered 03/[address] m edema on earlier images >> no ongoing plm edema; moderate pleural effusion L and small R noted <<>>no further plans for skin graft or other inpatient wound intervention to date >> may be approaching readiness for d/c -monitor for uremic sx ->>changed from lasix at 20 mg tid IV to lasix po 40 mg bid -cont potassium supplements 40 mEq daily -not unreasonable to leave laguerre in place for now and at d/c given her lack of mobility, fragile skin, bid diuretic needs -daily bmp while in house -Patient needs to eat well and less importantly to maintain fluid intake; no indication for FR currently but protein rich intake is more important than water intake for her and she remains with significant diuretic dependence DISCHARGE RECOMMENDATIONS -lasix and laguerre as above -hold OP losartan at hospital d/c -weekly bmp at hospital d/c to be ordered by nephro nurses and f/u w/ me about 2 weeks post d/c in [facility] or [facility] Care coordinated with Dr. Chaudhary Admission and Anticipated Discharge Date Admission Date: February 16, 2021 Subjective seenon rounds thsi am 0950; no interval issues, no worsening sob or edema. Review of Systems Review of Systems: All systems reviewed & are unremarkable except as noted in Subjective Physical Exam Constitutional: well developed, + frail appearing and cooperative; no acute distress Eyes: EOM intact bilaterally ENMT: Ears: no external ear abnormality Nose: no external nose abnormality Mouth: + dry oral mucous membranes Neck: no nuchal rigidity Respiratory: normal respiratory effort (on 1L 02NC) and able to speak in complete sentences (but speech limited) Auscultation: + diminished lung sounds Cardiovascular: Rate/Rhythm: regular rate and regular rhythm Heart Sounds: normal S1 and normal S2 Extremities: no edema Gastrointestinal (Abdomen): Inspection/Auscultation: normal bowel sounds Percussion/Palpation: abdomen soft; abdomen nontender Musculoskeletal: Extremities: + abnormal strength and + amputation noted (LLE AKA) Skin: no rashes, warm and dry Neurologic: Motor/Sensory: + tremor (and abnormal motor strength BLUE) Psychiatric: Orientation: oriented x 3 Insight: good insight Judgement: good judgement Results & Data ([facility]) Vital Signs (Past 12 Hours) Vital Signs Temp Pulse Pulse Pulse Resp BP BP 03/08/21 07:10 36.7 C 71 19 148/60 H 03/08/21 05:10 113/62 03/08/21 04:42 71 03/08/21 04:00 37.0 C 73 18 136/58 L 03/07/21 23:00 37.3 C 71 18 131/64 03/07/21 21:06 115/67 Pulse Ox 03/08/21 07:10 93 03/08/21 05:10 03/08/21 04:42 03/08/21 04:00 92 03/07/21 23:00 94 03/07/21 21:06 Laboratory Results 03/08/21 06:38 03/08/21 06:38
[2021-03-08] MEDS: FERROUS SULFATE 325 MG TAB PO SCH ×2 (09:02→20:01)
[2021-03-08] MEDS: ADVANCED PROBIOTIC 1250 MG CAPSULE PO SCH (09:02)
[2021-03-08] MEDS: CYANOCOBALAMIN 500 MCG TABLET (VITAMIN B-12) PO SCH (09:02)
[2021-03-08] MEDS: amLODIPine BESYLATE 5 MG TAB PO SCH (09:03)
[2021-03-08] MEDS: DOCUSATE SODIUM 100 MG CAP PO SCH ×2 (09:03→20:03)
[2021-03-08] MEDS: ATORVASTATIN 10 MG TAB PO SCH (09:03)
[2021-03-08] MEDS: CEROVITE ADV FORMULA TAB PO SCH (09:03)
[2021-03-08] MEDS: CLOPIDOGREL BISULFATE 75 MG TAB PO SCH (09:03)
[2021-03-08] MEDS: CHOLECALCIFEROL 1,000 UNITS 25 MCG TAB PO SCH (09:03)
[2021-03-08] MEDS: PANTOprazole 40 MG TAB PO SCH ×2 (09:03→20:03)
[2021-03-08] MEDS: METOPROLOL SUCC 50MG EXT REL TAB PO SCH (09:03)
[2021-03-08] MEDS: allopurinoL 100 MG TAB PO SCH (09:03)
[2021-03-08] MEDS: POLYETHYLENE (MIRALAX) 17 GM PACK PO SCH ×2 (09:03→20:03)
[2021-03-08] MEDS: POTASSIUM CHLORIDE PWD 20 MEQ PACK PO SCH (09:04)
--- NOTE | 2021-03-08 11:19 | Hospitalist Progress Note ---
Date of Service March 08, 2021 Assessment & Plan (1) Acute on chronic heart failure with preserved ejection fraction: (2) Wound of right lower extremity: Plan: Acute on chronic heart failure with preserved ejection fraction: History of chronic diastolic heart failure and mitral stenosis with HTN and gout. Per last cardiology outpatient note she was supposed to be taking Lasix 40mg PO BID, however, intake med list reflects lasix 40mg only once daily. Strict I's and O's, Maintain Laguerre for I's and O's. Overall patient reports feeling better and is currently on 1 L nasal cannula oxygen. Cardiology on board: Managing diuresis, continue other cardiovascular meds including ASA, Plavix, statin, amlodipine, metoprolol. TATIANA/ARB on hold. Lasix being managed by nephrology. Update nephrology if expected discharge; discussed they will come with discharge recommendation accordingly. Hypoxia: Most likely secondary to heart failure. Possible bacterial component as well. and atelectasis s/p zithromax 02/24 On cefepime 02/24 for wound treatment purposes. Wound of right lower extremity: Large ischemic ulcer with eschar of her right lower extremity. Also with ulcerations of her right medial malleolus and her right medial thigh. 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 Cont medical management of PAD. Started tramadol PRN, cont Tylenol PRN. Vascular surgery consulted: Patient at high risk candidate for any endovascular treatment as it would result in dialysis dependency, recommends debridement of the RLE wounds. Orthopedics on board: MRI RLEno evidence of OM. Status post debridement 02/[address] Mazariegos. Recommends daily dressing changes with Betadine. Plastic surgery [Dr. Nolen] also consulted as patient may need a skin graft. Prealbumin 16, concern for nutrition and lack of proper wound healing. Encourage p.o. intake and improve nutrition. Thinks patient is not a surgical candidate for skin grafting. Continue current wound dressing/change daily to prevent wound from drying. ID consulted:Continue cefepime for now, plan to discharge on p.o. Augmentin or Cipro plus Clinda, renally dosed. Encourage protein intake, continue wound care, continue supportive management. Discussed with plastic surgery, 03/08 - patient is not a candidate for skin grafting, recommend Santyl for necrotic edges Discussed with orthopedics, 03/08 - daily wound dressing changes, recommends seeing wound care center regularly (once or twice a week), Zack as above. Acute on chronic anemia: +ve [facility] 02/14; 03/03 FOBT negative in hospital. Per GI, her baseline Hb is 7 Appears to have multifactorial symptomatic anemia with iron deficiency present despite taking iron supplements. Per cardiology her goal Hb would be 9-10. Reports feeling better since blood transfusion. Notably patient reports never having had a colonoscopy in the past. She is w illing to undergo this outpatient which will be recommended with ongoing iron deficiency despite supplementation. Status post 3 unit transfusion this admission Monitor hemoglobin daily and as needed. Acute worsening of stage 3 chronic kidney disease: Hypokalemia Baseline creatinine 1.2-1.4 per nephrology. 2/2 ATN given the current clinical picture. Nephrology also expressed concerns independently that her anemia may be adversely affecting her respiratory status. Creatinine has been slowly trending upward but now seems to be getting better little by little since last 4-5 days. Creatinine 2.69 today. Nephrology on board: Continue with Rissa, actively dosing Lasix, avoid any NSAIDs/TATIANA inhibitor/ARB/contrast agents. Renally dose all antibiotics. Not a candidate for chronic or acute dialysis if those need arise. Recommends palliative consult if such situation arises. Per nephrology, was on IV lasix now POLasix 40 mg twice daily Monitor potassium daily while inpt. DISCHARGE RECOMMENDATIONS -lasix and laguerre as above -hold OP losartan at hospital d/c -weekly BMP at hospital d/c to be ordered by nephro nurses and f/u w/ Dr. Vyas about 2 weeks post d/c in [facility] or [facility] PAD (peripheral artery disease): Has a long-standing h/o PAD and has followed with [facility] Vascular surgery in the past. Has a h/o right SFA stenting and left AKA in 2010 due to progressive peripheral arterial disease. Continue Plavix 75 mg daily. Pause 4 sec on telemetry - transient episode of vagally mediated 2-1 AV block and 2 nonconducted P waves associated with elevated vagal tone in the setting of nausea, choking, and vomiting. Otherwise, her rhythm has been stable per telemetry review. Repeat 12-lead ECG. Continue metoprolol at current dose due to moderate mitral stenosis and severe left atrial enlargement which places patient at risk for atrial dysrhythmias, specifically paroxysmal atrial fibrillation. Continue to monitor telemetry. Consider swallow eval due to choking episode. Speech eval placed. HTN (hypertension): BP fairly under control. continue amlodipine and metoprolol with parameters hold losartan 2/2 to mariela DVT prophylaxis: None 2/2 to vascular wounds and concern for bleeding Dispo: PCU PCP: Dr. Parry DNR/DNI Disposition: Discuss with surgery tomorrow for final plans and discharge recommendation, update nephrology if plan for discharge for discharge recommendation, patient will need placement. Patient will need follow-up with wound care clinic regularly. CM working with placement. Admission and Anticipated Discharge Date Admission Date: February 16, 2021 Subjective Patient seen in follow-up of CHF exacerbation, MARIELA, PAD, with RLE wound Pt is sitting up in bed, using suppl. O2 via NC, appears more awake She is able to answer questions appropriately Had nausea vomiting after eating lunch, per RN at this time, noted pause on telemetry about 4 seconds. RN not sure if patient was nauseous from the pause or if the pause was the result of nausea. Otherwise denies fevers, chills, chest pain, palpitations, shortness of breath, abdominal pain, leg pain During this hospital stay, underwent debridement (RLE wound) with orthopedics Contacted orthopedics and plastic surgery today, for possible discharge recommendations Review of Systems Review of Systems: All systems reviewed & are unremarkable except as noted in Subjective Physical Exam Physical Exam: General: elderly obese F, chronically ill appearing, in NAD, on NC HEENT: NCAT, MMM, EOMI, PERRL Neck: Supple, normal range of motion CVS: normal rate and rhythm Resp: b/l decreased breath sounds, no wheezing, rhonchi Abdomen: Soft, ND/NT, + bowel sounds Extremities: RLE in dressings (photos by wound care reviewed - Large RLE wound appears a bit better but w/some necrotic edges), LLE BKA Neuro: awake and alert, face symmetric, speech fluent, moves extremities Skin: warm and dry (RLE as above) Results & Data Results & Data ([facility]) Vital Signs (Past 12 Hours) Vital Signs Temp Pulse Pulse Pulse Resp BP BP 03/08/21 08:00 67 03/08/21 07:10 36.7 C 71 19 148/60 H 03/08/21 05:10 113/62 03/08/21 04:42 71 03/08/21 04:00 37.0 C 73 18 136/58 L Pulse Ox 03/08/21 08:00 03/08/21 07:10 93 03/08/21 05:10 03/08/21 04:42 03/08/21 04:00 92 Laboratory Results 03/08/21 03/08/21 03/08/21 Range/Units 06:38 06:38 06:38 WBC 6.83 (4.8-10.8) K/uL RBC 2.92 L (4.2-5.4) M/uL Hgb 8.3 L (12.0-16.0) g/dL Hct 26.8 L (37-47) % MCV 91.8 (80-100) fL MCH 28.4 (25-34) pg MCHC 31.0 L (32-36) g/dL RDW Std Deviation 61.7 H (36.4-46.3) fL RDW Coeff of Hugo 18.5 H (11.5-14.5) % Plt Count 87 L (130-400) K/uL MPV 9.0 (7.4-10.4) fL Sodium 143 (136-145) mmol/L Potassium 3.9 (3.5-5.1) mmol/L Chloride 108 H (98-107) mmol/L Carbon Dioxide 30 (21-32) mmol/L Anion Gap 5.0 (3-11) BUN 117 H (7-18) mg/dl Creatinine 3.07 H (0.6-1.2) mg/dl Est Cr Clr Drug Dosing 11.1 ml/min Est GFR ( Amer) 15.3 ml/min Est GFR (Non-Af Amer) 13.2 ml/min BUN/Creatinine Ratio 38.1 H (10-20) Glucose 108 H (70-99) mg/dl Calcium 8.9 (8.5-10.1) mg/dl Prealbumin 16.9 L (20-40) mg/dl Medications Administered Current Inpatient Medications Acetaminophen (Acetaminophen 325 Mg Tab) 650 mg PO Q4H PRN PRN Reason: Pain or Fever Stop: 03/18/21 16:53 Last Admin: 02/25/21 15:55 Dose: 650 mg Documented by: Albuterol (Albut/Ipratrop 3mg/0.5mg Neb 3 Ml Vial) 3 ml NEB QIDR PRN PRN Reason: sob/wheezing Stop: 03/18/21 16:53 Allopurinol (Allopurinol 100 Mg Tab) 100 mg PO QAM [facility] Stop: 03/19/21 08:59 Last Admin: 03/08/21 09:03 Dose: 100 mg Documented by: Amlodipine Besylate (Amlodipine Besylate 5 Mg Tab) 10 mg PO [facility] Stop: 03/19/21 08:59 Last Admin: 03/08/21 09:03 Dose: 10 mg Documented by: Atorvastatin Calcium (Atorvastatin 10 Mg Tab) 10 mg PO [facility] Stop: 03/19/21 08:59 Last Admin: 03/08/21 09:03 Dose: 10 mg Documented by: Clopidogrel Bisulfate (Clopidogrel Bisulfate 75 Mg Tab) [facility] Stop: 03/19/21 08:59 Last Admin: 03/08/21 09:03 Dose: 75 mg Documented by: Cyanocobalamin (Cyanocobalamin 500 Mcg Tablet (Vitamin B-12)) 1,000 mcg [facility] [place] Stop: 03/19/21 08:59 Last Admin: 03/08/21 09:02 Dose: 1,000 mcg Documented by: Docusate Sodium (Docusate Sodium 100 Mg Cap) 100 mg PO BID [facility] Stop: 03/27/21 10:14 Last Admin: 03/08/21 09:03 Dose: Not Given Documented by: Ferrous Sulfate (Ferrous Sulfate 325 Mg Tab) 325 mg PO BID [facility] Stop: 03/18/21 20:59 Last Admin: 03/08/21 09:02 Dose: 325 mg Documented by: Furosemide (Furosemide 40 Mg/4 Ml Vial) 40 mg IV Q12H [facility] Stop: 04/04/21 08:59 Last Admin: 03/05/21 09:48 Dose: 40 mg Documented by: Furosemide (Furosemide Inj 20 Mg/2 Ml Vial) 20 mg IV Q8 [facility] Stop: 04/05/21 18:14 Last Admin: 03/08/21 05:11 Dose: 20 mg Documented by: Gabapentin (Gabapentin 100 Mg Cap) 100 mg PO Q8H [facility] Stop: 03/18/21 21:59 Last Admin: 03/08/21 05:13 Dose: 100 mg Documented by: Cefepime HCl 1,000 mg/ Syringe 11.3 mls @ 5.5 mls/min IV Q24H [facility]; Protocol Stop: 03/08/21 23:59 Last Admin: 03/07/21 11:19 Dose: 5.5 mls/min Documented by: Lactobacillus Acidoph/Casei/Rhamnos (Advanced Probiotic 1250 Mg Capsule) 2 cap PO DAILY [facility] Stop: 03/24/21 08:59 Last Admin: 03/08/21 09:02 Dose: 2 cap Documented by: Metoprolol Succinate (Metoprolol Succ 50mg Ext Rel Tab) 100 mg PO QAM [facility] Stop: 03/19/21 08:59 Last Admin: 03/08/21 09:03 Dose: 100 mg Documented by: Multivitamins/Minerals (Cerovite Adv Formula Tab) 1 tab PO DAILY [facility] Stop: 03/19/21 08:59 Last Admin: 03/08/21 09:03 Dose: 1 tab Documented by: Ondansetron HCl (Ondansetron Inj 2 Mg/Ml 2 Ml Vial) 4 mg IV Q6H PRN PRN Reason: Nausea Stop: 03/18/21 16:53 Last Admin: 02/21/21 12:09 Dose: 4 mg Documented by: Pantoprazole Sodium (Pantoprazole 40 Mg Tab) 40 mg PO BID [facility]; Protocol Stop: 03/27/21 20:59 Last Admin: 03/08/21 09:03 Dose: 40 mg Documented by: Polyethylene Glycol (Polyethylene (Miralax) 17 Gm Pack) 17 gm PO BID [facility] Stop: 03/28/21 11:59 Last Admin: 03/08/21 09:03 Dose: Not Given Documented by: Potassium Chloride (Potassium Chloride Pwd 20 Meq Pack) 40 meq PO QAM [facility] Stop: 04/05/21 18:14 Last Admin: 03/08/21 09:04 Dose: 40 meq Documented by: Tramadol HCl (Tramadol Hcl 50 Mg Tablet) 50 mg PO Q4H PRN PRN Reason: severe pain (rating 7-10) Stop: 03/18/21 16:53 Last Admin: 03/07/21 21:00 Dose: 50 mg Documented by: Tramadol HCl (Tramadol Hcl 50 Mg Tablet) 50 mg PO Q4H PRN PRN Reason: Pain Stop: 03/21/21 13:36 Last Admin: 03/02/21 14:24 Dose: 50 mg Documented by: Vitamin D (Cholecalciferol 1,000 Units 25 Mcg Tab) 2,000 units PO [facility] Stop: 03/19/21 08:59 Last Admin: 03/08/21 09:03 Dose: 2,000 units Documented by:
[2021-03-08] MEDS: CEFEPIME 1,000 MG in SYRINGE 0 ML IV SCH (11:42)
[2021-03-08] MEDS ORDERED: POTASSIUM CHLORIDE CRTAB 20 MEQ TABCR PO STA (12:13)
--- NOTE | 2021-03-08 12:27 | Surgery Progress Note ---
Date of Service March 08, 2021 Assessment & Plan (1) Wound of right lower extremity: Plan: Wound is improving with current daily dressing changes. She may benefit from santyl to the wound to clean up the necrotic areas on periphery. Joelle is not presently a candidate for skin graft to the wound. Will continue to follow along peripherally while patient remains in house. Admission and Anticipated Discharge Date Admission Date: February 16, 2021 Supervising Physician Co-Signing Physician Notes I personally saw and examined this patient and agree with the assessment and plan. Wound is showing some granulation, but also has some areas of necrosis/slough. Not ready for grafting. Prealbumin remains low at 16.9 and will contribute to delayed healing. Consider Santyl ointment to necrotic areas. Will recheck wound in a few days if still in house. Subjective Joelle is seen bedside today with Dr. Nolen. She voices no complaints and reports minimal pain. She says her dressing was last changed yesterday. Physical Exam Physical Exam: dressing removed. had been changed to xeroform, ABD and kerlix gauze. there is an increase in granulation tissue in wound bed. periphery with eschar and necrosis. wound on medial ankle is healing well. moderate amount of slough and serous/bloody drainage. Results & Data ([facility]) Vital Signs (Past 12 Hours) Vital Signs Temp Pulse Pulse Pulse Resp BP BP 03/08/21 11:37 36.7 C 66 18 03/08/21 08:00 67 03/08/21 07:10 36.7 C 71 19 148/60 H 03/08/21 05:10 113/62 03/08/21 04:42 71 03/08/21 04:00 37.0 C 73 18 136/58 L Pulse Ox 03/08/21 11:37 91 03/08/21 08:00 03/08/21 07:10 93 03/08/21 05:10 03/08/21 04:42 03/08/21 04:00 92 PG Care Time/CCT Total # of Minutes Spent Total Time Spent with Patient: Total time spent is greater than 50% in coordination of care (as documented) at patient's floor/unit and/or counseling patient: Coding Level of Care Code 01124 Subseq Hosp Care Lvl 2 Diagnoses Wound of right lower extremity S81.801A
--- NOTE | 2021-03-08 13:53 | Orthopedic Progress Note ---
Date of Service March 08, 2021 Assessment & Plan (1) Wound of right lower extremity: Plan: POD #10 s/p 1. Right lower extremity extensive debridement including skin, subcutaneous tissue, fascia, right lower leg circumferential necrosis 22 x 25.5 x 1.4 cm. 2. Extensive debridement including skin, subcutaneous tissue, fascia medial ankle 2.5 x 3.0 x 0.1 cm. 3. Extensive debridement including skin, subcutaneous tissue, fascia anteromedial ankle 1.5 x 1.0 x 0.1 cm. 4. Extensive debridement including skin, subcutaneous tissue, fascia anterolateral ankle 1.0 x 1.0 x 0.1 cm. 5. Extensive debridement including skin, subcutaneous tissue, fascia and a nterolateral ankle, 1.6 x 1.6 x 0.1 cm right lower extremity. Will review wound pictures with Dr Mazariegos taken at time of dressing change today. Initial plans to continue daily dressing changes and wound improvement for possible skin grafting. Await any changes he may add after reviewing wound pics. Per Plastics, continue daily dressing changes and possible use of Santyl over the necrotic edges. They will plan to recheck wound in a few days. Plannng for [facility]. No beds available at this time. Admission and Anticipated Discharge Date Admission Date: February 16, 2021 Subjective Pt sleeping upon arrival but easily awoken. No complaints. Plastics service was by to review the wound. Mihaela Marino present from wound care to see/dress wound as well. Physical Exam Physical Exam: Dressings taken down. Large RLE wound appears a bit better although some of the necrotic edges maybe have increased slightly anteromedially. Some granulation noted. Some slough noted as well around some of the edges. Wounds redressed with adaptic, ABD's, and kerlix wrap. Results & Data ([facility]) Vital Signs (Past 12 Hours) Vital Signs Temp Pulse Pulse Pulse Resp BP BP 03/08/21 11:37 36.7 C 66 18 03/08/21 08:00 67 03/08/21 07:10 36.7 C 71 19 148/60 H 03/08/21 05:10 113/62 03/08/21 04:42 71 03/08/21 04:00 37.0 C 73 18 136/58 L Pulse Ox 03/08/21 11:37 91 03/08/21 08:00 03/08/21 07:10 93 03/08/21 05:10 03/08/21 04:42 03/08/21 04:00 92
[2021-03-08] MEDS ORDERED: COLLAGENASE OINT 30 GM TUBE EXT PRN (16:03)
--- NOTE | 2021-03-08 16:06 | Cardiology Progress Note ---
Date of Service March 08, 2021 Assessment & Plan (1) Chronic heart failure with preserved ejection fraction (HFpEF): (2) Mitral valve stenosis: (3) AV block, 2nd degree: (4) Vagal arrhythmia: Plan: Patient suffered a transient episode of vagally mediated 2-1 AV block and 2 nonconducted P waves associated with elevated vagal tone in the setting of nausea, choking, and vomiting. Otherwise, her rhythm has been stable per telemetry review. Recommend repeat twelve-lead ECG. Continue metoprolol at current dose due to moderate mitral stenosis and severe left atrial enlargement which places patient at risk for atrial dysrhythmias, specifically paroxysmal atrial fibrillation. Continue to monitor telemetry. Consider swallow eval due to choking episode. Admission and Anticipated Discharge Date Admission Date: February 16, 2021 Subjective Called by internal medicine to evaluate patient due to bradycardia and 4-second pause at approximately 12 PM. Case discussed with nursing and patient. She reports feeling nauseated and poor appetite. She attempted to eat her midday meal which included chicken. Food became lodged in her esophagus and she began to choke. She was able to cough up her food and vomited x1. Nursing able to remove food from her mouth and airway. At that time telemetry revealed sinus bradycardia, 2-1 AV block, and a 4-second pause with 2 nonconducted P waves. Patient spontaneously reverted back to her sinus rhythm with average heart rate in the 60s-70s. Review of telemetry since admission demonstrates no evidence of heart block or bradycardia. Currently patient is resting comfortably. Denies any chest pain, shortness of breath, lightheadedness, or dizziness. She has been maintained on high-dose beta-anna therapy due to history of moderate mitral stenosis. Review of Systems Review of Systems: All systems reviewed & are unremarkable except as noted in Subjective Physical Exam Constitutional: well nourished and + ill appearing; no acute distress Respiratory: normal respiratory effort; no respiratory distress and no labored breathing Auscultation: lungs clear to auscultation bilaterally; no crackles, no rales, no rhonchi and no wheezes Cardiovascular: Rate/Rhythm: regular rate and regular rhythm Heart Sounds: normal S1, normal S2 and + murmur (1/6 systolic ejection murmur) Vessels: no JVD and no carotid bruit Extremities: no edema Left [id number] amputation Gastrointestinal (Abdomen): Inspection/Auscultation: abdomen normal to inspection and normal bowel sounds; abdomen not distended Percussion/Palpation: abdomen soft; abdomen nontender, no guarding and abdomen not rigid Neurologic: moves all extremities; no focal motor deficits Results & Data ([facility]) Vital Signs (Past 12 Hours) Vital Signs Temp Pulse Pulse Pulse Resp BP BP 03/08/21 15:37 37.0 C 77 18 155/63 H 03/08/21 11:37 36.7 C 66 18 03/08/21 08:00 67 03/08/21 07:10 36.7 C 71 19 148/60 H 03/08/21 05:10 113/62 03/08/21 04:42 71 03/08/21 04:00 37.0 C 73 18 136/58 L Pulse Ox 03/08/21 15:37 92 03/08/21 11:37 91 03/08/21 08:00 03/08/21 07:10 93 03/08/21 05:10 03/08/21 04:42 03/08/21 04:00 92
[2021-03-08] MEDS: FUROSEMIDE 40 MG TAB PO SCH (17:46)
[2021-03-09] MEDS: GABAPENTIN 100 MG CAP PO SCH ×3 (05:09→21:28)
[2021-03-09 07:37] LABS: Hematocrit (blood only) 25.2 % (37-47); Hemoglobin 7.9 g/dL (12.0-16.0); Mean Corpuscular Hemoglobin 28.6 pg (25-34); Mean Corpuscular Hgb Conc 31.3 g/dL (32-36); Mean Corpuscular Volume 91.3 fL (80-100); RDW Coefficient of Variation 18.5 % (11.5-14.5); Red Blood Count 2.76 M/uL (4.2-5.4); White Blood Count 5.96 K/uL (4.8-10.8)
[2021-03-09 07:55] LABS: Mean Platelet Volume 9.3 fL (7.4-10.4); Platelet Count 92 K/uL (130-400)
[2021-03-09 08:14] LABS: BUN Creatinine Ratio 36.1 (10-20); Calcium 9.1 mg/dl (8.5-10.1); Creatinine Clr Calc Pharmacy 10.5 ml/min; Est GFR (African American) 14.5 ml/min; Est GFR (Non-African American) 12.5 ml/min; Magnesium 2.2 mg/dl (1.8-2.4)
[2021-03-09 08:15] LABS: Phosphorus 3.6 mg/dl (2.5-4.9)
[2021-03-09] MEDS: allopurinoL 100 MG TAB PO SCH (08:39)
[2021-03-09] MEDS: amLODIPine BESYLATE 5 MG TAB PO SCH (08:39)
[2021-03-09] MEDS: CHOLECALCIFEROL 1,000 UNITS 25 MCG TAB PO SCH (08:40)
[2021-03-09] MEDS: CLOPIDOGREL BISULFATE 75 MG TAB PO SCH (08:40)
[2021-03-09] MEDS: ATORVASTATIN 10 MG TAB PO SCH (08:40)
[2021-03-09] MEDS: CYANOCOBALAMIN 500 MCG TABLET (VITAMIN B-12) PO SCH (08:40)
[2021-03-09] MEDS: FUROSEMIDE 40 MG TAB PO SCH ×2 (08:41→16:51)
[2021-03-09] MEDS: FERROUS SULFATE 325 MG TAB PO SCH ×2 (08:41→20:16)
[2021-03-09] MEDS: DOCUSATE SODIUM 100 MG CAP PO SCH ×2 (08:41→20:17)
[2021-03-09] MEDS: ADVANCED PROBIOTIC 1250 MG CAPSULE PO SCH (08:41)
[2021-03-09] MEDS: CEROVITE ADV FORMULA TAB PO SCH (08:42)
[2021-03-09] MEDS: POLYETHYLENE (MIRALAX) 17 GM PACK PO SCH ×2 (08:42→20:17)
[2021-03-09] MEDS: PANTOprazole 40 MG TAB PO SCH ×2 (08:42→20:17)
[2021-03-09] MEDS: POTASSIUM CHLORIDE PWD 20 MEQ PACK PO SCH (08:42)
[2021-03-09] MEDS: METOPROLOL SUCC 50MG EXT REL TAB PO SCH (08:42)
--- NOTE | 2021-03-09 13:23 | Hospitalist Progress Note ---
Date of Service March 09, 2021 Assessment & Plan (1) Acute on chronic heart failure with preserved ejection fraction: (2) Wound of right lower extremity: Plan: Acute on chronic heart failure with preserved ejection fraction: History of chronic diastolic heart failure and mitral stenosis with HTN and gout. Per last cardiology outpatient note she was supposed to be taking Lasix 40mg PO BID, however, intake med list reflects lasix 40mg only once daily. Strict I's and O's, Maintain Laguerre for I's and O's. Overall patient reports feeling better and is currently on 1 L nasal cannula oxygen. Cardiology on board: Managing diuresis, continue other cardiovascular meds including ASA, Plavix, statin, amlodipine, metoprolol. TATIANA/ARB on hold. Lasix being managed by nephrology. Update nephrology if expected discharge; discussed they will come with discharge recommendation accordingly. Hypoxia: Most likely secondary to heart failure. Possible bacterial component as well. and atelectasis s/p zithromax 02/24 On cefepime 02/24 for wound treatment purposes. Wound of right lower extremity: Large ischemic ulcer with eschar of her right lower extremity. Also with ulcerations of her right medial malleolus and her right medial thigh. 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 Cont medical management of PAD. Started tramadol PRN, cont Tylenol PRN. Vascular surgery consulted: Patient at high risk candidate for any endovascular treatment as it would result in dialysis dependency, recommends debridement of the RLE wounds. Orthopedics on board: MRI RLEno evidence of OM. Status post debridement 02/[address] Mazariegos. Recommends daily dressing changes with Betadine. Plastic surgery [Dr. Nolen] also consulted as patient may need a skin graft. Prealbumin 16, concern for nutrition and lack of proper wound healing. Encourage p.o. intake and improve nutrition. Thinks patient is not a surgical candidate for skin grafting. Continue current wound dressing/change daily to prevent wound from drying. ID consulted:Continue cefepime for now, plan to discharge on p.o. Augmentin or Cipro plus Clinda, renally dosed. Encourage protein intake, continue wound care, continue supportive management. Discussed with plastic surgery, 03/08 - patient is not a candidate for skin grafting, recommend Santyl for necrotic edges Discussed with orthopedics, 03/08 - daily wound dressing changes, recommends seeing wound care center regularly (once or twice a week), Zack as above. Acute on chronic anemia: +ve F[facility]T [facility] 02/14; 03/03 FOBT negative in hospital. Per GI, her baseline Hb is 7 Appears to have multifactorial symptomatic anemia with iron deficiency present despite taking iron supplements. Per cardiology her goal Hb would be 9-10. Reports feeling better since blood transfusion. Notably patient reports never having had a colonoscopy in the past. She is w illing to undergo this outpatient which will be recommended with ongoing iron deficiency despite supplementation. Status post 3 unit transfusion this admission Monitor hemoglobin daily and as needed. Acute worsening of stage 3 chronic kidney disease: Hypokalemia Baseline creatinine 1.2-1.4 per nephrology. 2/2 ATN given the current clinical picture. Nephrology also expressed concerns independently that her anemia may be adversely affecting her respiratory status. Creatinine has been slowly trending upward but now seems to be getting better little by little since last 4-5 days. Creatinine 2.69 today. Nephrology on board: Continue with Rissa, actively dosing Lasix, avoid any NSAIDs/TATIANA inhibitor/ARB/contrast agents. Renally dose all antibiotics. Not a candidate for chronic or acute dialysis if those need arise. Recommends palliative consult if such situation arises. Per nephrology, was on IV lasix now POLasix 40 mg twice daily Monitor potassium daily while inpt. DISCHARGE RECOMMENDATIONS -lasix and laguerre as above -hold OP losartan at hospital d/c -weekly BMP at hospital d/c to be ordered by nephro nurses and f/u w/ Dr. Vyas about 2 weeks post d/c in [facility] or [facility] PAD (peripheral artery disease): Has a long-standing h/o PAD and has followed with [facility] Vascular surgery in the past. Has a h/o right SFA stenting and left AKA in 2010 due to progressive peripheral arterial disease. Continue Plavix 75 mg daily. Pause 4 sec on telemetry - transient episode of vagally mediated 2-1 AV block and 2 nonconducted P waves associated with elevated vagal tone in the setting of nausea, choking, and vomiting. Otherwise, her rhythm has been stable per telemetry review. Repeat 12-lead ECG. Continue metoprolol at current dose due to moderate mitral stenosis and severe left atrial enlargement which places patient at risk for atrial dysrhythmias, specifically paroxysmal atrial fibrillation. Continue to monitor telemetry. Consider swallow eval due to choking episode. Speech eval placed. HTN (hypertension): BP fairly under control. continue amlodipine and metoprolol with parameters hold losartan 2/2 to mariela DVT prophylaxis: None 2/2 to vascular wounds and concern for bleeding Dispo: PCU PCP: Dr. Parry DNR/DNI Disposition:patient will need placement. Patient will need follow-up with wound care clinic regularly. CM working with placement. Admission and Anticipated Discharge Date Admission Date: February 16, 2021 Subjective Patient seen in follow-up of CHF exacerbation, MARIELA, PAD, with RLE wound Pt is sitting up in bed, in NAD She is able to answer questions appropriately Denies fevers, chills, chest pain, palpitations, shortness of breath, abdominal pain, leg pain During this hospital stay, underwent debridement (RLE wound) with orthopedics Contacted orthopedics and plastic surgery yesterday, for possible discharge recommendations Review of Systems Review of Systems: All systems reviewed & are unremarkable except as noted in Subjective Physical Exam Physical Exam: General: elderly obese F, chronically ill appearing, in NAD, on NC HEENT: NCAT, MMM, EOMI, PERRL Neck: Supple, normal range of motion CVS: normal rate and rhythm Resp: b/l decreased breath sounds, no wheezing, rhonchi Abdomen: Soft, ND/NT, + bowel sounds Extremities: RLE in dressings (photos by wound care reviewed - Large RLE wound appears a bit better but w/some necrotic edges), LLE BKA Neuro: awake and alert, face symmetric, speech fluent, moves extremities Skin: warm and dry (RLE as above) Results & Data Results & Data ([facility]) Vital Signs (Past 12 Hours) Vital Signs Temp Pulse Pulse Pulse Resp BP Pulse Ox 03/09/21 12:00 36.5 C 68 18 121/53 L 03/09/21 08:00 36.9 C 76 20 114/64 95 03/09/21 07:15 63 03/09/21 03:44 61 03/09/21 03:16 36.4 C L 75 18 144/62 H 94 Laboratory Results 03/09/21 03/09/21 Range/Units 07:10 07:10 WBC 5.96 (4.8-10.8) K/uL RBC 2.76 L (4.2-5.4) M/uL Hgb 7.9 L (12.0-16.0) g/dL Hct 25.2 L (37-47) % MCV 91.3 (80-100) fL MCH 28.6 (25-34) pg MCHC 31.3 L (32-36) g/dL RDW Std Deviation 61.0 H (36.4-46.3) fL RDW Coeff of Hugo 18.5 H (11.5-14.5) % Plt Count 92 L (130-400) K/uL MPV 9.3 (7.4-10.4) fL Sodium 143 (136-145) mmol/L Potassium 4.0 (3.5-5.1) mmol/L Chloride 109 H (98-107) mmol/L Carbon Dioxide 27 (21-32) mmol/L Anion Gap 8.0 (3-11) BUN 116 H (7-18) mg/dl Creatinine 3.21 H (0.6-1.2) mg/dl Est Cr Clr Drug Dosing 10.5 ml/min Est GFR ( Amer) 14.5 ml/min Est GFR (Non-Af Amer) 12.5 ml/min BUN/Creatinine Ratio 36.1 H (10-20) Glucose 107 H (70-99) mg/dl Calcium 9.1 (8.5-10.1) mg/dl Phosphorus 3.6 (2.5-4.9) mg/dl Magnesium 2.2 (1.8-2.4) mg/dl Medications Administered Current Inpatient Medications Acetaminophen (Acetaminophen 325 Mg Tab) 650 mg PO Q4H PRN PRN Reason: Pain or Fever Stop: 03/18/21 16:53 Last Admin: 02/25/21 15:55 Dose: 650 mg Documented by: Albuterol (Albut/Ipratrop 3mg/0.5mg Neb 3 Ml Vial) 3 ml NEB QIDR PRN PRN Reason: sob/wheezing Stop: 03/18/21 16:53 Allopurinol (Allopurinol 100 Mg Tab) 100 mg PO QAM JARRELL Stop: 03/19/21 08:59 Last Admin: 03/09/21 08:39 Dose: 100 mg Documented by: Amlodipine Besylate (Amlodipine Besylate 5 Mg Tab) 10 mg PO QAM [facility] Stop: 03/19/21 08:59 Last Admin: 03/09/21 08:39 Dose: 10 mg Documented by: Atorvastatin Calcium (Atorvastatin 10 Mg Tab) 10 mg PO QAM [facility] Stop: 03/19/21 08:59 Last Admin: 03/09/21 08:40 Dose: 10 mg Documented by: Clopidogrel Bisulfate (Clopidogrel Bisulfate 75 Mg Tab) 75 mg PO QAM [facility] Stop: 03/19/21 08:59 Last Admin: 03/09/21 08:40 Dose: 75 mg Documented by: Collagenase (Collagenase Oint 30 Gm Tube) 1 appln EXT DAILY PRN PRN Reason: Notification Stop: 04/07/21 16:02 Cyanocobalamin (Cyanocobalamin 500 Mcg Tablet (Vitamin B-12)) 1,000 mcg PO QAM [facility] Stop: 03/19/21 08:59 Last Admin: 03/09/21 08:40 Dose: 1,000 mcg Documented by: Docusate Sodium (Docusate Sodium 100 Mg Cap) 100 mg PO BID [facility] Stop: 03/27/21 10:14 Last Admin: 03/09/21 08:41 Dose: 100 mg Documented by: Ferrous Sulfate (Ferrous Sulfate 325 Mg Tab) 325 mg PO BID [facility] Stop: 03/18/21 20:59 Last Admin: 03/09/21 08:41 Dose: 325 mg Documented by: Furosemide (Furosemide 40 Mg/4 Ml Vial) 40 mg IV Q12H JARRELL Stop: 04/04/21 08:59 Last Admin: 03/05/21 09:48 Dose: 40 mg Documented by: Furosemide (Furosemide 40 Mg Tab) 40 mg PO BID17 JARRELL Stop: 04/07/21 16:59 Last Admin: 03/09/21 08:41 Dose: 40 mg Documented by: Gabapentin (Gabapentin 100 Mg Cap) 100 mg PO Q8H [facility] Stop: 03/18/21 21:59 Last Admin: 03/09/21 05:09 Dose: 100 mg Documented by: Lactobacillus Acidoph/Casei/Rhamnos (Advanced Probiotic 1250 Mg Capsule) 2 cap PO DAILY [facility] Stop: 03/24/21 08:59 Last Admin: 03/09/21 08:41 Dose: 2 cap Documented by: Metoprolol Succinate (Metoprolol Succ 50mg Ext Rel Tab) 100 mg PO QAM [facility] Stop: 03/19/21 08:59 Last Admin: 03/09/21 08:42 Dose: 100 mg Documented by: Multivitamins/Minerals (Cerovite Adv Formula Tab) 1 tab PO DAILY [facility] Stop: 03/19/21 08:59 Last Admin: 03/09/21 08:42 Dose: 1 tab Documented by: Ondansetron HCl (Ondansetron Inj 2 Mg/Ml 2 Ml Vial) 4 mg IV Q6H PRN PRN Reason: Nausea Stop: 03/18/21 16:53 Last Admin: 02/21/21 12:09 Dose: 4 mg Documented by: Pantoprazole Sodium (Pantoprazole 40 Mg Tab) 40 mg PO BID [facility]; Protocol Stop: 03/27/21 20:59 Last Admin: 03/09/21 08:42 Dose: 40 mg Documented by: Polyethylene Glycol (Polyethylene (Miralax) 17 Gm Pack) 17 gm PO BID [facility] Stop: 03/28/21 11:59 Last Admin: 03/09/21 08:42 Dose: 17 gm Documented by: Potassium Chloride (Potassium Chloride Pwd 20 Meq Pack) 40 meq PO QAM [facility] Stop: 04/05/21 18:14 Last Admin: 03/09/21 08:42 Dose: 40 meq Documented by: Tramadol HCl (Tramadol Hcl 50 Mg Tablet) 50 mg PO Q4H PRN PRN Reason: severe pain (rating 7-10) Stop: 03/18/21 16:53 Last Admin: 03/07/21 21:00 Dose: 50 mg Documented by: Tramadol HCl (Tramadol Hcl 50 Mg Tablet) 50 mg PO Q4H PRN PRN Reason: Pain Stop: 03/21/21 13:36 Last Admin: 03/02/21 14:24 Dose: 50 mg Documented by: Vitamin D (Cholecalciferol 1,000 Units 25 Mcg Tab) 2,000 [facility] [place] [facility] [place]: 03/19/21 08:59 Last Admin: 03/09/21 08:40 Dose: 2,000 units Documented by:
[2021-03-09] MEDS: traMADol HCL 50 MG TABLET PO PRN ×2 (15:41→22:47)
--- NOTE | 2021-03-09 18:06 | Nephrology Progress Note ---
Date of Service March 09, 2021 Assessment & Plan (1) Acute worsening of stage 3 chronic kidney disease: Plan: recurrent and today slightly worse nonoliguric Stage 2 MARIELA from ATN, given the urine sediment picture and the clinical situation. baseline creatinine 1.2-1.4 BUT with nephrotic range proteinuria at baseline; she has very slightly low complement levels on w/u > declined heme eval; no bx was indicated.. she had another episode of MARIELA during recent [facility] admission, which resolved by hospital d/c to [facility], which is where she was rehabbing before this admission. No chronic 02 needs prior to [facility] admission. creatinine had been plateau'd in high 2's/low 3's and BUN high 110s > at high end of this range today. sodium remains high normal >> no encephalopathy or other uremic sx currently despite very high BUN. Mild hypokalemia which is today improved. Other chemistries and volume status generally acceptable, though she continues w ith mild volume overload -cxr ordered 03/06 re plm edema on earlier images >> no ongoing plm edema; moderate pleural effusion L and small R noted <<>>no further plans for skin graft or other inpatient wound intervention to date >> may be approaching readiness for d/c -monitor for uremic sx ->>cont lasix po 40 mg bid -cont potassium supplements 40 mEq daily -not unreasonable to leave laguerre in place for now and at d/c given her lack of mobility, fragile skin, bid diuretic needs -daily bmp while in house -Patient needs to eat well and less importantly to maintain fluid intake; no indication for FR currently but protein rich intake is more important than water intake for her and she remains with significant diuretic dependence >>>I worry with her small build and LE amputation that she may need ESRD planning at some point; she is quite frail and a poor candidate for dialysis but significant risk of facing this decision; will cont to discuss periodically DISCHARGE RECOMMENDATIONS -lasix and laguerre as above -hold OP losartan at hospital d/c -weekly bmp at hospital d/c to be ordered by nephro nurses and f/u w/ me about 2 weeks post d/c in [facility] Admission and Anticipated Discharge Date Admission Date: February 16, 2021 Subjective ate well today; denies worsening sob, uncontrolled pain. ongoing tremors Review of Systems Review of Systems: All systems reviewed & are unremarkable except as noted in Subjective Physical Exam Constitutional: well developed, + frail appearing and cooperative; no acute distress Eyes: EOM intact bilaterally ENMT: Ears: no external ear abnormality Nose: no external nose abnormality Mouth: + dry oral mucous membranes Neck: no nuchal rigidity Respiratory: normal respiratory effort (on 2L 02NC) and able to speak in complete sentences Auscultation: + diminished lung sounds Cardiovascular: Rate/Rhythm: regular rate and regular rhythm Heart Sounds: normal S1 and normal S2 Extremities: no edema Gastrointestinal (Abdomen): Inspection/Auscultation: normal bowel sounds Percussion/Palpation: abdomen soft; abdomen nontender Musculoskeletal: Extremities: + abnormal strength and + amputation noted (LLE AKA) Skin: no rashes, warm and dry leg wrapped RLE Neurologic: Motor/Sensory: + tremor (and abnormal motor strength BLUE) Psychiatric: Orientation: oriented x 3 Insight: good insight Judgement: good judgement Results & Data ([facility]) Vital Signs (Past 12 Hours) Vital Signs Temp Pulse Pulse Resp BP Pulse Ox 03/09/21 16:00 36.5 C 72 18 118/64 95 03/09/21 14:49 66 03/09/21 12:00 36.5 C 68 18 121/53 L 03/09/21 08:00 36.9 C 76 20 114/64 95 03/09/21 07:15 63 Laboratory Results 03/09/21 07:10 03/09/21 07:10
--- NOTE | 2021-03-09 19:25 | Electrocardiogram Report ---
Test Reason : Blood Pressure : / mmHG Vent. 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
[2021-03-10 06:07] LABS: Hematocrit (blood only) 25.1 % (37-47); Hemoglobin 7.6 g/dL (12.0-16.0)
[2021-03-10] MEDS: GABAPENTIN 100 MG CAP PO SCH ×3 (06:14→20:17)
[2021-03-10 06:34] LABS: BUN Creatinine Ratio 34.2 (10-20); Calcium 9.3 mg/dl (8.5-10.1); Creatinine Clr Calc Pharmacy 9.8 ml/min; Est GFR (African American) 13.1 ml/min; Est GFR (Non-African American) 11.3 ml/min; Magnesium 2.3 mg/dl (1.8-2.4); Potassium 4.2 mmol/L (3.5-5.1)
[2021-03-10] MEDS: allopurinoL 100 MG TAB PO SCH (08:58)
[2021-03-10] MEDS: ATORVASTATIN 10 MG TAB PO SCH (08:59)
[2021-03-10] MEDS: CHOLECALCIFEROL 1,000 UNITS 25 MCG TAB PO SCH (08:59)
[2021-03-10] MEDS: amLODIPine BESYLATE 5 MG TAB PO SCH (08:59)
[2021-03-10] MEDS: ADVANCED PROBIOTIC 1250 MG CAPSULE PO SCH (09:00)
[2021-03-10] MEDS: METOPROLOL SUCC 50MG EXT REL TAB PO SCH (09:00)
[2021-03-10] MEDS: CLOPIDOGREL BISULFATE 75 MG TAB PO SCH (09:00)
[2021-03-10] MEDS: POLYETHYLENE (MIRALAX) 17 GM PACK PO SCH ×2 (09:01→20:17)
[2021-03-10] MEDS: PANTOprazole 40 MG TAB PO SCH ×2 (09:01→20:17)
[2021-03-10] MEDS: CEROVITE ADV FORMULA TAB PO SCH (09:01)
[2021-03-10] MEDS: POTASSIUM CHLORIDE PWD 20 MEQ PACK PO SCH (09:02)
[2021-03-10] MEDS: CYANOCOBALAMIN 500 MCG TABLET (VITAMIN B-12) PO SCH (09:02)
[2021-03-10] MEDS: DOCUSATE SODIUM 100 MG CAP PO SCH ×2 (09:02→20:18)
[2021-03-10] MEDS: FERROUS SULFATE 325 MG TAB PO SCH ×2 (09:03→20:18)
--- NOTE | 2021-03-10 10:15 | Nephrology Progress Note ---
Date of Service March 10, 2021 Assessment & Plan (1) Acute worsening of stage 3 chronic kidney disease: Plan: recurrent and today further worsening nonoliguric Stage 2 MARIELA from ATN, given the urine sediment picture and the clinical situation. baseline creatinine 1.2- 1.4 BUT with nephrotic range proteinuria at baseline; she has very slightly low complement levels on w/u > declined heme eval; no bx was indicated. she had another episode of MARIELA during recent [place] admission, which resolved by hospital d/c to [facility], which is where she was rehabbing before this admission. No chronic 02 needs prior to [place] admission. creatinine had been plateau'd in high 2's/low 3's and BUN high 110s > just beyond high end of this range today. sodium remains high normal >> no encephalopathy or other uremic sx (except ? myoclonic jerks) currently despite very high BUN. K acceptable today as are other chemistries and volume status, though she continues with mild volume overload -cxr ordered 03/06 re plm edema on earlier images >> no ongoing plm edema; moderate pleural effusion L and small R noted <<>>no further plans for skin graft or other inpatient wound intervention to date >> her renal failure is the issue complicating discharge -monitor for uremic sx ->>lasix and K held today d/t worsening renal function; had been on lasix po 40 mg bid and potassium supplements 40 mEq daily >>>ordered 24 hr urine for creatinine/urea clearance -not unreasonable to leave laguerre in place for now and at d/ given her lack of mobility, fragile skin, bid diuretic needs -daily bmp while in house -Patient needs to eat well and less importantly to maintain fluid intake; no indication for FR currently but protein rich intake is more important than water intake for her and she remains with significant diuretic dependence >>>I worry with her small build and LE amputation that she may need dialysis this admission; she is quite frail and a poor candidate for dialysis but if renal function declines further will need to discuss more specifically; will obtain creat/urea clearances for more data-will need to adjust these results for her BSA; no definite dispo from pt on doing dialysis DISCHARGE RECOMMENDATIONS -lasix and laguerre as above -hold OP losartan at hospital d/c -[facility] d/c to be ordered by nephro nurses and f/u w/ me about 2 weeks post d/c in [facility] or [facility] -pt close to needing dialysis potentially > may need to start in house Admission and Anticipated Discharge Date Admission Date: February 16, 2021 Subjective states she had some acute leg pain R ON > improved w/ tramadol. no sob, trying to feed herself this am Review of Systems Review of Systems: All systems reviewed & are unremarkable except as noted in Subjective Physical Exam Constitutional: well developed, + frail appearing and cooperative; no acute distress Eyes: EOM intact bilaterally ENMT: Ears: no external ear abnormality Nose: no external nose abnormality Mouth: + dry oral mucous membranes Neck: no nuchal rigidity Respiratory: normal respiratory effort (on 2L 02NC) and able to speak in complete sentences Auscultation: + diminished lung sounds Cardiovascular: Rate/Rhythm: regular rate and regular rhythm Heart Sounds: normal S1 and normal S2 Extremities: no edema Gastrointestinal (Abdomen): Inspection/Auscultation: normal bowel sounds Percussion/Palpation: abdomen soft; abdomen nontender Musculoskeletal: Extremities: + abnormal strength and + amputation noted (LLE AKA) Skin: no rashes, warm and dry Neurologic: Motor/Sensory: + tremor (and abnormal motor strength BLUE; spills juice on herself this am) Psychiatric: Orientation: oriented x 3 Insight: good insight Judgement: good judgement Results & Data ([facility]) Vital Signs (Past 12 Hours) Vital Signs Temp Pulse Pulse Pulse Resp BP Pulse Ox 03/10/21 07:56 36.7 C 59 L 20 121/62 96 03/10/21 07:00 65 03/10/21 03:00 36.7 C 69 20 127/47 L 98 03/10/21 00:00 68 03/09/21 22:59 36.9 C 70 18 143/61 H 97 Laboratory Results 03/10/21 05:39 03/10/21 05:39
[2021-03-10] MEDS: traMADol HCL 50 MG TABLET PO PRN (20:15)
[2021-03-11] MEDS: GABAPENTIN 100 MG CAP PO SCH ×3 (06:24→20:26)
[2021-03-11 08:44] LABS: BUN Creatinine Ratio 29.4 (10-20); Calcium 9.1 mg/dl (8.5-10.1); Creatinine Clr Calc Pharmacy 8.2 ml/min; Est GFR (African American) 10.6 ml/min; Est GFR (Non-African American) 9.2 ml/min
[2021-03-11] MEDS: CEROVITE ADV FORMULA TAB PO SCH (08:54)
[2021-03-11] MEDS: METOPROLOL SUCC 50MG EXT REL TAB PO SCH (08:54)
[2021-03-11] MEDS: FERROUS SULFATE 325 MG TAB PO SCH ×2 (08:54→20:26)
[2021-03-11] MEDS: CHOLECALCIFEROL 1,000 UNITS 25 MCG TAB PO SCH (08:54)
[2021-03-11] MEDS: DOCUSATE SODIUM 100 MG CAP PO SCH ×2 (08:54→20:26)
[2021-03-11] MEDS: ADVANCED PROBIOTIC 1250 MG CAPSULE PO SCH (08:54)
[2021-03-11] MEDS: ATORVASTATIN 10 MG TAB PO SCH (08:55)
[2021-03-11] MEDS: allopurinoL 100 MG TAB PO SCH (08:55)
[2021-03-11] MEDS: PANTOprazole 40 MG TAB PO SCH ×2 (08:55→20:26)
[2021-03-11] MEDS: CLOPIDOGREL BISULFATE 75 MG TAB PO SCH (08:55)
[2021-03-11] MEDS: CYANOCOBALAMIN 500 MCG TABLET (VITAMIN B-12) PO SCH (08:55)
[2021-03-11] MEDS: amLODIPine BESYLATE 5 MG TAB PO SCH (08:55)
[2021-03-11] MEDS: POLYETHYLENE (MIRALAX) 17 GM PACK PO SCH ×2 (08:55→20:26)
--- NOTE | 2021-03-11 09:05 | Hospitalist Progress Note ---
Date of Service March 10, 2021 Assessment & Plan (1) Acute on chronic heart failure with preserved ejection fraction: (2) Wound of right lower extremity: Plan: Acute on chronic heart failure with preserved ejection fraction: History of chronic diastolic heart failure and mitral stenosis with HTN and gout. Per last cardiology outpatient note she was supposed to be taking Lasix 40mg PO BID, however, intake med list reflects lasix 40mg only once daily. Strict I's and O's, Maintain Laguerre for I's and O's. Overall patient reports feeling better and is currently on 1 L nasal cannula oxygen. Cardiology on board: Managing diuresis, continue other cardiovascular meds including ASA, Plavix, statin, amlodipine, metoprolol. TATIANA/ARB on hold. Lasix being managed by nephrology. Was on IV then switched to PO in anticipation for DC. 03/10 - now worsening renal function -> ?poss. HD in future Hypoxia: Most likely secondary to heart failure. Possible bacterial component as well. and atelectasis s/p zithromax 02/24 On cefepime 02/24 for wound treatment purposes. Wound of right lower extremity: Large ischemic ulcer with eschar of her right lower extremity. Also with ulcerations of her right medial malleolus and her right medial thigh. 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 Cont medical management of PAD. Started tramadol PRN, cont Tylenol PRN. Vascular surgery consulted: Patient at high risk candidate for any endovascular treatment as it would result in dialysis dependency, recommends debridement of the RLE wounds. Orthopedics on board: MRI RLEno evidence of OM. Status post debridement 02/[address] Mazariegos. Recommends daily dressing changes with Betadine. Plastic surgery [Dr. Nolen] also consulted as patient may need a skin graft. Prealbumin 16, concern for nutrition and lack of proper wound healing. Encourage p.o. intake and improve nutrition. Thinks patient is not a surgical candidate for skin grafting. Continue current wound dressing/change daily to prevent wound from drying. ID consulted:Continue cefepime for now, plan to discharge on p.o. Augmentin or Cipro plus Clinda, renally dosed. Encourage protein intake, continue wound care, continue supportive management. Discussed with plastic surgery, 03/08 - patient is not a candidate for skin grafting, recommend Santyl for necrotic edges Discussed with orthopedics, 03/08 - daily wound dressing changes, [facility] (once or twice a week), Santyl as above. Acute on chronic anemia: +ve FOBT at [facility] 02/14; 03/03 FOBT negative in hospital. Per GI, her baseline Hb is 7 Appears to have multifactorial symptomatic anemia with iron deficiency present despite taking iron supplements. Per cardiology her goal Hb would be 9-10. Reports feeling better since blood transfusion. Notably patient reports never having had a colonoscopy in the past. She is w illing to undergo this outpatient which will be recommended with ongoing iron deficiency despite supplementation. Status post 3 unit transfusion this admission Monitor hemoglobin daily and as needed. Acute worsening of stage 3 chronic kidney disease: Hypokalemia Baseline creatinine 1.2-1.4 per nephrology. 2/2 ATN given the current clinical picture. Nephrology also expressed concerns independently that her anemia may be adversely affecting her respiratory status. Creatinine has been slowly trending upward but now seems to be getting better little by little since last 4-5 days. Creatinine 2.69 today. Nephrology on board: Continue with Rissa, actively dosing Lasix, avoid any NSAIDs/TATIANA inhibitor/ARB/contrast agents. Renally dose all antibiotics. Not a candidate for chronic or acute dialysis if those need arise. Recommends palliative consult if such situation arises. Per nephrology, was on IV lasix then PO Lasix 40 mg twice daily Now lasix held 03/10 worsening renal function ? poss. HD in future Monitor potassium daily while inpt. DISCHARGE RECOMMENDATIONS -lasix and laguerre as above -hold OP losartan at hospital d/c -weekly BMP at hospital d/c to be ordered by nephro nurses and f/u w/ Dr. Vyas about 2 weeks post d/c in [facility] or [facility] PAD (peripheral artery disease): Has a long-standing h/o PAD and has followed with [facility] Vascular surgery in the past. Has a h/o right SFA stenting and left AKA in 2010 due to progressive peripheral arterial disease. Continue Plavix 75 mg daily. Pause 4 sec on telemetry - transient episode of vagally mediated 2-1 AV block and 2 nonconducted P waves associated with elevated vagal tone in the setting of nausea, choking, and vomiting. Otherwise, her rhythm has been stable per telemetry review. Repeat 12-lead ECG. Continue metoprolol at current dose due to moderate mitral stenosis and severe left atrial enlargement which places patient at risk for atrial dysrhythmias, specifically paroxysmal atrial fibrillation. Continue to monitor telemetry. Consider swallow eval due to choking episode. Speech eval placed. HTN (hypertension): BP fairly under control. continue amlodipine and metoprolol with parameters hold losartan 2/2 to mariela DVT prophylaxis: None 2/2 to vascular wounds and concern for bleeding Dispo: PCU PCP: Dr. Parry DNR/DNI Disposition:patient will need placement. Patient will need follow-up with wound care clinic regularly. CM working with placement. Admission and Anticipated Discharge Date Admission Date: February 16, 2021 Subjective Patient seen in follow-up of CHF exacerbation, MARIELA, PAD, with RLE wound Pt is sitting up in bed, in NAD She is able to answer questions appropriately Denies fevers, chills, chest pain, palpitations, shortness of breath, abdominal pain, leg pain During this hospital stay, underwent debridement (RLE wound) with orthopedics Contacted orthopedics and plastic surgery for possible discharge recommendations Nephrology also placed DC recs, switched IV lasix to PO, but now renal function worsened, ?poss. HD in future Review of Systems Review of Systems: All systems reviewed & are unremarkable except as noted in Subjective Physical Exam Physical Exam: General: elderly obese F, chronically ill appearing, in NAD, on NC HEENT: NCAT, MMM, EOMI, PERRL Neck: Supple, normal range of motion CVS: normal rate and rhythm Resp: b/l decreased breath sounds, no wheezing, rhonchi Abdomen: Soft, ND/NT, + bowel sounds Extremities: RLE in dressings (photos by wound care reviewed - Large RLE wound appears a bit better but w/some necrotic edges), LLE BKA Neuro: awake and alert, face symmetric, speech fluent, moves extremities Skin: warm and dry (RLE as above) Results & Data Results & Data ([facility]) Vital Signs (Past 12 Hours) Vital Signs Temp Pulse Pulse Resp BP Pulse Ox 03/10/21 23:00 36.7 C 70 16 132/85 98 Medications Administered Current Inpatient Medications Acetaminophen (Acetaminophen 325 Mg Tab) 650 mg PO Q4H PRN PRN Reason: Pain or Fever Stop: 03/18/21 16:53 Last Admin: 02/25/21 15:55 Dose: 650 mg Documented by: Albuterol (Albut/Ipratrop 3mg/0.5mg Neb 3 Ml Vial) 3 ml NEB QIDR PRN PRN Reason: sob/wheezing Stop: 03/18/21 16:53 Allopurinol (Allopurinol 100 Mg Tab) 100 mg PO QAM [facility] Stop: 03/19/21 08:59 Last Admin: 03/11/21 08:55 Dose: 100 mg Documented by: Amlodipine Besylate (Amlodipine Besylate 5 Mg Tab) [facility] Stop: 03/19/21 08:59 Last Admin: 03/11/21 08:55 Dose: 10 mg Documented by: Atorvastatin Calcium (Atorvastatin 10 Mg Tab) [facility] Stop: 03/19/21 08:59 Last Admin: 03/11/21 08:55 Dose: 10 mg Documented by: Clopidogrel Bisulfate (Clopidogrel Bisulfate 75 Mg Tab) [facility] Stop: 03/19/21 08:59 Last Admin: 03/11/21 08:55 Dose: 75 mg Documented by: Collagenase (Collagenase Oint 30 Gm Tube) 1 appln EXT DAILY PRN PRN Reason: Notification Stop: 04/07/21 16:02 Cyanocobalamin (Cyanocobalamin 500 Mcg Tablet (Vitamin B-12)) 1,000 mcg [facility] Stop: 03/19/21 08:59 Last Admin: 03/11/21 08:55 Dose: 1,000 mcg Documented by: Docusate Sodium (Docusate Sodium 100 Mg Cap) 100 mg PO BID [facility] Stop: 03/27/21 10:14 Last Admin: 03/11/21 08:54 Dose: 100 mg Documented by: Ferrous Sulfate (Ferrous Sulfate 325 Mg Tab) 325 mg PO BID [facility] Stop: 03/18/21 20:59 Last Admin: 03/11/21 08:54 Dose: 325 mg Documented by: Furosemide (Furosemide 40 Mg/4 Ml Vial) 40 mg IV Q12H [facility] Stop: 04/04/21 08:59 Last Admin: 03/05/21 09:48 Dose: 40 mg Documented by: Furosemide (Furosemide 40 Mg Tab) 40 mg PO BID17 [facility] Stop: 04/07/21 16:59 Last Admin: 03/09/21 16:51 Dose: 40 mg Documented by: Gabapentin (Gabapentin 100 Mg Cap) 100 mg PO Q8H [facility] Stop: 03/18/21 21:59 Last Admin: 03/11/21 06:24 Dose: 100 mg Documented by: Lactobacillus Acidoph/Casei/Rhamnos (Advanced Probiotic 1250 Mg Capsule) 2 cap PO DAILY [facility] Stop: 03/24/21 08:59 Last Admin: 03/11/21 08:54 Dose: 2 cap Documented by: Metoprolol Succinate (Metoprolol Succ 50mg Ext Rel Tab) 100 mg PO QAM [facility] Stop: 03/19/21 08:59 Last Admin: 03/11/21 08:54 Dose: 100 mg Documented by: Multivitamins/Minerals (Cerovite Adv Formula Tab) 1 tab PO DAILY [facility] Stop: 03/19/21 08:59 Last Admin: 03/11/21 08:54 Dose: 1 tab Documented by: Ondansetron HCl (Ondansetron Inj 2 Mg/Ml 2 Ml Vial) 4 mg IV Q6H PRN PRN Reason: Nausea Stop: 03/18/21 16:53 Last Admin: 02/21/21 12:09 Dose: 4 mg Documented by: Pantoprazole Sodium (Pantoprazole 40 Mg Tab) 40 mg PO BID [facility]; Protocol Stop: 03/27/21 20:59 Last Admin: 03/11/21 08:55 Dose: 40 mg Documented by: Polyethylene Glycol (Polyethylene (Miralax) 17 Gm Pack) 17 gm PO BID [facility] Stop: 03/28/21 11:59 Last Admin: 03/11/21 08:55 Dose: 17 gm Documented by: Potassium Chloride (Potassium Chloride Pwd 20 Meq Pack) 40 meq PO QAM [facility] Stop: 04/05/21 18:14 Last Admin: 03/10/21 09:02 Dose: Not Given Documented by: Tramadol HCl (Tramadol Hcl 50 Mg Tablet) 50 mg PO Q4H PRN PRN Reason: severe pain (rating 7-10) Stop: 03/18/21 16:53 Last Admin: 03/10/21 20:15 Dose: 50 mg Documented by: Tramadol HCl (Tramadol Hcl 50 Mg Tablet) 50 mg PO Q4H PRN PRN Reason: Pain Stop: 03/21/21 13:36 Last Admin: 03/02/21 14:24 Dose: 50 mg Documented by: Vitamin D (Cholecalciferol 1,000 Units 25 Mcg Tab) 2,000 [facility] Stop: 03/19/21 08:59 Last Admin: 03/11/21 08:54 Dose: 2,000 units Documented by:
[2021-03-11 10:02] LABS: Basophils # (auto) 0.01 K/uL (0-0.2); Basophils % (auto) 0.1 %; Eosinophils % (auto) 1.5 %; Hematocrit (blood only) 25.9 % (37-47); Hemoglobin 7.9 g/dL (12.0-16.0); Immature Granulocytes # (auto) 0.05 K/uL (0.00-0.02); Immature Granulocytes % (auto) 0.7 %; Lymphocytes # (auto) 0.69 K/uL (1.2-3.4); Lymphocytes % (auto) 10.3 %; Mean Corpuscular Hemoglobin 28.5 pg (25-34); Mean Corpuscular Hgb Conc 30.5 g/dL (32-36); Mean Corpuscular Volume 93.5 fL (80-100); Mean Platelet Volume 9.7 fL (7.4-10.4); Monocytes % (auto) 7.4 %; Neutrophils # (auto) 5.37 K/uL (1.4-6.5); Platelet Count 109 K/uL (130-400); RDW Coefficient of Variation 18.4 % (11.5-14.5); RDW Standard Deviation 61.8 fL (36.4-46.3); Red Blood Count 2.77 M/uL (4.2-5.4); White Blood Count 6.72 K/uL (4.8-10.8)
[2021-03-11 10:34] LABS: RBC Morphology Unremarkable
--- NOTE | 2021-03-11 11:32 | Nephrology Progress Note ---
Date of Service March 11, 2021 Assessment & Plan (1) Acute worsening of stage 3 chronic kidney disease: Plan: - further worsening nonoliguric Stage 2 MARIELA from ATN, given the urine sediment picture and the clinical situation. baseline creatinine 1.2-1.4 BUT with n ephrotic range proteinuria at baseline; she has very slightly low complement levels on w/u > declined heme eval; no bx was indicated. she had another episode of MARIELA during recent [place] admission, which resolved by hospital d/c to [facility], which is where she was rehabbing before this admission. No chronic 02 needs prior to [place] admission. creatinine had been plateau'd in high 2's/low 3's and BUN high 110s > just beyond high end of this range today. sodium remains high normal >> no encephalopathy or other uremic sx (except ? myoclonic jerks) currently despite very high BUN. K acceptable today as are other chemistries and volume status, though she continues with mild volume overload -monitor for uremic sx ->>lasix and K was held yesterday d/t worsening renal function; had been on lasix po 40 mg bid and potassium supplements 40 mEq daily, functions have declined further, and the UOP has also come down. -Restart on Lasix 40 mg twice daily. >>>ordered 24 hr urine for creatinine/urea clearance -not unreasonable to leave laguerre in place for now and at d/c given her lack of mobility, fragile skin, bid diuretic needs -daily bmp while in house -Patient needs to eat well and less importantly to maintain fluid intake; no indication for FR currently but protein rich intake is more important than water intake for her and she remains with significant diuretic dependence >>>I worry with her small build and LE amputation that she may need dialysis this admission; she is quite frail and a poor candidate for dialysis but if renal function declines further will need to discuss more specifically; will obtain creat/urea clearances for more data-will need to adjust these results for her BSA; no definite dispo from pt on doing dialysis DISCHARGE RECOMMENDATIONS -Continue lasix and laguerre as above -hold OP losartan at hospital d/c - Solo 24 hr , cr and urea -weekly bmp at hospital d/c to be ordered by nephro nurses and f/u w/ Dr Kelly in about 2 weeks post d/c in [facility] -pt close to needing dialysis potentially > may need to start in house Admission and Anticipated Discharge Date Admission Date: February 16, 2021 Subjective Pt is sitting up in bed, comfortable She is able to answer questions appropriately Denies fevers, chills, chest pain, palpitations, shortness of breath, abdominal pain, leg pain Review of Systems Review of Systems: All other systems were reviewed and negative except as noted in HPI Physical Exam Physical Exam: Vitals signs as noted above General Appearance:In mild Respiratory distress. Head: normocephalic, Atraumatic Eyes: normal inspection, EOMI Neck: supple, Trachea midline Respiratory/Chest: Decreased breath sounds, Minimal basal crackles Cardiovascular: S1, S2, + murmur Abdomen/GI:Soft, Non tender, Bowel sounds present Extremities/Musculoskeletal:normal inspection, LE edema 1+ Neurologic/Psych:AAOX3, grossly no focal neurological deficits Skin: normal color, warm Results & Data ([facility]) Vital Signs (Past 12 Hours) Vital Signs Temp Pulse Pulse Resp BP Pulse Ox 03/11/21 07:00 36.6 C 71 20 154/63 H 98 03/11/21 04:00 36.7 C 68 18 145/62 H 93 03/11/21 02:26 70 Laboratory Results 03/11/21 09:42 03/11/21 09:42
[2021-03-11] MEDS: traMADol HCL 50 MG TABLET PO PRN ×2 (13:01→20:43)
[2021-03-11] MEDS: FUROSEMIDE 40 MG TAB PO SCH (17:10)
--- NOTE | 2021-03-11 18:15 | Hospitalist Progress Note ---
Date of Service March 11, 2021 Assessment & Plan (1) Acute on chronic heart failure with preserved ejection fraction: (2) Wound of right lower extremity: Plan: per Dr. Chaudhary's notes with addendum: Acute on chronic heart failure with preserved ejection fraction: History of chronic diastolic heart failure and mitral stenosis with HTN and gout. Per last cardiology outpatient note she was supposed to be taking Lasix 40mg PO BID, however, intake med list reflects lasix 40mg only once daily. Strict I's and O's, Maintain Kwok for I's and O's. Overall patient reports feeling better and is currently on 1 L nasal cannula oxygen. Cardiology on board: Managing diuresis, continue other cardiovascular meds including ASA, Plavix, statin, amlodipine, metoprolol. TATIANA/ARB on hold. Lasix being managed by nephrology. Was on IV then switched to PO in anticipation for DC. 03/10 - now worsening renal function -> ?poss. HD in future 03/11/2021 Patient appears euvolemic Creatinine further increased from 3.5-4.1 Nephrology recommending to continue with Lasix 40 mg p.o. twice daily Monitor closely, may need hemodialysis while admitted Hypoxia: Most likely secondary to heart failure. Possible bacterial component as well. and atelectasis s/p zithromax 02/24 On cefepime 02/24 for wound treatment purposes. 03/11/2021 Not respiratory distress Continue 2 L of oxygen via nasal cannula Wound of right lower extremity: Large ischemic ulcer with eschar of her right lower extremity. Also with ulcerations of her right medial malleolus and her right medial thigh. 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 Cont medical management of PAD. Started tramadol PRN, cont Tylenol PRN. Vascular surgery consulted: Patient at high risk candidate for any endovascular treatment as it would result in dialysis dependency, recommends debridement of the RLE wounds. Orthopedics on board: MRI RLEno evidence of OM. Status post debridement 02/[address] Mazariegos. Recommends daily dressing changes with Betadine. Plastic surgery [Dr. Nolen] also consulted as patient may need a skin graft. Prealbumin 16, concern for nutrition and lack of proper wound healing. Encourage p.o. intake and improve nutrition. Thinks patient is not a surgical candidate for skin grafting. Continue current wound dressing/change daily to prevent wound from drying. ID consulted:Continue cefepime for now, plan to discharge on p.o. Augmentin or Cipro plus Clinda, renally dosed. Encourage protein intake, continue wound care, continue supportive management. Discussed with plastic surgery, 03/08 - patient is not a candidate for skin grafting, recommend Santyl for necrotic edges Discussed with orthopedics, 03/08 - daily wound dressing changes, recommends seeing wound care center regularly (once or twice a week), Santyl as above. 03/11/2021 Continue daily wound care Acute on chronic anemia: [facility]; 03/03 FOBT negative in hospital. Per GI, her baseline Hb is 7 Appears to have multifactorial symptomatic anemia with iron deficiency present despite taking iron supplements. Per cardiology her goal Hb would be 9-10. Reports feeling better since blood transfusion. Notably patient reports never having had a colonoscopy in the past. She is w illing to undergo this outpatient which will be recommended with ongoing iron deficiency despite supplementation. Status post 3 unit transfusion this admission Monitor hemoglobin daily and as needed. 03/11 Hemoglobin stable at 7.9 No signs of active bleeding Monitor closely Acute worsening of stage 3 chronic kidney disease: Hypokalemia PAD (peripheral artery disease): Has a long-standing h/o PAD and has followed with [facility] surgery in the past. Has a h/o right SFA stenting and left AKA in 2010 due to progressive peripheral arterial disease. Continue Plavix 75 mg daily. HTN (hypertension): continue amlodipine and metoprolol with parameters hold losartan 2/2 to kalin DVT prophylaxis: None 2/2 to vascular wounds and concern for bleeding Dispo: PCU PCP: Dr. Parry DNR/DNI Disposition:patient will need placement. Patient will need follow-up with wound care clinic regularly. CM working with placement. Admission and Anticipated Discharge Date Admission Date: February 16, 2021 Subjective Follow-up for CHF, CKD stage IV-V, right leg wound status post debridement Etc. Seen resting in bed, comfortable, not in distress, in good spirits Very pleasant States she feels fine overall No shortness of breath, palpitation, dizziness, chest pain No leg pain No nausea vomiting, abdominal pain, headaches, fevers or chills Appetite is good No other symptoms Review of Systems Review of Systems: all noted and negative except for above Physical Exam Physical Exam: General- oriented x 2, not in distress, speaks in sentences with no effort or accessory muscle use Eyes- anicteric Neck- no JVD Lungs- clear breath sounds bilaterally, no rales/wheezes Heart- normal rate, regular rhythm; no murmurs Abdomen- normal bowel sounds, nondistended, soft, nontender Extremities-right lower extremity: Dressing in place Left lower extremity: Status post amputation Neuro- alert, oriented x 2; no gross focal neurologic deficits Skin- warm & dry Results & Data Results & Data ([facility]) Vital Signs (Past 12 Hours) Vital Signs Temp Pulse Pulse Resp BP BP Pulse Ox 03/11/21 16:15 36.8 C 75 20 135/50 L 95 03/11/21 16:00 76 03/11/21 13:15 37.3 C 79 18 115/52 L 90 03/11/21 11:51 69 03/11/21 07:00 36.6 C 71 20 154/63 H 98 all noted and reviewed including below
[2021-03-12] MEDS: GABAPENTIN 100 MG CAP PO SCH ×3 (06:29→20:41)
[2021-03-12] MEDS: amLODIPine BESYLATE 5 MG TAB PO SCH (07:42)
[2021-03-12] MEDS: DOCUSATE SODIUM 100 MG CAP PO SCH ×2 (07:42→20:41)
[2021-03-12] MEDS: FERROUS SULFATE 325 MG TAB PO SCH ×2 (07:43→20:40)
[2021-03-12] MEDS: CEROVITE ADV FORMULA TAB PO SCH (07:43)
[2021-03-12] MEDS: CLOPIDOGREL BISULFATE 75 MG TAB PO SCH (07:43)
[2021-03-12] MEDS: PANTOprazole 40 MG TAB PO SCH ×2 (07:43→20:40)
[2021-03-12] MEDS: allopurinoL 100 MG TAB PO SCH (07:44)
[2021-03-12] MEDS: ADVANCED PROBIOTIC 1250 MG CAPSULE PO SCH (07:44)
[2021-03-12] MEDS: CHOLECALCIFEROL 1,000 UNITS 25 MCG TAB PO SCH (07:45)
[2021-03-12] MEDS: FUROSEMIDE 40 MG TAB PO SCH ×2 (07:45→17:11)
[2021-03-12] MEDS: ATORVASTATIN 10 MG TAB PO SCH (07:45)
[2021-03-12] MEDS: POLYETHYLENE (MIRALAX) 17 GM PACK PO SCH ×2 (07:46→20:40)
[2021-03-12] MEDS: METOPROLOL SUCC 50MG EXT REL TAB PO SCH (07:50)
--- NOTE | 2021-03-12 09:01 | Hospitalist Progress Note ---
Date of Service March 12, 2021 Assessment & Plan (1) Acute on chronic heart failure with preserved ejection fraction: (2) Wound of right lower extremity: Plan: Acute on chronic heart failure with preserved ejection fraction: History of chronic diastolic heart failure and mitral stenosis with HTN and gout. Per last cardiology outpatient note she was supposed to be taking Lasix 40mg PO BID, however, intake med list reflects lasix 40mg only once daily. Strict I's and O's, Maintain Kwok for I's and O's. Overall patient reports feeling better and is currently on 1 L nasal cannula oxygen. Cardiology on board: Managing diuresis, continue other cardiovascular meds including ASA, Plavix, statin, amlodipine, metoprolol. TATIANA/ARB on hold. Lasix being managed by nephrology. Was on IV then switched to PO in anticipation for DC. 03/10 - now worsening renal function -> ?poss. HD in future 03/11/2021 Patient appears euvolemic Creatinine further increased from 3.5-4.1 Nephrology recommending to continue with Lasix 40 mg p.o. twice daily Monitor closely, may need hemodialysis while admitted Hypoxia: Most likely secondary to heart failure. Possible bacterial component as well. and atelectasis s/p zithromax 02/24 On cefepime 02/24 for wound treatment purposes. 03/11/2021 Not respiratory distress Continue 2 L of oxygen via nasal cannula Wound of right lower extremity: Large ischemic ulcer with eschar of her right lower extremity. Also with ulcerations of her right medial malleolus and her right medial thigh. 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 Cont medical management of PAD. Started tramadol PRN, cont Tylenol PRN. Vascular surgery consulted: Patient at high risk candidate for any endovascular treatment as it would result in dialysis dependency, recommends debridement of the RLE wounds. Orthopedics on board: MRI RLEno evidence of OM. Status post debridement 02/[address] Mazariegos. Recommends daily dressing changes with Betadine. Plastic surgery [Dr. Nolen] also consulted as patient may need a skin graft. Prealbumin 16, concern for nutrition and lack of proper wound healing. Encourage p.o. intake and improve nutrition. Thinks patient is not a surgical candidate for skin grafting. Continue current wound dressing/change daily to prevent wound from drying. ID consulted:Continue cefepime for now, plan to discharge on p.o. Augmentin or Cipro plus Clinda, renally dosed. Encourage protein intake, continue wound care, continue supportive management. Discussed with plastic surgery, 03/08 - patient is not a candidate for skin grafting, recommend Santyl for necrotic edges Discussed with orthopedics, 03/08 - daily wound dressing changes, recommends seeing wound care center regularly (once or twice a week), Santyl as above. Acute on chronic anemia: [facility]; 03/03 FOBT negative in hospital. Per GI, her baseline Hb is 7 Appears to have multifactorial symptomatic anemia with iron deficiency present despite taking iron supplements. Per cardiology her goal Hb would be 9-10. Reports feeling better since blood transfusion. Notably patient reports never having had a colonoscopy in the past. She is w illing to undergo this outpatient which will be recommended with ongoing iron deficiency despite supplementation. Status post 3 unit transfusion this admission Monitor hemoglobin daily and as needed. 03/11 Hemoglobin stable at 7.9 No signs of active bleeding Monitor closely Acute worsening of stage 3 chronic kidney disease: Hypokalemia PAD (peripheral artery disease): Has a long-standing h/o PAD and has followed with [facility] Vascular surgery in the past. Has a h/o right SFA stenting and left AKA in 2010 due to progressive peripheral arterial disease. Continue Plavix 75 mg daily. HTN (hypertension): continue amlodipine and metoprolol with parameters hold losartan 2/2 to mariela DVT prophylaxis: None 2/2 to vascular wounds and concern for bleeding Dispo: PCU PCP: Dr. Parry DNR/DNI Disposition:patient will need placement. Patient will need follow-up with wound care clinic regularly. CM working with placement. Admission and Anticipated Discharge Date Admission Date: February 16, 2021 Subjective Patient seen in follow-up of CHF exacerbation, MARIELA, PAD, with RLE wound Pt is sitting up in bed, in NAD She is able to answer questions appropriately Denies fevers, chills, chest pain, palpitations, shortness of breath, abdominal pain, leg pain During this hospital stay, underwent debridement (RLE wound) with orthopedics orthopedics and plastic surgery gave discharge recommendations Nephrology also placed DC recs, switched IV lasix to PO, but now renal function worsened, ?poss. HD in future Collecting 24 hr urine Review of Systems Review of Systems: All systems reviewed & are unremarkable except as noted in Subjective Physical Exam Physical Exam: General: elderly obese F, chronically ill appearing, in NAD, on NC HEENT: NCAT, MMM, EOMI, PERRL Neck: Supple, normal range of motion CVS: normal rate and rhythm Resp: b/l decreased breath sounds, no wheezing, rhonchi Abdomen: Soft, ND/NT, + bowel sounds Extremities: RLE in dressings (photos by wound care reviewed - Large RLE wound appears a bit better but w/some necrotic edges), LLE BKA Neuro: awake and alert, face symmetric, speech fluent, moves extremities Skin: warm and dry (RLE as above) Results & Data Results & Data ([facility]) Vital Signs (Past 12 Hours) Vital Signs Temp Pulse Pulse Resp BP Pulse Ox 03/12/21 07:49 36.8 C 75 18 149/62 H 97 03/12/21 03:45 36.7 C 71 18 122/63 96 03/12/21 00:03 36.2 C L 78 18 110/70 97 03/11/21 23:00 70 Laboratory Results 03/12/21 Range/Units 09:24 Sodium 141 (136-145) mmol/L Potassium 4.8 (3.5-5.1) mmol/L Chloride 105 (98-107) mmol/L Carbon Dioxide 25 (21-32) mmol/L Anion Gap 11.0 (3-11) BUN 132 H (7-18) mg/dl Creatinine 4.61 H* D (0.6-1.2) mg/dl Est Cr Clr Drug Dosing 7.3 ml/min Est GFR ( Amer) 9.4 ml/min Est GFR (Non-Af Amer) 8.1 ml/min BUN/Creatinine Ratio 28.5 H (10-20) Glucose 148 H (70-99) mg/dl Calcium 8.9 (8.5-10.1) mg/dl Phosphorus 5.1 H (2.5-4.9) mg/dl Magnesium 2.3 (1.8-2.4) mg/dl Medications Administered Current Inpatient Medications Acetaminophen (Acetaminophen 325 Mg Tab) 650 mg PO Q4H PRN PRN Reason: Pain or Fever Stop: 03/18/21 16:53 Last Admin: 02/25/21 15:55 Dose: 650 mg Documented by: Albuterol (Albut/Ipratrop 3mg/0.5mg Neb 3 Ml Vial) 3 ml NEB QIDR PRN PRN Reason: sob/wheezing Stop: 03/18/21 16:53 Allopurinol (Allopurinol 100 Mg Tab) 100 mg PO QAM [facility] Stop: 03/19/21 08:59 Last Admin: 03/12/21 07:44 Dose: 100 mg Documented by: Amlodipine Besylate (Amlodipine Besylate 5 Mg Tab) [facility] [place] Stop: 03/19/21 08:59 Last Admin: 03/12/21 07:42 Dose: 10 mg Documented by: Atorvastatin Calcium (Atorvastatin 10 Mg Tab) 10 mg PO [facility] Stop: 03/19/21 08:59 Last Admin: 03/12/21 07:45 Dose: 10 mg Documented by: Clopidogrel Bisulfate (Clopidogrel Bisulfate 75 Mg Tab) 75 [facility] [place] Stop: 03/19/21 08:59 Last Admin: 03/12/21 07:43 Dose: 75 mg Documented by: Collagenase (Collagenase Oint 30 Gm Tube) 1 appln EXT DAILY PRN PRN Reason: Notification Stop: 04/07/21 16:02 Cyanocobalamin (Cyanocobalamin 500 Mcg Tablet (Vitamin B-12)) 1,000 mcg [facility] [place] Stop: 03/19/21 08:59 Last Admin: 03/11/21 08:55 Dose: 1,000 mcg Documented by: Docusate Sodium (Docusate Sodium 100 Mg Cap) 100 mg PO BID [facility] Stop: 03/27/21 10:14 Last Admin: 03/12/21 07:42 Dose: 100 mg Documented by: Ferrous Sulfate (Ferrous Sulfate 325 Mg Tab) 325 mg PO BID [facility] Stop: 03/18/21 20:59 Last Admin: 03/12/21 07:43 Dose: 325 mg Documented by: Furosemide (Furosemide 40 Mg/4 Ml Vial) 40 mg IV Q12H [facility] Stop: 04/04/21 08:59 Last Admin: 03/05/21 09:48 Dose: 40 mg Documented by: Furosemide (Furosemide 40 Mg Tab) 40 mg PO BID17 [facility] Stop: 04/07/21 16:59 Last Admin: 03/12/21 07:45 Dose: 40 mg Documented by: Gabapentin (Gabapentin 100 Mg Cap) 100 mg PO Q8H [facility] Stop: 03/18/21 21:59 Last Admin: 03/12/21 06:29 Dose: 100 mg Documented by: Lactobacillus Acidoph/Casei/Rhamnos (Advanced Probiotic 1250 Mg Capsule) 2 cap PO DAILY [facility] Stop: 03/24/21 08:59 Last Admin: 03/12/21 07:44 Dose: 2 cap Documented by: Metoprolol Succinate (Metoprolol Succ 50mg Ext Rel Tab) 100 mg PO QAM [facility] Stop: 03/19/21 08:59 Last Admin: 03/12/21 07:50 Dose: 100 mg Documented by: Multivitamins/Minerals (Cerovite Adv Formula Tab) 1 tab PO DAILY [facility] Stop: 03/19/21 08:59 Last Admin: 03/12/21 07:43 Dose: 1 tab Documented by: Ondansetron HCl (Ondansetron Inj 2 Mg/Ml 2 Ml Vial) 4 mg IV Q6H PRN PRN Reason: Nausea Stop: 03/18/21 16:53 Last Admin: 02/21/21 12:09 Dose: 4 mg Documented by: Pantoprazole Sodium (Pantoprazole 40 Mg Tab) 40 mg PO BID [facility]; Protocol Stop: 03/27/21 20:59 Last Admin: 03/12/21 07:43 Dose: 40 mg Documented by: Polyethylene Glycol (Polyethylene (Miralax) 17 Gm Pack) 17 gm PO BID [facility] Stop: 03/28/21 11:59 Last Admin: 03/12/21 07:46 Dose: 17 gm Documented by: Potassium Chloride (Potassium Chloride Pwd 20 Meq Pack) 40 meq PO QAM [facility] Stop: 04/05/21 18:14 Last Admin: 03/10/21 09:02 Dose: Not Given Documented by: Tramadol HCl (Tramadol Hcl 50 Mg Tablet) 50 mg PO Q4H PRN PRN Reason: severe pain (rating 7-10) Stop: 03/18/21 16:53 Last Admin: 03/11/21 20:43 Dose: 50 mg Documented by: Tramadol HCl (Tramadol Hcl 50 Mg Tablet) 50 mg PO Q4H PRN PRN Reason: Pain Stop: 03/21/21 13:36 Last Admin: 03/02/21 14:24 Dose: 50 mg Documented by: Vitamin D (Cholecalciferol 1,000 Units 25 Mcg Tab) 2,000 units [facility] [place] Stop: 03/19/21 08:59 Last Admin: 03/12/21 07:45 Dose: 2,000 units Documented by:
[2021-03-12] MEDS: CYANOCOBALAMIN 500 MCG TABLET (VITAMIN B-12) PO SCH (09:03)
--- NOTE | 2021-03-12 10:10 | Nephrology Progress Note ---
Date of Service March 12, 2021 Assessment & Plan (1) Acute worsening of stage 3 chronic kidney disease: Plan: - further worsening nonoliguric Stage 2 MARIELA from ATN, given the urine sediment picture and the clinical situation. baseline creatinine 1.2-1.4 BUT with n ephrotic range proteinuria at baseline; she has very slightly low complement levels on w/u > declined heme eval; no bx was indicated. she had another episode of MARIELA during recent [facility] admission, which resolved by hospital d/c to [facility], which is where she was rehabbing before this admission. No chronic 02 needs prior to [facility] admission. creatinine had been plateau'd in high 2's/low 3's and BUN high 110s > just beyond high end of this range today. sodium remains high normal >> no encephalopathy or other uremic sx (except ? myoclonic jerks) currently despite very high BUN. K acceptable today as are other chemistries and volume status, though she continues with mild volume overload -monitor for uremic sx ->>lasix and K was held on 03/10 d/t worsening renal function; had been on lasix po 40 mg bid and potassium supplements 40 mEq daily, restarted on 03/11 after decline in renal functions , UOP has improved , labs from today awaited. - Continue on Lasix 40 mg twice daily. >>>ordered 24 hr urine for creatinine/urea clearance- awaited -not unreasonable to leave laguerre in place for now and at d/c given her lack of mobility, fragile skin, bid diuretic needs -daily bmp while in house -Patient needs to eat well and less importantly to maintain fluid intake; no indication for FR currently but protein rich intake is more important than water intake for her and she remains with significant diuretic dependence >>>I worry with her small build and LE amputation that she may need dialysis this admission; she is quite frail and a poor candidate for dialysis but if renal function declines further will need to discuss more specifically; will obtain creat/urea clearances for more data-will need to adjust these results for her BSA; no definite dispo from pt on doing dialysis DISCHARGE RECOMMENDATIONS -Continue lasix and laguerre as above -hold OP losartan at hospital d/c - Solo 24 hr , cr and urea -weekly bmp at hospital d/c to be ordered by nephro nurses and f/u w/ Dr Kelly in about 2 weeks post d/c [facility] -pt close to needing dialysis potentially > may need to start in house Admission and Anticipated Discharge Date Admission Date: February 16, 2021 Subjective Follow-up for CHF, CKD stage IV-V, right leg wound status post debridement Feels fine, no complains. Review of Systems Review of Systems: All other systems were reviewed and negative except as noted in HPI Physical Exam Physical Exam: Vitals signs as noted above General Appearance:Not in Respiratory distress. Head: normocephalic, Atraumatic Eyes: normal inspection, EOMI Neck: supple, Trachea midline Respiratory/Chest: Decreased breath sounds, Minimal basal crackles Cardiovascular: S1, S2, + murmur Abdomen/GI:Soft, Non tender, Bowel sounds present Extremities/Musculoskeletal:normal inspection, LE edema 1+ Neurologic/Psych:AAOX3, grossly no focal neurological deficits Skin: normal color, warm Results & Data ([facility]) Vital Signs (Past 12 Hours) Vital Signs Temp Pulse Pulse Resp BP Pulse Ox 03/12/21 09:31 70 03/12/21 07:49 36.8 C 75 18 149/62 H 97 03/12/21 03:45 36.7 C 71 18 122/63 96 03/12/21 00:03 36.2 C L 78 18 110/70 97 03/11/21 23:00 70 Laboratory Results 03/11/21 09:42
[2021-03-12 10:23] LABS: BUN Creatinine Ratio 28.5 (10-20); Calcium 8.9 mg/dl (8.5-10.1); Creatinine Clr Calc Pharmacy 7.3 ml/min; Est GFR (African American) 9.4 ml/min; Est GFR (Non-African American) 8.1 ml/min; Magnesium 2.3 mg/dl (1.8-2.4); Phosphorus 5.1 mg/dl (2.5-4.9); Potassium 4.8 mmol/L (3.5-5.1)
[2021-03-12 16:11] LABS: Urine Creatinine 61.9 mg/dl
[2021-03-12 17:25] LABS: Creatinine 24 Hour Urine 0.2 gm/24 HR (0.6-2.5)
[2021-03-13] MEDS: traMADol HCL 50 MG TABLET PO PRN ×2 (02:46→20:07)
[2021-03-13 06:21] LABS: Hematocrit (blood only) 22.7 % (37-47); Hemoglobin 7.1 g/dL (12.0-16.0)
[2021-03-13] MEDS: GABAPENTIN 100 MG CAP PO SCH ×3 (06:43→20:08)
[2021-03-13 07:08] LABS: BUN Creatinine Ratio 26.7 (10-20); Calcium 8.8 mg/dl (8.5-10.1); Creatinine Clr Calc Pharmacy 6.8 ml/min; Est GFR (African American) 8.3 ml/min; Est GFR (Non-African American) 7.2 ml/min; Magnesium 2.5 mg/dl (1.8-2.4); Phosphorus 5.4 mg/dl (2.5-4.9)
[2021-03-13] MEDS: DOCUSATE SODIUM 100 MG CAP PO SCH ×2 (08:35→20:07)
[2021-03-13] MEDS: FERROUS SULFATE 325 MG TAB PO SCH ×2 (08:35→20:08)
[2021-03-13] MEDS: PANTOprazole 40 MG TAB PO SCH ×2 (08:35→20:09)
[2021-03-13] MEDS: POLYETHYLENE (MIRALAX) 17 GM PACK PO SCH ×2 (08:35→20:08)
[2021-03-13] MEDS: METOPROLOL SUCC 50MG EXT REL TAB PO SCH (08:36)
[2021-03-13] MEDS: CYANOCOBALAMIN 500 MCG TABLET (VITAMIN B-12) PO SCH (08:36)
[2021-03-13] MEDS: CHOLECALCIFEROL 1,000 UNITS 25 MCG TAB PO SCH (08:36)
[2021-03-13] MEDS: CEROVITE ADV FORMULA TAB PO SCH (08:37)
[2021-03-13] MEDS: amLODIPine BESYLATE 5 MG TAB PO SCH (08:38)
[2021-03-13] MEDS: ATORVASTATIN 10 MG TAB PO SCH (08:38)
[2021-03-13] MEDS: FUROSEMIDE 40 MG TAB PO SCH ×2 (08:40→16:09)
[2021-03-13] MEDS: ADVANCED PROBIOTIC 1250 MG CAPSULE PO SCH (08:40)
[2021-03-13] MEDS: CLOPIDOGREL BISULFATE 75 MG TAB PO SCH (08:40)
[2021-03-13] MEDS: allopurinoL 100 MG TAB PO SCH (08:42)
[2021-03-13] MEDS ORDERED: SODIUM CHLORIDE 0.9% 250 ML IV PRN (09:09)
--- NOTE | 2021-03-13 09:13 | Hospitalist Progress Note ---
Date of Service March 13, 2021 Assessment & Plan (1) Acute on chronic heart failure with preserved ejection fraction: (2) Wound of right lower extremity: Plan: Acute on chronic heart failure with preserved ejection fraction: History of chronic diastolic heart failure and mitral stenosis with HTN and gout. Per last cardiology outpatient note she was supposed to be taking Lasix 40mg PO BID, however, intake med list reflects lasix 40mg only once daily. Strict I's and O's, Maintain Kwok for I's and O's. Overall patient reports feeling better and is currently on 1 L nasal cannula oxygen. Cardiology consulted: continue other cardiovascular meds including ASA, Plavix, statin, amlodipine, metoprolol. TATIANA/ARB on hold. Lasix being managed by nephrology. Was on IV then switched to PO in ant icipation for DC. 03/10 - now worsening renal function -> ?poss. HD in future 03/11/2021 Patient appears euvolemic Creatinine further increased from 3.5-4.1 Nephrology recommending to continue with Lasix 40 mg p.o. twice daily Monitor closely, may need hemodialysis while admitted Hypoxia: Most likely secondary to heart failure. Possible bacterial component as well. and atelectasis s/p zithromax 02/24 On cefepime 02/24 for wound treatment purposes. 03/11/2021 Not respiratory distress Continue 2 L of oxygen via nasal cannula Wound of right lower extremity: Large ischemic ulcer with eschar of her right lower extremity. Also with ulcerations of her right medial malleolus and her right medial thigh. 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 Cont medical management of PAD. Started tramadol PRN, cont Tylenol PRN. Vascular surgery consulted: Patient at high risk candidate for any endovascular treatment as it would result in dialysis dependency, recommends debridement of the RLE wounds. Orthopedics on board: MRI RLEno evidence of OM. Status post debridement 02/[address] Mazariegos. Recommends daily dressing changes with Betadine. Plastic surgery [Dr. Nolen] also consulted as patient may need a skin graft. Prealbumin 16, concern for nutrition and lack of proper wound healing. Encourage p.o. intake and improve nutrition. Thinks patient is not a surgical candidate for skin grafting. Continue current wound dressing/change daily to prevent wound from drying. ID consulted:Continue cefepime for now, plan to discharge on p.o. Augmentin or Cipro plus Clinda, renally dosed. Encourage protein intake, continue wound care, continue supportive management. Discussed with plastic surgery, 03/08 - patient is not a candidate for skin grafting, recommend Santyl for necrotic edges Discussed with orthopedics, 03/08 - daily wound dressing changes, recommends seeing wound care center regularly (once or twice a week), Santyl as above. Acute on chronic anemia: +ve [facility] 02/[facility]; 03/03 FOBT negative in hospital. Per GI, her baseline Hb is 7 Appears to have multifactorial symptomatic anemia with iron deficiency present despite taking iron supplements. Per cardiology her goal Hb would be 9-10. Reports feeling better since blood transfusion. Notably patient reports never having had a colonoscopy in the past. She is w illing to undergo this outpatient which will be recommended with ongoing iron deficiency despite supplementation. Status post 3 unit transfusion this admission Monitor hemoglobin daily and as needed. 03/11 Hemoglobin stable at 7.9 No signs of active bleeding Monitor closely 03/13 - Hgb 7.1 -will order 1 unit of PRBCs Acute worsening of stage 3 chronic kidney disease: Hypokalemia PAD (peripheral artery disease): Has a long-standing h/o PAD and has followed with [facility] Vascular surgery in the past. Has a h/o right SFA stenting and left AKA in 2010 due to progressive peripheral arterial disease. Continue Plavix 75 mg daily. HTN (hypertension): continue amlodipine and metoprolol with parameters hold losartan 2/2 to mariela DVT prophylaxis: None 2/2 to vascular wounds and concern for bleeding Dispo: PCU PCP: Dr. Parry DNR/DNI Disposition:patient will need placement. Patient will need follow-up with wound care clinic regularly. CM working with placement. Admission and Anticipated Discharge Date Admission Date: February 16, 2021 Subjective Patient seen in follow-up of CHF exacerbation, MARIELA, PAD, with RLE wound Pt is sitting up in bed, in NAD She is able to answer questions appropriately Denies fevers, chills, chest pain, palpitations, shortness of breath, abdominal pain, leg pain During this hospital stay, underwent debridement (RLE wound) with orthopedics orthopedics and plastic surgery gave discharge recommendations Nephrology also placed DC recs, switched IV lasix to PO, but now renal function worsened, ?poss. HD in future Collecting 24 hr urine Nephrology started discussion about dialysis, patient was not sure, palliative medicine also consulted, to further discuss goals of care and possible dialysis Review of Systems Review of Systems: All systems reviewed & are unremarkable except as noted in Subjective Physical Exam Physical Exam: General: elderly obese F, chronically ill appearing, in NAD, on NC HEENT: NCAT, MMM, EOMI, PERRL Neck: Supple, normal range of motion CVS: normal rate and rhythm Resp: b/l decreased breath sounds, no wheezing, rhonchi Abdomen: Soft, ND/NT, + bowel sounds Extremities: RLE in dressings (photos by wound care reviewed - Large RLE wound appears a bit better but w/some necrotic edges), LLE BKA Neuro: awake and alert, face symmetric, speech fluent, moves extremities Skin: warm and dry (RLE as above) Results & Data Results & Data ([facility]) Vital Signs (Past 12 Hours) Vital Signs Temp Pulse Pulse Resp BP Pulse Ox 03/13/21 07:12 37.4 C 75 18 122/56 L 97 03/13/21 03:42 37.6 C H 71 18 131/65 95 03/13/21 00:00 72 03/12/21 23:27 37.1 C 76 18 118/55 L 95 Laboratory Results 03/13/21 03/13/21 03/12/21 Range/Units 05:54 05:54 14:00 Hgb 7.1 L (12.0-16.0) g/dL Hct 22.7 L (37-47) % Sodium 138 (136-145) mmol/L Potassium 5.0 (3.5-5.1) mmol/L Chloride 103 (98-107) mmol/L Carbon Dioxide 27 (21-32) mmol/L Anion Gap 8.0 (3-11) BUN 136 H (7-18) mg/dl Creatinine 5.10 H* D (0.6-1.2) mg/dl Est Cr Clr Drug Dosing 6.8 ml/min Est GFR ( Amer) 8.3 ml/min Est GFR (Non-Af Amer) 7.2 ml/min BUN/Creatinine Ratio 26.7 H (10-20) Glucose 98 (70-99) mg/dl Calcium 8.8 (8.5-10.1) mg/dl Phosphorus 5.4 H (2.5-4.9) mg/dl Magnesium 2.5 H (1.8-2.4) mg/dl Urine Total Volume mL Urine Creatinine mg/dl Ur Creatinine 24 Hour (0.6-2.5) gm/24 HR Miscellaneous Test Pending 03/12/21 03/12/21 Range/Units 14:00 09:24 Hgb (12.0-16.0) g/dL Hct (37-47) % Sodium 141 (136-145) mmol/L Potassium 4.8 (3.5-5.1) mmol/L Chloride 105 (98-107) mmol/L Carbon Dioxide 25 (21-32) mmol/L Anion Gap 11.0 (3-11) BUN 132 H (7-18) mg/dl Creatinine 4.61 H* D (0.6-1.2) mg/dl Est Cr Clr Drug Dosing 7.3 ml/min Est GFR ( Amer) 9.4 ml/min Est GFR (Non-Af Amer) 8.1 ml/min BUN/Creatinine Ratio 28.5 H (10-20) Glucose 148 H (70-99) mg/dl Calcium 8.9 (8.5-10.1) mg/dl Phosphorus 5.1 H (2.5-4.9) mg/dl Magnesium 2.3 (1.8-2.4) mg/dl Urine Total Volume 300 mL Urine Creatinine 61.9 mg/dl Ur Creatinine 24 Hour 0.2 L (0.6-2.5) gm/24 HR Miscellaneous Test Medications Administered Current Inpatient Medications Acetaminophen (Acetaminophen 325 Mg Tab) 650 mg PO Q4H PRN PRN Reason: Pain or Fever Stop: 03/18/21 16:53 Last Admin: 02/25/21 15:55 Dose: 650 mg Documented by: Albuterol (Albut/Ipratrop 3mg/0.5mg Neb 3 Ml Vial) 3 ml NEB QIDR PRN PRN Reason: sob/wheezing Stop: 03/18/21 16:53 Allopurinol (Allopurinol 100 Mg Tab) [facility] [place] [facility] [place] Stop: 03/19/21 08:59 Last Admin: 03/13/21 08:42 Dose: 100 mg Documented by: Amlodipine Besylate (Amlodipine Besylate 5 Mg Tab) 10 mg PO QAM [facility] Stop: 03/19/21 08:59 Last Admin: 03/13/21 08:38 Dose: 10 mg Documented by: Atorvastatin Calcium (Atorvastatin 10 Mg Tab) 10 mg PO QAM [facility] Stop: 03/19/21 08:59 Last Admin: 03/13/21 08:38 Dose: 10 mg Documented by: Clopidogrel Bisulfate (Clopidogrel Bisulfate 75 Mg Tab) 75 mg PO QAM [facility] Stop: 03/19/21 08:59 Last Admin: 03/13/21 08:40 Dose: 75 mg Documented by: Collagenase (Collagenase Oint 30 Gm Tube) 1 appln EXT DAILY PRN PRN Reason: Notification Stop: 04/07/21 16:02 Cyanocobalamin (Cyanocobalamin 500 Mcg Tablet (Vitamin B-12)) 1,000 mcg PO QAM [facility] Stop: 03/19/21 08:59 Last Admin: 03/13/21 08:36 Dose: 1,000 mcg Documented by: Docusate Sodium (Docusate Sodium 100 Mg Cap) 100 mg PO BID [facility] Stop: 03/27/21 10:14 Last Admin: 03/13/21 08:35 Dose: 100 mg Documented by: Ferrous Sulfate (Ferrous Sulfate 325 Mg Tab) 325 mg PO BID [facility] Stop: 03/18/21 20:59 Last Admin: 03/13/21 08:35 Dose: 325 mg Documented by: Furosemide (Furosemide 40 Mg/4 Ml Vial) 40 mg IV Q12H [facility] Stop: 04/04/21 08:59 Last Admin: 03/05/21 09:48 Dose: 40 mg Documented by: Furosemide (Furosemide 40 Mg Tab) 40 mg PO BID17 J[facility]RE[facility] Stop: 04/07/21 16:59 Last Admin: 03/13/21 08:40 Dose: 40 mg Documented by: Gabapentin (Gabapentin 100 Mg Cap) 100 mg PO Q8H [facility] Stop: 03/18/21 21:59 Last Admin: 03/13/21 06:43 Dose: 100 mg Documented by: Sodium Chloride (Nss) 250 mls @ 15 mls/hr IV .[id number] PRN PRN Reason: For Transfusion Stop: 03/13/21 19:09 Lactobacillus Acidoph/Casei/Rhamnos (Advanced Probiotic 1250 Mg Capsule) 2 cap PO DAILY [facility] Stop: 03/24/21 08:59 Last Admin: 03/13/21 08:40 Dose: 2 cap Documented by: Metoprolol Succinate (Metoprolol Succ 50mg Ext Rel Tab) 100 mg PO QAM [facility] Stop: 03/19/21 08:59 Last Admin: 03/13/21 08:36 Dose: 100 mg Documented by: Multivitamins/Minerals (Cerovite Adv Formula Tab) 1 tab PO DAILY [facility] Stop: 03/19/21 08:59 Last Admin: 03/13/21 08:37 Dose: 1 tab Documented by: Ondansetron HCl (Ondansetron Inj 2 Mg/Ml 2 Ml Vial) 4 mg IV Q6H PRN PRN Reason: Nausea Stop: 03/18/21 16:53 Last Admin: 02/21/21 12:09 Dose: 4 mg Documented by: Pantoprazole Sodium (Pantoprazole 40 Mg Tab) 40 mg PO BID [facility]; Protocol Stop: 03/27/21 20:59 Last Admin: 03/13/21 08:35 Dose: 40 mg Documented by: Polyethylene Glycol (Polyethylene (Miralax) 17 Gm Pack) 17 gm PO BID [facility] Stop: 03/28/21 11:59 Last Admin: 03/13/21 08:35 Dose: 17 gm Documented by: Potassium Chloride (Potassium Chloride Pwd 20 Meq Pack) 40 meq PO QAM [facility] Stop: 04/05/21 18:14 Last Admin: 03/10/21 09:02 Dose: Not Given Documented by: Tramadol HCl (Tramadol Hcl 50 Mg Tablet) 50 mg PO Q4H PRN PRN Reason: severe pain (rating 7-10) Stop: 03/18/21 16:53 Last Admin: 03/13/21 02:46 Dose: 50 mg Documented by: Tramadol HCl (Tramadol Hcl 50 Mg Tablet) 50 mg PO Q4H PRN PRN Reason: Pain Stop: 03/21/21 13:36 Last Admin: 03/02/21 14:24 Dose: 50 mg Documented by: Vitamin D (Cholecalciferol 1,000 Units 25 Mcg Tab) 2,000 units PO QAM [facility] Stop: 03/19/21 08:59 Last Admin: 03/13/21 08:36 Dose: 2,000 units Documented by:
--- NOTE | 2021-03-13 12:02 | Orthopedic Progress Note ---
Date of Service March 13, 2021 Assessment & Plan (1) Wound of right lower extremity: Plan: Overall with some improvement of her wound in the right lower extremity to some extent. We will continue the Santyl cream over the necrotic areas and continue with Adaptic dressings surrounding the bulk of the wound. Continue the regular dressing changes. Dr. Mazariegos is going to be here on Saturday I believe. We will reassess the wound at that time. Admission and Anticipated Discharge Date Admission Date: February 16, 2021 Subjective Patient seen in conjunction with wound care team. Patient is awake and alert without complaints. States that her right lower extremity has not been bothering her as far as pain. No new complaints. Physical Exam Physical Exam: Dressing is taken down. She continues to have some darkened necrotic areas around some the edges of the wound that appear about the same. She has had some improvement of the central portion over the anteromedial area of her leg. A once visible vascular structure has now been incorporated into the new granulation tissue quite well. Most of the base has a pink to red appearance. Some yellow slough along some of the edges intermixed with some mild necrotic area. The necrosis does not seem to have worsened. Posterior aspect of the wound that is wrapping around to the lateral aspect appears better to me. [place] base with some mild slough in the middle with some along the edges. Pulses of the right foot present with Doppler. She does have an increase in ecchymotic discoloration above the ankle but below the wound which I have not appreciated before. We will have to continue to watch this. Wound was redressed with Santyl on the necrotic areas followed by Adaptic, 4 x 4's or ABDs covered with Kerlix. Results & Data ([facility]) Vital Signs (Past 12 Hours) Vital Signs Temp Pulse Pulse Resp BP BP Pulse Ox 03/13/21 11:48 37.2 C 72 22 96/59 L 95 03/13/21 11:41 37.2 C 72 22 96/59 L 95 03/13/21 09:10 75 03/13/21 07:12 37.4 C 75 18 122/56 L 97 03/13/21 03:42 37.6 C H 71 18 131/65 95 03/13/21 00:00 72
--- NOTE | 2021-03-13 14:19 | Nephrology Progress Note ---
Date of Service March 13, 2021 Assessment & Plan Admission and Anticipated Discharge Date Admission Date: February 16, 2021 Subjective Assessment & Plan (1) Acute worsening of stage 3 chronic kidney disease: Plan: - further worsening now oliguric MARIELA from ATN, given the urine sediment picture and the clinical situation. baseline creatinine 1.2-1.4 BUT with nephrotic range proteinuria at baseline; she has very slightly low complement levels on w/u > declined heme eval; no bx was indicated. she had another episode of MARIELA during recent [place] admission, which resolved by hospital d/c to [facility], which is where she was rehabbing before this admission. No chronic 02 needs prior to [place] admission. Rising creatinine with Decreasing urine output--UO last few days have all been < 500 ml. rising creat is not because of lasix ( no diuresis) uremic sx--Myoclonic jerk. She has too many medical issues to be Considered for Dialysis. I discussed with her and told that doing Dialysis will barely prolong quantity of life if any at tremendous cost of Quality of life. Stopping Dialysis after starting is too di fficult. She agreed with the plan of no Dialysis and being comfortable. Will get Palliative medicine involved for transition. I will also Update Daughter. Subjective very weak. Some myoclonic jerks. getting PRBC. Review of Systems Review of Systems: All other systems were reviewed and negative except as noted in HPI Physical Exam Physical Exam: Vitals signs as noted above General Appearance:Not in Respiratory distress. Head: normocephalic, Atraumatic Eyes: normal inspection, EOMI Neck: supple, Trachea midline Respiratory/Chest: Decreased breath sounds, Minimal basal crackles Cardiovascular: S1, S2, + murmur Abdomen/GI:Soft, Non tender, Bowel sounds present Extremities/Musculoskeletal:normal inspection, LE edema 1+ Neurologic/Psych:AAOX3, grossly no focal neurological deficits Skin: normal color, warm Results & Data ([facility]) Vital Signs (Past 12 Hours) Vital Signs Temp Pulse Pulse Resp BP BP Pulse Ox 03/13/21 13:49 37.0 C 71 22 117/69 97 03/13/21 12:49 37.2 C 70 20 106/61 97 03/13/21 12:19 37.5 C 69 20 101/53 L 96 03/13/21 12:04 37.5 C 70 20 106/59 L 96 03/13/21 12:03 37.5 C 70 20 106/59 L 96 03/13/21 11:48 37.2 C 72 22 96/59 L 95 03/13/21 11:41 37.2 C 72 22 96/59 L 95 03/13/21 09:10 75 03/13/21 07:12 37.4 C 75 18 122/56 L 97 03/13/21 03:42 37.6 C H 71 18 131/65 95
--- NOTE | 2021-03-13 16:06 | Palliative Care Consultation ---
Date of Consultation March 13, 2021 Assessment & Plan (1) Palliative care encounter: I talked with Joelle about how she is coping with her illness. She recalls being at [facility] and talks about getting further rehab but had difficulty working with OT today. I asked her what she understood about her kidneys and she didn't know. We talked about whether she had ever thought about what she would want for her care if she were very ill. She said that she hadn't thought about that. She dozed off twice during our conversation. I did reach out to her daughter, Lisa, three times by phone but was not able to reach her. Palliative care will follow. (2) Acute on chronic heart failure with preserved ejection fraction: (3) Acute on chronic anemia: (4) Pleural effusion: (5) PAD (peripheral artery disease): (6) MARIELA (acute kidney injury): History of Present Illness Reason for Consultation: goals of care Requesting Physician: Dr. Chaudhary Attending Physician: Quoc Chaudhary MD History of Present Illness 85 yo lady with history of diastolic heart failure, mitral stenosis and peripheral vascular disease. She has had revascularization as well as left AKA. She had been hospitalized in early January in [place] for cellulitis of right lower extremity and went to [facility] for rehab. She developed edema and shortness of breath and was transferred to [facility]. She had a left pleural effusion with elevated BNP and responded to diuresis but has had progressive decline in renal function with creatinine of 5.1 and BUN of 136. During her hospital stay she also had surgical debridement of right LE wound. She is currently receiving a transfusion and has had chronic anemia with history of heme positive stool. She was evaluated by speech therapy after a choking episode and has been recommended for moist regular diet. She is somnolent but arousable and answers a few questions. She does not recall seeing the occupational therapist earlier this morning and is not able to tell me what her understanding of her illness is. She denies pain or dyspnea. Allergies Allergy/AdvReac Type Severity Reaction Status Date / Time No Known Allergies Allergy Unverified 02/16/21 08:30 Home Medications Medication Instructions Recorded Confirmed Type Saccharomyces boulardii 250 mg 250 mg PO QAM 02/16/21 02/16/21 History capsule (Florastor) allopurinol 100 mg tablet 100 mg PO QAM 02/16/21 02/16/21 History (Zyloprim) amlodipine 10 mg tablet (Norvasc) 10 mg PO QAM 02/16/21 02/16/21 History atorvastatin 10 mg tablet (Lipitor) 10 mg PO QAM 02/16/21 02/16/21 History cholecalciferol (vitamin D3) 50 50 mcg PO QAM 02/16/21 02/16/21 History mcg (2,000 unit) capsule (Vitamin D3) clopidogrel 75 mg tablet (Plavix) 75 mg PO QAM 02/16/21 02/16/21 History cyanocobalamin (vitamin B-12) 1,000 mcg PO QAM 02/16/21 02/16/21 History 1,000 mcg tablet (Vitamin B-12) enoxaparin 30 mg/0.3 mL 30 mg SUBCUT HS 02/16/21 02/16/21 History subcutaneous syringe (Lovenox) ferrous sulfate 325 mg (65 mg 325 mg PO BID 02/16/21 02/16/21 History iron) tablet (FeroSul) furosemide 40 mg tablet (Lasix) 40 mg PO QAM 02/16/21 02/16/21 History gabapentin 100 mg capsule 100 mg PO Q8H 02/16/21 02/16/21 History (Neurontin) ipratropium 0.5 mg-albuterol 3 mg 3 ml INHALATION Q6H 02/16/21 02/16/21 History (2.5 mg base)/3 mL nebulization soln losartan 50 mg tablet (Cozaar) 50 mg PO Q12 02/16/21 02/16/21 History metoprolol succinate 100 mg 100 mg PO QAM 02/16/21 02/16/21 History tablet,extended release 24 hr (Toprol XL) tramadol 50 mg tablet (Ultram) 50 mg PO Q4H 02/16/21 02/16/21 History vitamin A-vitamin C-vit E-min 1 tab PO BID 02/16/21 02/16/21 History tablet (Ocutabs) Patient History Medical History ASCVD (arteriosclerotic cardiovascular disease) Chronic heart failure with preserved ejection fraction (HFpEF) CKD (chronic kidney disease) stage 3, GFR 30-59 ml/min baseline cr 1.2-1.4 Gout HTN (hypertension) Mitral valve stenosis PAD (peripheral artery disease) PVD (peripheral vascular disease) T2DM (type 2 diabetes mellitus) last a1c 5.8 2018 Surgical History History of removal of ovarian cyst Hx of AKA (above knee amputation) Hx of cholecystectomy S/P peripheral artery angioplasty R SFA stenting Family History Mother ALS (amyotrophic lateral sclerosis) Father , 77 Coronary heart disease Sister Myocardial infarction Breast cancer Social History Smoking Status: Never smoker Hx Alcohol Use: No Hx Substance Use: No Preferred Language: Portuguese Communication Ability: Effective Mini Shifter Required: No Beliefs That Will Affect Care: None Current Living Situation: Alone and Rehab Current Living Situation Comment: currently [facility] How many Children do You have: 1 Other Information That Helps Us Care for You: No Feels Safe at Home: Yes Safety Concerns: Feels Safe At This Time Assistive Devices: Oxygen - Continuous Review of Systems Review of Systems: Myra Symptom Assessment Scale Pain 0/3 Dyspnea 03 Anxiety 0/3 Fatigue 2/3 Nausea 0/3 Drowsiness 1/3 Palliative Performance Score 30% Physical Exam Constitutional: + ill appearing Respiratory: normal respiratory effort; no labored breathing Cardiovascular: Rate/Rhythm: regular rate Gastrointestinal (Abdomen): nondistended, nontender Musculoskeletal: Left AKA, right calf dressing Results & Data ([facility]) Vital Signs (Past 12 Hours) Vital Signs Temp Pulse Pulse Pulse Resp BP BP 03/13/21 15:27 98.6 F 65 18 139/52 L 03/13/21 14:49 99.0 F 70 20 127/47 L 03/13/21 13:49 98.6 F 71 22 117/69 03/13/21 12:49 99.0 F 70 20 106/61 03/13/21 12:19 99.5 F 69 20 101/53 L 03/13/21 12:04 99.5 F 70 20 106/59 L 03/13/21 12:03 99.5 F 70 20 106/59 L 03/13/21 12:00 66 03/13/21 11:48 99.0 F 72 22 96/59 L 03/13/21 11:41 99.0 F 72 22 96/59 L 03/13/21 09:10 75 03/13/21 07:12 99.3 F 75 18 122/56 L Pulse Ox 03/13/21 15:27 96 03/13/21 14:49 96 03/13/21 13:49 97 03/13/21 12:49 97 03/13/21 12:19 96 03/13/21 12:04 96 03/13/21 12:03 96 03/13/21 12:00 03/13/21 11:48 95 03/13/21 11:41 95 03/13/21 09:10 03/13/21 07:12 97 PG Care Time/CCT Total # of Minutes Spent Total Time Spent: 55 Total Time Spent with Patient: Total time spent is greater than 50% in coordination of care (as documented) at patient's floor/unit and/or counseling patient: goals of care Coding Level of Care Code 69998 Initial Inpt Care Lvl 2 Diagnoses Palliative care encounter Z51.5 Acute on chronic heart failure with preserved ejection fraction I50.33 Acute on chronic anemia D64.9 Pleural effusion J90 PAD (peripheral artery disease) I73.9 MARIELA (acute kidney injury) N17.9
[2021-03-14] MEDS: traMADol HCL 50 MG TABLET PO PRN ×2 (05:18→15:39)
[2021-03-14] MEDS: GABAPENTIN 100 MG CAP PO SCH ×3 (05:19→21:29)
[2021-03-14 05:58] LABS: Hematocrit (blood only) 28.6 % (37-47); Hemoglobin 9.2 g/dL (12.0-16.0)
[2021-03-14 07:18] LABS: BUN Creatinine Ratio 26.8 (10-20); Creatinine Clr Calc Pharmacy 6.5 ml/min; Est GFR (African American) 7.8 ml/min; Est GFR (Non-African American) 6.8 ml/min; Magnesium 2.5 mg/dl (1.8-2.4); Phosphorus 5.7 mg/dl (2.5-4.9); Potassium 4.7 mmol/L (3.5-5.1)
[2021-03-14] MEDS: ATORVASTATIN 10 MG TAB PO SCH (08:37)
[2021-03-14] MEDS: amLODIPine BESYLATE 5 MG TAB PO SCH (08:37)
[2021-03-14] MEDS: CLOPIDOGREL BISULFATE 75 MG TAB PO SCH (08:37)
[2021-03-14] MEDS: FERROUS SULFATE 325 MG TAB PO SCH (08:37)
[2021-03-14] MEDS: CYANOCOBALAMIN 500 MCG TABLET (VITAMIN B-12) PO SCH (08:37)
[2021-03-14] MEDS: CHOLECALCIFEROL 1,000 UNITS 25 MCG TAB PO SCH (08:37)
[2021-03-14] MEDS: allopurinoL 100 MG TAB PO SCH (08:37)
[2021-03-14] MEDS: FUROSEMIDE 40 MG TAB PO SCH (08:37)
[2021-03-14] MEDS: ADVANCED PROBIOTIC 1250 MG CAPSULE PO SCH (08:37)
[2021-03-14] MEDS: METOPROLOL SUCC 50MG EXT REL TAB PO SCH (08:38)
[2021-03-14] MEDS: DOCUSATE SODIUM 100 MG CAP PO SCH ×2 (08:38→21:29)
[2021-03-14] MEDS: PANTOprazole 40 MG TAB PO SCH (08:38)
[2021-03-14] MEDS: POLYETHYLENE (MIRALAX) 17 GM PACK PO SCH (08:38)
[2021-03-14] MEDS: CEROVITE ADV FORMULA TAB PO SCH (08:38)
--- NOTE | 2021-03-14 08:45 | Hospitalist Progress Note ---
Date of Service March 14, 2021 Assessment & Plan (1) Acute on chronic heart failure with preserved ejection fraction: (2) Wound of right lower extremity: Plan: Acute on chronic heart failure with preserved ejection fraction: History of chronic diastolic heart failure and mitral stenosis with HTN and gout. Per last cardiology outpatient note she was supposed to be taking Lasix 40mg PO BID, however, intake med list reflects lasix 40mg only once daily. Strict I's and O's, Maintain Kwok for I's and O's. Overall patient reports feeling better and is currently on 1 L nasal cannula oxygen. Cardiology consulted: continue other cardiovascular meds including ASA, Plavix, statin, amlodipine, metoprolol. TATIANA/ARB on hold. Lasix being managed by nephrology. Was on IV then switched to PO in ant icipation for DC. 03/10 - now worsening renal function -> ?poss. HD in future 03/11/2021 Patient appears euvolemic Creatinine further increased from 3.5-4.1 Nephrology recommending to continue with Lasix 40 mg p.o. twice daily Monitor closely, may need hemodialysis while admitted 03/14 - Per nephrology - Rising creatinine with Decreasing urine output--UO last few days have all been < 500 ml. rising creat is not because of lasix ( no diuresis) uremic sx--Myoclonic jerk. She has too many medical issues to be Considered for Dialysis in my belief/experience. I ( Dr. Haddad) discussed with her yesterday and told that doing Dialysis will barely prolong quantity of life if any at tremendous cost of Quality of life. Stopping Dialysis after starting is too difficult. She agreed with the plan of no Dialysis and being comfortable but today she does not remember anything we discussed. Appreciate Palliative medicine help. I called her daughter 3 times and left message--No answer. 03/14 - I (Dr. Chaudhary) - was able to reach patient's daughter over the phone (cell phone : [phone]) today, and update her. She is understandable and agreeable to comfort care measures. Hypoxia: Most likely secondary to heart failure. Possible bacterial component as well. and atelectasis s/p zithromax 02/24 On cefepime 02/24 for wound treatment purposes. 03/11/2021 Not respiratory distress Continue 2 L of oxygen via nasal cannula Wound of right lower extremity: Large ischemic ulcer with eschar of her right lower extremity. Also with ulcerations of her right medial malleolus and her right medial thigh. 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 Cont medical management of PAD. Started tramadol PRN, cont Tylenol PRN. Vascular surgery consulted: Patient at high risk candidate for any endovascular treatment as it would result in dialysis dependency, recommends debridement of the RLE wounds. Orthopedics on board: MRI RLEno evidence of OM. Status post debridement 02/[address] Mazariegos. Recommends daily dressing changes with Betadine. Plastic surgery [Dr. Nolen] also consulted as patient may need a skin graft. Prealbumin 16, concern for nutrition and lack of proper wound healing. Encourage p.o. intake and improve nutrition. Thinks patient is not a surgical candidate for skin grafting. Continue current wound dressing/change daily to prevent wound from drying. ID consulted:Continue cefepime for now, plan to discharge on p.o. Augmentin or Cipro plus Clinda, renally dosed. Encourage protein intake, continue wound care, continue supportive management. Discussed with plastic surgery, 03/08 - patient is not a candidate for skin grafting, recommend Santyl for necrotic edges Discussed with orthopedics, 03/08 - daily wound dressing changes, recommends seeing wound care center regularly (once or twice a week), Santyl as above. Acute on chronic anemia: [facility]; 03/03 FOBT negative in hospital. Per GI, her baseline Hb is 7 Appears to have multifactorial symptomatic anemia with iron deficiency present despite taking iron supplements. Per cardiology her goal Hb would be 9-10. Reports feeling better since blood transfusion. Notably patient reports never having had a colonoscopy in the past. She is w illing to undergo this outpatient which will be recommended with ongoing iron deficiency despite supplementation. Status post 3 unit transfusion this admission Monitor hemoglobin daily and as needed. 03/11 Hemoglobin stable at 7.9 No signs of active bleeding Monitor closely 03/13 - Hgb 7.1 -will order 1 unit of PRBCs Acute worsening of stage 3 chronic kidney disease: Hypokalemia PAD (peripheral artery disease): Has a long-standing h/o PAD and has followed with [facility] Vascular surgery in the past. Has a h/o right SFA stenting and left AKA in 2010 due to progressive peripheral arterial disease. Continue Plavix 75 mg daily. HTN (hypertension): continue amlodipine and metoprolol with parameters hold losartan 2/2 to mariela DVT prophylaxis: None 2/2 to vascular wounds and concern for bleeding PCP: Dr. Parry DNR/DNI Disposition: Patient had worsening of renal function, and due to her multiple severe medical conditions, not a good candidate for dialysis. Currently patient somnolent and family updated. Status changed to comfort care measures. Admission and Anticipated Discharge Date Admission Date: February 16, 2021 Subjective Patient seen in follow-up of CHF exacerbation, MARIELA, PAD, with RLE wound Pt is sitting up in bed, very somnolent today, difficult to arouse Appears comfortable During this hospital stay, underwent debridement (RLE wound) with orthopedics Nephrology has been following closely, due to her worsening renal function. Yesterday nephrology was discussing dialysis/not recommending dialysis for the patient. At that time patient was able to participate in the conversation. Nephrology) the medicine was trying to reach daughter yesterday however without success. I was able to reach daughter on her cell phone today, and updated her. She is understandable and agrees with comfort care measures. She also is very aware of her mother's DNR/DNI status. Review of Systems Review of Systems: All systems reviewed & are unremarkable except as noted in Subjective Physical Exam Physical Exam: General: elderly obese F, chronically ill appearing, in NAD, on NC, quite somnolent today HEENT: NCAT, MMM, EOMI, PERRL Neck: Supple, normal range of motion CVS: normal rate and rhythm Resp: b/l decreased breath sounds, no wheezing, rhonchi Abdomen: Soft, ND/NT, + bowel sounds Extremities: RLE in dressings (photos by wound care reviewed - Large RLE wound appears a bit better but w/some necrotic edges), LLE BKA Neuro: somnolent and difficult to arouse, face symmetric, speech slow Skin: warm and dry (RLE as above) Results & Data Results & Data ([facility]) Vital Signs (Past 12 Hours) Vital Signs Temp Pulse Pulse Pulse Resp BP BP 03/14/21 08:15 36.8 C 74 18 118/62 03/14/21 04:01 37.1 C 66 16 133/50 L 11/16/21 00:00 69 03/13/21 22:52 36.7 C 69 16 120/64 Pulse Ox 03/14/21 08:15 96 03/14/21 04:01 95 03/14/21 00:00 03/13/21 22:52 93 Laboratory Results 03/14/21 03/14/21 03/13/21 Range/Units 05:31 05:29 10:12 Hgb 9.2 L (12.0-16.0) g/dL Hct 28.6 L (37-47) % Sodium 137 (136-145) mmol/L Potassium 4.7 (3.5-5.1) mmol/L Chloride 102 (98-107) mmol/L Carbon Dioxide 26 (21-32) mmol/L Anion Gap 9.0 (3-11) BUN 143 H (7-18) mg/dl Creatinine 5.35 H* (0.6-1.2) mg/dl Est Cr Clr Drug Dosing 6.5 ml/min Est GFR ( Amer) 7.8 ml/min Est GFR (Non-Af Amer) 6.8 ml/min BUN/Creatinine Ratio 26.8 H (10-20) Glucose 110 H (70-99) mg/dl Calcium 9.0 (8.5-10.1) mg/dl Phosphorus 5.7 H (2.5-4.9) mg/dl Magnesium 2.5 H (1.8-2.4) mg/dl Blood Type O Positive Antibody Screen NEGATIVE Crossmatch See Detail 02/28/21 Range/Units 20:27 Hgb (12.0-16.0) g/dL Hct (37-47) % Sodium (136-145) mmol/L Potassium (3.5-5.1) mmol/L Chloride (98-107) mmol/L Carbon Dioxide (21-32) mmol/L Anion Gap (3-11) BUN (7-18) mg/dl Creatinine (0.6-1.2) mg/dl Est Cr Clr Drug Dosing ml/min Est GFR ( Amer) ml/min Est GFR (Non-Af Amer) ml/min BUN/Creatinine Ratio (10-20) Glucose (70-99) mg/dl Calcium (8.5-10.1) mg/dl Phosphorus (2.5-4.9) mg/dl Magnesium (1.8-2.4) mg/dl Blood Type Antibody Screen Crossmatch See Detail Medications Administered Current Inpatient Medications Acetaminophen (Acetaminophen 325 Mg Tab) 650 mg PO Q4H PRN PRN Reason: Pain or Fever Stop: 03/18/21 16:53 Last Admin: 02/25/21 15:55 Dose: 650 mg Documented by: Albuterol (Albut/Ipratrop 3mg/0.5mg Neb 3 Ml Vial) 3 ml NEB QIDR PRN PRN Reason: sob/wheezing Stop: 03/18/21 16:53 Allopurinol (Allopurinol 100 Mg Tab) 100 mg PO [facility] Stop: 03/19/21 08:59 Last Admin: 03/14/21 08:37 Dose: 100 mg Documented by: Amlodipine Besylate (Amlodipine Besylate 5 Mg Tab) 10 mg PO [facility] Stop: 03/19/21 08:59 Last Admin: 03/14/21 08:37 Dose: 10 mg Documented by: Atorvastatin Calcium (Atorvastatin 10 Mg Tab) 10 mg PO [facility] Stop: 03/19/21 08:59 Last Admin: 03/14/21 08:37 Dose: 10 mg Documented by: Clopidogrel Bisulfate (Clopidogrel Bisulfate 75 Mg Tab) 75 mg PO [facility] Stop: 03/19/21 08:59 Last Admin: 03/14/21 08:37 Dose: 75 mg Documented by: Collagenase (Collagenase Oint 30 Gm Tube) 1 appln EXT DAILY PRN PRN Reason: Notification Stop: 04/07/21 16:02 Cyanocobalamin (Cyanocobalamin 500 Mcg Tablet (Vitamin B-12)) 1,000 mcg PO [facility] Stop: 03/19/21 08:59 Last Admin: 03/14/21 08:37 Dose: 1,000 mcg Documented by: Docusate Sodium (Docusate Sodium 100 Mg Cap) 100 mg PO BID [facility] Stop: 03/27/21 10:14 Last Admin: 03/14/21 08:38 Dose: 100 mg Documented by: Ferrous Sulfate (Ferrous Sulfate 325 Mg Tab) 325 mg PO BID [facility] Stop: 03/18/21 20:59 Last Admin: 03/14/21 08:37 Dose: 325 mg Documented by: Furosemide (Furosemide 40 Mg/4 Ml Vial) 40 mg IV Q12H [facility] Stop: 04/04/21 08:59 Last Admin: 03/05/21 09:48 Dose: 40 mg Documented by: Furosemide (Furosemide 40 Mg Tab) 40 mg PO BID17 [facility] Stop: 04/07/21 16:59 Last Admin: 03/14/21 08:37 Dose: 40 mg Documented by: Gabapentin (Gabapentin 100 Mg Cap) 100 mg PO Q8H [facility] Stop: 03/18/21 21:59 Last Admin: 03/14/21 05:19 Dose: 100 mg Documented by: Lactobacillus Acidoph/Casei/Rhamnos (Advanced Probiotic 1250 Mg Capsule) 2 cap PO DAILY [facility] Stop: 03/24/21 08:59 Last Admin: 03/14/21 08:37 Dose: 2 cap Documented by: Metoprolol Succinate (Metoprolol Succ 50mg Ext Rel Tab) 100 mg PO QAM [facility] Stop: 03/19/21 08:59 Last Admin: 03/14/21 08:38 Dose: 100 mg Documented by: Multivitamins/Minerals (Cerovite Adv Formula Tab) 1 tab PO DAILY [facility] Stop: 03/19/21 08:59 Last Admin: 03/14/21 08:38 Dose: 1 tab Documented by: Ondansetron HCl (Ondansetron Inj 2 Mg/Ml 2 Ml Vial) 4 mg IV Q6H PRN PRN Reason: Nausea Stop: 03/18/21 16:53 Last Admin: 02/21/21 12:09 Dose: 4 mg Documented by: Pantoprazole Sodium (Pantoprazole 40 Mg Tab) 40 mg PO BID [facility]; Protocol Stop: 03/27/21 20:59 Last Admin: 03/14/21 08:38 Dose: 40 mg Documented by: Polyethylene Glycol (Polyethylene (Miralax) 17 Gm Pack) 17 gm PO BID [facility] Stop: 03/28/21 11:59 Last Admin: 03/14/21 08:38 Dose: 17 gm Documented by: Potassium Chloride (Potassium Chloride Pwd 20 Meq Pack) 40 meq PO QAM [facility] Stop: 04/05/21 18:14 Last Admin: 03/10/21 09:02 Dose: Not Given Documented by: Tramadol HCl (Tramadol Hcl 50 Mg Tablet) 50 mg PO Q4H PRN PRN Reason: severe pain (rating 7-10) Stop: 03/18/21 16:53 Last Admin: 03/14/21 05:18 Dose: 50 mg Documented by: Tramadol HCl (Tramadol Hcl 50 Mg Tablet) 50 mg PO Q4H PRN PRN Reason: Pain Stop: 03/21/21 13:36 Last Admin: 03/02/21 14:24 Dose: 50 mg Documented by: Vitamin D (Cholecalciferol 1,000 Units 25 Mcg Tab) 2,000 units PO QAM [facility] Stop: 03/19/21 08:59 Last Admin: 03/14/21 08:37 Dose: 2,000 units Documented by:
--- NOTE | 2021-03-14 09:59 | Nephrology Progress Note ---
Date of Service March 14, 2021 Assessment & Plan Admission and Anticipated Discharge Date Admission Date: February 16, 2021 Subjective Assessment & Plan (1) Acute worsening of stage 3 chronic kidney disease: Plan: - further worsening now oliguric MARIELA from ATN, given the urine sediment picture and the clinical situation. baseline creatinine 1.2-1.4 BUT with nephrotic range proteinuria at baseline; she has very slightly low complement levels on w/u > declined heme eval; no bx was indicated. she had another episode of MARIELA during recent [place] admission, which resolved by hospital d/c to [facility], which is where she was rehabbing before this admission. No chronic 02 needs prior to [place] admission. Rising creatinine with Decreasing urine output--UO last few days have all been < 500 ml. rising creat is not because of lasix ( no diuresis) uremic sx--Myoclonic jerk. She has too many medical issues to be Considered for Dialysis in my belief/experience. I discussed with her yesterday and told that doing Dialysis will barely prolong quantity of life if any at tremendous cost of Quality of life. Stopping Dialysis after starting is too difficult. She agreed with the plan of no Dialysis and being comfortable but today she does not remember anything we discussed. Appreciate Palliative medicine help. I called her daughter 3 times and left message--No answer. Subjective very weak. Some myoclonic jerks. getting PRBC. Review of Systems Review of Systems: All other systems were reviewed and negative except as noted in HPI Physical Exam Physical Exam: Vitals signs as noted above General Appearance:Not in Respiratory distress. Head: normocephalic, Atraumatic Eyes: normal inspection, EOMI Neck: supple, Trachea midline Respiratory/Chest: Decreased breath sounds, Minimal basal crackles Cardiovascular: S1, S2, + murmur Abdomen/GI:Soft, Non tender, Bowel sounds present Extremities/Musculoskeletal:normal inspection, LE edema 1+ Neurologic/Psych:AAOX3, grossly no focal neurological deficits Skin: normal color, warm Results & Data ([facility]) Vital Signs (Past 12 Hours) Vital Signs Temp Pulse Pulse Pulse Resp BP BP 03/14/21 08:49 62 03/14/21 08:15 36.8 C 74 18 118/62 03/14/21 04:01 37.1 C 66 16 133/50 L 03/14/21 00:00 69 03/13/21 22:52 36.7 C 69 16 120/64 Pulse Ox 03/14/21 08:49 03/14/21 08:15 96 03/14/21 04:01 95 03/14/21 00:00 03/13/21 22:52 93
--- NOTE | 2021-03-14 17:45 | Palliative Care Progress Note ---
Date of Service March 14, 2021 Assessment & Plan (1) Palliative care encounter: Plan: Extensive conversations were held with Nephrology today regarding hemodialysis which was not recommended due to her multiple comorbidities, advanced age and unlikely nature that she would have improved quality of life with hemodialysis. She does recognize that her life is limited, as does her daughter. I spoke with the patient, her daughter and son in law in her hospital room. All were in agreement for a full transition to a more comfort directed care with a goal to embrace the good days she has and have appropriate comfort medications available for when she declines. For now, case management working on placement outside of the hospital with [facility]. Most non essential medications were discontinued and comfort meds ordered PRN. POLST would be helpful prior to discharge. Please feel free to reach out to palliative medicine for any additional needs. (2) Acute on chronic heart failure with preserved ejection fraction: (3) Acute on chronic anemia: (4) Pleural effusion: (5) PAD (peripheral artery disease): (6) MARIELA (acute kidney injury): Admission and Anticipated Discharge Date Admission Date: February 16, 2021 Subjective Pt sitting upright in her bed in no apparent distress. Daughter and son in law at bedside. Discussion held regarding transition to [employer]. Please see A/P for furthe details. Review of Systems Review of Systems: [place] System Assessment Scale: Pain: 0/3 SOB: 1/3 Anxiety: 1/3 Depression: 0/3 Lack of Appetite: 1/3 Palliative Performance Scale: 30% Physical Exam Constitutional: + ill appearing Respiratory: normal respiratory effort; no labored breathing Cardiovascular: Rate/Rhythm: regular rate Gastrointestinal (Abdomen): Inspection/Auscultation: abdomen normal to inspection Skin: + pallor Psychiatric: Orientation: alert and oriented x 3 Insight: good insight Results & Data ([facility]) Vital Signs (Past 12 Hours) Vital Signs Temp Pulse Pulse Pulse Resp BP BP 03/14/21 15:00 36.5 C 65 16 117/72 03/14/21 13:33 65 16 110/69 03/14/21 11:45 36.8 C 77 18 120/63 03/14/21 08:49 62 03/14/21 08:15 36.8 C 74 18 118/62 Pulse Ox 03/14/21 15:00 94 03/14/21 13:33 96 03/14/21 11:45 96 03/14/21 08:49 03/14/21 08:15 96 PG Care Time/CCT Total # of Minutes Spent Total Time Spent with Patient: Total time spent is greater than 50% in coordination of care (as documented) at patient's floor/unit and/or counseling patient: 35 minutes with >50% of that time spent assessing the pt, discussing goals of care, addressing symptom management needs and collaborating with IDT Coding Level of Care Code 69675 Subseq Hosp Care Lvl 3 Diagnoses Palliative care encounter Z51.5 Acute on chronic heart failure with preserved ejection fraction I50.33 Acute on chronic anemia D64.9 Pleural effusion J90 PAD (peripheral artery disease) I73.9 MARIELA (acute kidney injury) N17.9 Time Spent (min) 35
[2021-03-14] MEDS ORDERED: LORazepam 0.5 MG/1 ML VIAL IV PRN (20:09)
[2021-03-14] MEDS ORDERED: ONDANSETRON 4 MG OD TAB SL PRN (20:09)
[2021-03-14] MEDS ORDERED: LORazepam 0.5 MG TAB PO PRN (20:09)
[2021-03-14] MEDS ORDERED: ONDANSETRON INJ 2 MG/ML 2 ML VIAL IV PRN (20:09)
[2021-03-15] MEDS: GABAPENTIN 100 MG CAP PO SCH ×3 (05:48→21:05)
[2021-03-15 07:53] LABS: Hematocrit (blood only) 28.2 % (37-47); Hemoglobin 9.1 g/dL (12.0-16.0)
[2021-03-15] MEDS: DOCUSATE SODIUM 100 MG CAP PO SCH ×2 (08:11→20:00)
[2021-03-15] MEDS: METOPROLOL SUCC 50MG EXT REL TAB PO SCH (08:12)
[2021-03-15 08:25] LABS: BUN Creatinine Ratio 25.7 (10-20); Calcium 8.8 mg/dl (8.5-10.1); Creatinine Clr Calc Pharmacy 6.2 ml/min; Est GFR (African American) 7.5 ml/min; Est GFR (Non-African American) 6.5 ml/min; Potassium 4.4 mmol/L (3.5-5.1)
--- NOTE | 2021-03-15 17:24 | Orthopedic Progress Note ---
Date of Service March 15, 2021 Assessment & Plan (1) Wound of right lower extremity: Plan: We will continue dressing changes at this time. Continue Santyl as prescribed along the edges of the wound. Dr. Mazariegos has also reviewed the pictures and agrees with the continued conservative management. There is no plan for surgical treatment at this time unless the wound seems to worsen or appears to be an area of worsening infection. She may follow-up with Dr. Mazariegos's clinic on an as-needed basis or if the nursing facility feels that the patient may need surgical intervention. Admission and Anticipated Discharge Date Admission Date: February 16, 2021 Subjective No complaints of the right leg. Her granddaughter is with her this evening. Her granddaughter states that the patient is being discharged tomorrow to [facility]. Her right leg has been treated by wound nursing. Physical Exam Constitutional: WD/WN, vitals as above no acute distress Skin: Right lower leg: Pictures of the leg ulceration from 2 days ago were reviewed. The wound is improving overall. There appears to be good granulation tissue. There is some darkened eschar type tissue around the edges of the wound. No surrounding erythema. Psychiatric: Orientation: alert and oriented x 3 Speech: normal rate/rhythm/volume of speech Results & Data ([facility]) Vital Signs (Past 12 Hours) Vital Signs Temp Pulse Resp BP Pulse Ox 03/15/21 08:10 36.5 C 63 16 168/79 H 95
--- NOTE | 2021-03-15 20:04 | Hospitalist Progress Note ---
Date of Service March 15, 2021 Assessment & Plan (1) Acute on chronic heart failure with preserved ejection fraction: (2) Wound of right lower extremity: Plan: Acute on chronic heart failure with preserved ejection fraction: H/O chronic diastolic heart failure and mitral stenosis Strict I's and O's Cardiology consulted Received IV diuretics Diuretics discontinued due to worsening renal function Patient not a candidate for hemodialysis due to significant comorbidities Appreciate nephrology input Patient transition to comfort measures Hypoxia: Most likely secondary to heart failure. Possible atelectasis, pneumonia Small right and moderate left pleural effusions Continue supplemental oxygen for comfort Received antibiotics Wound of right lower extremity: Large ischemic ulcer with eschar of her right lower extremity. Also with ulcerations of her right medial malleolus and her right medial thigh. 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 S/P debridement on 02/26 Patient is considered not a candidate for skin graft Cont medical management of PAD. Started tramadol PRN, cont Tylenol PRN. Vascular surgery consulted: Patient at high risk candidate for any endovascular treatment Appreciate orthopedics, Plastic surgery, ID input Continue local wound care Encourage protein intake, continue wound care, continue supportive management. Acute on chronic anemia: +ve [facility]; 03/03 FOBT negative in hospital. Per GI, her baseline Hb is 7 Appears to have multifactorial symptomatic anemia with iron deficiency present despite taking iron supplements. Per cardiology her goal Hb would be 9-10. S/P blood transfusion. Acute worsening of stage 3 chronic kidney disease: Hypokalemia Not a candidate for dialysis Appreciate nephrology input PAD (peripheral artery disease): Has a long-standing h/o PAD and has followed with [facility] Vascular surgery in the past. Has a h/o right SFA stenting and left AKA in 2010 due to progressive peripheral arterial disease. Was on Plavix 75 mg daily. HTN (hypertension): hold losartan 2/2 to kalin DVT prophylaxis: None 2/2 to vascular wounds and concern for bleeding Code Status DNR/DNI Disposition: comfort care measures. Admission and Anticipated Discharge Date Admission Date: February 16, 2021 Subjective Patient is seen and examined at bedside States having nausea, vomiting earlier today which currently resolved Denies any chest pain, dyspnea, dizziness, abdominal pain Offers no other complaints Review of Systems Review of Systems: All systems reviewed & are unremarkable except as noted in Subjective Physical Exam Physical Exam: Physical Exam: Vitals signs as noted above General Appearance: Obese, no apparent distress, chronically appearing Head: normocephalic, Atraumatic Eyes: normal inspection, EOMI Neck: supple, Trachea midline Respiratory/Chest: Decreased breath sounds, CTA, No accessory muscle use Cardiovascular: S1, S2, No murmur Abdomen/GI:Soft, Non tender, Bowel sounds present Extremities/Musculoskeletal:normal inspection, left BKA, large right lower extremity wound in dressing Neurologic/Psych:AAOX3, grossly no focal neurological deficits Skin: normal color, warm Results & Data Results & Data ([facility]) Vital Signs (Past 12 Hours) Vital Signs Temp Pulse Resp BP Pulse Ox 03/15/21 08:10 36.5 C 63 16 168/79 H 95 Laboratory Results Short CBC 03/15/21 Range/Units 07:35 Hgb 9.1 L (12.0-16.0) g/dL Hct 28.2 L (37-47) % BMP 03/15/21 07:43 Sodium 138 Potassium 4.4 Chloride 101 Carbon Dioxide 24 BUN 142 H Creatinine 5.53 H* Glucose 102 H Calcium 8.8
[2021-03-16] MEDS: GABAPENTIN 100 MG CAP PO SCH (05:54)
[2021-03-16 07:47] VITALS: BP 166/69; PULSE 60; TEMP 98.1; O2SAT 96
[2021-03-16] MEDS: DOCUSATE SODIUM 100 MG CAP PO SCH (08:14)
[2021-03-16] MEDS: METOPROLOL SUCC 50MG EXT REL TAB PO SCH (08:14)
--- NOTE | 2021-03-16 09:17 | Hospitalist Progress Note ---
Date of Service March 16, 2021 Assessment & Plan (1) Acute on chronic heart failure with preserved ejection fraction: (2) Wound of right lower extremity: Plan: Acute on chronic heart failure with preserved ejection fraction: H/O chronic diastolic heart failure and mitral stenosis Strict I's and O's Cardiology consulted Received IV diuretics Diuretics discontinued due to worsening renal function Patient not a candidate for hemodialysis due to significant comorbidities Appreciate nephrology input Patient transition to comfort measures Plan to be discharged on hospice care. Hypoxia: Most likely secondary to heart failure. Possible atelectasis, pneumonia Small right and moderate left pleural effusions Continue supplemental oxygen for comfort Received antibiotics Wound of right lower extremity: Large ischemic ulcer with eschar of her right lower extremity. Also with ulcerations of her right medial malleolus and her right medial thigh. 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 S/P debridement on 02/26 Patient is considered not a candidate for skin graft Cont medical management of PAD. Started tramadol PRN, cont Tylenol PRN. Vascular surgery consulted: Patient at high risk candidate for any endovascular treatment Appreciate orthopedics, Plastic surgery, ID input Continue local wound care Encourage protein intake, continue wound care, continue supportive management. Denies any pain. Acute on chronic anemia: [facility]; 03/03 FOBT negative in hospital. Per GI, her baseline Hb is 7 Appears to have multifactorial symptomatic anemia with iron deficiency present despite taking iron supplements. Per cardiology her goal Hb would be 9-10. S/P blood transfusion. Acute Kidney Injury on stage 3 chronic kidney disease: Hypokalemia Not a candidate for dialysis Appreciate nephrology input PAD (peripheral artery disease): Has a long-standing h/o PAD and has followed with [facility] Vascular surgery in the past. Has a h/o right SFA stenting and left AKA in 2010 due to progressive peripheral arterial disease. Was on Plavix 75 mg daily. HTN (hypertension): hold losartan 2/2 to kalin DVT prophylaxis: None 2/2 to vascular wounds and concern for bleeding Code Status DNR/DNI Disposition: comfort care measures. Hospice upon discharge Admission and Anticipated Discharge Date Admission Date: February 16, 2021 Subjective Patient is seen and examined at bedside States feeling well today Nausea, vomiting resolved Tolerating breakfast this morning Denies any chest pain, dyspnea, dizziness, abdominal pain Offers no other complaints Review of Systems Review of Systems: All systems reviewed & are unremarkable except as noted in Subjective Physical Exam Physical Exam: Physical Exam: Vitals signs as noted above General Appearance: Obese, no apparent distress, chronically appearing Head: normocephalic, Atraumatic Eyes: normal inspection, EOMI Neck: supple, Trachea midline Respiratory/Chest: Decreased breath sounds, CTA, No accessory muscle use Cardiovascular: S1, S2, No murmur Abdomen/GI:Soft, Non tender, Bowel sounds present Extremities/Musculoskeletal:normal inspection, left BKA, large right lower extremity wound in dressing Neurologic/Psych:AAOX3, grossly no focal neurological deficits Skin: normal color, warm Results & Data Results & Data ([facility]) Vital Signs (Past 12 Hours) Vital Signs Temp Pulse Resp BP Pulse Ox 03/16/21 07:45 36.7 C 60 16 166/69 H 96
--- NOTE | 2021-03-16 09:31 | Discharge Summary ---
Date of Service March 16, 2021 Admission HPI Per Admitting Provider Chief Complaint: SOB x 1 week. Primary Care Provider: Abner Kate This is a 85-year-old female who has significant past medical history of chronic heart failure with preserved ejection fraction, mitral valve stenosis, HTN, HLD, history of PAD/PVD status post left AKA and right SFA stenting, CKD stage III baseline creatinine 1.2-1.4, history of C. difficile, history of T2DM who presents to ED secondary to shortness of breath 1 week. Of significance patient was recently hospitalized on 01/29-02/06 at [facility] secondary to right lower extremity cellulitis treated initially with IV vancom ycin and cefepime and transition to oral cefdinir, MARIELA with a peak creatinine of 2.0 treated with IV fluid and wound care to right lower extremity vascular ulcers. Initially patient met sepsis criteria had significant leukocytosis which resolved with IV antibiotics. She also had 2 venous Dopplers negative for DVT and arterial Doppler of right lower extremity which revealed severe PAD. Hospitalization further complicated secondary to acute on chronic anemia in which she received 1 unit of PRBC. She was discharged to [facility] for acute rehab for which she has resided for the past 10 days. Daughter at bedside has visited her and over the past week has noted her to become increasingly short of breath. Upon discharge from [place] she was requiring 2 L of oxygen via nasal cannula and had maintained that up until yesterday where she required 4 L and this morning 5 L. 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 While in [facility] she has been unable to use her prosthetic secondary to increasing swelling to left residual limb. Over the past week patient admits to having increasing shortness of breath but she denies any cough, hemoptysis, URI symptoms, fever or orthopnea. She denies any recent chills, sweats, lightheadedness, dizziness, chest pain, palpitations, emesis, abdominal pain or diarrhea. She has had occasional nausea and dry heaving, but no vomiting. She also has black BMs but attributes this to being on iron. On 02/14 her stool was checked for blood which was positive. While at [facility] she declined GI work-up and requested just as needed transfusion. She did require additional 1 unit of PRBC while in [facility]. In ED patient remained hemodynamically stable. She required 5 L of O2 to maintain oxygen saturation. She had significant elevation of BUN and creatinine to 108 and 2.48, H&H 7.0 and 22.9, WBC 11.41,, K5.3, mag 3.1, proBNP greater than 35,000, procalcitonin 0.19. Her urinalysis negative for infection but did reveal granular casts, urine osmolality 342, total protein elevated at 6.8 and protein creatinine ratio 1.6. Chest x-ray revealed left retrocardiac opacity which may represent atelectasis, pneumonia, layering effusion and/or aspiration. Left phrenic angle blunting likely secondary to a small to moderate pleural effusion. In ED she received 500 mL IV fluid as well as IV cefepime. Admission Exam Per Admitting Provider Physical Exam Physical Exam: Constitutional: WD/WN, elderly, chronically ill appearing F, vitals as above, tachypneic, sitting up in bed, pleasant, conversing easily Head: Normocephalic, Atraumatic Eyes: PERRL, conjunctivae normal, anicteric sclerae ENMT: external ear and nose normal, oropharynx normal Neck: trachea midline, no thyromegaly normal visual inspection Respiratory: increased respiratory effort, decreased breath sounds to L lung base, referred expiratory wheeze, no rales, rhonchi note. No accessory muscle use, on 5 o2 via NC Cardiovascular: RRR, 1/6 ARANZA noted RUSB, RLE proximal thigh pitting edema, RLE initially compressed with jean bandage, noted vascular wounds, no edema to pretibial Vessels: no JVD or carotid bruit Chest: normal inspection of chest Abdomen: normal bowel sounds, soft, nontender, no hepatosplenomegaly Musculoskeletal: no cyanosis or clubbing, extremities motor strength 5/5 Skin: no rashes, warm and dry normal turgor Neurologic: PERRL, EOMI, accommodation nl, no face palsy, no dysarthria CN's II-XI intact bilaterally and moves all extremities Psychiatric: A+Ox3, euthymic affect Lymphatic: no cervical or axillary lymphadenopathy : laguerre with yellow urine Principal Diagnosis Acute on chronic heart failure with preserved ejection fraction Hypoxia Right lower extremity wound Acute kidney injury Peripheral artery disease Discharge Data Allergies Allergy/AdvReac Type Severity Reaction Status Date / Time No Known Allergies Allergy Unverified 02/16/21 08:30 Consultations 02/16/21 11:42 ED Decision to Admit Stat 02/16/21 12:36 Consult Nephrology Routine 02/16/21 13:36 Consult Cardiology Routine 02/16/21 13:47 Consult Gastroenterology Routine 02/17/21 10:39 Consult Orthopedic Surgery Routine 02/17/21 11:30 Consult Vascular Surgery Routine 02/20/21 14:31 Consult Orthopedic Surgery Routine 02/22/21 12:25 Consult Plastic Surgery Routine 02/27/21 07:47 Consult Infectious Diseases Routine 03/10/21 13:43 Consult Palliative Care Routine 03/14/21 20:09 Consult Palliative Care Routine Procedures Performed Operation Date: 02/26/21 07:30 Actual Procedures p Incision and Debridement Skin, Subcutanous, and Fascia Extensive Right Lower Leg Circumferential: 22x25.5x1.4cm, Incision and Debridement Skin, Subcutanous, and Fascia Medial Ankle: 2.9kmw9k6.1cm, Incision and Debridement Skin, Subcutanous, and Fascia Anterior Medial Ankle: 1.5x1x0.1cm, Incision and Debridement Skin, Subcutanous, and Fascia Anterior Lateral Ankle: 1x1x0.1, Incision and Debridement Skin, Subcutanous, and Fascia Anteral Ankle: 1.6x1.6x0.1cm (Right) - Kahlil Mazariegos DO Ordered Studies 02/16/21 13:47 US renal/blad retro comp Routine 02/17/21 12:13 US arterial duplex LE RT Urgent 02/21/21 21:29 MR lower leg RT wo con Routine Hospital Course (1) Acute on chronic heart failure with preserved ejection fraction: (2) Wound of right lower extremity: Acute on chronic heart failure with preserved ejection fraction: H/O chronic diastolic heart failure and mitral stenosis Strict I's and O's Cardiology consulted Received IV diuretics Diuretics discontinued due to worsening renal function Patient not a candidate for hemodialysis due to significant comorbidities Appreciate nephrology input Patient transition to comfort measures Plan to be discharged on hospice care. Hypoxia: Most likely secondary to heart failure. Possible atelectasis, pneumonia Small right and moderate left pleural effusions Continue supplemental oxygen for comfort Received antibiotics Wound of right lower extremity: Large ischemic ulcer with eschar of her right lower extremity. Also with ulcerations of her right medial malleolus and her right medial thigh. 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 S/P debridement on 02/26 Patient is considered not a candidate for skin graft Cont medical management of PAD. Started tramadol PRN, cont Tylenol PRN. Vascular surgery consulted: Patient at high risk candidate for any endovascular treatment Appreciate orthopedics, Plastic surgery, ID input Continue local wound care Encourage protein intake, continue wound care, continue supportive management. Denies any pain. Acute on chronic anemia: +ve [facility] 02/[facility]; 03/03 FOBT negative in hospital. Per GI, her baseline Hb is 7 Appears to have multifactorial symptomatic anemia with iron deficiency present despite taking iron supplements. Per cardiology her goal Hb would be 9-10. S/P blood transfusion. Acute Kidney Injury on stage 3 chronic kidney disease: Hypokalemia Not a candidate for dialysis Appreciate nephrology input PAD (peripheral artery disease): Has a long-standing h/o PAD and has followed with [facility] Vascular surgery in the past. Has a h/o right SFA stenting and left AKA in 2010 due to progressive peripheral arterial disease. Was on Plavix 75 mg daily. HTN (hypertension): hold losartan 2/2 to mariela DVT prophylaxis: None 2/2 to vascular wounds and concern for bleeding Code Status DNR/DNI Disposition: comfort care measures. Hospice upon discharge Total Time Total Time Spent Total Time Spent (In Minutes): 40 minutes Discharge Plan Discharge Items Patient Disposition: Transfer [facility] Fac Reason For Visit: ACUTE HYPOXIC RESP FAILURE, MARIELA, ANEMIA Discharge Diagnosis: Acute on chronic heart failure with preserved ejection fraction Hypoxia Right lower extremity wound Acute kidney injury Peripheral artery disease Activity: Per Instructions section Non-emergency contact: Primary Care Provider Call non-emergency contact if: you have any medication questions, your symptoms worsen, your pain is concerning for you and you have a fever Follow-up/Referrals: [facility] [Primary Care Provider] - Diet: Heart Healthy and Low Sodium (2gm) Addtl Attending Provider Instructions: Daily dressing changes on the right lower leg Use of Santyl on the necrotic areas covered with adaptic, 4x4's OR ABD's, kerlix wrap. Weightbearing for transferrs only. Pt must be seen by [facility] at least weekly for wound checks. Follow up with Dr Mazariegos's clinic on an as-needed basis or if the nursing facility or wound clinic feel the wound is worsening and potentially requires almeida rgical intervention. Addtl Special Certificate Dictator Provider Instructions: Follow up with [facility] for further management Pending Studies at Discharge: No Stand-Alone Forms: [facility] Skilled Items Patient informed of condition?: Yes DNR: Yes Discharge Level of Care: Skilled Communicable Disease: No Discharge Prognosis: Stable Lines: None Urinary Catheter: No Medications and DC Order Prescriptions: New docusate sodium 100 mg Capsule 100 mg PO BID PRN (Reason: Constipation) Qty: 30 RF: 0 Santyl 250 unit/gram Ointment 1 applic EXT DAILY PRN (Reason: wound care) Qty: 90 RF: 0 ondansetron HCl [Zofran] 4 mg tablet 4 mg PO DAILY PRN (Reason: nausea and vomiting) 10 Days Qty: 10 RF: 0 Continued ipratropium-albuterol 0.5 mg-3 mg(2.5 mg base)/3 mL Solution For Nebulization 3 ml INHALATION Q6H RF: 0 atorvastatin [Lipitor] 10 mg tablet 10 mg PO QAM RF: 0 metoprolol succinate [Toprol XL] 100 mg tablet extended release 24 hr 100 mg PO QAM RF: 0 cyanocobalamin (vitamin B-12) [Vitamin B-12] 1,000 mcg Tablet 1,000 mcg PO QAM RF: 0 allopurinol [Zyloprim] 100 mg tablet 100 mg PO QAM RF: 0 tramadol [Ultram] 50 mg Tablet 50 mg PO Q4H RF: 0 amlodipine [Norvasc] 10 mg tablet 10 mg PO QAM RF: 0 ferrous sulfate [FeroSul] 325 mg (65 mg iron) tablet 325 mg PO BID RF: 0 gabapentin [Neurontin] 100 mg capsule 100 mg PO Q8H RF: 0 Ocutabs Tablet 1 tab PO BID RF: 0 cholecalciferol (vitamin D3) [Vitamin D3] 50 mcg (2,000 unit) Capsule 50 mcg PO QAM RF: 0 Discontinued losartan [Cozaar] 50 mg tablet 50 mg PO Q12 RF: 0 furosemide [Lasix] 40 mg tablet 40 mg PO QAM RF: 0 clopidogrel [Plavix] 75 mg tablet 75 mg PO QAM RF: 0 enoxaparin [Lovenox] 30 mg/0.3 mL Syringe 30 mg SUBCUT HS RF: 0 Saccharomyces boulardii [Florastor] 250 mg Capsule 250 mg PO QAM RF: 0 Discharge Orders: Discharge Order (Routine); Ordered 03/16/21 Ordered By: Jenaro Montano Admission Data Admit Date/Time: 02/16/21 12:35 Attending Provider: Jenaro Montano Admit Provider: Zhanna Flor Primary Care Provider: [facility] Other Providers: Steven Bernstein ; Kartik Doyle ; Steven Paz at [place] ; [place],[facility] [place] ; Quoc Chaudhary ; Anjum Valencia ; Zhanna Flor ; Prakash Haddad ; Irving Vaz ; Marley Dc ; Ralph Guevara ; Edwin Henderson ; Kahlil Mazariegos ; Nicole Nolen ; Richie Lucas ; Garland Miller ; Randy Lutz I. ; Dejon Sierra II ; Skye Harris ; Elder Drake ; Ruddy Hall ; Milli Fajardo
== END 2021-03-16 11:23 | disposition hospice, inpatient (51) | DRG 264 ==
LOC: ED 07:12 → 2S 12:35 → SUATTDRO 12:35 → 2S 02-17 01:19 → 3W 03-14 10:58